=== PATIENT | male | born 1975 | race Caucasian/White ===

== ENCOUNTER 2016-05-18 17:39 | Inpatient (IN) | payer BC ==
[~2016-05-18] VITALS: Ht 188 cm; Wt 150.9 kg
[2016-05-18] MEDS ORDERED: SODIUM CHLORIDE 0.9% 1000ML 500 ML IV STA (18:24)
[2016-05-18] MEDS ORDERED: SODIUM CHLORIDE 0.9% 1000ML 1,000 ML IV STA (18:24)
[2016-05-18] MEDS ORDERED: PANTOprazole INJ 80 MG in DEXTROSE 5% 100ML IV ONE (18:45)
[2016-05-18] MEDS ORDERED: OPTIRAY 320 IV PRN (18:45)
[2016-05-18 18:49] LABS: BASO % 0.2 %; BASO ABS # 0.02 K/uL (0-0.2); COMPLETE YES; EOS % 0.7 %; HEMATOCRIT 26.2 % (42-52); IG% 0.2 %; LYMPH % 21.8 %; LYMPH ABS # 2.76 K/uL (1.2-3.4); MEAN CELL VOLUME 80.4 fL (80-100); MEAN CORPUSCULAR HEMOGLOBIN 27.6 pg (25-34); MEAN CORPUSCULAR HGB CONC 34.4 g/dl (32-36); MEAN PLATELET VOLUME 10.8 fL (7.4-10.4); MONO % 8.7 %; NEUT % 68.4 %; PLATELET COUNT 287 K/uL (130-400); RED BLOOD COUNT 3.26 M/uL (4.7-6.1); WHITE BLOOD COUNT 12.66 K/uL (4.8-10.8)
[2016-05-18 18:54] LABS: PARTIAL THROMBOPLASTIN RATIO 0.8
[2016-05-18] MEDS ORDERED: PANTOprazole INJ 40 MG in DEXTROSE 5% 100ML IV SCH (19:00)
[2016-05-18 19:10] LABS: BUN/CREATININE RATIO 25.4 (10-20); CREATININE 0.8 mg/dl (0.60-1.40); POTASSIUM 4.1 mmol/L (3.5-5.1)
--- NOTE | 2016-05-18 19:21 | EMERGENCY ROOM VISIT NOTE ---
History Report prepared by Griselda: Dejah Rees Under the Supervision of: Dr. Norman Blackwell M.D. First contact with patient: 18:15 Chief Complaint: REFERRED BY DOCTOR Stated Complaint: DEHYDRATION, BLOODY DIARRHEA History of Present Illness The patient is a 41 year old male who presents to the Emergency Room with complaints of worsening bloody diarrhea with onset two days ago. Four days ago, the patient started to feel achy and weak. The patient had been taking ibuprofen several days earlier due to knee pain. Starting two days ago, the patient began to notice some blood in his stool. Along with the blood in his stool, the patient states that he feels as if his heart rate increases and he feels short of breath when he completes light physical activities, such as walking. He feels fatigued. He notes that he has not been eating. This afternoon , the patient has had increased frequency in the episodes of bloody stools. The patient notes that the stool is purple in color. For these symptoms, the patient saw his PCP today. The patient's hemoglobin has dropped and he has an elevated white count. The patient denies abdominal pain, feeling light headed or dizzy, taking blood thinners, recent contact with people who have C difficile. Source of History: patient Onset: two days ago Position: abdomen Quality: other (bloody diarrhea) Timing: worsening Associated Symptoms: + SOB, + fatigue, No abdominal pain Note: He denies feeling light headed or dizzy. The patient notes that he has had some right eye disturbance as well, seeing a hazy shadow, which he believes is due to dehydration. Along with the blood in his stool, the patient states that feels as if his heart rate increases and he feels short of breath when he completes light physical activities, such as walking. Review of Systems See HPI for pertinent positives & negatives. A total of 10 systems reviewed and were otherwise negative. Past Medical & Surgical Medical Problems: (1) Chronic venous insufficiency (2) Seasonal allergies Family History Cancer Diabetes mellitus Hypertension Social History Smoking Status: Never Smoker Marital Status: Housing Status: lives with family Occupation Status: employed Current/Historical Medications No Active Prescriptions or Reported Meds Allergies Coded Allergies: Clavulanic Acid (Unverified Allergy, Mild, 03/25/09) Penicillins (Unverified Allergy, Mild, 05/18/16) Physical Exam Vital Signs Date Time Temp Pulse Resp B/P Pulse Ox O2 Delivery O2 Flow Rate FiO2 05/18/16 22:06 99 18 151/75 97 Room Air 05/18/16 19:46 93 17 142/72 100 Room Air 05/18/16 19:14 102 05/18/16 17:49 36.7 118 20 124/68 98 Room Air Physical Exam GENERAL: Patient is in no acute distress. HEENT: No acute trauma, normocephalic atraumatic, mucous membranes moist, no nasal congestion, no scleral icterus. NECK: No stridor, no adenopathy, no meningismus, trachea is midline. LUNGS: Clear to auscultation bilaterally, no wheeze, no rhonchi, breath sounds equal. HEART: Tachycardic with a subtle systolic murmur, rhythm is regular. ABDOMEN: Soft, nontender, bowel sounds positive, no peritonitis. EXTREMITIES: No cyanosis or edema, full range of motion of all the joints without pain or difficulty, no signs for acute trauma. NEUROLOGIC: Oriented x 3, no acute motor or sensory deficits, no focal weakness. SKIN: No rash, no jaundice, no diaphoresis. Medical Decision & Procedures ER Provider Diagnostic Interpretation: CT results as stated below per my review and radiologist interpretation: CT ABD/PELVIS IV AND ORAL CONT CLINICAL HISTORY: Abdominal pain. Bloody stools. COMPARISON STUDY: 12/03/2014 TECHNIQUE: Following the IV administration of 115 mL of Optiray-320, CT scan of the abdomen and pelvis was performed from the lung bases to the proximal femurs. Images are reviewed in the axial, sagittal, and coronal planes. The IV "lobe part" during injection, and there is diminished contrast enhancement. CT DOSE: 2407.63 mGy.cm FINDINGS: Lower chest: The heart is normal in size and configuration, without pericardial effusion. The lung bases and pleural spaces are clear. Liver: The contrast-enhanced liver is normal in size, contour, and attenuation. There is no intrahepatic biliary ductal dilatation. The hepatic veins and portal veins are patent. Gallbladder: Unremarkable. Spleen: Normal in size and attenuation. Pancreas: Unremarkable. Adrenal glands: Unremarkable. Kidneys: There is a 12 mm right renal hypodensity, likely representing a cyst. There is no hydronephrosis. Bowel: There are no transition zones indicate bowel obstruction. The appendix appears normal. There is no acute diverticulitis. There is a large ventral hernia containing portions of ileum and colon. There are no current obstructive changes. Peritoneum: There is no intraperitoneal free air or abdominal ascites. There is small fat-containing left inguinal hernia. Vasculature: The abdominal aorta is normal in course and caliber. Adenopathy: None. Pelvic viscera: The bladder, and pelvic viscera are unremarkable. Skeletal structures: No destructive osseous lesions are seen. IMPRESSION: 1. No evidence of bowel obstruction. No evidence of free air 2. Large ventral hernia containing portions of ileum and colon. No current evidence of obstruction 3. Normal appendix Electronically signed by: Selvin Brown M.D. 05/18/2016 9:19 PM Dictated Date/Time: 05/18/2016 9:11 PM Laboratory Results 05/18/16 18:21 Red Blood Count 3.26, Mean Corpuscular Volume 80.4, Mean Corpuscular Hemoglobin 27.6, Mean Corpuscular Hemoglobin Concent 34.4, Mean Platelet Volume 10.8, Neutrophils (%) (Auto) 68.4, Lymphocytes (%) (Auto) 21.8, Monocytes (%) (Auto) 8.7, Eosinophils (%) (Auto) 0.7, Basophils (%) (Auto) 0.2, Neutrophils # (Auto) 8.67, Lymphocytes # (Auto) 2.76, Monocytes # (Auto) 1.10, Eosinophils # (Auto) 0.09, Basophils # (Auto) 0.02 05/18/16 18:21 Test 05/18/16 18:21 White Blood Count 12.66 K/uL (4.8-10.8) Red Blood Count 3.26 M/uL (4.7-6.1) Hemoglobin 9.0 g/dL (14.0-18.0) Hematocrit 26.2 % (42-52) Mean Corpuscular Volume 80.4 fL (80-100) Mean Corpuscular Hemoglobin 27.6 pg (25-34) Mean Corpuscular Hemoglobin Concent 34.4 g/dl (32-36) Platelet Count 287 K/uL (130-400) Mean Platelet Volume 10.8 fL (7.4-10.4) Neutrophils (%) (Auto) 68.4 % Lymphocytes (%) (Auto) 21.8 % Monocytes (%) (Auto) 8.7 % Eosinophils (%) (Auto) 0.7 % Basophils (%) (Auto) 0.2 % Neutrophils # (Auto) 8.67 K/uL (1.4-6.5) Lymphocytes # (Auto) 2.76 K/uL (1.2-3.4) Monocytes # (Auto) 1.10 K/uL (0.11-0.59) Eosinophils # (Auto) 0.09 K/uL (0-0.5) Basophils # (Auto) 0.02 K/uL (0-0.2) RDW Standard Deviation 39.0 fL (36.4-46.3) RDW Coefficient of Variation 13.5 % (11.5-14.5) Immature Granulocyte % (Auto) 0.2 % Immature Granulocyte # (Auto) 0.02 K/uL (0.00-0.02) Prothrombin Time 11.0 SECONDS (9.0-12.0) Prothromb Time International Ratio 1.0 (0.9-1.1) Activated Partial Thromboplast Time 21.5 SECONDS (21.0-31.0) Partial Thromboplastin Ratio 0.8 Anion Gap 10.0 mmol/L (3-11) Est Creatinine Clear Calc Drug Dose 175.2 ml/min Estimated GFR () 126.8 Estimated GFR (Non- 109.4 BUN/Creatinine Ratio 25.4 (10-20) Calcium Level 8.0 mg/dl (8.5-10.1) Total Bilirubin 0.5 mg/dl (0.2-1) Direct Bilirubin 0.1 mg/dl (0-0.2) Aspartate Amino Transf (AST/SGOT) 16 U/L (15-37) Alanine Aminotransferase (ALT/SGPT) 25 U/L (12-78) Alkaline Phosphatase 50 U/L (45-117) Total Protein 6.3 gm/dl (6.4-8.2) Albumin 3.3 gm/dl (3.4-5.0) Laboratory results reviewed by me. Medications Administered Medications (Trade) Dose Ordered Sig/Nakul Route Start Time Stop Time Status Last Admin Dose Admin Sodium Chloride 500 ml @ 999 mls/hr Q31M STAT IV 05/18/16 18:24 05/18/16 18:54 DC 05/18/16 18:59 999 MLS/HR Sodium Chloride 1,000 ml @ 200 mls/hr Q5H STAT IV 05/18/16 18:24 05/18/16 23:23 DC 05/18/16 18:24 200 MLS/HR Pantoprazole Sodium 80 mg/ Dextrose 120 ml @ 480 mls/hr NOW ONCE IV 05/18/16 18:45 05/18/16 18:59 DC 05/18/16 18:59 480 MLS/HR Pantoprazole Sodium/Dextrose (Protonix Inj/D5 100ml) 100 ml @ 20 mls/hr Q5H IV 05/18/16 19:00 05/18/16 23:59 DC 05/18/16 19:42 20 MLS/HR ECG Indication: SOB/dyspnea Rate (beats per minute): 98 Rhythm: sinus rhythm Findings: PAC, no acute ischemic change ED Course 1817: The patient was evaluated in room B9. A complete history and physical exam was performed. 1824: Sodium Chloride 1000 ml @ 200 mls/hr IV, Sodium Chloride 500 ml @ 999 mls/ hr IV 1845: Pantoprazole Sodium 80 mg/ Dextrose 120 ml @ 480 mls/ hr IV 1900: Pantoprazole Sodium 40 mg/ Dextrose 100 ml @ 20 mls/ hr IV 2030: I updated the patient; he is doing well. 2142: Upon reexamination the patient is doing well. I discussed results and treatment plan with the patient. He verbalizes agreement and understanding. The patient will be evaluated for further management. 2148: I discussed the case with Dr. De La Fuente ([facility]) ; he will further evaluate the patient. Medical Decision The patient is a 41 year old male who presents to the ED with complaints of bloody diarrhea. Differential diagnoses considered include: colitis, diverticulitis, bacterial intestinal infection, viral infection, dehydration, electrolyte imbalance, anemia, C difficile colitis, upper or lower GI bleeding. There is a mild leukocytosis which could be consistent with infection or just the stress of the situation. The patient is anemic with a hemoglobin of around 9. Stool testing does show heme-positive stool as per the nursing staff. The stool was maroon in color. Stool cultures are pending. Stool C. difficile was negative. There was no significant electrolyte abnormality, kidney failure or hepatitis. There was no coagulopathy. Abdominal and pelvis CT does not show evidence for diverticulitis or colitis. No acute surgical process. The patient received IV saline, IV Zofran and IV Protonix, he is resting comfortably. The patient requires admission/observation. The source for his bleeding needs to be identified. He may require packed red blood cells if his hemoglobin drops further. His hemoglobin may in fact drop when he is properly hydrated. I did speak with him and with case management. The on-call hospitalist was consulted. Consults Time Called: 2144 Consulting Physician: Dr. De La Fuente ([facility]) Returned Call: 2148 I discussed the case with Dr. De La Fuente ([facility]); he will further evaluate the patient. Impression Primary Impression: GI bleed Additional Impression: Anemia Scribe Attestation The scribe's documentation has been prepared under my direction and personally reviewed by me in its entirety. I confirm that the note above accurately reflects all work, treatment, procedures, and medical decision making performed by me. Departure Information Dispostion Being Evaluated By Hospitalist Prescriptions No Active Prescriptions or Reported Meds Referrals Zaid Walker DO (PCP) Patient Instructions My [facility] Problem Qualifiers
--- NOTE | 2016-05-18 21:21 | DIAGNOSTIC IMAGING REPORT ---
CT ABD/PELVIS IV AND ORAL CONT CLINICAL HISTORY: Abdominal pain. Bloody stools. COMPARISON STUDY: 12/03/2014 TECHNIQUE: Following the IV administration of 115 mL of Optiray-320, CT scan of the abdomen and pelvis was performed from the lung bases to the proximal femurs. Images are reviewed in the axial, sagittal, and coronal planes. The IV "lobe part" during injection, and there is diminished contrast enhancement. CT DOSE: 2407.63 mGy.cm FINDINGS: Lower chest: The heart is normal in size and configuration, without pericardial effusion. The lung bases and pleural spaces are clear. Liver: The contrast-enhanced liver is normal in size, contour, and attenuation. There is no intrahepatic biliary ductal dilatation. The hepatic veins and portal veins are patent. Gallbladder: Unremarkable. Spleen: Normal in size and attenuation. Pancreas: Unremarkable. Adrenal glands: Unremarkable. Kidneys: There is a 12 mm right renal hypodensity, likely representing a cyst. There is no hydronephrosis. Bowel: There are no transition zones indicate bowel obstruction. The appendix appears normal. There is no acute diverticulitis. There is a large ventral hernia containing portions of ileum and colon. There are no current obstructive changes. Peritoneum: There is no intraperitoneal free air or abdominal ascites. There is small fat-containing left inguinal hernia. Vasculature: The abdominal aorta is normal in course and caliber. Adenopathy: None. Pelvic viscera: The bladder, and pelvic viscera are unremarkable. Skeletal structures: No destructive osseous lesions are seen. IMPRESSION: 1. No evidence of bowel obstruction. No evidence of free air 2. Large ventral hernia containing portions of ileum and colon. No current evidence of obstruction 3. Normal appendix Electronically signed by: Selvin Brown M.D. 05/18/2016 9:19 PM Dictated Date/Time: 05/18/2016 9:11 PM
[2016-05-18] MEDS ORDERED: ACETAMINOPHEN 325 MG TAB PO PRN (22:15)
[2016-05-18] MEDS ORDERED: ONDANSETRON INJ 2 MG/ML 2 ML VIAL IV PRN (22:15)
[2016-05-18] MEDS ORDERED: ACETAMINOPHEN IV 100 ML IV PRN (22:15)
[2016-05-18] MEDS ORDERED: ZOLPIDEM TARTRATE 5 MG TAB PO PRN (22:15)
[2016-05-18] MEDS ORDERED: NSS + 20MEQ KCL 1000ML 1,000 ML IV SCH (23:00)
[2016-05-18 23:04] VITALS: BP 139/77; PULSE 103; TEMP 37.3; O2SAT 98; Ht 188 cm; Wt 150.9 kg
[2016-05-18 23:09] LABS: HEMATOCRIT 23.2 % (42-52)
--- NOTE | 2016-05-18 23:45 | History and Physical ---
History & Physical Date & Time of Service: May 18, 2016 at 23:45 Chief Complaint: Anemia, Gi Bleed Primary Care Physician: Zaid Walker DO History of Present Illness Source: patient The patient is a 41-year-old male who presents to the emergency department with complaint of worsening bloody diarrhea that began about 2 days prior to arrival. He reports that 4 days ago he began to feel achy and weak, and prior to that had been taking ibuprofen for several days due to knee pain. Today the patient began to have lightheadedness, and palpitations when doing light physical activity, has felt progressively more fatigued. Patient notes that his stools purple color. He saw his PCP today, who advised to come to emergency department for assessment. Past Medical/Surgical History Medical Problems: (1) Chronic venous insufficiency Status: Chronic (2) Seasonal allergies Status: Chronic Family History Cancer Diabetes mellitus Hypertension Social History Smoking Status: Never Smoker Smokeless Tobacco Use: No Alcohol Use: none Drug Use: none Marital Status: Housing status: lives with family Occupational Status: employed Multi-Drug Resistant Organisms History of MDRO: No Allergies Coded Allergies: Clavulanic Acid (Unverified Allergy, Mild, 03/25/09) Penicillins (Unverified Allergy, Mild, 05/18/16) Home Medications No Active Prescriptions or Reported Meds Review of Systems The patient denies chest pain, cough, lower extremity swelling, vision change, hearing change, sore throat, fevers, chills, sweats, weight change, vomiting, abdominal pain, pelvic pain, blood in urine or stool, dysuria, urinary frequency or urgency, headache, memory loss, rash, imbalance, focal weakness, numbness or tingling in arms or legs, arthralgias or myalgias, back or neck pain , night sweats, or allergy symptoms. The review of systems is otherwise negative other than for that already noted above, and at least 10 systems have been reviewed. Physical Exam Vital Signs Date Time Temp Pulse Resp B/P Pulse Ox O2 Delivery O2 Flow Rate FiO2 05/18/16 23:04 37.3 103 18 139/77 98 Room Air 05/18/16 22:06 99 18 151/75 97 Room Air 05/18/16 19:46 93 17 142/72 100 Room Air 05/18/16 19:14 102 05/18/16 17:49 36.7 118 20 124/68 98 Room Air The patient is awake, well-developed and adequately nourished, alert and oriented 3, normocephalic and atraumatic, lying in bed and in no acute distress. HEENT--PERRL, EOMI, mucous membranes and oropharynx moist. Neck--supple, no JVD or bruits, thyroid normal, trachea midline, no adenopathy. Heart--normal S1 and S2, no extra beats, no murmurs, rubs or gallops. Lungs--clear bilaterally with good air movement, no respiratory distress, no accessory muscle use. Abdomen--normal bowel sounds and soft, nontender and nondistended, non- reducible ventral hernia. Extremities--no cyanosis, clubbing or edema. There are good distal pulses b/l. Dermatologic--normal skin turgor, normal color, warm and dry, no abnormal lymph nodes, no rash. Neurologic--cranial nerves II through XII grossly intact, motor and sensory examination normal. Rheumatologic--normal range of motion, nontender, muscles and joints. Psychiatric--normal affect. Diagnostics Laboratory Results Results Past 24 Hours Test 05/18/16 18:21 05/18/16 23:00 Range/Units White Blood Count 12.66 4.8-10.8 K/uL Red Blood Count 3.26 4.7-6.1 M/uL Hemoglobin 9.0 8.0 14.0-18.0 g/dL Hematocrit 26.2 23.2 42-52 % Mean Corpuscular Volume 80.4 80-100 fL Mean Corpuscular Hemoglobin 27.6 25-34 pg Mean Corpuscular Hemoglobin Concent 34.4 32-36 g/dl Platelet Count 287 130-400 K/uL Mean Platelet Volume 10.8 7.4-10.4 fL Neutrophils (%) (Auto) 68.4 % Lymphocytes (%) (Auto) 21.8 % Monocytes (%) (Auto) 8.7 % Eosinophils (%) (Auto) 0.7 % Basophils (%) (Auto) 0.2 % Neutrophils # (Auto) 8.67 1.4-6.5 K/uL Lymphocytes # (Auto) 2.76 1.2-3.4 K/uL Monocytes # (Auto) 1.10 0.11-0.59 K/uL Eosinophils # (Auto) 0.09 0-0.5 K/uL Basophils # (Auto) 0.02 0-0.2 K/uL RDW Standard Deviation 39.0 36.4-46.3 fL RDW Coefficient of Variation 13.5 11.5-14.5 % Immature Granulocyte % (Auto) 0.2 % Immature Granulocyte # (Auto) 0.02 0.00-0.02 K/uL Prothrombin Time 11.0 9.0-12.0 SECONDS Prothromb Time International Ratio 1.0 0.9-1.1 Activated Partial Thromboplast Time 21.5 21.0-31.0 SECONDS Partial Thromboplastin Ratio 0.8 Sodium Level 136 136-145 mmol/L Potassium Level 4.1 3.5-5.1 mmol/L Chloride Level 101 98-107 mmol/L Carbon Dioxide Level 25 21-32 mmol/L Anion Gap 10.0 3-11 mmol/L Blood Urea Nitrogen 20 7-18 mg/dl Creatinine 0.80 0.60-1.40 mg/dl Est Creatinine Clear Calc Drug Dose 175.2 ml/min Estimated GFR () 126.8 Estimated GFR (Non- 109.4 BUN/Creatinine Ratio 25.4 10-20 Random Glucose 142 70-99 mg/dl Calcium Level 8.0 8.5-10.1 mg/dl Total Bilirubin 0.5 0.2-1 mg/dl Direct Bilirubin 0.1 0-0.2 mg/dl Aspartate Amino Transf (AST/SGOT) 16 15-37 U/L Alanine Aminotransferase (ALT/SGPT) 25 12-78 U/L Alkaline Phosphatase 50 45-117 U/L Total Protein 6.3 6.4-8.2 gm/dl Albumin 3.3 3.4-5.0 gm/dl Microbiology Results 05/18/16 Shiga Toxin Test, Received Pending 05/18/16 Stool Culture, Received Pending 05/18/16 C.difficile Toxin B Gene (PCR) - Final, Complete No C. difficile toxin B gene detected Diagnostic Radiology Patient Name: MICKY LEWIS Unit Number: [id number] Dictated: 05/18/162110 Transcribed: 05/18/162110 ARG Printed Date/Time: [~ rep prt dt]/[~ rep prt tm] [~ rep ct labl] - [~ rep ct ivnm] [facility] [place] [address] Dictated: 05/18/162110 Transcribed: 05/18/162110 ARG Printed Date/Time: [~ rep prt dt]/[~ rep prt tm] [~ rep ct labl] - [~ rep ct ivnm] [~ rep ct add3]] CT ABD/PELVIS IV AND ORAL CONT CLINICAL HISTORY: Abdominal pain. Bloody stools. COMPARISON STUDY: 12/03/2014 TECHNIQUE: Following the IV administration of 115 mL of Optiray-320, CT scan of the abdomen and pelvis was performed from the lung bases to the proximal femurs. Images are reviewed in the axial, sagittal, and coronal planes. The IV "lobe part" during injection, and there is diminished contrast enhancement. CT DOSE: 2407.63 mGy.cm FINDINGS: Lower chest: The heart is normal in size and configuration, without pericardial effusion. The lung bases and pleural spaces are clear. Liver: The contrast-enhanced liver is normal in size, contour, and attenuation. There is no intrahepatic biliary ductal dilatation. The hepatic veins and portal veins are patent. Gallbladder: Unremarkable. Spleen: Normal in size and attenuation. Pancreas: Unremarkable. Adrenal glands: Unremarkable. Kidneys: There is a 12 mm right renal hypodensity, likely representing a cyst. There is no hydronephrosis. Bowel: There are no transition zones indicate bowel obstruction. The appendix appears normal. There is no acute diverticulitis. There is a large ventral hernia containing portions of ileum and colon. There are no current obstructive changes. Peritoneum: There is no intraperitoneal free air or abdominal ascites. There is small fat-containing left inguinal hernia. Vasculature: The abdominal aorta is normal in course and caliber. Adenopathy: None. Pelvic viscera: The bladder, and pelvic viscera are unremarkable. Skeletal structures: No destructive osseous lesions are seen. IMPRESSION: 1. No evidence of bowel obstruction. No evidence of free air 2. Large ventral hernia containing portions of ileum and colon. No current evidence of obstruction 3. Normal appendix Electronically signed by: Selvin Brown M.D. 05/18/2016 9:19 PM Dictated Date/Time: 05/18/2016 9:11 PM The status of this report is Signed. Draft = Not yet reviewed or approved by Radiologist. Signed = Reviewed and approved by Radiologist. <AttendingPhy></AttendingPhy> <FamilyPhy>Zaid Walker, DO</FamilyPhy> < PrimaryPhy>Zaid Walker, DO</PrimaryPhy> <UnitNumber>[id number]</ UnitNumber> <VisitNumber>[id number]</VisitNumber> <PatientName>MICKY LEWIS</PatientName> <DateOfBirth>1975</DateOfBirth> <Location>[facility]</ Location> <ServiceDate>05/18/16</ServiceDate> <MNE>ESINDI</MNE> <OrderingPhy> Norman Blackwell M.D.</OrderingPhy> <OrderingPhyMNE>f rep ord dr stephen</ OrderingPhyMNE> <DictatingPhyMNE>f rep dict dr stephen</DictatingPhyMNE> <CCListMNE> f rep ct zafar</CCListMNE> <AdmittingPhyMNE>f pt admit dr stephen</AdmittingPhyMNE> < AttendingPhyMNE>f pt attend dr stephen</AttendingPhyMNE> <ConsultingPhyMNE>f pt consult dr stephen</ConsultingPhyMNE> <FamilyPhyMNE>f pt fam dr stephen</FamilyPhyMNE> <OtherPhyMNE>f pt other dr stephen</OtherPhyMNE> < PrimaryPhyMNE>f pt prim care dr stephen</PrimaryPhyMNE> <ReferringPhyMNE>f pt referring dr stephen</ReferringPhyMNE> EKG EKG shows normal sinus rhythm at 98 bpm, PACs, no acute ST-T changes. Impression Assessment and Plan Upper GI bleed secondary to NSAIDs causing symptomatic anemia--the patient will be admitted to the telemetry unit. Will check H&H every 6 hours. Keep nothing by mouth. Place on Protonix bolus and drip. Normal saline potassium chloride 20 mEq at 100 mils per hour. Consult Neurology for EGD. Avoid all NSAID use. Zofran 4 mg IV every 6 hours when necessary. Morphine sulfate 2-4 mg IV every 2 hours when necessary. Level of Care Telemetry Advanced Directives Existing Advance Directive: No Existing Living Will: No Existing Power of Automobile Mechanic Supervisor: No Resuscitation Status FULL RESUSCITATION VTE Prophylaxis VTE Risk Assessment Done? Y/N: Yes Risk Level: Low Given or contraindicated: SCD's Social Service Consult None Apply
[2016-05-19] VITALS (10 sets, daily range): BP systolic 109–144; BP diastolic 47–80; PULSE 84–95; TEMP 37–37.5; O2SAT 94–100
[2016-05-19] MEDS: PANTOprazole INJ 40 MG in DEXTROSE 5% 100ML IV SCH ×2 (00:53→05:46)
[2016-05-19 05:10] LABS: BASO % 0.2 %; BASO ABS # 0.02 K/uL (0-0.2); EOS % 1.9 %; HEMATOCRIT 21.7 % (42-52); IG% 0.4 %; LYMPH % 26.2 %; LYMPH ABS # 2.12 K/uL (1.2-3.4); MEAN CELL VOLUME 80.7 fL (80-100); MEAN CORPUSCULAR HEMOGLOBIN 27.9 pg (25-34); MEAN CORPUSCULAR HGB CONC 34.6 g/dl (32-36); MONO % 8.8 %; NEUT % 62.5 %; PLATELET COUNT 164 K/uL (130-400); RED BLOOD COUNT 2.69 M/uL (4.7-6.1)
[2016-05-19 05:21] LABS: INR 1.1 (0.9-1.1); PARTIAL THROMBOPLASTIN RATIO 0.8; PROTHROMBIN TIME (PATIENT) 11.3 SECONDS (9.0-12.0)
[2016-05-19 05:35] LABS: COMPLETE YES
[2016-05-19 05:41] LABS: BUN/CREATININE RATIO 22.9 (10-20); CALCIUM 7.2 mg/dl (8.5-10.1); CREATININE 0.73 mg/dl (0.60-1.40); MAGNESIUM 1.9 mg/dl (1.8-2.4); POTASSIUM 3.8 mmol/L (3.5-5.1)
--- NOTE | 2016-05-19 08:19 | Gastrointestinal Consultation ---
Gastrointestinal Consultation Date of Consultation: May 19, 2016 Attending Physician: Dr. De La Fuente Consulting Physician: Dr. Tony Ortega Reason for Consultation: Hematochezia History of Present Illness Patient is a 41 year old male presents to the ER with over 3 days of hematochezia and dark stools. He notes having taken several days of high dose NSAIDS at home for back discomfort followed by several days of a vague epigastric pain. He denies having fever, chills, sweats or recent travel. the patient has had 1 prior EGD for evaluation of dysphagia during which time he was found to have PUD (2001). There is no family history of IBD, colon cancer, stomach cancer or esophageal cancer. His surgical history is notable for repair of a ventral hernia in the past (now recurrent) for which he is seeking repair in [place]. Past Medical/Surgical History Medical Problems: (1) Anemia Status: Acute (2) GI bleed Status: Acute Family History Cancer Diabetes mellitus Hypertension Social History Smoking Status: Never Smoker Drug Use: none Marital Status: Housing Status: lives with family Occupation Status: employed Allergies Coded Allergies: Clavulanic Acid (Unverified Allergy, Mild, 03/25/09) Penicillins (Unverified Allergy, Mild, 05/18/16) Current Medications Home Meds and Scripts Medications Dose Route/Sig Max Daily Dose Days Date Category No Active Prescriptions or Reported Medications Rx Review of Systems Constitutional: No chills, No fever, No weight loss Eyes: No redness, No worsening of vision Respiratory: No cough, No dyspnea at rest, No shortness of breath Cardiac: No PND, No chest pain, No palpitations Abdomen: + dark urine, No acolic stools, No diarrhea, No dysphagia, No nausea, No pain, No vomiting Musculoskeletal: + see HPI, No calf pain, No joint pain, No swelling Male : No dysuria, No incontinence Neuro: No memory loss, No numbness/tingling Psych: No anxiety, No depression symptoms Heme: + see HPI, No abnormal bleeding/bruising, No night sweats Skin: No jaundice, No rash Physical Exam Date Time Temp Pulse Resp B/P Pulse Ox O2 Delivery O2 Flow Rate FiO2 05/19/16 04:00 96 Room Air 05/19/16 03:41 37.3 90 18 114/47 96 Room Air 05/19/16 03:41 37.3 90 18 114/47 96 05/19/16 02:17 37.1 84 18 109/50 98 05/19/16 01:47 37.1 92 16 110/69 98 05/19/16 01:28 37.5 89 16 133/59 94 05/18/16 23:04 37.3 103 18 139/77 98 Room Air 05/18/16 22:06 99 18 151/75 97 Room Air 05/18/16 19:46 93 17 142/72 100 Room Air 05/18/16 19:14 102 05/18/16 17:49 36.7 118 20 124/68 98 Room Air General Appearance: no apparent distress Eyes: PERRL Neck: no adenopathy, no JVD Respiratory/Chest: lungs clear, normal breath sounds Cardiovascular: regular rate, rhythm, no edema, no JVD Abdomen: non tender, soft Neurologic/Psych: oriented x 3 Skin: no jaundice Laboratory Results Last 24 Hours Test 05/18/16 18:21 05/18/16 23:00 05/19/16 04:55 White Blood Count 12.66 K/uL 8.10 K/uL Red Blood Count 3.26 M/uL 2.69 M/uL Hemoglobin 9.0 g/dL 8.0 g/dL 7.5 g/dL Hematocrit 26.2 % 23.2 % 21.7 % Mean Corpuscular Volume 80.4 fL 80.7 fL Mean Corpuscular Hemoglobin 27.6 pg 27.9 pg Mean Corpuscular Hemoglobin Concent 34.4 g/dl 34.6 g/dl Platelet Count 287 K/uL 164 K/uL Mean Platelet Volume 10.8 fL 10.0 fL Neutrophils (%) (Auto) 68.4 % 62.5 % Lymphocytes (%) (Auto) 21.8 % 26.2 % Monocytes (%) (Auto) 8.7 % 8.8 % Eosinophils (%) (Auto) 0.7 % 1.9 % Basophils (%) (Auto) 0.2 % 0.2 % Neutrophils # (Auto) 8.67 K/uL 5.07 K/uL Lymphocytes # (Auto) 2.76 K/uL 2.12 K/uL Monocytes # (Auto) 1.10 K/uL 0.71 K/uL Eosinophils # (Auto) 0.09 K/uL 0.15 K/uL Basophils # (Auto) 0.02 K/uL 0.02 K/uL RDW Standard Deviation 39.0 fL 40.8 fL RDW Coefficient of Variation 13.5 % 14.1 % Immature Granulocyte % (Auto) 0.2 % 0.4 % Immature Granulocyte # (Auto) 0.02 K/uL 0.03 K/uL Prothrombin Time 11.0 SECONDS 11.3 SECONDS Prothromb Time International Ratio 1.0 1.1 Activated Partial Thromboplast Time 21.5 SECONDS 21.9 SECONDS Partial Thromboplastin Ratio 0.8 0.8 Sodium Level 136 mmol/L 140 mmol/L Potassium Level 4.1 mmol/L 3.8 mmol/L Chloride Level 101 mmol/L 105 mmol/L Carbon Dioxide Level 25 mmol/L 30 mmol/L Anion Gap 10.0 mmol/L 5.0 mmol/L Blood Urea Nitrogen 20 mg/dl 17 mg/dl Creatinine 0.80 mg/dl 0.73 mg/dl Est Creatinine Clear Calc Drug Dose 175.2 ml/min 202.5 ml/min Estimated GFR () 126.8 131.7 Estimated GFR (Non- 109.4 113.6 BUN/Creatinine Ratio 25.4 22.9 Random Glucose 142 mg/dl 118 mg/dl Calcium Level 8.0 mg/dl 7.2 mg/dl Total Bilirubin 0.5 mg/dl 0.5 mg/dl Direct Bilirubin 0.1 mg/dl 0.2 mg/dl Aspartate Amino Transf (AST/SGOT) 16 U/L 10 U/L Alanine Aminotransferase (ALT/SGPT) 25 U/L 21 U/L Alkaline Phosphatase 50 U/L 38 U/L Total Protein 6.3 gm/dl 5.2 gm/dl Albumin 3.3 gm/dl 2.6 gm/dl Red Blood Cell Morphology Unremarkable Magnesium Level 1.9 mg/dl Impression Patient is a 41 year old male with symptoms suggestive of upper GI bleeding. will plan for an EGD today. Plan EGD today NPO Protonix 80 mg bolus + drip No NSAIDS
[2016-05-19] MEDS ORDERED: PROPOFOL IV EMULSION 10 MG/ML 20 ML VIAL IV ONE (08:48)
[2016-05-19] MEDS ORDERED: LIDOCAINE HCL 2% 2 ML VIAL (20MG/ML) ONE (08:48)
[2016-05-19] MEDS ORDERED: KETAMINE HCL INJ 50 MG/ML 10 ML VIAL ONE (08:49)
[2016-05-19] MEDS ORDERED: SODIUM CHLORIDE 0.9% INJ 10 ML VIAL ONE (08:49)
--- NOTE | 2016-05-19 09:22 | GI REPORT ---
Procedure Date: 05/19/2016 8:44 AM Procedure: Upper GI endoscopy Indications: Suspected upper gastrointestinal bleeding Medicines: Monitored Anesthesia Care Complications: No immediate complications. Estimated blood loss: Minimal. Estimated Blood Loss: Estimated blood loss was minimal. Procedure: Pre-Anesthesia Assessment: - Prior to the procedure, a History and Physical was performed, and patient medications, allergies and sensitivities were reviewed. The patient's tolerance of previous anesthesia was reviewed. - The risks and benefits of the procedure and the sedation options and risks were discussed with the patient. All questions were answered and informed consent was obtained. - Patient identification and proposed procedure were verified prior to the procedure by the physician, the nurse and the squeak rattle and leak repairer. The procedure was verified in the procedure room. - Pre-procedure physical examination revealed no contraindications to sedation. - ASA Grade Assessment: III - A patient with severe systemic disease. - After reviewing the risks and benefits, the patient was deemed in satisfactory condition to undergo the procedure. - The anesthesia plan was to use monitored anesthesia care (MAC). - Immediately prior to administration of medications, the patient was re-assessed for adequacy to receive sedatives. - The heart rate, respiratory rate, oxygen saturations, blood pressure, adequacy of pulmonary ventilation, and response to care were monitored throughout the procedure. - The physical status of the patient was re-assessed after the procedure. After obtaining informed consent, the endoscope was passed under direct vision. Throughout the procedure, the patient's blood pressure, pulse, and oxygen saturations were monitored continuously. The Scope was introduced through the mouth, and advanced to the third part of duodenum. The upper GI endoscopy was accomplished without difficulty. The patient tolerated the procedure well. Findings: The examined esophagus was normal. A small amount of red blood was found in the stomach. No ulcers, masses, or AVMS were noted One oozing cratered duodenal ulcer with oozing hemorrhage (Maxim Class Ib) was found in the posterior duodenal bulb (likely a GDA distribution) . The lesion was 6-8 mm in largest dimension. The area was injected with 4 mL of a 1:10,000 solution of epinephrine for hemostasis. The coagulation for hemostasis using 7 Fr Silver probe was performed, despite several tries the oozing persistented. The 2nd part of the duodenum and 3rd part of the duodenum were normal. Impression: - Normal esophagus. - Red blood in the stomach. - One oozing duodenal ulcer with oozing hemorrhage (Maxim Class Ib). NSAID induced etiology. Despite endoscopic treatment oozzing persistented suggestive of a GDA distribution. - Normal 2nd part of the duodenum and 3rd part of the duodenum.. Recommendation: - [facility]. - Give Protonix (pantoprazole): initiate therapy with 80 mg IV bolus, then 8 mg/hr IV by continuous infusion. - would suggest a referral to a tertiary center with IR. Tony Ortega D.O. Tony Ortega, 05/19/2016 9:21:28 AM This report has been signed electronically. Note Initiated On: 05/19/2016 8:44 AM I attest to the content of the Intraoperative Record and orders documented therein, exceptions below
--- NOTE | 2016-05-19 09:23 | [facility] Post Operative Brief Note ---
Immediate Operative Summary Operative Date May 19, 2016. Pre-Operative Diagnosis Suspected upper gastrointestinal bleed Post-Operative Diagnosis Bleeding peptic ulcer Procedure(s) Performed Esophagogastroduodenoscopy Surgeon Dr. Tony Ortega Payable Representative Surgeon(s) None Estimated Blood Loss None Findings Duodenal ulcer with active bleeding Specimens None, as per surgeon Anesthesia MAC Complication(s) None Disposition Recovery Room / PACU
[2016-05-19] MEDS ORDERED: ONDANSETRON INJ 2 MG/ML 2 ML VIAL IV PRN (09:30)
[2016-05-19] MEDS ORDERED: FENTANYL CITRATE INJ 50 MCG/1 ML 2 ML VIAL IV PRN (09:30)
[2016-05-19] MEDS ORDERED: PROMETHAZINE HCL INJ 6.25 MG in SODIUM CHLORIDE 0.9% 50ML 50 ML IV PRN (09:30)
[2016-05-19] MEDS ORDERED: ATROPINE SULFATE 0.1 MG/ML 5ML SYR IV PRN (09:30)
[2016-05-19] MEDS ORDERED: EpHEDrine SULFATE INJ 50 MG/ML AMP IV PRN (09:30)
--- NOTE | 2016-05-19 09:58 | Anesthesiology Progress Note ---
Anesthesia Post Op Note Date & Time May 19, 2016 at 09:56 Vital Signs Pain Intensity: 4 Vital Signs Past 12 Hours Date Time Temp Pulse Resp B/P Pulse Ox O2 Delivery O2 Flow Rate FiO2 05/19/16 09:53 37.1 95 18 144/80 100 2.0 05/19/16 09:45 90 18 135/80 100 Nasal Cannula 2 05/19/16 09:35 37.1 88 16 132/71 100 Nasal Cannula 2 05/19/16 09:33 37.1 92 16 138/77 100 2.0 05/19/16 09:25 95 16 120/72 100 Nasal Cannula 2 05/19/16 09:16 36.8 96 16 124/57 100 Nasal Cannula 2 05/19/16 04:00 96 Room Air 05/19/16 03:41 37.3 90 18 114/47 96 Room Air 05/19/16 03:41 37.3 90 18 114/47 96 05/19/16 02:17 37.1 84 18 109/50 98 05/19/16 01:47 37.1 92 16 110/69 98 05/19/16 01:28 37.5 89 16 133/59 94 05/18/16 23:04 37.3 103 18 139/77 98 Room Air 05/18/16 22:06 99 18 151/75 97 Room Air Notes Mental Status: alert / awake / arousable, participated in evaluation Pt Amnestic to Procedure: Yes Nausea / Vomiting: adequately controlled Pain: adequately controlled Airway Patency, RR, SpO2: stable & adequate BP & HR: stable & adequate Hydration State: stable & adequate Anesthetic Complications: no major complications apparent Patient had bleeding from duodenal ulcer and ectopy on ecg. he denies any chest pain and is hemodynamically stable. still given the continued bleeding and ectopy with Hb<8, I have started transfusion of 2u rbc. Dr Ortega plans to transfer the patient for IR embolization of gasstroduodenal artery, and at the time the patient has adequate IV access should he have continued bleeding. I have notified the hospitalist of the condition and plans for this patient and he will assume care of the patient in the MICU until transfer.
--- NOTE | 2016-05-19 10:40 | Discharge Instructions ---
Discharge Instructions Date of Service May 19, 2016. Admission Reason for Admission: Anemia, Gi Bleed Discharge Discharge Diagnosis / Problem: Acute blood loss anemia, GI bleed Discharge Goals Goal(s): Decrease discomfort, Improve function, Increase independence, Improve disease control, Learn about illness, Diagnostic testing, Therapeutic intervention, Prevent Disease Progression Activity Recommendations Activity Limitations: resume your previous activity Exercise/Sports Limitations: none Shower/Bathe: no limitations . Instructions / Follow-Up Instructions / Follow-Up Patient to be transferred to [facility] by ground with ACLS Transfuse PRBC on route Continue protonix drip at this time Patient will be transferred to Dr Mejia service upon arrival to [facility] Current Hospital Diet Patient's current hospital diet: Discharge Diet Recommended Diet: N/A (NPO) Procedures Procedures Performed: Esophagogastroduodenoscopy Pending Studies Studies pending at discharge: no Medical Emergencies . Who to Call and When: Medical Emergencies: If at any time you feel your situation is an emergency, please call 911 immediately. . Non-Emergent Contact Non-Emergency issues call your: Primary Care Provider Call Non-Emergent contact if: your pain is worsening . . "Provider Documentation" section prepared by Luc Puentes. VTE Core Measure Inpt VTE Proph given/why not?: SCD's
[2016-05-19 10:45] LABS: HEMATOCRIT 20.6 % (42-52)
--- NOTE | 2016-05-19 12:25 | Discharge Summary ---
Discharge Summary Date of Service May 19, 2016. Discharge Summary Admission Date: May 18, 2016 at 22:06 Discharge Date: May 19, 2016 Discharge Disposition: Home Principal Diagnosis: Acute blood loss anemia, GIB, duodenal ulcer Procedures: EGD Consultations: GI Medication Reconciliation Medication Profile: No Active Prescriptions or Reported Meds Discharge Exam Review of Systems: Constitutional: No chills, No fever Respiratory: No cough, No dyspnea on exertion, No shortness of breath, No sputum Cardiovascular: No chest pain, No orthopnea Abdomen: + GI bleeding, No constipation, No nausea, No pain Musculoskeletal: No joint pain, No muscle pain Genitourinary - Male: No dysuria, No hematuria, No urinary frequency Neurologic: No paralysis, No weakness Physical Exam: General Appearance: WD/WN, no apparent distress Eyes: PERRL, EOMI Neck: supple, no adenopathy Respiratory/Chest: lungs clear, normal breath sounds Cardiovascular: no edema, no gallop Abdomen / GI: non tender, soft Neurologic/Psychiatric: alert, normal mood/affect, oriented x 3 Hospital Course Upper GI bleed secondary to NSAIDs causing symptomatic anemia--the patient was admitted to the MICU. Initial Hg was 9 with no prior hx to compare to. Pt was placed on protonix drip and received 1 unit PRBCS overnight EGD in AM revealed One oozing cratered duodenal ulcer with oozing hemorrhage ( Maxim Class Ib) was found in the posterior duodenal bulb (likely a GDA distribution). The lesion was 6-8 mm in largest dimension. The area was injected with 4 mL of a 1:10,000 solution of epinephrine for hemostasis. The coagulation for hemostasis using 7 Fr Silver probe was performed , despite several tries the oozing persisted. Pt transferred back to MICU, VSS. 2 additional units PBCs ordered as repeat HH 8 --> 7.5 -->7.1. Pt will likely need interventional Radiology. Pt transferred to [facility] to service of Dr Mejia. Total Time Spent: Greater than 30 minutes This includes examination of the patient, discharge planning, medication reconciliation, and communication with other providers. Discharge Instructions Please refer to the electronic Patient Visit Report (Discharge Instructions) for additional information. Additional Copies To Zaid Walker DO
--- NOTE | 2016-05-19 12:55 | Progress Note ---
Progress Note Date of Service May 19, 2016. Progress Note The patient underwent upper endoscopy this morning. He was found to have a duodenal ulcer with persistent bleeding despite endoscopic measures. Based on this is suspect he is bleeding from the gastroduodenal artery. Recommendations Referral to a tertiary center for interventional radiology. If unable to refer to a tertiary center would then recommend general surgery consultation
== END 2016-05-19 11:25 | disposition short-term general hospital (02) | DRG 378 ==
LOC: ENRESERVTM → ENRESERVDT → C.EDB 17:40 → C.2E 22:06
PROVIDERS: ADMIT Hospitalist; ATTEND Hospitalist
PROC: 0W3P8ZZ Control Bleeding in Gastrointestinal Tract, Via Natural or Artificial Opening Endoscopic (ICD-10-PCS; principal; 2016-05-19 09:00)
DX: K26.4 Chronic or unspecified duodenal ulcer with hemorrhage (principal); D62 Acute posthemorrhagic anemia; K92.1 Melena; T39.395A Adverse effect of other nonsteroidal anti-inflammatory drugs [NSAID], initial encounter; Z87.11 Personal history of peptic ulcer disease; Z98.890 Other specified postprocedural states; Z83.3 Family history of diabetes mellitus; Z82.49 Family history of ischemic heart disease and other diseases of the circulatory system; R19.7 Diarrhea, unspecified

== ENCOUNTER → 2016-05-18 | Outpatient (CLI) | payer BC ==
--- NOTE | 2016-05-18 11:59 | DIAGNOSTIC IMAGING REPORT ---
PA CHEST RADIOGRAPH AND UPRIGHT AND SUPINE AP RADIOGRAPHS OF THE ABDOMEN CLINICAL HISTORY: Diarrhea. Blood in stools. COMPARISON STUDY: CT of the abdomen and pelvis December 03, 2014. FINDINGS: Lung volumes are normal. Lungs are clear. There is no pneumothorax or pleural effusion. Cardiac size is normal. Mediastinal contours are normal. There is no free air. The bowel gas pattern is normal. Oval-shaped radiodensities projecting over the abdomen could reflect ingested tablets or surgical material. IMPRESSION: 1. No free air or evidence of bowel obstruction. 2. No acute cardiopulmonary findings. Electronically signed by: Abhilash Ingram M.D. 05/18/2016 11:58 AM Dictated Date/Time: 05/18/2016 11:56 AM
[2016-05-18 12:09] LABS: BASO % 0.1 %; BASO ABS # 0.02 K/uL (0-0.2); COMPLETE YES; EOS % 0.4 %; HEMATOCRIT 28.3 % (42-52); IG% 0.3 %; LYMPH % 16.3 %; LYMPH ABS # 2.33 K/uL (1.2-3.4); MEAN CELL VOLUME 80.4 fL (80-100); MEAN CORPUSCULAR HEMOGLOBIN 27.3 pg (25-34); MEAN CORPUSCULAR HGB CONC 33.9 g/dl (32-36); MEAN PLATELET VOLUME 11.3 fL (7.4-10.4); MONO % 6.4 %; NEUT % 76.5 %; PLATELET COUNT 291 K/uL (130-400); RED BLOOD COUNT 3.52 M/uL (4.7-6.1)
[2016-05-18 12:26] LABS: ALKALINE PHOSPHATASE 48 U/L (45-117); ALT/SGPT 28 U/L (12-78); AST/SGOT 20 U/L (15-37); BLOOD UREA NITROGEN 23 mg/dl (7-18); BUN/CREATININE RATIO 25.6 (10-20); CALCIUM 7.9 mg/dl (8.5-10.1); CARBON DIOXIDE 26 mmol/L (21-32); CHLORIDE 103 mmol/L (98-107); CREATININE 0.91 mg/dl (0.60-1.40); GLUCOSE 166 mg/dl (70-99); POTASSIUM 4.6 mmol/L (3.5-5.1); SODIUM 136 mmol/L (136-145)
[2016-05-18 12:27] LABS: ALB/GLOB RATIO 1.1 (0.9-2)
== END | disposition home or self-care (01) ==
LOC: C.LAB 10:59
PROVIDERS: ATTEND Family Medicine
DX: R19.7 Diarrhea, unspecified (principal)

== ENCOUNTER → 2016-05-25 | Outpatient (CLI) | payer BC ==
[2016-05-25 10:32] LABS: HEMATOCRIT 29.6 % (42-52); MEAN CELL VOLUME 82.7 fL (80-100); MEAN CORPUSCULAR HEMOGLOBIN 26.8 pg (25-34); MEAN CORPUSCULAR HGB CONC 32.4 g/dl (32-36); MEAN PLATELET VOLUME 10.1 fL (7.4-10.4); PLATELET COUNT 320 K/uL (130-400); RED BLOOD COUNT 3.58 M/uL (4.7-6.1); WHITE BLOOD COUNT 6.65 K/uL (4.8-10.8)
[2016-05-25 11:02] LABS: BLOOD UREA NITROGEN 12 mg/dl (7-18); CALCIUM 8.1 mg/dl (8.5-10.1); CARBON DIOXIDE 27 mmol/L (21-32); CHLORIDE 105 mmol/L (98-107); CREATININE 0.77 mg/dl (0.60-1.40); GLUCOSE 99 mg/dl (70-99); POTASSIUM 4.1 mmol/L (3.5-5.1); SODIUM 140 mmol/L (136-145)
--- NOTE | 2016-06-08 08:27 | CODING QUERY NO DIAGNOSIS ---
TREATMENT RENDERED WITHOUT A DIAGNOSIS To promote full compliance with coding requirements relating to patient care, physician participation is requested in all cases of broach setter uncertainty. Please assist us with providing a diagnosis/symptom for the test(s) below: A diagnosis/symptom was not documented on your Order. A valid diagnosis/symptom is required to bill all insurances. Please remember that we are unable to code a diagnosis of rule out, probable, possible, questionable, or suspected. Tests that require a diagnosis: DOS 05/25 * CBC, PRP DIAGNOSIS: Provider Signature: Date: Thank you [facility] Once completed, please kindly fax back to [phone] For questions please call [phone]
== END | disposition home or self-care (01) ==
LOC: C.LAB 09:22
PROVIDERS: ATTEND Physician Assistant
DX: D72.829 Elevated white blood cell count, unspecified (principal)

== ENCOUNTER → 2016-05-29 | Outpatient (CLI) | payer BC ==
[2016-05-29 14:47] LABS: BASO % 0.3 %; BASO ABS # 0.02 K/uL (0-0.2); COMPLETE YES; EOS % 2.9 %; HEMATOCRIT 29.7 % (42-52); IG% 0.1 %; LYMPH % 23.6 %; MEAN CELL VOLUME 80.7 fL (80-100); MEAN CORPUSCULAR HEMOGLOBIN 25.8 pg (25-34); MEAN PLATELET VOLUME 9.8 fL (7.4-10.4); MONO % 11.8 %; NEUT % 61.3 %; PLATELET COUNT 373 K/uL (130-400); RED BLOOD COUNT 3.68 M/uL (4.7-6.1); WHITE BLOOD COUNT 7.21 K/uL (4.8-10.8)
== END | disposition home or self-care (01) ==
LOC: C.LAB 12:38
PROVIDERS: ATTEND Family Medicine
DX: D64.9 Anemia, unspecified (principal)

== ENCOUNTER → 2016-06-08 | Outpatient (CLI) | payer BC ==
[2016-06-08 10:46] LABS: BASO % 0.3 %; BASO ABS # 0.02 K/uL (0-0.2); COMPLETE YES; EOS % 2.9 %; HEMATOCRIT 32.3 % (42-52); IG% 0.1 %; LYMPH % 22.9 %; MEAN CELL VOLUME 79.8 fL (80-100); MEAN PLATELET VOLUME 10.2 fL (7.4-10.4); MONO % 9.7 %; NEUT % 64.1 %; PLATELET COUNT 326 K/uL (130-400); RED BLOOD COUNT 4.05 M/uL (4.7-6.1); WHITE BLOOD COUNT 6.98 K/uL (4.8-10.8)
== END | disposition home or self-care (01) ==
LOC: C.LAB 09:47
PROVIDERS: ATTEND Family Medicine
DX: D64.9 Anemia, unspecified (principal)

== ENCOUNTER → 2016-06-20 | Outpatient (CLI) | payer BC | END | disposition home or self-care (01) | LOC: C.LAB 10:57 | PROVIDERS: ATTEND Internal Medicine Cardiovascular Disease | DX: I49.3 Ventricular premature depolarization (principal) ==

== ENCOUNTER → 2016-07-10 | Outpatient (CLI) | payer BC ==
[2016-07-10 15:55] LABS: HEMATOCRIT 35.5 % (42-52)
== END | disposition home or self-care (01) ==
LOC: C.LAB 15:14
PROVIDERS: ATTEND Physician Assistant Medical
DX: I49.3 Ventricular premature depolarization (principal)

== ENCOUNTER → 2016-09-21 | Outpatient (CLI) | payer BC ==
[2016-09-21 12:15] LABS: BASO % 0.2 %; BASO ABS # 0.01 K/uL (0-0.2); HEMATOCRIT 39.4 % (42-52); IG% 0.2 %; LYMPH % 27.1 %; LYMPH ABS # 1.71 K/uL (1.2-3.4); MEAN CELL VOLUME 71.2 fL (80-100); MEAN CORPUSCULAR HEMOGLOBIN 22.1 pg (25-34); MONO % 9.2 %; NEUT % 60.3 %; PLATELET COUNT 236 K/uL (130-400); RED BLOOD COUNT 5.53 M/uL (4.7-6.1)
[2016-09-21 12:44] LABS: COMPLETE YES; MICROCYTOSIS PRESENT
== END | disposition home or self-care (01) ==
LOC: C.LAB 09:53
PROVIDERS: ATTEND Physician Assistant Medical
DX: D50.9 Iron deficiency anemia, unspecified (principal)

== ENCOUNTER → 2016-11-15 | Outpatient (CLI) | payer BC | END | disposition home or self-care (01) | LOC: C.LAB 16:22 | PROVIDERS: ATTEND Nurse Practitioner Family | DX: Z87.19 Personal history of other diseases of the digestive system (principal) ==

== ENCOUNTER → 2016-11-20 | Outpatient (CLI) | payer BC ==
[2016-11-20 16:34] LABS: BASO % 0.2 %; BASO ABS # 0.02 K/uL (0-0.2); COMPLETE YES; EOS % 2.9 %; HEMATOCRIT 40.9 % (42-52); IG% 0.2 %; LYMPH % 28.2 %; LYMPH ABS # 2.37 K/uL (1.2-3.4); MEAN CELL VOLUME 76.3 fL (80-100); MEAN CORPUSCULAR HGB CONC 32.8 g/dl (32-36); MEAN PLATELET VOLUME 10.3 fL (7.4-10.4); MONO % 8.7 %; NEUT % 59.8 %; PLATELET COUNT 249 K/uL (130-400); RED BLOOD COUNT 5.36 M/uL (4.7-6.1); WHITE BLOOD COUNT 8.39 K/uL (4.8-10.8)
[2016-11-20 17:03] LABS: TOTAL IRON BINDING CAPACITY 442 mcg/dl (250-450)
== END | disposition home or self-care (01) ==
LOC: C.LAB 16:07
PROVIDERS: ATTEND Physician Assistant Medical
DX: D50.9 Iron deficiency anemia, unspecified (principal)

== ENCOUNTER → 2017-01-02 | Outpatient (CLI) | payer BC ==
[2017-01-02 14:36] LABS: BASO % 0.2 %; BASO ABS # 0.02 K/uL (0-0.2); COMPLETE YES; EOS % 2.9 %; HEMATOCRIT 40.7 % (42-52); IG% 0.2 %; LYMPH % 25.3 %; LYMPH ABS # 2.07 K/uL (1.2-3.4); MEAN CELL VOLUME 79.6 fL (80-100); MEAN CORPUSCULAR HEMOGLOBIN 26.6 pg (25-34); MEAN CORPUSCULAR HGB CONC 33.4 g/dl (32-36); MEAN PLATELET VOLUME 10.9 fL (7.4-10.4); NEUT % 63.4 %; PLATELET COUNT 209 K/uL (130-400); RED BLOOD COUNT 5.11 M/uL (4.7-6.1); WHITE BLOOD COUNT 8.17 K/uL (4.8-10.8)
[2017-01-02 15:08] LABS: FERRITIN 18.8 ng/ml (8.0-388.0)
== END | disposition home or self-care (01) ==
LOC: C.LAB 14:09
PROVIDERS: ATTEND Physician Assistant Medical
DX: D50.9 Iron deficiency anemia, unspecified (principal)

== ENCOUNTER 2020-06-23 09:53 | Inpatient (IN) ==
--- NOTE | 2020-06-17 09:24 | Anesthesiology Consultation ---
Date of Service June 17, 2020 Assessment & Plan (1) Encounter for pre-operative examination: COVID screening: Per assessment on 06/15: Travel screen negative, no known COVID-19 positive contacts or current COVID-19 related symptoms. Surgeon arranged preop COVID testing (done 06/16 at [facility])- result was negative. Chart Review Chart Review: Acceptable Risk for Surgery (pending preop EKG) and Patient NOT s een in Pre Admission Testing History Surgery Operation Date: 06/23/20 12:15 Proposed Procedures p Panniculectomy with Component Separation, Explant of Infected Mesh, - Ben Zhong DO s Open Recurrent Ventral Hernia Repair with Mesh - Ben Zhong DO Height/Weight Height: 6 ft 2 in Weight: 142.882 kg Allergies Allergy/AdvReac Type Severity Reaction Status Date / Time clavulanic acid Allergy Mild Rash Verified 06/15/20 13:50 NSAIDS (Non-Steroidal AdvReac Mild Gastrointestinal Verified 06/15/20 13:50 Anti-Inflamma Upset Medications Home Medications Medication Instructions Recorded Confirmed Last Taken loratadine 10 mg tablet 10 mg PO DAILY PRN 02/08/20 06/15/20 Unknown ciclopirox 8 % topical solution 1 applic TOPICAL DAILY 28 Days 03/16/20 06/15/20 Unknown #6.6 ml sulfamethoxazole 800 See Rx Instructions .ROUTE 05/30/20 06/15/20 Unknown mg-trimethoprim 160 mg tablet .COMPLEX #56 tab levocarnitine [L-Carnitine] 500 mg PO HS 06/15/20 06/15/20 Unknown magnesium 500 mg PO HS 06/15/20 06/15/20 Unknown pantoprazole 20 mg PO QAM 06/15/20 06/15/20 Unknown phentermine 37.5 mg PO QAM 06/15/20 06/15/20 Unknown Past Medical History Medical History Arthritis Chronic venous insufficiency GERD (gastroesophageal reflux disease) History of GI bleed 2017 Morbid obesity with BMI of 40.0-44.9, adult Seasonal allergies Past Family History Family History Mother Diabetes Cancer Grandfather Heart disease Other No family history of adverse response to anesthesia Past Surgical History Surgical History H/O vasectomy H/O wisdom tooth extraction History of esophagogastroduodenoscopy (EGD) History of tooth extraction S/P hernia repair 2006 Social History Smoking Status: Never smoker Do You Dip or Chew Tobacco: No Hx Alcohol Use: Yes Alcohol type: beer alcohol intake frequency: holidays/special occasions only Hx Substance Use: No substance use type: does not use Lab Results Anesthesia Preop Results Results Anesthesia Widget: WBC 6.66 K/uL (4.8-10.8) 06/16/20 Hgb 14.3 g/dL (14.0-18.0) 06/16/20 Hct 41.9 % (42-52) L 06/16/20 Plt 254 K/uL (130-400) 06/16/20 Na 137 mmol/L (136-145) 06/16/20 K 4.2 mmol/L (3.5-5.1) 06/16/20 Cl 106 mmol/L (98-107) 06/16/20 CO2 26 mmol/L (21-32) 06/16/20 BUN 21 mg/dl (7-18) H 06/16/20 Creat 0.89 mg/dl (0.6-1.4) 06/16/20 Glucose Level 113 mg/dl (70-99) H 06/16/20
[~2020-06-23 09:53] MED LIST: CLINDAMYCIN IV SCH; DEXTROSE 5% IV SCH; LR 15ML/HR IV SCH
[2020-06-23] MEDS ORDERED: MIDAZOLAM HCL 1 MG/ML 2ML VIAL ONE (10:04)
[2020-06-23] MEDS ORDERED: fentaNYL citrate 100 MCG/2 ML VIAL ONE ×2 (10:04→12:27)
[2020-06-23] MEDS ORDERED: HYDROmorphone INJ 1 MG/ML SYRINGE IV PRN (11:01)
[2020-06-23] MEDS ORDERED: fentaNYL citrate 100 MCG/2 ML VIAL IV PRN (11:01)
[2020-06-23] MEDS ORDERED: ePHEDrine sulfate 50 MG/ML AMP IV PRN (11:01)
[2020-06-23] MEDS ORDERED: ONDANSETRON INJ 2 MG/ML 2 ML VIAL IV PRN (11:01)
[2020-06-23] MEDS ORDERED: ATROPINE SULFATE 0.1 MG/ML 10ML SYR IV PRN (11:01)
[2020-06-23] MEDS ORDERED: BUPIVACAINE/EPINEPHRINE 0.5% MPF 1:200,000 30 ML VIAL ONE (11:21)
--- NOTE | 2020-06-23 11:24 | History & Physical Bridge Note ---
Date of Service June 23, 2020 History & Physical Bridge Note I have examined the patient, reviewed the History & Physical and in the interval since the performance of the History & Physical I have noted the following changes of clinical significance: no changes noted rediscussed todays plan with him and his . discussed in some detail the panniculectomy portion of the procedure and the associated risks including wound dehiscence, seroma/hematoma/losing his umbilicus/dog ears/poor cosmetic result etc.... will proceed today with panniculectomy, explant of infected mesh, repair of recurrent hernia, component separation.
[2020-06-23] MEDS ORDERED: ACETAMINOPHEN 1000 MG/100 ML IV IV ONE (12:15)
[2020-06-23] MEDS ORDERED: HYDROmorphone INJ 2 MG/ML SYR/VIAL ONE (12:27)
[2020-06-23] MEDS ORDERED: LIDOCAINE 2% 2 ML VIAL/AMP(20MG/ML) INFIL ONE (12:32)
[2020-06-23] MEDS ORDERED: GLYCOPYRROLATE 0.2 MG/ML VIAL ONE (12:32)
[2020-06-23] MEDS ORDERED: LARYING-O-JET KIT (LTA) ONE (12:32)
[2020-06-23] MEDS ORDERED: DEXAMETHASONE SOD INJ 4 MG/ML VIAL ONE (12:32)
[2020-06-23] MEDS ORDERED: ROCURONIUM BROMIDE 10 MG/ML 5 ML VIAL IV ONE ×5 (12:32→15:19)
[2020-06-23] MEDS ORDERED: PROPOFOL IV EMULSION 10 MG/ML 20 ML VIAL IV ONE (12:32)
[2020-06-23] MEDS ORDERED: ONDANSETRON INJ 2 MG/ML 2 ML VIAL ONE (12:32)
[2020-06-23] MEDS ORDERED: NEOSTIGMINE METHYLSULFATE 5 MG/5 ML SYR ONE (12:32)
[2020-06-23] MEDS ORDERED: ARISTA ABSORBABLE HEMOSTAT 3GM TOP ONE (12:36)
[2020-06-23] MEDS ORDERED: TISSEEL FIBRIN SEALANT 10ML TOP ONE (12:36)
--- NOTE | 2020-06-23 16:30 | Post Operative Brief Note ---
[facility] Immediate Post Op with CF Date of Surgery June 23, 2020 Pre & Post Diagnosis Operation Date: 06/23/20 11:15 Pre-Op Diagnosis: Recurrent Ventral Hernia, infected mesh, cutaneous fistula Post-Op Diagnosis: Recurrent Ventral Hernia, infected mesh, enterocutaneous fistula, adhesions I identified the patient and participated in the time-out.: Yes Procedure Operation Date: 06/23/20 11:15 Actual Procedures p Panniculectomy with Component Separation, Explant of Infected Mesh,(Not Applicable) - Ben Zhong DO s Open Recurrent Ventral Hernia Repair with Mesh(Not Applicable) ; takedown of enterocutaneous fistula, enterolysis- Ben Zhong DO Surgeon Ben Zhong DO Plumbing Mechanic gabrielle Hernandez Estimated Blood Loss 350 Findings Consistent with Post-Op Diagnosis Specimens Specimen Description: A. Abdominal pannus. Left room at 1454 with OR aide. Drains Stacy Catheter and Willis-Tran Drain (x 2.)
--- NOTE | 2020-06-23 16:55 | Anesthesiology Progress Note ---
Date of Service June 23, 2020 Anesthesia Post Procedure Vital Signs Vital Signs: Temp Pulse Pulse Resp BP Pulse Ox 06/23/20 16:45 73 13 157/87 H 100 06/23/20 16:35 71 14 160/78 H 100 06/23/20 16:25 58 L 8 L 161/84 H 100 06/23/20 16:18 36.1 C L 60 14 144/82 H 100 06/23/20 10:21 36.6 C 74 20 143/85 H 97 Transfer of Care Handoff Completed per policy Notes Mental Status: alert / awake / arousable Patient Amnestic to Procedure: Yes Nausea / Vomiting: adequately controlled Pain: adequately controlled Airway Patency, RR, SpO2: stable & adequate BP & HR: stable & adequate Hydration State: stable & adequate Anesthetic Complications: no major complications apparent
--- NOTE | 2020-06-23 17:30 | Operative Report ---
PG Post Operative Report Pre & Post Diagnosis Operation Date: 06/23/20 11:15 Pre-Op Diagnosis: Recurrent Ventral Hernia, infected mesh Post-Op Diagnosis: Recurrent Ventral Hernia, enterocutaneous fistula, adhesions, infected mesh I identified the patient and participated in the time-out.: Yes Procedure Operation Date: 06/23/20 11:15 Actual Procedures p Panniculectomy with Component Separation, Explant of Infected Mesh,(Not Applicable) - Ben Zhong DO s Open Recurrent Ventral Hernia Repair with Biologic Mesh(Not Applicable) ; takedown of enterocutaneous fistula; enterolysis; partial omentectomy- Ben Zhong DO Surgeon Ben Zhong DO Medical Social Worker gabrielle Hernandez Estimated Blood Loss 350 Findings Consistent with Post-Op Diagnosis Specimens pannus; prior mesh; portion of omentum Drains TALISHA x 2 Description of Procedure After informed consent was obtained the patient was taken to the operating room and placed in supine position. After successful intubation a Stacy catheter was placed and the abdomen was sterilely prepped and draped in usual fashion. I began with a 10 blade scalpel and made a hip to hip incision along his infra abdominal fold. Traction countertraction and cautery was used to start to create a superior flap. We carried this down to the anterior fascia and then superiorly and laterally. Throughout the case we would use cautery, stick ties, and clamp cut and tie technique to control different size perforating vessels as well as subcutaneous vessels. The dissection became tedious as we got close to the umbilicus. We encountered a large recurrent ventral hernia with a large hernia sac. Within the sac was a portion of the omentum as well as small and large bowel. We were able to eventually delineate the edges of the defect and opened the hernia sac. We continued to use traction countertraction and Metzenbaum scissors to take down adhesions on the undersurface of the fascia. The omentum itself appeared slightly infarcted. We therefore resected this using clamp cut and tie technique. We also noted that on the undersurface of the prior mesh a portion of the transverse colon was adhesed. This appeared to be a fistulous tract and may well have been the source of the infected mesh. I had to sharply take down this fistulous tract to release it from the prior mesh. This intentionally caused about a 1 cm opening in the transverse colon. There was no spillage. I reapproximated the enterotomy using 3-0 Monocryl for a serosal/mucosal running layer followed by 3-0 silk in Lembert fashion to close over top of it. Once this was done we were then able to completely reduce the bowel and we completely excised the hernia sac. Next we removed the prior mesh which was an underlay. I did have to take a portion of the abdominal muscle and fascia to safely remove it. It was removed in 1 piece. This left a rather large recurrent hernia defect. Using cautery we freed up the abdominal musculature and performed a component separation on both sides the rectus muscle from the oblique muscles. Again we performed this fascial release on both sides of the defect. Once this was accomplished we were able to primarily close the defect using #2 Ethibond in simple interrupted fashion. Next we amputated the pannus again using a 10 blade scalpel and cautery. We weighed the pannus and it weighed approximately 12 pounds. Next we thoroughly irrigated all the raw surfaces. I used a 20 x 20 cm piece of biologic ovitex resorbable mesh. It was secured to underlying fascia using 0 Ethibond in simple interrupted fashion. There was good overlay in all directions. We performed 1 final irrigation. I then covered all the raw surfaces using Tisseel sealant. I also covered all the raw surfaces using Steve. These were used to help prevent seroma and hematoma formation. Once these materials were dried we placed 2 #10 flat Willis-Tran drains both from the suprapubic region and angled them laterally. Next we closed the large defect. We used 0 Vicryl in simple interrupted fashion for the deep layers 2-0 Vicryl for the mid layers and 3-0 Monocryl in a running fashion for the skin. The drains were sewn in using 2-0 nylon. Dermabond strips were used for the incision. It was also covered with gauze ABD pads and tape followed by an abdominal binder. My physician assistant pastry chef was present for the entire case. He was instrumental in retraction throughout my dissection as well as assisting with repair of the hernia and wound closure. I attest to the content of the Intraoperative Record and any orders documented therein. Any exceptions are noted below.
[2020-06-23] MEDS ORDERED: NALOXONE HCL 0.4 MG/1 ML VIAL/CARP IV PRN (17:49)
[2020-06-23] MEDS ORDERED: LORATADINE 10 MG TAB PO PRN (17:49)
[2020-06-23] MEDS ORDERED: CLINDAMYCIN 600 MG in DEXTROSE 5% 50 ML IV SCH (17:49)
[2020-06-23] MEDS: LACTATED RINGER'S 1,000 ML IV SCH (19:30)
[2020-06-23] MEDS: FLUCONAZOLE 100 MG/50 ML BAG IV SCH (19:39)
[2020-06-23] MEDS: HYDROmorphone PCA 30 MG/30 ML IV PRN (19:47)
[2020-06-23] MEDS: SODIUM CHLORIDE 0.9% 1000ML 1,000 ML IV SCH (20:05)
[2020-06-23] MEDS: ACETAMINOPHEN 1,000 MG/100 ML VIAL IV SCH (20:07)
[2020-06-23] MEDS: CLINDAMYCIN 600 MG in DEXTROSE 5% 50 ML IV SCH (21:25)
[2020-06-24] MEDS: LACTATED RINGER'S 1,000 ML IV SCH ×3 (03:52→20:33)
[2020-06-24] MEDS: ACETAMINOPHEN 1,000 MG/100 ML VIAL IV SCH ×3 (05:33→21:21)
[2020-06-24] MEDS: CLINDAMYCIN 600 MG in DEXTROSE 5% 50 ML IV SCH ×3 (05:54→21:57)
--- NOTE | 2020-06-24 07:48 | Surgery Progress Note ---
Date of Service June 24, 2020 Assessment & Plan (1) Infected hernioplasty mesh: POD#1 panniculectomy w/ component separation, explant of infected mesh, open recurrent hernia repair w/ mesh, take down of EC fistula Patient looks well this AM. VSS. WBC 13 Continue ELECTRICAL ENGINEERING DESIGNER and prn Tylenol for pain. Will add prn valium and oxycodone Continue IV abx & diflucan Will remove ames catheter today Okay to advance to clear liquids Keep surgical dressings in place for now. Continue abdominal binder Continue to work on incentive spirometry and out of bed as able today as above. doing as expected POD 1. certainly not ready for d/c. slowly increase activity. anticipate d/c saturday if he does well. clears only today. (2) Recurrent ventral hernia: Admission and Anticipated Discharge Date Admission Date: June 23, 2020 Subjective Patient states he is feeling okay this AM. He does have some expected post operative pain. He is using the ELECTRICAL ENGINEERING DESIGNER prn with some improvement. Working on IS. Denies nausea/vomiting. Physical Exam Physical Exam: awake/alert Constitutional: no acute distress Respiratory: normal respiratory effort Gastrointestinal (Abdomen): Inspection/Auscultation: + abdominal surgical drain present (TALISHA x2) abdominal binder and surgical dressings in place Results & Data ([facility]) Vital Signs (Past 12 Hours) Vital Signs Temp Pulse Resp BP Pulse Ox 06/24/20 03:01 36.4 C L 81 18 131/82 98 06/23/20 23:24 36.5 C 87 16 128/79 96 06/23/20 21:23 36.4 C L 86 20 119/78 92 06/23/20 20:12 36.6 C 79 18 122/75 95 PG Care Time/CCT Total # of Minutes Spent Total Time Spent with Patient: Total time spent is greater than 50% in coordination of care (as documented) at patient's floor/unit and/or counseling patient: Coding Level of Care Code None Diagnoses Infected hernioplasty mesh T85.79XA Recurrent ventral hernia K43.2
[2020-06-24 07:57] LABS: Basophils # (auto) 0.02 K/uL (0-0.2); Basophils % (auto) 0.2 %; Eosinophils # (auto) 0.02 K/uL (0-0.5); Eosinophils % (auto) 0.2 %; Hematocrit (blood only) 35.4 % (42-52); Hemoglobin 11.8 g/dL (14.0-18.0); Immature Granulocytes # (auto) 0.02 K/uL (0.00-0.02); Immature Granulocytes % (auto) 0.2 %; Lymphocytes # (auto) 1.42 K/uL (1.2-3.4); Lymphocytes % (auto) 10.7 %; Mean Corpuscular Hemoglobin 27.9 pg (25-34); Mean Corpuscular Hgb Conc 33.3 g/dL (32-36); Mean Corpuscular Volume 83.7 fL (80-100); Mean Platelet Volume 11.1 fL (7.4-10.4); Monocytes # (auto) 1.33 K/uL (0.11-0.59); Neutrophils # (auto) 10.44 K/uL (1.4-6.5); Neutrophils % (auto) 78.7 %; Platelet Count 318 K/uL (130-400); RDW Coefficient of Variation 13.7 % (11.5-14.5); RDW Standard Deviation 41.6 fL (36.4-46.3); Red Blood Count 4.23 M/uL (4.7-6.1); White Blood Count 13.25 K/uL (4.8-10.8)
[2020-06-24] MEDS: PANTOprazole 40 MG TAB PO SCH (08:26)
[2020-06-24] MEDS ORDERED: oxyCODONE HCL IR 5 MG TAB (IMMEDIATE RELEASE) PO PRN (08:31)
[2020-06-24 08:32] LABS: BUN Creatinine Ratio 10.8 (10-20); Calcium 8.2 mg/dl (8.5-10.1); Est GFR (African American) 120.8; Est GFR (Non-African American) 104.3; Potassium 4.5 mmol/L (3.5-5.1)
[2020-06-24] MEDS: oxyCODONE HCL IR 5 MG TAB (IMMEDIATE RELEASE) PO PRN ×2 (09:28→18:14)
[2020-06-24] MEDS: ENOXAPARIN INJ 40 MG/0.4 ML SYR SQ SCH (14:19)
[2020-06-24] MEDS: FLUCONAZOLE 100 MG/50 ML BAG IV SCH (18:16)
[2020-06-24] MEDS: SODIUM CHLORIDE 0.9% 1000ML 1,000 ML IV SCH (21:20)
--- NOTE | 2020-06-25 00:30 | XRay Report ---
SINGLE VIEW CHEST CLINICAL HISTORY: Hypoxia. FINDINGS: An AP, portable, upright chest radiograph is compared to study dated 05/18/2016. The cardiom ediastinal silhouette is unremarkable. There are low lung volumes with bibasilar atelectasis. No airs pace consolidation or large pleural effusion is identified. No pneumothorax is seen. The bony thorax is grossly intact. IMPRESSION: Low lung volumes with no active disease in the chest. ACT 112: Negative or not required by law. Electronically signed by: Norman Mensah M.D. 06/25/2020 12:29 AM
[2020-06-25] MEDS ORDERED: OPTIRAY 350 500ml IV ONE ×2 (01:14→08:38)
--- NOTE | 2020-06-25 02:28 | Hospitalist Consultation ---
Date of Consultation June 25, 2020 Assessment & Plan (1) Tachycardia: Mr. Eduardo is a 45 yo gentleman who is POD 1 after a recurrent ventral hernia repair and excision of infected mesh who developed new onset tachycardia along with a new oxygen requirement. - tachycardia and new oxygen requirement are concerning for possible pulmonary embolism. - Lack of fever, cough makes PNA unlikely (especially given brief timeframe from surgical intubation) - patient is receiving LR at 125mls/hr, blood pressure is stable - risk factors for clot formation include morbid obesity and recent surgery - Wells score of 6; moderate risk - EKG ordered, showed sinus tachycardia at 112 bpm. - CXR ordered, showing low lung volumes with bibasilar atelectasis; no consolidation - Chest CTA ordered. STAT RAD showing no evidence of pulmonary embolism or pneumothorax. trace bilateral pleural effusions with dependent atelectasis in R lower lung lobe. Final read pending - continue Lovenox, SCDs for DVT prevention - continue incentive spirometry for post-operative atelectasis/PNA prevention. Supplemental O2 as needed to maintain SpO2 > 92 - follow (2) Thyroid nodule: - 3.1 cm right thyroid nodule incidentally on CTA of chest - recommend follow up with US (although this can be done as outpatient) History of Present Illness Attending Physician: Ben Zhong, DO History of Present Illness Mr. Eduardo is a 45 yo gentleman who is POD 1 after a panniculectomy w/ component separation, explant of infected mesh, open recurrent hernia repair w/ mesh, take down of EC fistula. This produce was without complications. Hospitalist team was asked to see patient upon nursing reports of new onset tachycardia (to 120 bpm) and increased oxygen requirement (requiring 5 liters via NC to maintain O2 sat in 90s). Throughout the day, patient had been breathing well on room air and his heart rate was between 70-90 bpm. Patient re ports he does not feel much different - his pain is controlled. He has been using his incentive spirometer. He did receive a dose of prophylactic Lovenox on morning of 06/24/20. No prior history of blood clots. No tobacco use in lifetime. He has no underlying cardiac or pulmonary disease. Allergies Allergy/AdvReac Type Severity Reaction Status Date / Time clavulanic acid Allergy Mild Rash Verified 06/23/20 10:09 NSAIDS (Non-Steroidal AdvReac Mild Gastrointestinal Verified 06/23/20 10:09 Anti-Inflamma Upset Home Medications Medication Instructions Recorded Confirmed Type loratadine 10 mg tablet 10 mg PO DAILY PRN 02/08/20 06/23/20 History ciclopirox 8 % topical solution 1 applic TOPICAL DAILY 28 Days 03/16/20 06/23/20 Rx #6.6 ml sulfamethoxazole 800 See Rx Instructions .ROUTE 05/30/20 06/23/20 Rx mg-trimethoprim 160 mg tablet .COMPLEX #56 tab levocarnitine [L-Carnitine] 500 mg PO HS 06/15/20 06/23/20 History magnesium 500 mg PO HS 06/15/20 06/23/20 History pantoprazole 20 mg PO QAM 06/15/20 06/23/20 History phentermine 37.5 mg PO QAM 06/15/20 06/23/20 History Patient History Medical History (Updated 06/25/20 @ 02:38 by Rin Reyes MD) Arthritis Chronic venous insufficiency GERD (gastroesophageal reflux disease) History of GI bleed 2016 Morbid obesity with BMI of 40.0-44.9, adult Seasonal allergies Surgical History (Updated 06/24/20 @ 16:12 by Sarah Amaya RN) H/O vasectomy H/O wisdom tooth extraction History of esophagogastroduodenoscopy (EGD) History of tooth extraction S/P hernia repair 2006 S/P panniculectomy (06/23/20) Panniculectomy with Component Separation, Explant of Infected Mesh, - Ben Zhong DO Open Recurrent Ventral Hernia Repair with Biologic Mesh; takedown of enterocu taneous fistula; enterolysis; partial omentectomy- Ben Zhong DO Family History Mother Diabetes Cancer Grandfather Heart disease Other No family history of adverse response to anesthesia Social History Smoking Status: Never smoker Second Hand Exposure: No; Do You Dip or Chew Tobacco: No; Tobacco Cessation Education Requested by Patient: No Hx Alcohol Use: Yes Alcohol type: beer Hx Substance Use: No Preferred Language: Latvian Communication Ability: Effective Atmospheric Drier Tender Required: No Beliefs That Will Affect Care: None marital status: Current Living Situation: Spouse and Family Current Living Situation Comment: Lives with and 2 kids current occupational status: employed 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 Other Information That Helps Us Care for You: No Feels Safe at Home: Yes Safety Concerns: Feels Safe At This Time Assistive Devices: Glasses, Oxygen - Continuous and Walker Assistive Devices Comment: reading glasses, at bedside Review of Systems Constitutional: no fever and no chills Respiratory: no cough Cardiovascular: no chest pain Physical Exam Constitutional: well developed, well nourished, cooperative and + diaphoretic; no acute distress Eyes: + anicteric sclerae ENMT: external ear and nose normal, oropharynx normal Neck: normal visual inspection and trachea midline Respiratory: normal respiratory effort, lungs clear to auscultation Cardiovascular: Rate/Rhythm: regular rhythm and + tachycardic Heart Sounds: normal S1 and normal S2 Extremities: no pedal edema SCDs in place. Compression stockings on Gastrointestinal (Abdomen): Inspection/Auscultation: normal bowel sounds abdominal bind in place Skin: no rashes, warm and dry Psychiatric: A+Ox3, euthymic affect Results & Data Results & Data ([facility]) Vital Signs (Past 12 Hours) Vital Signs Temp Pulse Pulse Pulse Resp BP BP 06/24/20 23:11 36.9 C 109 H 18 119/74 06/24/20 21:56 06/24/20 21:12 104 H 18 06/24/20 20:43 110 H 118 H 06/24/20 19:29 109 H 06/24/20 19:28 36.7 C 112 H 20 127/81 06/24/20 15:28 36.5 C 73 16 125/82 Pulse Ox 06/24/20 23:11 93 06/24/20 21:56 91 06/24/20 21:12 90 06/24/20 20:43 94 06/24/20 19:29 95 06/24/20 19:28 92 06/24/20 15:28 98 Resident Activity Tracking Resident Involvement: Resident Care Provided Care Provided: Adult Hospital Medicine
--- NOTE | 2020-06-25 03:51 | Progress Note ---
Date of Service pt develops tachycardia, HR 120, pt had CTA- no significant PE finding, now pt feels better, BP 119/74, HR 100, RR 18, O2 sat 93% on 5L/min, no significant abd ominal pain, pt did not use LOADING MACHINE ADJUSTER at night. no fever, no nausea, no vomiting, no chest pain, June 25, 2020 Assessment & Plan (1) Tachycardia: 06/25/2020 3:52AM S/P p Panniculectomy with Component Separation, Explant of Infected Mesh, Surgeon: Ben Zhong Side: Not Applicable s Open Recurrent Ventral Hernia Repair with Mesh tachycardia, CTA- no significant PE, consult hospitalist, excise lung, keep o2sat > 93 %, will F/U, Present on Admission?: No Admission and Anticipated Discharge Date Admission Date: June 23, 2020 Subjective Patient states he is feeling okay this AM. He does have some expected post operative pain. He is using the LOADING MACHINE ADJUSTER prn with some improvement. Working on IS. Denies nausea/vomiting. Physical Exam Constitutional: WD/WN, vitals as above well developed and well nourished Eyes: PERRL, conjunctivae normal, anicteric sclerae ENMT: external ear and nose normal, oropharynx normal Neck: trachea midline, no thyromegaly Respiratory: normal respiratory effort, lungs clear to auscultation normal respiratory effort Cardiovascular: RRR, no murmur, no edema Rate/Rhythm: regular rate and regular rhythm Gastrointestinal (Abdomen): Percussion/Palpation: abdomen soft mild tenderness, no rebound pain, no distend, BS + Musculoskeletal: no cyanosis or clubbing, extremities motor strength 5/5 Neurologic: awake Psychiatric: Orientation: alert and oriented x 3 Results & Data ([facility]) Vital Signs (Past 12 Hours) Vital Signs Temp Pulse Pulse Pulse Resp BP Pulse Ox 06/24/20 23:11 36.9 C 109 H 18 119/74 93 06/24/20 21:56 91 06/24/20 21:12 104 H 18 90 06/24/20 20:43 110 H 118 H 94 06/24/20 19:29 109 H 95 06/24/20 19:28 36.7 C 112 H 20 127/81 92
[2020-06-25] MEDS: LACTATED RINGER'S 1,000 ML IV SCH (04:01)
[2020-06-25] MEDS: ACETAMINOPHEN 1,000 MG/100 ML VIAL IV SCH ×3 (05:49→21:27)
[2020-06-25] MEDS: CLINDAMYCIN 600 MG in DEXTROSE 5% 50 ML IV SCH ×3 (06:10→21:51)
[2020-06-25 07:06] LABS: Basophils # (auto) 0.02 K/uL (0-0.2); Basophils % (auto) 0.1 %; Eosinophils # (auto) 0.06 K/uL (0-0.5); Eosinophils % (auto) 0.4 %; Hematocrit (blood only) 30.1 % (42-52); Hemoglobin 10.1 g/dL (14.0-18.0); Immature Granulocytes # (auto) 0.04 K/uL (0.00-0.02); Immature Granulocytes % (auto) 0.3 %; Lymphocytes % (auto) 9.4 %; Mean Corpuscular Hgb Conc 33.6 g/dL (32-36); Mean Corpuscular Volume 83.4 fL (80-100); Mean Platelet Volume 10.4 fL (7.4-10.4); Monocytes # (auto) 1.45 K/uL (0.11-0.59); Monocytes % (auto) 10.4 %; Neutrophils # (auto) 11.01 K/uL (1.4-6.5); Neutrophils % (auto) 79.4 %; Platelet Count 271 K/uL (130-400); RDW Coefficient of Variation 13.8 % (11.5-14.5); RDW Standard Deviation 42.4 fL (36.4-46.3); Red Blood Count 3.61 M/uL (4.7-6.1); White Blood Count 13.88 K/uL (4.8-10.8)
[2020-06-25 07:25] LABS: BUN Creatinine Ratio 12.1 (10-20); Creatinine Clr Calc Pharmacy 250.4 ml/min; Est GFR (African American) 143.8; Est GFR (Non-African American) 124.1; Potassium 4.1 mmol/L (3.5-5.1)
[2020-06-25 07:30] LABS: Troponin I 0.034 ng/ml (0-0.045)
[2020-06-25 07:33] LABS: Thyroid Stimulating Hormone 0.085 uIu/ml (0.300-4.500)
[2020-06-25 07:46] LABS: T4 Free Thyroxine 2.27 ng/dl (0.8-1.6)
--- NOTE | 2020-06-25 08:17 | CT Scan Report ---
CT angio chest w con CLINICAL HISTORY: tachycardia, new o2 requirement, post-operative COMPARISON STUDY: Chest radiograph June 25, 2020. TECHNIQUE: Helical axial images of the chest were obtained following intravenous injection 115 cc Opt iray 320 IV. Sagittal and coronal reconstructed reviewed as well as maximal intensity projections on an independent 3-D workstation. Automated exposure control was utilized for the study. A dose loweri ng technique was utilized adhering to the principles of ALARA. FINDINGS: Incidental note is made of a 3.3 cm right lobe thyroid nodule. There is no thoracic aortic dissection. Mild cardiomegaly is noted. No pericardial effusion. There is no pneumothorax. A trace ri ght pleural effusion is noted. Subpleural opacities within lungs favor atelectasis. Lung volumes are diminished. The pulmonary arteries are suboptimally assessed given is suboptimal opacification respir atory motion artifact. Possible right-sided pulmonary emboli are noted, including a segmental branch within the right lower lobe on image 167 of 266 and a segmental branch within the right upper lobe on image 112. These could be artifactual. There is no central pulmonary embolus. Visualized portions of the upper abdomen demonstrate a small amount of perihepatic fluid. There is a small amount of pneumo peritoneum which is postsurgical. Probable hepatic steatosis is noted. IMPRESSION: 1. Suboptimal evaluation for pulmonary emboli, as described above. Possible right-sided pulmonary emb malia, as described above. A repeat PE protocol CT and lower extremity Doppler ultrasound might be cons idered. This finding will be called/faxed to the ordering provider at time of dictation. 2. Trace right pleural effusion. 3. Linear opacities within the lungs consistent with atelectasis. 4. Pneumoperitoneum which is postsurgical. Small amount of perihepatic fluid. ACT 112: Negative or not required by law. Electronically signed by: Abhilash Ingram M.D. 06/25/2020 8:15 AM
[2020-06-25] MEDS: PANTOprazole 40 MG TAB PO SCH (09:18)
[2020-06-25] MEDS: ENOXAPARIN INJ 40 MG/0.4 ML SYR SQ SCH (09:18)
--- NOTE | 2020-06-25 09:24 | Surgery Progress Note ---
Date of Service June 25, 2020 Assessment & Plan (1) Hypoxia: pod 2 ? PE. repeat ct scan with PE protocol being transferred to tele appreciate IM/FP assistance pt still with bloody drain output but risk/benefit would favor anticoagulation if needed pain control adequate. Admission and Anticipated Discharge Date Admission Date: June 23, 2020 Subjective events of last night noted. pt states he was doing fine last night...around 8pm he began to have a little chest pressure and mild SOB. was found to be tachycardic and O2 sats dropped. preliminary CT scan showed no PE but second read said inconclusive and recommended repeat scan with PE protocol. pt's SOB improved on 5L O2. jamaal liquids. abdominal pain manageable. Physical Exam Physical Exam: alert. sitting on edge of bed. appears mildly anxious. heart: reg/tachy abd: dressing in place. c/d/i. TALISHA's both with expected serosanguinous output. Results & Data ([facility]) Vital Signs (Past 12 Hours) Vital Signs Temp Pulse Pulse Resp BP Pulse Ox 06/25/20 07:53 36.5 C 107 H 18 131/76 94 06/25/20 06:14 117 H 92 06/25/20 03:49 37.3 C 113 H 17 148/81 H 93 06/24/20 23:11 36.9 C 109 H 18 119/74 93 06/24/20 21:56 91 PG Care Time/CCT Total # of Minutes Spent Total Time Spent with Patient: Total time spent is greater than 50% in coordination of care (as documented) at patient's floor/unit and/or counseling patient: Coding Level of Care Code None Diagnoses Hypoxia R09.02
--- NOTE | 2020-06-25 09:36 | Hospitalist Progress Note ---
Date of Service June 25, 2020 Assessment & Plan (1) Bilateral pulmonary embolism: Mr. Eduardo is a 45 yo gentleman who is POD 2 after a recurrent ventral hernia repair and excision of infected mesh who developed new onset tachycardia along with a new oxygen requirement with diagnosis of Bilateral Pulmonary Embolism. Bilateral PEs. - tachycardia and new oxygen requirement are concerning for possible pulmonary embolism. - risk factors for clot formation include morbid obesity and recent surgery - Chest CTA ordered. STAT RAD showing no definitive evidence of pulmonary embolism but did not couldn'nt rule out end segment PT, no pneumothorax. trace bilateral pleural effusions with dependent atelectasis in R lower lung lobe. Final read this AM showed questionable right sided PE and recommended repeat CTA and US DVT. - Repeat CTA showed multiple bilateral PEs which confirms PE diagnosis which fits the clinical setting. - Discussed treatment with pharmacy and relayed treatment plan to surgical team. - Will start Weight Based Heparin without Bolus since received Lovenox 40mg SQ this morning for DVT ppx prior to diagnosis. Also post op will monitor TALISHA drain output. - Initial trop was negative, repeat was added for noon prior to recent CTA confirmation of PE diagnosis. Thyroid Nodules with Hyperthyroidism? - Thyroid workup was performed for cause of tachycardia, although not reliable in acute illness, TSH was decreased with an elevated T4, with Thyroid Nodule 3.1cm found on CTA, could be a hot nodule producing hyperthyroidism, which would require different treatment. - Follow tachycardia. Add B kareem if BP stays stable. consider adding methimazole?. DVT ppx: Hep gtt weight based therapeutic treatment for PE. Code: Full Dispo: transferred to [employer] for monitoring FENGI: Clear liquid diet, on home PPI Prontoix 40mg qAM. (2) Tachycardia: (3) Thyroid nodule: - 3.3 cm right thyroid nodule incidentally on CTA of chest - recommend follow up with US (although this can be done as outpatient) TSH 0.085 Free T4 2.27 Admission and Anticipated Discharge Date Admission Date: June 23, 2020 Supervising Physician Co-Signing Physician Notes Resident Physician Supervision Note: I independently interviewed and examined the patient and verified the mancuso history and physical, reviewed labs and image studies and agree with resident Dr Hurtado findings and care plan. Subjective Mr. Eduardo continued to require supplemental O2 5L overnight and also still have tachycardia. CT PA was ordered with questionable PE to right lung with recs for repeat. He notes that he does have RUQ pain but is unsure if this is incision related, it is worse with deep breaths. He denies any chest pain. He denies any prior DVT or PE. Denies leg swelling or pain. No nausea or vomiting or dizziness. Physical Exam Constitutional: + obese and cooperative; no acute distress Eyes: PERRL, conjunctivae normal, anicteric sclerae ENMT: external ear and nose normal, oropharynx normal Neck: trachea midline, no thyromegaly Respiratory: no respiratory distress, no labored breathing and does not use accessory muscles decreased air movement to right posterior base, otherwise lungs clear to auscultation. Cardiovascular: Rate/Rhythm: regular rhythm and + tachycardic (104) Heart Sounds: normal S1 and normal S2 Extremities: no calf tenderness Skin: mild diaphoretic forehead otherwise skin dry and warm Neurologic: moves all extremities and awake; no focal motor deficits and not confused Psychiatric: Orientation: alert and oriented x 3 anxious mood and affect Results & Data Results & Data ([facility]) Vital Signs (Past 12 Hours) Vital Signs Temp Pulse Pulse Resp BP Pulse Ox 06/25/20 07:53 36.5 C 107 H 18 131/76 94 06/25/20 06:14 117 H 92 06/25/20 03:49 37.3 C 113 H 17 148/81 H 93 06/24/20 23:11 36.9 C 109 H 18 119/74 93 06/24/20 21:56 91 Resident Activity Tracking Resident Involvement: Resident Care Provided Care Provided: Adult Hospital Medicine
--- NOTE | 2020-06-25 09:46 | Electrocardiogram Report ---
Test Reason : Blood Pressure : / mmHG Vent. Rate : 106 BPM Atrial Rate : 106 BPM P-R Int : 154 ms QRS Dur : 102 ms QT Int : 344 ms P-R-T Axes : 050 048 027 degrees QTc Int : 456 ms Sinus tachycardia Nonspecific ST and T wave abnormality Abnormal ECG When compared with ECG of 24-JUN-2020 23:58, (unconfirmed) No significant change was found Confirmed by Davonte Thompson ([id number]) on 06/25/2020 9:46:12 AM Referred By: Ben Zhong Confirmed By:Davonte Thompson
--- NOTE | 2020-06-25 11:03 | Ultrasound Report ---
BILATERAL LOWER EXTREMITY VENOUS DOPPLER CLINICAL HISTORY: Possible PE, rule out DVT COMPARISON STUDY: No previous studies for comparison. TECHNIQUE: Sonography of the deep venous system of the bilateral lower extremities was performed. Co mpression and augmentation were evaluated. FINDINGS: The bilateral common femoral, superficial femoral and popliteal veins were compressible. A ugmentation was normal. Flow was shown within the deep calf vessels. IMPRESSION: No evidence of deep venous thrombus within the bilateral lower extremities. ACT 112: Negative or not required by law. Electronically signed by: Abhilash Ingram M.D. 06/25/2020 11:02 AM
--- NOTE | 2020-06-25 11:15 | CT Scan Report ---
CT ANGIOGRAPHY OF THE CHEST, PULMONARY EMBOLUS PROTOCOL CLINICAL HISTORY: S breath. Chest pain. Possible pulmonary embolus on prior chest CT. COMPARISON STUDY: Chest CT June 2020 12:59 AM. TECHNIQUE: Following IV administration of 110 mL of Optiray 350, helical axial images of the chest we re obtained utilizing the pulmonary embolus protocol. Maximal intensity projections and sagittal and coronal reformats were viewed on an independent 3D workstation. IV contrast was administered withou t complication. Automated exposure control was utilized for the study. A dose lowering technique wa s utilized adhering to the principles of ALARA. CT DOSE: 998.88 mGy.cm FINDINGS: Incidental note is made of a 3.1 cm right lobe thyroid nodule. Heart is mildly enlarged. T here is no thoracic aortic dissection. There is no pericardial effusion. Small right pleural effusion is noted. Lung volumes are diminished. Bilateral lower lobe, right middle lobe and lingular opacitie s favor atelectasis. There is no consolidation to suggest pneumonia. Pulmonary arterial opacification is improved on this exam was compared to prior exam. This study is mildly compromised by respiratory motion. Multiple bilateral pulmonary emboli are noted, including an embolus within the segmental bra nch to the anterior segment of the right upper lobe. There is also segmental emboli within the right middle lobe. Numerous additional pulmonary emboli are suspected. There is no CT evidence for right he art strain. Central pulmonary arteries are mildly dilated. Visualized portions of the upper abdomen d emonstrate trace pneumoperitoneum which is postsurgical. Hepatic steatosis is noted. IMPRESSION: 1. Multiple bilateral pulmonary emboli. 2. Trace right pleural effusion. Low lung volumes with bilateral lower lobe, lingular and right middl e lobe opacities suggestive of atelectasis. 3. 3.1 cm right lobe thyroid nodule. Follow-up thyroid ultrasound as an outpatient is recommended. 4. Redemonstration of pneumoperitoneum which is postsurgical. ACT 112: Negative or not required by law. Electronically signed by: Abhilash Ingram M.D. 06/25/2020 11:13 AM
[2020-06-25] MEDS ORDERED: Heparin IV Adult Wt-Based Standard *NO* Bolus Protocol IV SCH (11:32)
[2020-06-25] MEDS: HEPARIN SODIUM/DEXTROSE 25,000 UNITS/500 ML BAG IV SCH (12:05)
[2020-06-25 12:17] LABS: Partial Thromboplastin Ratio 1.1; Partial Thromboplastin Time 28.7 Seconds (21.0-31.0)
--- NOTE | 2020-06-25 15:30 | Electrocardiogram Report ---
Test Reason : Blood Pressure : / mmHG Vent. Rate : 112 BPM Atrial Rate : 112 BPM P-R Int : 154 ms QRS Dur : 096 ms QT Int : 342 ms P-R-T Axes : 058 073 005 degrees QTc Int : 466 ms Sinus tachycardia Low voltage QRS Otherwise normal ECG When compared with ECG of 17-JUN-2020 14:39, Vent. rate has increased BY 45 BPM Inverted T waves have replaced nonspecific T wave abnormality in Inferior leads Confirmed by Davonte Thompson ([id number]) on 06/25/2020 3:29:29 PM Referred By: Ben Zhong Confirmed By:Davonte Thompson
[2020-06-25] MEDS ORDERED: MELATONIN 3 MG TAB PO PRN (16:30)
[2020-06-25] MEDS: FLUCONAZOLE 100 MG/50 ML BAG IV SCH (18:14)
[2020-06-25 18:28] LABS: Partial Thromboplastin Ratio 1.6; Partial Thromboplastin Time 42.2 Seconds (21.0-31.0)
[2020-06-25] MEDS: HYDROmorphone PCA 30 MG/30 ML IV PRN (18:55)
[2020-06-25] MEDS ORDERED: SIMETHICONE 80 MG CHEW PO ONE (22:05)
[2020-06-26] MEDS: HEPARIN SODIUM/DEXTROSE 25,000 UNITS/500 ML BAG IV SCH ×2 (00:11→12:53)
[2020-06-26 00:57] LABS: Partial Thromboplastin Ratio 1.6; Partial Thromboplastin Time 41.9 Seconds (21.0-31.0)
--- NOTE | 2020-06-26 02:15 | Billing Data ---
Date of Service June 25, 2020 Coding Level of Care Code 66668 Inpt Consult Level 3
[2020-06-26] MEDS: ACETAMINOPHEN 1,000 MG/100 ML VIAL IV SCH ×2 (05:06→13:21)
[2020-06-26] MEDS: CLINDAMYCIN 600 MG in DEXTROSE 5% 50 ML IV SCH ×3 (05:24→21:35)
[2020-06-26 06:20] LABS: Basophils # (auto) 0.01 K/uL (0-0.2); Basophils % (auto) 0.1 %; Eosinophils # (auto) 0.09 K/uL (0-0.5); Eosinophils % (auto) 0.7 %; Hematocrit (blood only) 30.7 % (42-52); Immature Granulocytes # (auto) 0.03 K/uL (0.00-0.02); Immature Granulocytes % (auto) 0.2 %; Lymphocytes # (auto) 0.71 K/uL (1.2-3.4); Lymphocytes % (auto) 5.2 %; Mean Corpuscular Hemoglobin 27.8 pg (25-34); Mean Corpuscular Hgb Conc 32.6 g/dL (32-36); Mean Corpuscular Volume 85.3 fL (80-100); Mean Platelet Volume 10.9 fL (7.4-10.4); Monocytes # (auto) 1.34 K/uL (0.11-0.59); Monocytes % (auto) 9.7 %; Neutrophils % (auto) 84.1 %; Platelet Count 274 K/uL (130-400); RDW Coefficient of Variation 13.9 % (11.5-14.5); RDW Standard Deviation 43.5 fL (36.4-46.3); White Blood Count 13.78 K/uL (4.8-10.8)
[2020-06-26 06:48] LABS: BUN Creatinine Ratio 11.2 (10-20); Calcium 8.1 mg/dl (8.5-10.1); Creatinine Clr Calc Pharmacy 261.8 ml/min; Est GFR (African American) 148.4; Potassium 3.8 mmol/L (3.5-5.1)
[2020-06-26] MEDS: HYDROmorphone PCA 30 MG/30 ML IV PRN (06:50)
--- NOTE | 2020-06-26 07:11 | Hospitalist Progress Note ---
Date of Service June 26, 2020 Assessment & Plan (1) Bilateral pulmonary embolism: (2) Tachycardia: Mr. Eduardo is a 45 yo gentleman who is POD 2 after a recurrent ventral hernia repair and excision of infected mesh who developed new onset tachycardia along with a new oxygen requirement with diagnosis of Bilateral Pulmonary Embolism. Post op Acute Bilateral PEs. - Initial CT with questionable PE. Repeat CTA showed multiple bilateral PEs. Neg doppler bilateral LE. - On 06/26 started Weight Based Heparin without Bolus since received Lovenox 40mg SQ this morning for DVT ppx prior to diagnosis. - Monitor TALISHA drain output for any sign of bleeding. - Initial trop was negative, repeat was WNL; no signs of right heart strain on CTA commented on read. - Continue Heparin drip. Will need switched to terminal clerk anti-coagulant treatment. Acute Hypoxic resp failure - Sec to PE - Resolved. Thyroid Nodules with Hyperthyroidism? - Thyroid workup was performed for cause of tachycardia, although not reliable in acute illness, TSH was decreased with an elevated T4, with Thyroid Nodule 3.1cm found on CTA, could be a hot nodule producing hyperthyroidism, which would require different treatment. - Follow tachycardia. sec to PE and recent surgery. HR normal at the time of admission. - Outpatient follow up. Hyponatremia w/hypochloridemia. - Significant diaphoresis noted yesterday and today back was diaphoretic noticed when auscultating lungs. He notes he feels dry. Ordered NSS 1L Bolus. Will follow clinically. Encouraged PO fluid intake. DVT ppx: Hep gtt weight based therapeutic treatment for PE. Code: Full Dispo: medsurg/tele for monitoring, we are consulting provider for med management. FENGI: Clear liquid diet advance as tolerated, on home PPI Prontoix 40mg qAM (3) Thyroid nodule: Admission and Anticipated Discharge Date Admission Date: June 23, 2020 Supervising Physician Co-Signing Physician Notes Resident Physician Supervision Note: I independently interviewed and examined the patient and verified the mancuso history and physical, reviewed labs and image studies and agree with resident Dr. Hurtado findings and care plan. Subjective No acute events reported overnight. Was weaned from 5L O2 to 2L O2 and heart rate improved to low 100s. He notes he feels better today; feels less short of breath. No signs of significant bleed with Heparin, no bright red/black stools. No fever or chills. Noted less pain analgesia requirement and tolerated clear liquids well. Requested to get into bedside exam chair this AM for breakfast. Physical Exam Constitutional: + obese and cooperative; no acute distress sitting in bedside exam; back diaphoretic; appears fatigued overall Eyes: PERRL, conjunctivae normal, anicteric sclerae ENMT: external ear and nose normal, oropharynx normal Neck: trachea midline, no thyromegaly Respiratory: no respiratory distress, no labored breathing and does not use accessory muscles mild crackles and decreased air movement at bilateral posterior bases Cardiovascular: Rate/Rhythm: regular rhythm Heart Sounds: normal S1 and normal S2 Extremities: no calf tenderness Neurologic: moves all extremities and awake; no focal motor deficits and not confused Psychiatric: Orientation: alert and oriented x 3 Results & Data Results & Data ([facility]) Vital Signs (Past 12 Hours) Vital Signs Temp Pulse Pulse Pulse Resp BP Pulse Ox 06/26/20 04:08 36.9 C 114 H 19 144/87 H 93 06/25/20 22:58 36.5 C 119 H 18 134/85 94 06/25/20 22:20 117 H Laboratory Results Laboratory Results - last 24 hr 06/25/20 06/25/20 06/25/20 06:51 06:51 11:48 WBC RBC Hgb Hct MCV MCH MCHC RDW Std Deviation RDW Coeff of Reji Plt Count MPV Immature Gran % (Auto) Neut % (Auto) Lymph % (Auto) Will % (Auto) Eos % (Auto) Baso % (Auto) Neut # (Auto) Lymph # (Auto) Will # (Auto) Eos # (Auto) Baso # (Auto) Immature Gran # (Auto) APTT PTT Ratio Sodium 133 L Potassium 4.1 Chloride 99 Carbon Dioxide 28 Anion Gap 6.0 BUN 7 Creatinine 0.55 L Est Cr Clr Drug Dosing 250.4 Est GFR ( Amer) 143.8 Est GFR (Non-Af Amer) 124.1 BUN/Creatinine Ratio 12.1 Glucose 127 H Calcium 8.0 L Magnesium 2.0 Troponin I 0.034 0.028 NT-Pro-B Natriuret Pep 185 TSH 0.085 L Free T4 2.27 H 06/25/20 06/25/20 06/26/20 11:48 18:03 00:24 WBC RBC Hgb Hct MCV MCH MCHC RDW Std Deviation RDW Coeff of Reji Plt Count MPV Immature Gran % (Auto) Neut % (Auto) Lymph % (Auto) Will % (Auto) Eos % (Auto) Baso % (Auto) Neut # (Auto) Lymph # (Auto) Will # (Auto) Eos # (Auto) Baso # (Auto) Immature Gran # (Auto) APTT 28.7 42.2 H 41.9 H PTT Ratio 1.1 1.6 1.6 Sodium Potassium Chloride Carbon Dioxide Anion Gap BUN Creatinine Est Cr Clr Drug Dosing Est GFR ( Amer) Est GFR (Non-Af Amer) BUN/Creatinine Ratio Glucose Calcium Magnesium Troponin I NT-Pro-B Natriuret Pep TSH Free T4 06/26/20 06/26/20 05:25 05:25 WBC 13.78 H RBC 3.60 L Hgb 10.0 L Hct 30.7 L MCV 85.3 MCH 27.8 MCHC 32.6 RDW Std Deviation 43.5 RDW Coeff of Reji 13.9 Plt Count 274 MPV 10.9 H Immature Gran % (Auto) 0.2 Neut % (Auto) 84.1 Lymph % (Auto) 5.2 Will % (Auto) 9.7 Eos % (Auto) 0.7 Baso % (Auto) 0.1 Neut # (Auto) 11.60 H Lymph # (Auto) 0.71 L Will # (Auto) 1.34 H Eos # (Auto) 0.09 Baso # (Auto) 0.01 Immature Gran # (Auto) 0.03 H APTT PTT Ratio Sodium 132 L Potassium 3.8 Chloride 95 L Carbon Dioxide 28 Anion Gap 9.0 BUN 6 L Creatinine 0.51 L Est Cr Clr Drug Dosing 261.8 Est GFR ( Amer) 148.4 Est GFR (Non-Af Amer) 128.0 BUN/Creatinine Ratio 11.2 Glucose 131 H Calcium 8.1 L Magnesium Troponin I NT-Pro-B Natriuret Pep TSH Free T4 Medications Administered Hydromorphone HCl (Hydromorphone Bridge Maintainer 30 Mg/30 Ml) 30 mg IV PRN PRN; Protocol PRN Reason: AWAKE OVERNIGHT MONITOR Pain Titration Stop: 07/07/20 17:48 Last Admin: 06/26/20 06:50 Dose: 30 mg Documented by: [id number] Cosigned by: [id number] Admin: 06/25/20 18:55 Dose: 30 mg Documented by: [id number] Cosigned by: [id number] Admin: 06/23/20 19:47 Dose: 30 mg Documented by: [id number] Cosigned by: [id number] Clindamycin Phosphate 600 mg/ (Dextrose) 54 mls @ 100 mls/hr IV Q8 MELIA Stop: 07/03/20 21:59 Last Infusion: 06/26/20 05:56 Dose: 0 mls/hr Documented by: [id number] Admin: 06/26/20 05:24 Dose: 100 mls/hr Documented by: [id number] Infusion: 06/25/20 22:23 Dose: 0 mls/hr Documented by: [id number] Admin: 06/25/20 21:51 Dose: 100 mls/hr Documented by: [id number] Infusion: 06/25/20 15:03 Dose: 0 mls/hr Documented by: [id number] Admin: 06/25/20 14:29 Dose: 100 mls/hr Documented by: [id number] Infusion: 06/25/20 07:56 Dose: 0 mls/hr Documented by: [id number] Admin: 06/25/20 06:10 Dose: 100 mls/hr Documented by: [id number] Infusion: 06/24/20 22:34 Dose: 0 mls/hr Documented by: [id number] Admin: 06/24/20 21:57 Dose: 100 mls/hr Documented by: [id number] Infusion: 06/24/20 15:00 Dose: 0 mls/hr Documented by: [id number] Admin: 06/24/20 14:19 Dose: 100 mls/hr Documented by: [id number] Infusion: 06/24/20 06:27 Dose: 0 mls/hr Documented by: [id number] Admin: 06/24/20 05:54 Dose: 100 mls/hr Documented by: [id number] Infusion: 06/23/20 21:58 Dose: 0 mls/hr Documented by: [id number] Admin: 06/23/20 21:25 Dose: 100 mls/hr Documented by: [id number] Acetaminophen (Ofirmev) 1,000 mg in 100 mls @ 400 mls/hr IV Q8 MELIA Stop: 06/26/20 19:59 Last Infusion: 06/26/20 05:21 Dose: 0 mls/hr Documented by: [id number] Admin: 06/26/20 05:06 Dose: 400 mls/hr Documented by: [id number] Infusion: 06/25/20 21:42 Dose: 0 mls/hr Documented by: [id number] Admin: 06/25/20 21:27 Dose: 400 mls/hr Documented by: [id number] Infusion: 06/25/20 13:56 Dose: 0 mls/hr Documented by: [id number] Admin: 06/25/20 13:40 Dose: 400 mls/hr Documented by: [id number] Infusion: 06/25/20 06:09 Dose: 0 mls/hr Documented by: [id number] Admin: 06/25/20 05:49 Dose: 400 mls/hr Documented by: [id number] Infusion: 06/24/20 21:36 Dose: 0 mls/hr Documented by: [id number] Admin: 06/24/20 21:21 Dose: 400 mls/hr Documented by: [id number] Infusion: 06/24/20 14:54 Dose: 0 mls/hr Documented by: [id number] Admin: 06/24/20 14:18 Dose: 400 mls/hr Documented by: [id number] Infusion: 06/24/20 05:53 Dose: 0 mls/hr Documented by: [id number] Admin: 06/24/20 05:33 Dose: 400 mls/hr Documented by: [id number] Infusion: 06/23/20 20:22 Dose: 0 mls/hr Documented by: [id number] Admin: 06/23/20 20:07 Dose: 400 mls/hr Documented by: [id number] Fluconazole (Diflucan) 100 mg in 50 mls @ 100 mls/hr IV Q24H MELIA; Protocol Stop: 06/30/20 18:59 Last Infusion: 06/25/20 18:44 Dose: 0 mls/hr Documented by: [id number] Admin: 06/25/20 18:14 Dose: 100 mls/hr Documented by: [id number] Infusion: 06/24/20 19:25 Dose: 0 mls/hr Documented by: [id number] Admin: 06/24/20 18:16 Dose: 100 mls/hr Documented by: [id number] Infusion: 06/23/20 20:09 Dose: 0 mls/hr Documented by: [id number] Admin: 06/23/20 19:39 Dose: 100 mls/hr Documented by: [id number] Heparin Sodium/Dextrose (Heparin Sodium/Dextrose) 25,000 units in 500 mls @ 42 mls/hr IV .[id number] [facility]; Protocol Stop: 07/25/20 11:43 Last Titration: 06/26/20 06:49 Dose: 2,100 units/hr, 42 mls/hr Documented by: [id number] Cosigned by: [id number] Titration: 06/26/20 01:02 Dose: 2,100 units/hr, 42 mls/hr Documented by: [id number] Cosigned by: [id number] Admin: 06/26/20 00:11 Dose: 2,000 units/hr, 40 mls/hr Documented by: [id number] Cosigned by: [id number] Titration: 06/26/20 00:11 Dose: 2,000 units/hr, 40 mls/hr Documented by: [id number] Cosigned by: [id number] Titration: 06/25/20 18:49 Dose: 2,000 units/hr, 40 mls/hr Documented by: [id number] Cosigned by: [id number] Titration: 06/25/20 18:33 Dose: 2,000 units/hr, 40 mls/hr Documented by: [id number] Cosigned by: [id number] Admin: 06/25/20 12:05 Dose: 1,900 units/hr, 38 mls/hr Documented by: [id number] Cosigned by: [id number] Oxycodone HCl (Oxycodone Hcl Ir 5 Mg Tab (Immediate Release)) 5 mg PO Q4H PRN PRN Reason: Pain Stop: 07/08/20 08:30 Last Admin: 06/24/20 18:14 Dose: 5 mg Documented by: [id number] Admin: 06/24/20 09:28 Dose: 5 mg Documented by: [id number] Pantoprazole Sodium (Pantoprazole 40 Mg Tab) 40 mg PO QAM [facility] Stop: 07/24/20 08:59 Last Admin: 06/25/20 09:18 Dose: 40 mg Documented by: [id number] Admin: 06/24/20 08:26 Dose: 40 mg Documented by: [id number] Resident Activity Tracking Resident Involvement: Resident Care Provided Care Provided: Adult [facility]
[2020-06-26] MEDS: PANTOprazole 40 MG TAB PO SCH (07:43)
[2020-06-26 07:48] LABS: Partial Thromboplastin Ratio 1.5; Partial Thromboplastin Time 38.4 Seconds (21.0-31.0)
[2020-06-26] MEDS ORDERED: SODIUM CHLORIDE 0.9% 1000ML 1,000 ML IV ONE (07:58)
[2020-06-26] MEDS ORDERED: CHLORASEPTIC 1.4% SOLN 180 ML BTL MT PRN (10:52)
--- NOTE | 2020-06-26 10:54 | Surgery Progress Note ---
Date of Service June 26, 2020 Assessment & Plan (1) Bilateral pulmonary embolism: POD 3 of oxygen and room sats are 96% wound healing ok. states clears are making him nausious. will try full liquids. continue heparin can try the valium for abdominal spasms. Admission and Anticipated Discharge Date Admission Date: June 23, 2020 Subjective "not feeling so hot today". non specific. sore throat/bringing up phlegm. abdominal pain. "gurgling" "cramping" of GI tract. fatigue. no bowel fx yet. Physical Exam Physical Exam: alert. appears fatigued. abd: soft. dressings changed. incsions look great. no sign of infection. no drainage. TALISHA's serosanguinous. Results & Data ([facility]) Vital Signs (Past 12 Hours) Vital Signs Temp Pulse Pulse Resp BP Pulse Ox 06/26/20 09:15 96 06/26/20 04:08 36.9 C 114 H 19 144/87 H 93 06/25/20 22:58 36.5 C 119 H 18 134/85 94 PG Care Time/CCT Total # of Minutes Spent Total Time Spent with Patient: Total time spent is greater than 50% in coordination of care (as documented) at patient's floor/unit and/or counseling patient: Coding Level of Care Code None Diagnoses Bilateral pulmonary embolism I26.99
[2020-06-26] MEDS: diazePAM 2 MG TABLET PO PRN (12:51)
[2020-06-26 14:32] LABS: Partial Thromboplastin Ratio 1.5; Partial Thromboplastin Time 40.1 Seconds (21.0-31.0)
--- NOTE | 2020-06-26 15:20 | Communication Note ---
Date of Service: June 26, 2020 Depression Discussed concerns about feelings of depressed mood. He suspects most likely related to stress of current illness. He does have a PCP but hasn't discussed SSRI or treatment for mood in the past. voiced concerns about depressed mood and requested to discuss about interest in SSRI. He was open to conversation. Right now elects to take time to consider starting SSRI and discuss tomorrow or possibly as outpatient with PCP if mood doesn't improve with resolution of acute problems. Would consider starting Zoloft 25mg x 1 week then increase to 50mg if he elects to starting tomorrow or as outpatient prior to PCP appt. Of note, was weaned off supplemental O2, but was provided with it while asleep by nursing. Notes no shortness of breath currently.
[2020-06-26] MEDS: PROMETHAZINE HCL 12.5 MG in SODIUM CHLORIDE 0.9% 50 ML IV PRN (17:42)
[2020-06-26] MEDS: FLUCONAZOLE 100 MG/50 ML BAG IV SCH (20:47)
[2020-06-26 20:50] LABS: Partial Thromboplastin Ratio 1.3; Partial Thromboplastin Time 34.5 Seconds (21.0-31.0)
[2020-06-26] MEDS ORDERED: HEPARIN SOD (PORCINE) 1000 UNIT/ML IV ONE (21:30)
[2020-06-27] MEDS: HEPARIN SODIUM/DEXTROSE 25,000 UNITS/500 ML BAG IV SCH ×5 (00:21→11:25)
[2020-06-27 03:35] LABS: Basophils # (auto) 0.01 K/uL (0-0.2); Basophils % (auto) 0.1 %; Eosinophils # (auto) 0.31 K/uL (0-0.5); Eosinophils % (auto) 2.3 %; Hematocrit (blood only) 29.9 % (42-52); Hemoglobin 9.9 g/dL (14.0-18.0); Immature Granulocytes # (auto) 0.02 K/uL (0.00-0.02); Immature Granulocytes % (auto) 0.1 %; Lymphocytes # (auto) 1.44 K/uL (1.2-3.4); Lymphocytes % (auto) 10.6 %; Mean Corpuscular Hemoglobin 28.2 pg (25-34); Mean Corpuscular Hgb Conc 33.1 g/dL (32-36); Mean Corpuscular Volume 85.2 fL (80-100); Mean Platelet Volume 10.1 fL (7.4-10.4); Monocytes # (auto) 1.34 K/uL (0.11-0.59); Monocytes % (auto) 9.9 %; Neutrophils # (auto) 10.47 K/uL (1.4-6.5); Platelet Count 321 K/uL (130-400); RDW Standard Deviation 43.3 fL (36.4-46.3); Red Blood Count 3.51 M/uL (4.7-6.1); White Blood Count 13.59 K/uL (4.8-10.8)
[2020-06-27 03:48] LABS: Partial Thromboplastin Ratio 1.6; Partial Thromboplastin Time 42.5 Seconds (21.0-31.0)
[2020-06-27 03:54] LABS: Albumin Level 2.6 gm/dl (3.4-5.0); BUN Creatinine Ratio 15.2 (10-20); Calcium 7.9 mg/dl (8.5-10.1); Creatinine Clr Calc Pharmacy 251.9 ml/min; Potassium 3.9 mmol/L (3.5-5.1)
[2020-06-27 03:57] LABS: Albumin Globulin Ratio 0.7 (0.9-2); Bilirubin,Total 0.7 mg/dl (0.2-1); Globulin 3.7 gm/dl (2.5-4.0); Total Protein 6.3 gm/dl (6.4-8.2)
[2020-06-27] MEDS: CLINDAMYCIN 600 MG in DEXTROSE 5% 50 ML IV SCH ×3 (05:39→21:14)
[2020-06-27] MEDS: PANTOprazole 40 MG TAB PO SCH (08:59)
[2020-06-27] MEDS: SERTRALINE HCL 50 MG TABLET PO SCH (09:54)
[2020-06-27] MEDS ORDERED: ACETAMINOPHEN 325 MG TAB PO PRN (10:12)
--- NOTE | 2020-06-27 10:14 | Surgery Progress Note ---
Date of Service June 27, 2020 Assessment & Plan (1) Infected hernioplasty mesh: POD#4 WBC 13, patient afebrile, he is currently saturating well on room air Tolerating small amounts of full liquids, not much of an appetite Remains on heparin gtt for bilateral PE's, on room air currently. No complaints of CP or SOB TALISHA x 2 serosang Pain controlled on current regimen Encourage ongoing pulmonary toilet and activity as tolerates Appreciate hospitalists assistance with patient as above. believes he feels a little better than yesterday. small bm earlier. poor appetite. still having what he describes as spasms...worse in the right lower quadrant near drain site. HR improved. TALISHA's serous. H/H stable. ok to transition to oral anticoagulants. continue to increase activity. awaiting full return of bowel fx. (2) Bilateral pulmonary embolism: Admission and Anticipated Discharge Date Admission Date: June 23, 2020 Subjective Patient seen sitting up in chair. He says he is feeling alright this AM. He states he does not have much of an appetite, but is tolerating what he can of the full liquids. Says his "nausea" feelings are more like something has been in his throat that he can't quite clear. Otherwise he hasn't vomiting and reports his pain is tolerable. He denies any current chest pain or shortness of breath. He is not passing flatus or had a BM yet. Has not been ambulating much other than getting into the chair. Physical Exam Physical Exam: awake/alert, sitting up in chair Constitutional: no acute distress Respiratory: normal respiratory effort (on room air) Gastrointestinal (Abdomen): Inspection/Auscultation: + abdominal surgical drain present (TALISHA x2 serosang) wearing abdominal binder Results & Data ([facility]) Vital Signs (Past 12 Hours) Vital Signs Temp Pulse Pulse Resp BP Pulse Ox 06/27/20 07:39 36.7 C 83 16 153/84 H 96 06/27/20 05:46 36.9 C 06/27/20 04:00 37.6 C H 106 H 20 159/85 H 95 06/27/20 00:22 95 06/26/20 23:00 113 H PG Care Time/CCT Total # of Minutes Spent Total Time Spent with Patient: Total time spent is greater than 50% in [facility] of care (as documented) at patient's floor/unit and/or counseling patient: Coding Level of Care Code None Diagnoses Infected hernioplasty mesh T85.79XA Bilateral pulmonary embolism I26.99
[2020-06-27 10:26] LABS: Partial Thromboplastin Ratio 1.5; Partial Thromboplastin Time 38.7 Seconds (21.0-31.0)
--- NOTE | 2020-06-27 12:53 | Hospitalist Progress Note ---
Date of Service June 27, 2020 Assessment & Plan (1) Bilateral pulmonary embolism: Mr. Eduardo is a 45 yo gentleman who is POD 2 after a recurrent ventral hernia repair and excision of infected mesh who developed new onset tachycardia along with a new oxygen requirement with diagnosis of Bilateral Pulmonary Embolism. Bilateral PEs. - tachycardia and new oxygen requirement are concerning for possible pulmonary embolism. - Notes wasn'nt as adherent to spirometry yesterday but oxygen requirement is significant to investigate further outside of atelectasis diagosis, but atelectasis could be cause. - risk factors for clot formation include morbid obesity and recent surgery - EKG ordered at onset, showed sinus tachycardia at 112 bpm which persisted. - CXR ordered, showing low lung volumes with bibasilar atelectasis; no consolidation - Chest CTA ordered. STAT RAD showing no definitive evidence of pulmonary embolism but did not couldn'nt rule out end segment PT, no pneumothorax. trace bilateral pleural effusions with dependent atelectasis in R lower lung lobe. Final read this AM showed questionable right sided PE and recommended repeat CTA and US DVT. - Repeat CTA showed multiple bilateral PEs which confirms PE diagnosis which fits the clinical setting. - Discussed treatment with pharmacy and relayed treatment plan to surgical team. - Will start Weight Based Heparin without Bolus since received Lovenox 40mg SQ this morning for DVT ppx prior to diagnosis. Also post op will monitor TALISHA drain output. - Initial trop was negative, repeat was added for noon prior to recent CTA confirmation of PE diagnosis. Tachycardia and Thyroid Nodules - Thyroid workup was performed for cause of tachycardia, although not reliable in acute illness, TSH was decreased with an elevated T4, with Thyroid Nodule 3.1cm found on CTA, could be a hot nodule producing hyperthyroidism, which would require different treatment. DVT ppx: Hep gtt weight based therapeutic treatment for PE. Code: Full Dispo: transferred to [employer] for monitoring FENGI: Clear liquid diet, on home PPI Prontoix 40mg qAM. (2) Tachycardia: Mr. Eduardo is a 45 yo gentleman who is POD 4 after a recurrent ventral hernia repair and excision of infected mesh who developed new onset tachycardia along with a new oxygen requirement, found to have Bilateral Pulmonary Emboli. Bilateral PEs. - presented with tachycardia and new oxygen requirement - identified on second Chest CTA from 06/25/20 - risk factors for clot formation include morbid obesity, chronic venous insufficiency, and recent surgery - PESI score of 97, class III, intermediate risk - No right heart strain noted on CTA. Trop not elevated. BNP not elevated. - Initial trop was negative, repeat was WNL; no signs of right heart strain on CTA commented on read. - On 06/26 started Weight Based Heparin without Bolus since received Lovenox 40mg SQ this morning for DVT ppx prior to diagnosis. Recommend he transition to oral Eliquis today: 10mg BID for 7 days, followed by 5mg, BID thereafter. Thyroid Nodules with Hyperthyroidism - 3.3 cm right thyroid nodule incidentally on CTA of chest - TSH 0.085; Free T4 2.27 - concerning for possible hot nodule vs. sick euthyroid syndrome. - HR has ranged from 80s-115 bpm; unlikely to be in thyroid storm; no indication for beta kareem therapy at this time - recommend he have TSH and free T4 levels repeated by PCP in outpatient setting in 3 weeks - recommend he have an US of the thyroid as an outpatient Hyponatremia w/hypochloridemia: resolved. - Significant diaphoresis noted yesterday and today back was diaphoretic noticed when auscultating lungs. He notes he feels dry. Ordered NSS 1L Bolus. Will follow clinically. Encouraged PO fluid intake. Leukocytosis - WBC remains at 13 - continue Clindamycin per surgery - likely reactive > new onset infection DVT ppx: Hep gtt weight based therapeutic treatment for PE. Code: Full Dispo: medsurg/tele for monitoring, we are consulting provider for med management (although no clear indication for patient needing cardiac monitoring) FENGI: Clear liquid diet advance as tolerated, on home PPI Prontoix 40mg qAM (3) Thyroid nodule: Admission and Anticipated Discharge Date Admission Date: June 23, 2020 Supervising Physician Co-Signing Physician Notes I personally examined the patient and verified all mancuso points of history and exam, discussed case, and agree with decision making with Dr Reyes. Feeling overall about the same as Saturday. Did have a little bit of a bowel movement earlier today. Breathing about the same. Not worse. Extensive discussions and answered all questions to the best of my ability. Vitals noted, in general he is awake and alert pleasant no distress. HEENT normocephalic atraumatic mucous membranes moist. Breathing unlabored no accessory muscle use good effort. Skin shows no rashes no pallor or icterus. Neuro shows no focal deficits. Pulmonary emboliprovoked by venous stasis, surgery, obesitystable on heparin drip with no bleeding, okay to transition to apixaban for ongoing treatment. Given that this was fairly major provoking circumstances, would anticipate only needing to treat for 3 to 6 months, however discussed with patient aggressive secondary risk reduction as it relates to future surgeries and travel. Thyroid nodulelab work would suggest it might be a functional or "hot" nodule, although given the lack of overall reliability of thyroid lab work whenever somebody is acutely ill, would recommend repeat thyroid tests as an outpatient in a few weeks, and further characterization of the nodule radiographically by ultrasound, then nuc med testing if necessary. Otherwise as above Subjective Today he feels well - is present at beside. Patient says his conversational dyspnea is unchanged from Saturday. When discussing blood thinner duration - reports they have a trip planned to [place] at the end of August/into early September. With regards to his chronic venous insufficiency, she mentions have to hold pressure for an extended period of time (30 minutes) on his varicose veins if one bleeds. Review of Systems Respiratory: + dyspnea Cardiovascular: no chest pain Gastrointestinal: + abdominal pain Physical Exam Constitutional: well developed, well nourished, cooperative and + diaphoretic; no acute distress Eyes: + anicteric sclerae ENMT: external ear and nose normal, oropharynx normal Neck: normal visual inspection and trachea midline Respiratory: normal respiratory effort, lungs clear to auscultation Cardiovascular: Rate/Rhythm: + tachycardic; + abnormal rhythm (pauses appreciated on exam) Heart Sounds: normal S1 and normal S2 Extremities: no pedal edema Gastrointestinal (Abdomen): Inspection/Auscultation: normal bowel sounds Skin: no rashes, warm and dry Psychiatric: A+Ox3, euthymic affect Results & Data Results & Data ([facility]) Vital Signs (Past 12 Hours) Vital Signs Temp Pulse Pulse Resp BP Pulse Ox 06/27/20 10:47 37.1 C 106 H 19 173/89 H 92 06/27/20 09:30 101 H 06/27/20 07:39 36.7 C 83 16 153/84 H 96 06/27/20 05:46 36.9 C 06/27/20 04:00 37.6 C H 106 H 20 159/85 H 95 Resident Activity Tracking Resident Involvement: Resident Care Provided Care Provided: Adult [facility]
[2020-06-27] MEDS: diazePAM 2 MG TABLET PO PRN (13:33)
[2020-06-27] MEDS: ONDANSETRON INJ 2 MG/ML 2 ML VIAL IV PRN (14:18)
[2020-06-27 15:40] LABS: Partial Thromboplastin Ratio 1.5; Partial Thromboplastin Time 40.6 Seconds (21.0-31.0)
[2020-06-27] MEDS: APIXABAN 5 MG TABLET PO SCH ×2 (15:47→22:15)
[2020-06-27] MEDS: PROMETHAZINE HCL 12.5 MG in SODIUM CHLORIDE 0.9% 50 ML IV PRN (16:14)
--- NOTE | 2020-06-27 17:58 | Billing Data ---
Date of Service June 27, 2020 Coding Level of Care Code 92951 Subseq Hosp Care Lvl 3
[2020-06-27] MEDS: FLUCONAZOLE 100 MG/50 ML BAG IV SCH (18:52)
[2020-06-27] MEDS: oxyCODONE HCL IR 5 MG TAB (IMMEDIATE RELEASE) PO PRN (21:42)
--- NOTE | 2020-06-28 06:07 | Electrocardiogram Report ---
Test Reason : Blood Pressure : / mmHG Vent. Rate : 101 BPM Atrial Rate : 101 BPM P-R Int : 152 ms QRS Dur : 112 ms QT Int : 372 ms P-R-T Axes : 048 060 015 degrees QTc Int : 482 ms Sinus tachycardia Poor R wave progression, consider anterior NH vs. lead placement vs. LVH Possible Inferior infarct Abnormal ECG When compared with ECG of 25-JUN-2020 07:34, No significant change was found Confirmed by Juan Jose Ortiz ([id number]) on 06/28/2020 6:07:11 AM Referred By: Ben Zhong Confirmed By:Juan Jose Ortiz
[2020-06-28] MEDS: CLINDAMYCIN 600 MG in DEXTROSE 5% 50 ML IV SCH ×3 (06:17→22:03)
[2020-06-28 07:02] LABS: Basophils # (auto) 0.01 K/uL (0-0.2); Basophils % (auto) 0.1 %; Eosinophils # (auto) 0.44 K/uL (0-0.5); Hemoglobin 10.4 g/dL (14.0-18.0); Immature Granulocytes # (auto) 0.06 K/uL (0.00-0.02); Immature Granulocytes % (auto) 0.4 %; Lymphocytes # (auto) 1.08 K/uL (1.2-3.4); Lymphocytes % (auto) 7.5 %; Mean Corpuscular Hemoglobin 27.7 pg (25-34); Mean Corpuscular Hgb Conc 33.5 g/dL (32-36); Mean Corpuscular Volume 82.7 fL (80-100); Mean Platelet Volume 9.7 fL (7.4-10.4); Monocytes # (auto) 1.54 K/uL (0.11-0.59); Monocytes % (auto) 10.6 %; Neutrophils # (auto) 11.36 K/uL (1.4-6.5); Neutrophils % (auto) 78.4 %; Nucleated RBC # (auto) 0.05 K/uL (0-0); Nucleated RBC % (auto) 0.3 %; Platelet Count 370 K/uL (130-400); RDW Coefficient of Variation 14.1 % (11.5-14.5); RDW Standard Deviation 42.6 fL (36.4-46.3); Red Blood Count 3.75 M/uL (4.7-6.1); White Blood Count 14.49 K/uL (4.8-10.8)
--- NOTE | 2020-06-28 07:15 | Surgery Progress Note ---
Date of Service June 28, 2020 Assessment & Plan (1) Bilateral pulmonary embolism: slow to progress need to ambulate more today will add flexiril and protonix for symptom control awaiting bowel fx wbc slight increase today but so is his hg...? secondary to mild hemoconcentration. will monitor. not ready for d/c Admission and Anticipated Discharge Date Admission Date: June 23, 2020 Subjective pt seen. no new complaints. continues to have some incisional spasms. uncomfortable. valium does not help much. still with mild nausea and c/o of reflux. Physical Exam Physical Exam: alert. nad. VSS abd: soft. wound looks good. no sign of infection. TALISHA's no serous/much less blo od Results & Data ([facility]) Vital Signs (Past 12 Hours) Vital Signs Temp Pulse Resp BP Pulse Ox 06/28/20 03:03 36.9 C 89 18 153/92 H 93 06/27/20 22:41 36.9 C 96 H 18 152/95 H 95 06/27/20 19:20 36.7 C 102 H 18 151/99 H 96 PG Care Time/CCT Total # of Minutes Spent Total Time Spent with Patient: Total time spent is greater than 50% in coordination of care (as documented) at patient's floor/unit and/or counseling patient: Coding Level of Care Code None Diagnoses Bilateral pulmonary embolism I26.99
[2020-06-28] MEDS: CYCLOBENZAPRINE HCL 10 MG TAB PO SCH ×3 (08:16→21:17)
[2020-06-28] MEDS: PANTOprazole 40 MG TAB PO SCH ×2 (08:16→21:14)
[2020-06-28] MEDS: SERTRALINE HCL 50 MG TABLET PO SCH (08:17)
[2020-06-28] MEDS: APIXABAN 5 MG TABLET PO SCH ×2 (08:17→21:14)
--- NOTE | 2020-06-28 12:46 | Hospitalist Progress Note ---
Date of Service June 28, 2020 Assessment & Plan (1) Bilateral pulmonary embolism: Mr. Eduardo is a 45 yo gentleman who is POD 2 after a recurrent ventral hernia repair and excision of infected mesh who developed new onset tachycardia along with a new oxygen requirement with diagnosis of Bilateral Pulmonary Embolism. Bilateral PEs. - tachycardia and new oxygen requirement are concerning for possible pulmonary embolism. - Notes wasn'nt as adherent to spirometry yesterday but oxygen requirement is significant to investigate further outside of atelectasis diagosis, but atelectasis could be cause. - risk factors for clot formation include morbid obesity and recent surgery - EKG ordered at onset, showed sinus tachycardia at 112 bpm which persisted. - CXR ordered, showing low lung volumes with bibasilar atelectasis; no consolidation - Chest CTA ordered. STAT RAD showing no definitive evidence of pulmonary embolism but did not couldn'nt rule out end segment PT, no pneumothorax. trace bilateral pleural effusions with dependent atelectasis in R lower lung lobe. Final read this AM showed questionable right sided PE and recommended repeat CTA and US DVT. - Repeat CTA showed multiple bilateral PEs which confirms PE diagnosis which fits the clinical setting. - Discussed treatment with pharmacy and relayed treatment plan to surgical team. - Will start Weight Based Heparin without Bolus since received Lovenox 40mg SQ this morning for DVT ppx prior to diagnosis. Also post op will monitor TALISHA drain output. - Initial trop was negative, repeat was added for noon prior to recent CTA confirmation of PE diagnosis. Tachycardia and Thyroid Nodules - Thyroid workup was performed for cause of tachycardia, although not reliable in acute illness, TSH was decreased with an elevated T4, with Thyroid Nodule 3.1cm found on CTA, could be a hot nodule producing hyperthyroidism, which would require different treatment. DVT ppx: Hep gtt weight based therapeutic treatment for PE. Code: Full Dispo: transferred to [employer] for monitoring FENGI: Clear liquid diet, on home PPI Prontoix 40mg qAM. (2) Tachycardia: Mr. Eduardo is a 45 yo gentleman who is POD 5 after a recurrent ventral hernia repair and excision of infected mesh who developed new onset tachycardia along with a new oxygen requirement, found to have Bilateral Pulmonary Emboli. Hospitalist team is serving as managing consultant to general surgery. Surgery would like patient to stay in hospital another day due to lack of meaningful bowel function and progressive WBC count. Bilateral PEs. - presented with tachycardia and new oxygen requirement - identified on second Chest CTA from 06/25/20 - risk factors for clot formation include morbid obesity, chronic venous insufficiency, and recent surgery - PESI score of 97, class III, intermediate risk - No right heart strain noted on CTA. Trop not elevated. BNP not elevated. - Initial trop was negative, repeat was WNL; no signs of right heart strain on CTA commented on read. - transitioned from heparin drip to oral Eliquis on 06/27: 10mg BID for 7 days, followed by 5mg, BID thereafter. Thyroid Nodules with Hyperthyroidism - 3.3 cm right thyroid nodule incidentally on CTA of chest - TSH 0.085; Free T4 2.27 - concerning for possible hot nodule vs. sick euthyroid syndrome. - HR has ranged from 80s-115 bpm; unlikely to be in thyroid storm; no indication for beta kareem therapy at this time - recommend he have TSH and free T4 levels repeated by PCP in outpatient setting in 3 weeks - recommend he have an US of the thyroid as an outpatient Hyponatremia w/hypochloridemia: resolved. - Significant diaphoresis noted yesterday and today back was diaphoretic noticed when auscultating lungs. He notes he feels dry. Ordered NSS 1L Bolus. Will follow clinically. Encouraged PO fluid intake. Leukocytosis - WBC increased to 14 from 13 today - no objective signs of clinical worsening - continue Clindamycin per surgery - likely reactive > new onset infection DVT ppx: Eliquis Code: Full Dispo: medsurg/per surgery FENGI: Clear liquid diet advance as tolerated, on home PPI Prontoix 40mg qAM (3) Thyroid nodule: Admission and Anticipated Discharge Date Admission Date: June 23, 2020 Supervising Physician Co-Signing Physician Notes I personally examined the patient and verified all mancuso points of history and exam, discussed case, and agree with decision making with Dr Reyes. Generally feeling little better. Feels like he might have a bowel movement soon. Walked the halls some, although started to get a pleuritic/rib type right-sided chest pain, wonders if he "overdid it" otherwise no new complaints. Vitals noted, in general he is awake and alert pleasant no distress. HEENT normocephalic atraumatic mucous membranes moist. Breathing unlabored no accessory muscle use good effort. Skin shows no rashes no pallor or icterus. Neuro shows no focal deficits. Pulmonary emboliprovoked by venous stasis, surgery, obesitytransitioned to Eliquis yesterday, going well overall. Supportive care. Thyroid nodulelab work would suggest it might be a functional or "hot" nodule, although given the lack of overall reliability of thyroid lab work whenever somebody is acutely ill, would recommend repeat thyroid tests as an outpatient in a few weeks, and further characterization of the nodule radiographically by ultrasound, then nuc med testing if necessary. No symptoms today that could be clearly attributed to this. Otherwise as above Subjective Today feels similar to yesterday. Other than the small BM yesterday am, he has not passed gas or moved his bowels. He denies chest pain. Review of Systems Review of Systems: All systems reviewed & are unremarkable except as noted in HPI & below Physical Exam Constitutional: well developed, well nourished, cooperative and + diaphoretic; no acute distress Eyes: + anicteric sclerae ENMT: external ear and nose normal, oropharynx normal Neck: normal visual inspection and trachea midline Respiratory: normal respiratory effort, lungs clear to auscultation Cardiovascular: Rate/Rhythm: regular rate and regular rhythm Heart Sounds: normal S1 and normal S2 Extremities: no pedal edema Gastrointestinal (Abdomen): Inspection/Auscultation: normal bowel sounds Skin: no rashes, warm and dry Psychiatric: A+Ox3, euthymic affect Results & Data Results & Data ([facility]) Vital Signs (Past 12 Hours) Vital Signs Temp Pulse Pulse Resp BP Pulse Ox 06/28/20 08:03 36.9 C 92 H 18 151/93 H 90 06/28/20 08:00 83 06/28/20 03:03 36.9 C 89 18 153/92 H 93 Resident Activity Tracking Resident Involvement: Resident Care Provided Care Provided: Adult Hospital Medicine
--- NOTE | 2020-06-28 18:31 | Billing Data ---
Date of Service June 28, 2020 Coding Level of Care Code 46302 Subseq Hosp Care Lvl 3
[2020-06-28] MEDS: FLUCONAZOLE 100 MG/50 ML BAG IV SCH (18:40)
[2020-06-29] MEDS: CLINDAMYCIN 600 MG in DEXTROSE 5% 50 ML IV SCH ×3 (05:41→21:07)
[2020-06-29 07:30] LABS: Basophils # (auto) 0.01 K/uL (0-0.2); Basophils % (auto) 0.1 %; Eosinophils # (auto) 0.55 K/uL (0-0.5); Eosinophils % (auto) 3.8 %; Hematocrit (blood only) 31.3 % (42-52); Hemoglobin 10.4 g/dL (14.0-18.0); Immature Granulocytes # (auto) 0.09 K/uL (0.00-0.02); Immature Granulocytes % (auto) 0.6 %; Lymphocytes # (auto) 1.17 K/uL (1.2-3.4); Lymphocytes % (auto) 8.1 %; Mean Corpuscular Hemoglobin 27.8 pg (25-34); Mean Corpuscular Hgb Conc 33.2 g/dL (32-36); Mean Corpuscular Volume 83.7 fL (80-100); Mean Platelet Volume 9.4 fL (7.4-10.4); Monocytes # (auto) 2.04 K/uL (0.11-0.59); Neutrophils # (auto) 10.66 K/uL (1.4-6.5); Neutrophils % (auto) 73.4 %; Nucleated RBC # (auto) 0.08 K/uL (0-0); Nucleated RBC % (auto) 0.6 %; Platelet Count 386 K/uL (130-400); RDW Coefficient of Variation 14.1 % (11.5-14.5); RDW Standard Deviation 43.3 fL (36.4-46.3); Red Blood Count 3.74 M/uL (4.7-6.1); White Blood Count 14.52 K/uL (4.8-10.8)
[2020-06-29 08:02] LABS: BUN Creatinine Ratio 21.7 (10-20); Calcium 8.7 mg/dl (8.5-10.1); Est GFR (African American) 140.7; Est GFR (Non-African American) 121.4
[2020-06-29] MEDS ORDERED: bisacodyL 10 MG SUPP PR PRN ×2 (08:24→15:04)
--- NOTE | 2020-06-29 08:24 | Surgery Progress Note ---
Date of Service June 29, 2020 Assessment & Plan (1) Infected hernioplasty mesh: slowling improving clinically nausea/diaphoresis resolved. pain improved can have suppository prn....awaiting bowel fx d/c planning hopefully next 24-48 hours pending bowel fx. Admission and Anticipated Discharge Date Admission Date: June 23, 2020 Subjective pt feeling better today. feels he had a good night. the abdominal cramping is much improved. no pain currently. feels he is on the verge of a bm. the diaphoretic episodes seem to have resolved. Physical Exam Physical Exam: alert. nad abd: soft. TALISHA's thin/serous fluid. incision looks good. binder intact. Results & Data ([facility]) Vital Signs (Past 12 Hours) Vital Signs Temp Pulse Pulse Resp BP Pulse Ox 06/29/20 07:41 37.0 C 105 H 19 138/88 95 06/29/20 01:00 103 H 06/28/20 22:26 36.8 C 118 H 18 146/94 H 95 PG Care Time/CCT Total # of Minutes Spent Total Time Spent with Patient: Total time spent is greater than 50% in coordination of care (as documented) at patient's floor/unit and/or counseling patient: Coding Level of Care Code None Diagnoses Infected hernioplasty mesh T85.79XA
[2020-06-29] MEDS: APIXABAN 5 MG TABLET PO SCH ×2 (08:26→21:07)
[2020-06-29] MEDS: PANTOprazole 40 MG TAB PO SCH ×2 (08:26→21:08)
[2020-06-29] MEDS: SERTRALINE HCL 50 MG TABLET PO SCH (08:26)
[2020-06-29] MEDS: CYCLOBENZAPRINE HCL 10 MG TAB PO SCH ×3 (08:28→21:07)
--- NOTE | 2020-06-29 08:38 | Hospitalist Progress Note ---
Date of Service June 29, 2020 Assessment & Plan (1) Tachycardia: Mr. Eduardo is a 45 yo gentleman who is POD 6 after a recurrent ventral hernia repair and excision of infected mesh who developed new onset tachycardia along with a new oxygen requirement, found to have Bilateral Pulmonary Emboli. Hospitalist team is serving as practice management consultant to general surgery. Surgery would like patient to stay in hospital due to lack of meaningful bowel function and progressive WBC count. Bilateral PEs - presented with tachycardia and new oxygen requirement - identified on second Chest CTA from 06/25/20 - risk factors for clot formation include morbid obesity, chronic venous insufficiency, and recent surgery - PESI score of 97, class III, intermediate risk - No right heart strain noted on CTA. Trop not elevated. BNP not elevated. - transitioned from heparin drip to oral Eliquis on 06/27: 10mg BID for 7 days, followed by 5mg, BID thereafter. - discussed duration of anticoagulation: at least 3 months (provoked clot); also recommend patient take Eliquis on travel days (he will be taking a trip to [place] towards the end of the 3 month period) Thyroid Nodules with Hyperthyroidism - 3.3 cm right thyroid nodule incidentally on CTA of chest - TSH 0.085; Free T4 2.27 - concerning for possible hot nodule vs. sick euthyroid syndrome. - HR has ranged from 80s-115 bpm; unlikely to be in thyroid storm; no indication for beta kareem therapy at this time - recommend he have TSH and free T4 levels repeated by PCP in outpatient setting in 3 weeks - recommend he have an US of the thyroid as an outpatient Leukocytosis - ongoing - WBC remains at 14 - no objective signs of clinical worsening - continue Clindamycin per surgery - likely reactive > new onset infection Hyponatremia w/hypochloridemia: resolved. - Significant diaphoresis noted yesterday and today back was diaphoretic noticed when auscultating lungs. He notes he feels dry. Ordered NSS 1L Bolus. Will follow clinically. Encouraged PO fluid intake. DVT ppx: Eliquis Code: Full Dispo: medsurg/per surgery FENGI: Full liquid diet advance as tolerated, on home PPI Prontoix 40mg qAM Admission and Anticipated Discharge Date Admission Date: June 23, 2020 Supervising Physician Co-Signing Physician Notes I personally examined the patient and verified all mancuso points of history and exam, discussed case, and agree with decision making with Dr Reyes. reasonable amount of pain - R upper abd and chest. a little more TA. almost BM. Vitals noted, in general he is awake and alert pleasant no distress. HEENT normocephalic atraumatic mucous membranes moist. cardio reg to sl tachy no guarding no rebound. lungs cta b/l no rr//w good effort. abd soft mod R sided tenderness no guarding no rebound no skin changes no erythema. 89% on RA but improves after incentive spirometry. Pulmonary emboliprovoked by venous stasis, surgery, obesitycontinue eliquis and supportive care. atelectasis - suspect related to pain. schedule tylenol and toradol for now. encourage incentive spirometry. follow closely Thyroid nodulelab work would suggest it might be a functional or "hot" nodule, although given the lack of overall reliability of thyroid lab work whenever somebody is acutely ill, would recommend repeat thyroid tests as an outpatient in a few weeks, and further characterization of the nodule radiographically by ultrasound, then nuc med testing if necessary. No symptoms today that could be clearly attributed to this. Otherwise as above Subjective No acute events overnight. Patient has not yet yet passed gas or had BM - although he still feels as though he is "getting close." No chest pain - seems to be less winded when speaking. Review of Systems Review of Systems: All systems reviewed & are unremarkable except as noted in HPI & below Physical Exam Constitutional: well developed, well nourished, cooperative and + diaphoretic; no acute distress Eyes: + anicteric sclerae ENMT: external ear and nose normal, oropharynx normal Neck: normal visual inspection and trachea midline Respiratory: normal respiratory effort, lungs clear to auscultation Cardiovascular: Rate/Rhythm: regular rhythm and + tachycardic Heart Sounds: normal S1 and normal S2 Extremities: no pedal edema Gastrointestinal (Abdomen): Inspection/Auscultation: normal bowel sounds Skin: no rashes, warm and dry Psychiatric: Orientation: alert and oriented x 3 Affect: + flat affect Results & Data Results & Data ([facility]) Vital Signs (Past 12 Hours) Vital Signs Temp Pulse Pulse Resp BP Pulse Ox 06/29/20 07:41 37.0 C 105 H 19 138/88 95 06/29/20 01:00 103 H 06/28/20 22:26 36.8 C 118 H 18 146/94 H 95 Resident Activity Tracking Resident Involvement: Resident Care Provided Care Provided: Adult Hospital Medicine
[2020-06-29] MEDS: ACETAMINOPHEN 325 MG TAB PO SCH (18:33)
[2020-06-29] MEDS: KETOROLAC TROMETHAMINE 15 MG/ML VIAL IV SCH (18:33)
[2020-06-29] MEDS: FLUCONAZOLE 100 MG/50 ML BAG IV SCH (19:31)
--- NOTE | 2020-06-29 19:41 | Billing Data ---
Date of Service June 29, 2020 Coding Level of Care Code 55148 Subseq Hosp Care Lvl 3
[2020-06-29] MEDS: DOCUSATE SODIUM 100 MG CAP PO SCH (21:07)
[2020-06-30] MEDS: KETOROLAC TROMETHAMINE 15 MG/ML VIAL IV SCH ×2 (00:06→06:19)
[2020-06-30] MEDS: ACETAMINOPHEN 325 MG TAB PO SCH ×4 (00:06→22:30)
[2020-06-30] MEDS: CLINDAMYCIN 600 MG in DEXTROSE 5% 50 ML IV SCH (06:20)
--- NOTE | 2020-06-30 07:12 | Surgery Progress Note ---
Date of Service June 30, 2020 Assessment & Plan (1) Infected hernioplasty mesh: this am wbc pending...if spikes with obtain ct of chest/abd/pelvis still afebrile. no peritoneal signs till awaiting bowel fx. d/c planning. not quite ready yet. Admission and Anticipated Discharge Date Admission Date: June 23, 2020 Subjective pt doing ok. no major changes. had some shortness of breath yesterday. no nausea. denies abdominal pain. some pain with deep inspiration in chest. no bm yet Physical Exam Physical Exam: alert. comfortable. nad abd: soft. wound looks good. TALISHA's serous Results & Data ([facility]) Vital Signs (Past 12 Hours) Vital Signs Temp Pulse Resp BP BP Pulse Ox 06/30/20 03:10 36.9 C 106 H 16 127/86 96 06/29/20 22:38 37.0 C 112 H 18 127/86 94 PG Care Time/CCT Total # of Minutes Spent Total Time Spent with Patient: Total time spent is greater than 50% in coordination of care (as documented) at patient's floor/unit and/or counseling patient: Coding Level of Care Code None Diagnoses Infected hernioplasty mesh T85.79XA
[2020-06-30 07:16] LABS: Hematocrit (blood only) 35.1 % (42-52); Hemoglobin 11.8 g/dL (14.0-18.0); Mean Corpuscular Hemoglobin 27.5 pg (25-34); Mean Corpuscular Hgb Conc 33.6 g/dL (32-36); Mean Corpuscular Volume 81.8 fL (80-100); Mean Platelet Volume 9.8 fL (7.4-10.4); Nucleated RBC # (auto) 0.08 K/uL (0-0); Nucleated RBC % (auto) 0.4 %; Platelet Count 478 K/uL (130-400); RDW Coefficient of Variation 14.3 % (11.5-14.5); RDW Standard Deviation 42.4 fL (36.4-46.3); Red Blood Count 4.29 M/uL (4.7-6.1); White Blood Count 20.11 K/uL (4.8-10.8)
[2020-06-30] MEDS: SERTRALINE HCL 50 MG TABLET PO SCH (07:49)
[2020-06-30] MEDS: APIXABAN 5 MG TABLET PO SCH (07:49)
[2020-06-30] MEDS: DOCUSATE SODIUM 100 MG CAP PO SCH (07:49)
[2020-06-30] MEDS: PANTOprazole 40 MG TAB PO SCH (07:49)
[2020-06-30 07:50] LABS: BUN Creatinine Ratio 17.4 (10-20); Calcium 9.1 mg/dl (8.5-10.1); Creatinine Clr Calc Pharmacy 77.3 ml/min; Est GFR (African American) 53.7 ml/min; Est GFR (Non-African American) 46.3 ml/min; Potassium 4.3 mmol/L (3.5-5.1)
[2020-06-30] MEDS: CYCLOBENZAPRINE HCL 10 MG TAB PO SCH ×2 (07:58→22:30)
[2020-06-30] MEDS ORDERED: LACTATED RINGER'S 1,000 ML IV ONE (08:30)
[2020-06-30] MEDS ORDERED: PIPERACILL/TAZOBAC CONSULT ACTIVE PRN (09:07)
[2020-06-30] MEDS ORDERED: PIPERACILLIN/TAZOBACTAM 3.375 GM in DEXTROSE 5% 100 ML IV SCH (09:15)
[2020-06-30] MEDS ORDERED: OPTIRAY 350 500ml IV ONE (09:46)
[2020-06-30] MEDS: SODIUM CHLORIDE 0.9% 1000ML 1,000 ML IV SCH ×5 (09:58→22:30)
[2020-06-30] MEDS ORDERED: PIPERACILLIN/TAZOBACTAM 4.5 GM in DEXTROSE 5% 100 ML IV ONE (10:00)
[2020-06-30] MEDS ORDERED: VANCOMYCIN CONSULT ACTIVE PRN ×2 (10:03)
[2020-06-30] MEDS ORDERED: VANCOMYCIN HCL 2,500 MG in SODIUM CHLORIDE 0.9% 500 ML IV ONE (10:15)
--- NOTE | 2020-06-30 10:18 | CT Scan Report ---
CT angio chest dissec wo/w con HISTORY: 45 years-old Male leukocytosis EVAL PE / AORTA acute leukocytosis with chest and abdominal pain and recent abdominal surgery COMPARISON: CT abdomen and pelvis of same day, CTA chest 06/25/2020 TECHNIQUE: CTA of the chest was obtained both with and without the use of 107 mL Optiray 350. 3-D cor onal and sagittal MIPS were obtained from the axial data set and were submitted for review. All measu rements were obtained according to NASCET criteria. A dose lowering technique was used consistent wit h the principals osman GARCIA. FINDINGS: CTA: Mild cardiomegaly. There is no pericardial effusion. Unremarkable thoracic aorta. Patency of the imag ed great vessels. Noncontrast scan demonstrates no intramural hematoma. Bilateral segmental and subse gmental pulmonary emboli are redemonstrated and better seen on comparison study. No evidence of right heart strain. CT CHEST: 3.1 cm heterogeneous nodule of the right thyroid lobe. There is no adenopathy. No pneumothorax or ple ural effusion. Linear bibasilar predominant consolidative opacities suggestive of atelectasis. Right hemidiaphragm elevation with low lung volumes. The central airways are patent. Large amount of upper abdominal pneumoperitoneum. Trace abdominal ascites. Unremarkable soft tissues. Degenerative changes of the shoulders and spine. IMPRESSION: 1. Multiple bilateral pulmonary emboli redemonstrated. 2. Low lung volumes with bibasilar and dependent opacities suggestive of atelectasis. 3. Large amount of pneumoperitoneum. Please refer to the CTA abdomen and pelvis study of same day for additional details. 4. 3.1 cm right-sided thyroid nodule. Correlation with a nonemergent follow-up thyroid ultrasound rec ommended. ACT 112: Negative or not required by law. The above report was generated using voice recognition software. It may contain grammatical, syntax o r spelling errors. Electronically signed by: Kalyan Knox M.D. 06/30/2020 10:17 AM
[2020-06-30] MEDS: CEFEPIME 2,000 MG in SYRINGE 0 ML IV SCH ×2 (10:29→21:38)
--- NOTE | 2020-06-30 10:35 | CT Scan Report ---
CT ANGIOGRAM OF THE ABDOMEN AND PELVIS CLINICAL HISTORY: Leukocytosis. Recent surgery. 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 COMPARISON STUDY: Abdominal CT dated 12/12/2018. TECHNIQUE: Following the IV administration of 107 cc of Optiray 350, CT angiogram of the abdomen and pelvis was performed from the lung bases the proximal femora. Images are reviewed in the axial, sagit oneil, and coronal planes. 3-D MIPS images are created and assessed. IV contrast was administered witho ut complication. A dose lowering technique was utilized adhering to the principles of ALARA. CT DOSE: 3374.24 mGy.cm FINDINGS: Lower chest: The heart is normal in size and without pericardial effusion. There is elevation of the right hemidiaphragm with bibasilar atelectasis. No pleural effusion is seen. There is a small hiatal hernia. Liver: The contrast-enhanced liver is normal in size, contour, and attenuation. There is no intrahepa tic biliary ductal dilatation. The main portal veins appear patent. Gallbladder: Unremarkable. Spleen: Normal in size and attenuation. Pancreas: Mildly atrophic and grossly unremarkable. Adrenal glands: The adrenal glands appear hyperemic. There are 2 small myelolipomas of the left adren al gland which measure up to 1.0 cm. Kidneys: The contrast enhanced kidneys are normal in size and without hydronephrosis. The kidneys enh ance symmetrically. A 1.7 cm cyst is noted in the interpolar right kidney. Abdominal aorta and iliac arteries: The abdominal aorta is normal in caliber. No dissection is seen. The iliac arteries are widely patent bilaterally. Major branches of the abdominal aorta: The celiac trunk, superior mesenteric, and inferior mesenteric arteries are patent. There is focal narrowing and angulation of the celiac trunk at the level of the medial acute ligament. There is mild poststenotic dilatation of the celiac artery which measures up to 1.3 cm. Hepatic arterial anatomy is conventional. The splenic artery is patent. Single bilateral r enal arteries are widely patent. Bowel: The small bowel loops are normal in caliber. The right colon is mildly distended, with the cec um measuring up to 7 cm in diameter the wall of the cecum and ascending colon appears mildly thickene d and hyperemic. There is a focal transition point seen in the mid transverse colon (axial image #371 ). The left colon is decompressed, and the appearance suggests colonic obstruction. There is mild col onic diverticulosis without CT evidence of acute diverticulitis. The appendix is not visualized. Peritoneum: There is a large volume of intraperitoneal free air. There is a small volume of perihepat ic ascites. There is a moderate volume of free fluid in the pelvis which appears complex. Hyperdense blood products are present in the left upper quadrant (axial image #242). No organized fluid collecti on is identified to suggest abscess. Soft tissues: There is infiltration with intravenous gas and trace fluid identified throughout the ab dominal pannus. Surgical drains are present within the subcutaneous tissues of the lower pelvis bilat erally. No organized fluid collection is identified within the pelvic pannus. A small hematoma is sug gested within the ventral abdominal wall on image #393. This measures 6.4 x 1.6 cm. Lymphadenopathy: None. Pelvic viscera: The bladder, prostate, and seminal vesicles are normal as visualized. There are bilat eral fat-containing inguinal hernias. Skeletal structures: No destructive bony lesions are seen. IMPRESSION: 1. There is a large volume of intraperitoneal free air consistent with visceral perforation. The site of perforation is not clearly delineated; however, given the reported history the colon is considere d most likely. 2. There is a focal transition point in the mid transverse colon. The upstream right colon is dilated and the left colon is decompressed. This suggests colonic obstruction. The small bowel loops are nor mal in caliber. 3. There are hyperdense blood products identified in the left upper quadrant. Additionally, there is a moderate volume of complex free fluid in the pelvis. Hemoperitoneum is favored. The sterility of th is fluid cannot be assessed by CT. No site of active extravasation is identified and no organized flu id collection is identified. 4. The wall of the right colon appears thickened and hyperemic. This suggest a nonspecific colitis an d could be on an infectious, inflammatory, or ischemic basis. 5. Findings suggest median arcuate ligament syndrome as above. Clinical correlation will be essential . 5. Otherwise unremarkable CT angiogram of the abdominal aorta and its major branches. 6. The adrenal glands appear hyperemic suggesting hypotension/hypovolemia. 7. Surgical drains are present within the pelvic pannus bilaterally. Trace subcutaneous fluid, inflam mation, and subcutaneous gas are likely related to recent surgery. No drainable fluid collection is i dentified in the abdominal wall. 8. A small hematoma noted within the left ventral abdominal wall. 9. Additional findings as above. ACT 112: Negative or not required by law. Electronically signed by: Norman Mensah M.D. 06/30/2020 10:34 AM
--- NOTE | 2020-06-30 10:40 | Pharmacy Report ---
Pharmacy Abx Dose Short Note - Date of Service June 30, 2020 - Assessment & Plan Assessment 45 year old male s/p infected hernioplasty mesh repair on 06/23. Had been started on clindamycin and fluconazole post procedure. Patient had developed new onset tachycardia/oxygen requirements, was found to have bilateral pulmonary emboli. WBC spiking this AM, per notes patient continues with shortness of breath. Procalcitonin and lactate elevated. Concern for abdominal abscess/leak at fistula site vs pneumonia. Vancomycin and cefepime added for additional coverage this AM Plan Vancomycin * Received loading dose of vancomycin 2500 mg x 1 (~19 mg/kg/dose) * Patient's Scr spiking also this AM, from 0.58 mg/dL to 1.72 mg/dL. Plan to dose by levels with vancomycin until renal function appears stable * Plan to order a random level this evening to ensure safe to redose vancomycin and to assess Scr. Plan to redose vancomycin when level <20 mcg/ml Pharmacy will continue to follow and will adjust dose/frequency as necessary. Thank you.
[2020-06-30] MEDS ORDERED: DC ALL ANTICOAGULANTS ONE (11:00)
[2020-06-30] MEDS ORDERED: SODIUM CHLORIDE 0.9% 250 ML IV PRN ×2 (11:06→11:07)
[2020-06-30] MEDS ORDERED: PROTHROMBIN COMP CONC- KCENTRA 2,000 UNITS in SYRINGE 0 ML IV STA (11:14)
[2020-06-30] MEDS: LACTOBACILLUS ACIDOPHILUS 1 GM PACK PO SCH ×2 (12:00→22:30)
[2020-06-30 12:09] LABS: Fibrinogen 789 mg/dl (184-400); INR 1.7 (0.9-1.1); Partial Thromboplastin Ratio 1.3; Partial Thromboplastin Time 33.6 Seconds (21.0-31.0); Prothrombin Time 16.6 Seconds (9.0-12.0)
[2020-06-30] MEDS: LACTATED RINGER'S 1,000 ML IV SCH ×3 (12:13→22:30)
[2020-06-30] MEDS: metroNIDAZOLE 500 MG/100 ML BAG IV SCH ×2 (13:11→21:38)
--- NOTE | 2020-06-30 13:14 | Consultation ---
Date of Consultation June 30, 2020 Assessment & Plan (1) Bilateral pulmonary embolism: At this point this gentleman has bilateral pulmonary emboli. He is sent to undergo exploratory laparotomy and will be off the heparin or how long he will be immobile..Is unsure on how long he will need to be off his anticoagulation.Even though his DVT study was negative that was done 5 days prior to this.This point we would recommend a prophylactic cava filter. I have discussed the risks options and benefits of the procedure with the patient and his . The patient and his understand the risks options and benefits and agrees to the procedure. History of Present Illness Reason for Consultation: Pulmonary embolism Attending Physician: Ben Zhong, History of Present Illness This is a 45-year-old gentleman who had surgery On his abdomen for an infected mesh. 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 This was repaired.Subsequent to this he has developed shortness of breath and was found to have pulmonary emboli.He did have a ultrasound of his lower extremity but this was 5 days prior to this.He has developed pneumoperitoneum and is going to need a reexploration of his abdomen.This is planned on being done today. Allergies Allergy/AdvReac Type Severity Reaction Status Date / Time clavulanic acid Allergy Mild Rash Verified 06/23/20 10:09 NSAIDS (Non-Steroidal AdvReac Mild Gastrointestinal Verified 06/23/20 10:09 Anti-Inflamma Upset Home Medications Medication Instructions Recorded Confirmed Type loratadine 10 mg tablet 10 mg PO DAILY PRN 02/08/20 06/23/20 History ciclopirox 8 % topical solution 1 applic TOPICAL DAILY 28 Days 03/16/20 06/23/20 Rx #6.6 ml sulfamethoxazole 800 See Rx Instructions .ROUTE 05/30/20 06/23/20 Rx mg-trimethoprim 160 mg tablet .COMPLEX #56 tab levocarnitine [L-Carnitine] 500 mg PO HS 06/15/20 06/23/20 History magnesium 500 mg PO HS 06/15/20 06/23/20 History pantoprazole 20 mg PO QAM 06/15/20 06/23/20 History phentermine 37.5 mg PO QAM 06/15/20 06/23/20 History apixaban [Eliquis] 10 mg PO BID #11 tab 06/28/20 Rx sertraline 50 mg PO QAM 30 Days #30 tab 06/28/20 Rx Patient History Medical History Arthritis Chronic venous insufficiency GERD (gastroesophageal reflux disease) History of GI bleed 2016 Morbid obesity with BMI of 40.0-44.9, adult Seasonal allergies Surgical History H/O vasectomy H/O wisdom tooth extraction History of esophagogastroduodenoscopy (EGD) History of tooth extraction S/P hernia repair 2006 S/P panniculectomy (06/23/20) Panniculectomy with Component Separation, Explant of Infected Mesh, - Ben Zhong DO Open Recurrent Ventral Hernia Repair with Biologic Mesh; takedown of enterocutaneous fistula; enterolysis; partial omentectomy- Ben Zhong DO Family History Mother Diabetes Cancer Grandfather Heart disease Other No family history of adverse response to anesthesia Social History Smoking Status: Never smoker Second Hand Exposure: No; Do You Dip or Chew Tobacco: No; Tobacco Cessation Education Requested by Patient: No Hx Alcohol Use: Yes Alcohol type: beer Hx Substance Use: No Preferred Language: Macedonian Communication Ability: Effective Wall Washer Required: No Beliefs That Will Affect Care: None marital status: Current Living Situation: Spouse and Family Current Living Situation Comment: Lives with and 2 kids current occupational status: employed 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 Other Information That Helps Us Care for You: No Feels Safe at Home: Yes Safety Concerns: Feels Safe At This Time Assistive Devices: None Assistive Devices Comment: reading glasses, at bedside Review of Systems Review of Systems: All systems reviewed & are unremarkable except as noted in HPI & below Constitutional: + sweats Respiratory: + dyspnea Cardiovascular: + dyspnea at rest; no chest pain with activity Gastrointestinal: + abdominal pain Physical Exam Constitutional: well developed, well nourished and + acute distress Respiratory: + labored breathing Auscultation: + diminished lung sounds Cardiovascular: Rate/Rhythm: regular rate and regular rhythm Gastrointestinal (Abdomen): Inspection/Auscultation: + abdomen distended Percussion/Palpation: + abdomen tender Musculoskeletal: Extremities: extremities normal to inspection Neurologic: CN's II-XI intact bilaterally and moves all extremities Psychiatric: Orientation: alert and oriented x 3 Results & Data ([facility]) Vital Signs (Past 12 Hours) Vital Signs Temp Pulse Pulse Resp BP Pulse Ox Pulse Ox 06/30/20 11:45 36.5 C 105 H 18 127/86 92 06/30/20 11:05 36.5 C 113 H 22 125/87 125 H 06/30/20 10:01 94 06/30/20 07:50 36.8 C 120 H 18 120/87 96 06/30/20 03:10 36.9 C 106 H 16 127/86 96
--- NOTE | 2020-06-30 13:19 | Anesthesiology Consultation ---
Date of Service June 30, 2020 Assessment & Plan Chart Review Chart Review: Acceptable Risk for Surgery and Patient NOT seen in Pre Admission Testing Consults Requested none ASA ASA4 Proposed Anesthesia Anesthesia Type: General Anesthesia Line Insertion: Arterial line and Central Venous Catheter History Surgery Operation Date: 06/23/20 11:15 Proposed Procedures p Panniculectomy with Component Separation, Explant of Infected Mesh, - Ben Zhong DO s Open Recurrent Ventral Hernia Repair with Mesh - Ben Zhong DO Operation Date: 06/30/20 08:40 Proposed Procedures p Inferior Vena Cava Filter Placement - Dony Mcneill MD s Exploratory Laparotomy with Surgery as needed - Ben Zhong DO Height/Weight Height: 6 ft 2 in Weight: 134.2 kg Allergies Allergy/AdvReac Type Severity Reaction Status Date / Time clavulanic acid Allergy Mild Rash Verified 06/23/20 10:09 NSAIDS (Non-Steroidal AdvReac Mild Gastrointestinal Verified 06/23/20 10:09 Anti-Inflamma Upset Medications Home Medications Medication Instructions Recorded Confirmed Last Taken loratadine 10 mg tablet 10 mg PO DAILY PRN 02/08/20 06/23/20 Unknown ciclopirox 8 % topical solution 1 applic TOPICAL DAILY 28 Days 03/16/20 06/23/20 06/22/20 08:00 #6.6 ml sulfamethoxazole 800 See Rx Instructions .ROUTE 05/30/20 06/23/20 06/23/20 07:00 mg-trimethoprim 160 mg tablet .COMPLEX #56 tab levocarnitine [L-Carnitine] 500 mg PO HS 06/15/20 06/23/20 06/15/20 19:00 magnesium 500 mg PO HS 06/15/20 06/23/20 06/15/20 19:00 pantoprazole 20 mg PO QAM 06/15/20 06/23/20 06/23/20 07:00 phentermine 37.5 mg PO QAM 06/15/20 06/23/20 06/15/20 07:00 apixaban [Eliquis] 10 mg PO BID #11 tab 06/28/20 Unknown sertraline 50 mg PO QAM 30 Days #30 tab 06/28/20 Unknown Active Medications Generic Name Dose Route Start Last Admin Trade Name Freq PRN Reason Stop Dose Admin Acetaminophen 650 mg 06/27/20 10:12 06/28/20 18:46 Acetaminophen 325 Mg Tab PO 07/27/20 10:11 650 mg Q4H PRN Administration mild pain Acetaminophen 650 mg 06/29/20 18:00 06/30/20 06:19 Acetaminophen 325 Mg Tab PO 07/29/20 17:59 650 mg Q6 MELIA Administration Bisacodyl 10 mg 06/29/20 08:24 06/29/20 12:52 Bisacodyl 10 Mg Supp SC 07/29/20 08:23 10 mg BID PRN Administration Constipation Cyclobenzaprine HCl 10 mg 06/28/20 09:00 06/30/20 07:58 Cyclobenzaprine Hcl 10 Mg Tab PO 07/28/20 08:59 10 mg TID MELIA Administration Diazepam 2 mg 06/24/20 08:31 06/27/20 13:33 Diazepam 2 Mg Tablet PO 07/24/20 08:30 2 mg BID PRN Administration Muscle Spasm Docusate Sodium 100 mg 06/29/20 21:00 06/30/20 07:49 Docusate Sodium 100 Mg Cap PO 07/29/20 20:59 100 mg BID MELIA Administration Promethazine HCl 12.5 mg/ 50.5 mls @ 204 mls/hr 06/23/20 17:49 06/27/20 16:29 Sodium Chloride IV 07/23/20 17:48 Infused Q6H PRN Infusion Nausea And Vomiting Fluconazole 100 mg in 50 mls @ 100 mls/hr 06/23/20 19:00 06/29/20 20:09 Diflucan IV 06/30/20 18:59 Infused Q24H MELIA Infusion Protocol Sodium Chloride 1,000 mls @ 125 mls/hr 06/30/20 08:45 06/30/20 13:11 Nss 1000ml IV 07/30/20 08:44 Not Given .Q8H MELIA Cefepime HCl 2,000 mg/ Syringe 20 mls @ 5 mls/min 06/30/20 10:00 06/30/20 10:29 IV 07/02/20 09:59 5 mls/min Q12 MELIA Administration Protocol Lactated Ringer's 1,000 mls @ 125 mls/hr 06/30/20 10:00 06/30/20 12:13 Lr IV 07/30/20 09:59 125 mls/hr .Q8H MELIA Administration Metronidazole 500 mg in 100 mls @ 100 mls/hr 06/30/20 12:00 06/30/20 13:11 Flagyl IV 07/10/20 11:59 100 mls/hr Q8H MELIA Administration Ondansetron HCl 4 mg 06/23/20 17:49 06/27/20 14:18 Ondansetron Inj 2 Mg/Ml 2 Ml Vial IV 07/23/20 17:48 4 mg Q4H PRN Administration Nausea And Vomiting Oxycodone HCl 5 mg 06/24/20 08:31 06/27/20 21:42 Oxycodone Hcl Ir 5 Mg Tab (Immediate Release) PO 07/08/20 08:30 5 mg Q4H PRN Administration Pain Pantoprazole Sodium 40 mg 06/28/20 09:00 06/30/20 07:49 Pantoprazole 40 Mg Tab PO 07/28/20 08:59 40 mg BID MELIA Administration Phenol 2 sprays 06/26/20 10:52 06/26/20 12:51 Chloraseptic 1.4% Soln 180 Ml Btl MT 07/26/20 10:51 2 sprays Q2H PRN Administration Sore Throat Sertraline HCl 50 mg 06/27/20 09:00 06/30/20 07:49 Sertraline Hcl 50 Mg Tablet PO 07/27/20 08:59 50 mg QAM MELIA Administration NPO Date Last Intake of Fluids: 06/22/20 Time Last Intake of Fluids: 23:45 Last Intake of Fluids Comment: sip of water 0700 w/meds Date Last Intake of Solids: 06/22/20 Time Last Intake of Solids: 23:45 Past Medical History Medical History Arthritis Chronic venous insufficiency GERD (gastroesophageal reflux disease) History of GI bleed 2017 Morbid obesity with BMI of 40.0-44.9, adult Seasonal allergies Exercise / Class Metabolic Activity III < 4 Walking/Shop/Light housework Past Family History Family History Mother Diabetes Cancer Grandfather Heart disease Other No family history of adverse response to anesthesia Past Surgical History Surgical History H/O vasectomy H/O wisdom tooth extraction History of esophagogastroduodenoscopy (EGD) History of tooth extraction S/P hernia repair 2006 S/P panniculectomy (06/23/20) Panniculectomy with Component Separation, Explant of Infected Mesh, - Ben Zhong, Open Recurrent Ventral Hernia Repair with Biologic Mesh; takedown of enterocutaneous fistula; enterolysis; partial omentectomy- Ben Zhong, Past Anesthesia History No Hx of Anesthesia Complications and No Family Hx of Anesthesia Complications History of PONV No Hx of PONV and No Hx of Motion Sickness Social History Smoking Status: Never smoker Do You Dip or Chew Tobacco: No Hx Alcohol Use: Yes Alcohol type: beer alcohol intake frequency: holidays/special occasions only Hx Substance Use: No substance use type: does not use Physical Exam Vital Signs Last Vital Signs Temp 36.5 C 06/30/20 11:45 Pulse 105 H 06/30/20 11:45 Resp 18 06/30/20 11:45 BP 127/86 06/30/20 11:45 Pulse Ox 92 06/30/20 11:45 Testing Laboratory Results 06/30/20 07:01 06/30/20 07:01 PT 16.6 Seconds (9.0-12.0) H 06/30/20 11:40 INR 1.7 (0.9-1.1) H 06/30/20 11:40 APTT 33.6 Seconds (21.0-31.0) H 06/30/20 11:40 Blood Type O Negative 06/30/20 11:40 Antibody Screen NEGATIVE 06/30/20 11:40
[2020-06-30] MEDS ORDERED: MIDAZOLAM HCL 1 MG/ML 2ML VIAL ONE (13:46)
[2020-06-30] MEDS ORDERED: LIDOCAINE 2% 2 ML VIAL/AMP(20MG/ML) INFIL ONE (13:46)
[2020-06-30] MEDS ORDERED: ROCURONIUM BROMIDE 10 MG/ML 5 ML VIAL IV ONE (13:46)
[2020-06-30] MEDS ORDERED: PROPOFOL IV EMULSION 10 MG/ML 20 ML VIAL IV ONE (13:46)
[2020-06-30] MEDS ORDERED: ONDANSETRON INJ 2 MG/ML 2 ML VIAL ONE (13:46)
--- NOTE | 2020-06-30 13:46 | Hospitalist Progress Note ---
Date of Service June 30, 2020 Assessment & Plan (1) Tachycardia: Mr. Eduardo is a 45 yo gentleman who is POD 7 after a recurrent ventral hernia repair and excision of infected mesh who developed new onset tachycardia along with a new oxygen requirement, found to have Bilateral Pulmonary Emboli. Initially he was placed on a heparin drip before transitioning to Eliquis. Overnight, patient became diaphoretic and developed general malaise. Today, he was tachycardic up to 120 bpm, and his WBC narciso from 14 to 20k. Cat scans of his abdomen/pelvis and chest were ordered stat, which returned showing a bowel perforation. Patient was promptly made NPO. Antibiotics were changed from Clindamycin to Vancomycin, Cefepime and Flagyl. His Eliquis was discontinued (although he he already received his morning dose). Dr. Nettles was contacted regarding options for coagulation - Eliquis reversal agent not available in our pharmacy. She recommending trying Kcentra 30 min prior to OR - although this would certainly not "reverse" his anticoagulation. Vascular surgery was contacted - Dr. Mcneill took patient to OR to place IVC filter (although there were no DVTs on venous duplex scan done five days ago, patient would be off anticoagulation for some time moving forward). General surgery then took him to the OR for ex lap. Hospitalist team is serving as business transformation consultant to general surgery. Sepsis - SIRS criteria met (HR 120 bpm, WBC increased to 20k) - source: likely intra-abdominal infection due to bowel perforation - Lactate elevated to 3.7 - blood cultures drawn; follow - patient was volume resuscitated - continue antibiotics as above (vanc, cefepime, and flagyl) - general surgery to perform ex lap with clean out today - trend CBC Acute Renal Failure - Cr increased from 0.58 to 1.72 - GFR reduced from 120 to 46 - K normal at 4.3 - likely secondary to acute tubular necrosis in the setting of new onset sepsis - volume resuscitation as above - using Cefepime > Zosyn. Pharmacy to do renal dosing of Vancomycin - trend BMP Bilateral PEs - presented with tachycardia and new oxygen requirement - identified on second Chest CTA from 06/25/20 - risk factors for clot formation include morbid obesity, chronic venous insufficiency, and recent surgery - PESI score of 97, class III, intermediate risk - No right heart strain noted on CTA. Trop not elevated. BNP not elevated. - transitioned from heparin drip to oral Eliquis on 06/27: 10mg BID for 7 days, followed by 5mg, BID thereafter. - discussed duration of anticoagulation: at least 3 months (provoked clot); also recommend patient take Eliquis on travel days (he will be taking a trip to [place] towards the end of the 3 month period) - Eliquis discontinued on 06/30/20 due to bowel perforation as above. IVF filter placed by Dr. Mcneill in OR. Leukocytosis - worsening - WBC increased from 14 to 20 today - likely secondary to intra-abdominal infection from bowel perforation - procal elevated - continue antibiotics as above - trend CBC Elevated Lactate - level at 3.7 - secondary to reduce tissue perfusion (new onset sepsis) - aggress volume resuscitation of IVF - trend level Hyponatremia - NA 130 on 06/29. Serum osms normal. consistent with pseudohyponatremia Thyroid Nodules with Hyperthyroidism - 3.3 cm right thyroid nodule incidentally on CTA of chest - TSH 0.085; Free T4 2.27 - concerning for possible hot nodule vs. sick euthyroid syndrome. - HR has ranged from 80s-115 bpm; unlikely to be in thyroid storm; no indication for beta kareem therapy at this time - recommend he have TSH and free T4 levels repeated by PCP in outpatient setting in 3 weeks - recommend he have an US of the thyroid as an outpatient DVT ppx: SCDs, IVC filter placed today Dispo: pending surg FENGI: NPO Code: Full Admission and Anticipated Discharge Date Admission Date: June 23, 2020 Supervising Physician Co-Signing Physician Notes I personally examined the patient and verified all mancuso points of history and exam, discussed case, and agree with decision making with Dr Reyes. feeling worse. wbc up. HR up. CT done - shows perforation. for surgery. seen, discussed extensively w pt and , then discussion w dr craig in room as well. vitals noted mild pain distress, mild diaphoresis. heent nc at mmm. cardio HR up to somewhat tachycardic. breathing unlabored no accessory muscles good effort skin no rashes no pallor or icterus. abd firm mod distended diffuse tender. no erythema no erythema around prior incisions perforated viscous, peritonitis -- cefepime, flagyl - to OR. supportive care aggressively/fluids ARF - fluids, treat sepsis. PE - obviously need to interrupt anticoagulation for now. try to reverse w Kcentra as best as possible. IVC filter placed. resume heparin as soon as is safe post op. otherwise as above Subjective Overnight, patient became increasingly diaphoretic. He denies any chest pain - but does seem to be more conversationally dyspneic. He became nauseous when attempting to eat breakfast. present at bedside Review of Systems Gastrointestinal: + abdominal pain and + nausea Physical Exam Constitutional: well developed, well nourished, cooperative and + diaphoretic; no acute distress Eyes: + anicteric sclerae ENMT: external ear and nose normal, oropharynx normal Neck: normal visual inspection and trachea midline Respiratory: normal respiratory effort, lungs clear to auscultation Cardiovascular: Rate/Rhythm: regular rhythm and + tachycardic Heart Sounds: normal S1 and normal S2 Extremities: no pedal edema Gastrointestinal (Abdomen): Inspection/Auscultation: normal bowel sounds Percussion/Palpation: + abdomen tender and + abdomen firm Skin: no rashes, warm and dry Psychiatric: Orientation: alert and oriented x 3 Affect: + flat affect Results & Data Results & Data ([facility]) Vital Signs (Past 12 Hours) Vital Signs Temp Pulse Pulse Resp BP Pulse Ox Pulse Ox 06/30/20 11:45 36.5 C 105 H 18 127/86 92 06/30/20 11:05 36.5 C 113 H 22 125/87 125 H 06/30/20 10:01 94 06/30/20 07:50 36.8 C 120 H 18 120/87 96 06/30/20 03:10 36.9 C 106 H 16 127/86 96 Resident Activity Tracking Resident Involvement: Resident Care Provided Care Provided: Adult [facility]
[2020-06-30] MEDS ORDERED: fentaNYL citrate 100 MCG/2 ML VIAL ONE ×3 (13:47→16:09)
[2020-06-30] MEDS ORDERED: METOPROLOL TARTRATE 1 MG/ML VIAL IV ONE (15:01)
[2020-06-30] MEDS ORDERED: CISATRACURIUM BESYLATE IV SOLN 2 MG/ML 10 ML VIAL IV ONE ×2 (15:05→16:16)
--- NOTE | 2020-06-30 15:48 | Operative Report ---
Post Operative Report Pre & Post Diagnosis Operation Date: 06/23/20 11:15 Pre-Op Diagnosis: Recurrent Ventral Hernia, Yeast Infection of Skin Post-Op Diagnosis: Recurrent Ventral Hernia, Yeast Infection of Skin Operation Date: 06/30/20 08:40 Pre Op Dx: PE, contraindication for anticoagulation Post Op Dx: PE, contraindication for anticoagulation I identified the patient and participated in the time-out.: Yes Procedure Operation Date: 06/23/20 11:15 Actual Procedures p Panniculectomy with Component Separation, Explant of Infected Mesh,(Not Applicable) - Ben Zhong DO s Open Recurrent Ventral Hernia Repair with Mesh(Not Applicable) - Ben Zhong DO Operation Date: 06/30/20 08:40 Actual Procedures p Inferior Vena Cava Filter Placement(Right) - Dony Mcneill MD Surgeon Dony Mcneill MD Risk Intern none Estimated Blood Loss 2 Findings Consistent with Post-Op Diagnosis Specimens none Anesthesia Type General Complications none Indications This is a 45-year-old gentleman who had a panniculectomy. He he had abdominal distention post surgery. 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 Subsequent to this he is now developed pulmonary emboli along with a pneumoperitoneum. He is being explored today for pneumoperitoneum. Due to the contraindication and anticoagulation due to the surgery we elected to place a prophylactic filter. I have discussed the risks options and benefits of the procedure with the patient. The patient understands the risks options and benefits and agrees to the procedure. Description of Procedure The patient was brought to the angio suite and placed in the supine position. The patient was identified and a timeout performed. The right side of the neck was prepped and draped in the usual fashion. The right internal jugular vein was located with ultrasound. It was patent, compressed easily, and had no filling defects. The vein was then punctured under ultrasound visualization. A guidewire was then passed centrally into the inferior vena cava under fluoroscopic guidance. The puncture site was then dilated and the filter sheath inserted. It was passed to the infra renal vena cava. A venacavagram was done which showed no cava clot and an acceptable size. The renal veins were identified. The filter was then passed through the sheath and deployed in the infra renal vena cava in an upright position. Satisfied with the positioning of the filter, the sheath was removed. Pressure was applied to the puncture site. Adequate hemostasis was obtained and a sterile dressing was applied. . All needle and sponge counts were correct at the end of the procedure. I attest to the content of the Intraoperative Record and any orders documented therein. Any exceptions are noted below.
[2020-06-30] MEDS ORDERED: PIPERACILLIN/TAZOBACTAM 4.5 GM in DEXTROSE 5% 100 ML IV SCH (16:00)
[2020-06-30] MEDS ORDERED: SUCCINYLCHOLINE CHLORIDE 20 MG/ML 10 ML VIAL IV ONE (16:16)
[2020-06-30] MEDS ORDERED: CALCIUM CHLORIDE 10% 10 ML SYR IV ONE (16:52)
[2020-06-30] MEDS ORDERED: HYDROmorphone INJ 2 MG/ML SYR/VIAL ONE (17:09)
[2020-06-30] MEDS ORDERED: MAGNESIUM SULFATE / D5W 1 GM/100 ML BAG IV ONE (17:15)
[2020-06-30] MEDS ORDERED: ALBUMIN HUMAN 5% 12.5 GM/250 ML VIAL IV ONE (17:15)
--- NOTE | 2020-06-30 17:51 | Billing Data ---
Date of Service June 30, 2020 Coding Level of Care Code 82418 Subseq Hosp Care Lvl 3
[2020-06-30] MEDS ORDERED: NEOSTIGMINE METHYLSULFATE 5 MG/5 ML SYR ONE (18:22)
[2020-06-30] MEDS ORDERED: GLYCOPYRROLATE 0.2 MG/ML VIAL ONE (18:22)
--- NOTE | 2020-06-30 18:27 | XRay Report ---
XR KUB/Abdomen 1 view CLINICAL HISTORY: INSTRUMENT COUNT IN OR COMPARISON STUDY: No previous studies for comparison. FINDINGS: There are radiopaque structures projected over the lateral aspect of the lower pelvis, like ly representing surgical drains. There is also a catheter looped within the left hemipelvis. There is a Stacy catheter in place. No radio opaque metallic instruments are visualized. IMPRESSION: No radiopaque metallic instruments are visualized on this film. ACT 112: Negative or not required by law. Electronically signed by: Selvin Brown M.D. 06/30/2020 6:26 PM
[2020-06-30] MEDS ORDERED: ePHEDrine sulfate 50 MG/ML AMP IV PRN (18:59)
[2020-06-30] MEDS ORDERED: ONDANSETRON INJ 2 MG/ML 2 ML VIAL IV PRN (18:59)
[2020-06-30] MEDS ORDERED: HYDROmorphone INJ 1 MG/ML SYRINGE IV PRN (18:59)
[2020-06-30] MEDS ORDERED: LABETALOL HCL IV 5 MG/ML 20ML IV PRN (18:59)
[2020-06-30] MEDS ORDERED: NALOXONE HCL 0.4 MG/1 ML VIAL/CARP IV PRN ×2 (18:59→20:18)
[2020-06-30] MEDS ORDERED: PROMETHAZINE HCL 12.5 MG in SODIUM CHLORIDE 0.9% 50 ML IV PRN (18:59)
[2020-06-30] MEDS ORDERED: FLUMAZENIL 0.1 MG/1 ML 10 ML VIAL IV PRN (18:59)
[2020-06-30] MEDS ORDERED: ATROPINE SULFATE 0.1 MG/ML 10ML SYR IV PRN (18:59)
[2020-06-30 19:19] LABS: Hematocrit (blood only) 30.8 % (42-52); Hemoglobin 10.3 g/dL (14.0-18.0)
[2020-06-30 19:35] LABS: Creatinine Clr Calc Pharmacy 82.1 ml/min; Est GFR (African American) 57.7 ml/min; Est GFR (Non-African American) 49.8 ml/min
--- NOTE | 2020-06-30 19:46 | Operative Report ---
PG Post Operative Report Pre & Post Diagnosis Operation Date: 06/23/20 11:15 Pre-Op Diagnosis: Recurrent Ventral Hernia, Yeast Infection of Skin Post-Op Diagnosis: Recurrent Ventral Hernia, Yeast Infection of Skin Operation Date: 06/30/20 08:40 Pre-Op Diagnosis: Dr. Mcneill: Preopertaive Diagnosis: Pulmonary Embolism, contraindication for anticoagulation Dr. Zhong: Free Air in Abdomen Post-Op Diagnosis: Dr. Mcneill: Preopertaive Diagnosis: Pulmonary Embolism, contraindication for anticoagulation Dr. Zhong: Free air in abdomen, perforated cecum, large bowel obstruction I identified the patient and participated in the time-out.: Yes Procedure Operation Date: 06/23/20 11:15 Actual Procedures p Panniculectomy with Component Separation, Explant of Infected Mesh,(Not Applicable) - Ben Zhong DO s Open Recurrent Ventral Hernia Repair with Mesh(Not Applicable) - Ben Zhong DO Operation Date: 06/30/20 08:40 Actual Procedures p Inferior Vena Cava Filter Placement(Not Applicable) - Dony Mcneill MD p Exploratory Laparotomy, Reduction of Large Bowel Obstruction; Partial Cecectomy, Diverting Ileostomy, Abdominal Washout - Ben Zhong DO Surgeon Ben Zhong DO 2nd surgeon- Darin Michaels Mobility Scooter Repairer gabrielle Chi Estimated Blood Loss 100 Findings Consistent with Post-Op Diagnosis Specimens abdominal fluid cx Anesthesia Type General Complications none Description of Procedure After informed consent was obtained the patient was brought to the operating room. Dr. Mcneill performed placement of an inferior vena cava filter that as the initial portion of the procedure. Please see his dictation for the details. The patient was already intubated from Dr. Mcneill's procedure. A Stacy catheter was placed sterilely as well as an NG tube. The abdomen was then sterilely prepped and draped in usual fashion. I began with an upper midline incision with a 10 blade scalpel. This was carried down through the soft tissue using cautery. Anterior rectus fascia was opened using cautery. Peritoneum was elevated with hemostats and incised under direct vision using a Metzenbaum scissor. This incision was opened to both poles using cautery. We extended this down to the superior aspect of his recent biologic mesh placement. Once we opened the peritoneum there was a large amount of air released. Surprisingly there was minimal fluid. There was no foul odor or succus. The small bowel was inflamed and dilated. The first thing I did was identify the transverse colon to evaluate the area of prior fistula repair. Initially it was difficult to find. It was actually covered by a loop of small bowel. When I finger fractionated the adhesions of the small bowel to release the transverse colon which had been pinned down in a corkscrew fashion creating as large bowel obstruction. Once this was released there was a portion of the transverse colon presumably where I repaired the fistula that was thickened and inflamed. Distal to this towards the spleen was normal tissue as well as proximal towards the cecum. However as we ran towards the cecum we started to notice some bile staining on the serosa. Eventually we got to the cecum where there was some bile staining and when we mobilized the cecum noted about a half a centimeter pinhole in the serosa. When we manipulated this manually a small amount of stool came out. We immediately clamped this and irrigated it. I used the TA 60 stapling device to staple off a small section of the cecum in order to close the perforation. Once this was accomplished again we continued to irrigate. Once we had the stool out we then changed our gloves. There was a hematoma in the pelvis which we suctioned and irrigated out. There was a small amount of fluid in the right upper quadrant. The small bowel was very inflamed and thickened throughout as was the right and transverse colon's. Again we thoroughly inspected the area of the prior fistula repair and there was no evidence of any leakage. There was some inflammation but certainly nothing that would warrant resection in the face of this acute complication. The stomach appeared normal. At this point we spent quite some time irrigating all 4 quadrants with about 7 to 8 L of irrigation. Once this was completed I decided to do a diverting ileostomy. A circular incision was made in the right mid abdomen. The fascia was opened using cautery in a cruciate manner. A York clamp was brought in and small bowel about 1 foot from the ileocecal valve was able to be manipulated out the opening. Next we placed 2 #19 Darin drains. Both out separate stab incisions 1 to the right upper quadrant and one into the pelvis. We ran the small and large bowel 1 more time and other than inflammation in the transverse colon and dilated small bowel no other abnormalities were identified. The irrigation was all clear and there was adequate hemostasis. The fascia of the midline incision was then closed with #1 looped PDS starting either pole and running them and securing them together in the midline. Soft tissue was irrigated. The skin was closed over a Jamison drain with skin matthew. Silver dressing gauze and tape were used. The drains were secured using 2-0 nylon. At this point we fashioned the ileostomy. Ileostomy bridge was advanced underneath the small bowel. The small bowel was then opened horizontally using cautery. A Lilly ileostomy was created using 3-0 Monocryl. It was nice pink and viable with nice narciso budding. An ostomy bag was placed. The patient was subsequently awakened extubated and transferred to intensive care unit in guarded condition. Dr. Michaels as well as my physician chemistry research assistant Leha Weinstein were present for the entire case were instrumental throughout the entire procedure with exposure and assistance. I attest to the content of the Intraoperative Record and any orders documented therein. Any exceptions are noted below.
[2020-06-30] MEDS ORDERED: HYDROmorphone PCA 30 MG/30 ML IV PRN (20:18)
--- NOTE | 2020-06-30 20:18 | Critical Care Consultation ---
Date of Consultation June 30, 2020 Assessment & Plan (1) Admitted to intensive care unit: Reason Critically Ill: 45-year-old male who is status post exploratory laparotomy in the setting of visceral perforation requiring reduction of large bowel obstruction, partial cecectomy, diverting ileostomy, and abdominal washout. Patient had complicated initial postoperative course with bilateral PE requiring eventual placement of IVC filter. 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 Thankfully, hemodynamics have maintained. Concerning for compensatory mechanism in the recent postoperative patient as well as new diagnosis of pulmonary emboli. * Postoperatively, certainly could be contributed to fluid shifting. Crystalloid boluses as needed. * Would avoid rate control in the immediate postoperative patient unless absolutely necessary. * Monitor on telemetry. RESPIRATORY - * Hypoxia: * Likely secondary to pulmonary emboli with associated abdominal splinting with extensive surgeries. * CT with extensive bilateral PEs. Thankfully, without heart strain. * On review of chart, the patient has had no leaking of troponins. BNP was not elevated. * Continue with supplemental oxygen as needed. GI/NUTRITION - * Distal perforation status post exploratory laparotomy, reduction of large bowel obstruction, partial cecetomy, diverting ileostomy, and abdominal washout. * Unfortunately, patient is with recent surgery on 06/23 for explant of infected mesh with open ventral hernia repair and panniculectomy. * Continue with ongoing antibiotics. Patient previously on antifungals as well. * NG tube to LIS. * Continue per general surgery recommendations. * Prophylaxis: Famotidine RENAL/LYTES - * ONOFRE: * Acute ONOFRE postoperatively. * Likely prerenal in the setting of hypovolemia. * Continue with IV fluids as needed. * IVF: LR at 125 mL's per hour. - * Stacy in place - Strict I&Os. ENDO - * No history of diabetes. Blood glucose has remained stable to elevated. * BSGs per unit protocol. ISS --> gtt per unit policy. * Concerning thyroid knowledgeable. HEME - * Stable H&H. * Trend status post surgical intervention and recent need for multiple anticoagulants. ID - * Visceral perforation: * Patient previously on multiple antibiotics and antifungal coverage. * Currently on cefepime and Flagyl. * No reports of bowel spillage today. * Cultures pending. * Trend lactate. * Procalcitonin LINES/IV ACCESS - * PIVs x2 * LEFT radial arterial line * NG tube * Stacy * TALISHA drains x4 DVT PROPHYLAXIS - * Hold per general surgery. * SCDs I have personally spent 35 minutes of critical care time in the direct management of this patient. This is a life/limb threatening event. This includes time spent evaluating patient, direct bedside care, chart review, placing orders, interpretation of diagnostic studies, discussion with consultants, patient, and family members, as well as other required patient management activities. This time is exclusive of all separately billable procedures, and teaching time and separate from and in addition to any other critical care service time. Thank you for allowing us to participate in the care of this patient. Please refer to my attending physician's documentation for any further recommendations. (2) S/P exploratory laparotomy: (3) Bilateral pulmonary embolism: (4) Hypoxia: (5) Tachycardia: (6) Infected hernioplasty mesh: (7) Recurrent ventral hernia: History of Present Illness Attending Physician: Ben Zhong, History of Present Illness Patient is a 45-year-old male with a significant past medical history of recurrent ventral hernia, chronic venous insufficiency, and morbid obesity. Patient underwent explant of infected mesh for open ventral hernia repair as well as panniculectomy on 06/23. Patient's postoperative course was complicated by development of bilateral pulmonary emboli with hypoxia and tachypnea. Patient initially started on heparin drip followed by Eliquis. Unfortunately, the patient developed worsening abdominal pain with CT findings concerning for visceral perforation today prompting need for return to the OR. Patient underwent placement of IVC filter by vascular surgery prior to exploratory laparotomy. Patient underwent exploratory laparotomy with reduction of large bowel obstruction, partial colectomy, diverting ileostomy, and extensive abdominal washout. No intraoperative complications with minimal blood loss noted. Patient previously on fluconazole as well as cefepime and Flagyl. Upon evaluation in the ICU, patient is awake, alert, and oriented. He has minimal discomfort postoperatively. He is still with the effects of anesthesia, but otherwise is doing well. Allergies Allergy/AdvReac Type Severity Reaction Status Date / Time clavulanic acid Allergy Mild Rash Verified 06/23/20 10:09 NSAIDS (Non-Steroidal AdvReac Mild Gastrointestinal Verified 06/23/20 10:09 Anti-Inflamma Upset Home Medications Medication Instructions Recorded Confirmed Type loratadine 10 mg tablet 10 mg PO DAILY PRN 02/08/20 06/23/20 History ciclopirox 8 % topical solution 1 applic TOPICAL DAILY 28 Days 03/16/20 06/23/20 Rx #6.6 ml sulfamethoxazole 800 See Rx Instructions .ROUTE 05/30/20 06/23/20 Rx mg-trimethoprim 160 mg tablet .COMPLEX #56 tab levocarnitine [L-Carnitine] 500 mg PO HS 06/15/20 06/23/20 History magnesium 500 mg PO HS 06/15/20 06/23/20 History pantoprazole 20 mg PO QAM 06/15/20 06/23/20 History phentermine 37.5 mg PO QAM 06/15/20 06/23/20 History apixaban [Eliquis] 10 mg PO BID #11 tab 06/28/20 Rx sertraline 50 mg PO QAM 30 Days #30 tab 06/28/20 Rx Patient History Medical History Arthritis Chronic venous insufficiency GERD (gastroesophageal reflux disease) History of GI bleed 2016 Morbid obesity with BMI of 40.0-44.9, adult Seasonal allergies Surgical History H/O vasectomy H/O wisdom tooth extraction History of esophagogastroduodenoscopy (EGD) History of tooth extraction S/P hernia repair 2006 S/P insertion of inferior vena caval filter (06/30/20) Inferior Vena Cava Filter Placement(Right) - Dony Mcneill MD S/P panniculectomy (06/23/20) Panniculectomy with Component Separation, Explant of Infected Mesh, - Ben Zhong DO Open Recurrent Ventral Hernia Repair with Biologic Mesh; takedown of enterocutaneous fistula; enterolysis; partial omentectomy- Ben Zhong DO Family History Mother Diabetes Cancer Grandfather Heart disease Other No family history of adverse response to anesthesia Social History Smoking Status: Never smoker Second Hand Exposure: No; Do You Dip or Chew Tobacco: No; Tobacco Cessation Education Requested by Patient: No Hx Alcohol Use: Yes Alcohol type: beer Hx Substance Use: No Preferred Language: Albanian Communication Ability: Effective Adult Education Professional Required: No Beliefs That Will Affect Care: None marital status: Current Living Situation: Spouse and Family Current Living Situation Comment: Lives with and 2 kids current occupational status: employed 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 All else were negative. Physical Exam Physical Exam: VITAL SIGNS - Vital signs and nursing notes were reviewed. GENERAL - 45-year-old male appearing his stated age who is in no acute distress. Communicates well with provider and answers questions appropriately. HEAD - NC/AT. EYES - PERRL with EOMI bilaterally. EARS - No deformities of external structures noted on gross examination bilaterally. NOSE - Midline and without cyanosis. NGT in place. MOUTH/OROPHARYNX - Without perioral cyanosis. NECK - Neck with FROM. Supple to palpation. No nuchal rigidity. LUNGS - Chest wall symmetric without accessory muscle use, intercostals retractions, or central cyanosis. Normal vesicular breath sounds noted. CARDIAC - RRR with S1/S2. No murmur, rubs, or gallops appreciated. ABDOMEN - Abdominal contour obese with drains x4 with adequate output. RIGHT sided ileostomy in place. Abd TTP. Hypoactive bowel sounds. EXTREMITIES - No clubbing or peripheral cyanosis. No pretibial edema present. +3/5 radial and dorsalis pedis pulses palpated throughout. NEUROLOGIC - Cranial nerves II through XII grossly intact. PSYCH - A&Ox3 and cooperates fully with examiner. Pt is very pleasant and interacts well with examiner. Results & Data Results & Data ([facility]) Vital Signs (Past 12 Hours) Vital Signs Temp Pulse Pulse Resp BP Pulse Ox Pulse Ox 06/30/20 19:41 36.4 C L 123 H 24 109/79 93 06/30/20 19:25 36.4 C L 122 H 17 112/80 93 06/30/20 19:15 36.4 C L 122 H 16 110/87 92 06/30/20 19:05 36.4 C L 122 H 17 113/84 91 06/30/20 18:58 36.4 C L 122 H 14 126/92 92 06/30/20 14:07 36.9 C 120 H 24 92 06/30/20 11:45 36.5 C 105 H 18 127/86 92 06/30/20 11:05 36.5 C 113 H 22 125/87 125 H 06/30/20 10:01 94 Coding Level of Care Code Critical Care 1st 30-74 mins Diagnoses Admitted to intensive care unit Z78.9 S/P exploratory laparotomy Z98.890 Bilateral pulmonary embolism I26.99 Hypoxia R09.02 Tachycardia R00.0 Infected hernioplasty mesh T85.79XA Recurrent ventral hernia K43.2 Time Spent (min) 35
[2020-06-30] MEDS ORDERED: ACETAMINOPHEN 1000 MG/100 ML IV IV SCH (21:00)
[2020-06-30] MEDS: ACETAMINOPHEN 1,000 MG/100 ML VIAL IV SCH (21:04)
[2020-06-30 21:18] LABS: Albumin Level 2.1 gm/dl (3.4-5.0); BUN Creatinine Ratio 21.2 (10-20); Bilirubin Direct 0.7 mg/dl (0-0.2); Calcium 8.4 mg/dl (8.5-10.1); Creatinine Clr Calc Pharmacy 84.7 ml/min; Est GFR (African American) 59.9 ml/min; Est GFR (Non-African American) 51.7 ml/min
[2020-06-30 21:20] LABS: Bilirubin,Total 1.2 mg/dl (0.2-1); Phosphorus 5.7 mg/dl (2.5-4.9); Total Protein 5.6 gm/dl (6.4-8.2)
[2020-06-30] MEDS ORDERED: VANCOMYCIN HCL 1,500 MG in SODIUM CHLORIDE 0.9% 500 ML IV SCH (21:30)
[2020-06-30 21:39] LABS: Basophils # (auto) 0.01 K/uL (0-0.2); Basophils % (auto) 0.1 %; Eosinophils # (auto) 0.05 K/uL (0-0.5); Eosinophils % (auto) 0.6 %; Hematocrit (blood only) 29.6 % (42-52); Hemoglobin 10.1 g/dL (14.0-18.0); Immature Granulocytes # (auto) 0.02 K/uL (0.00-0.02); Immature Granulocytes % (auto) 0.3 %; Lymphocytes # (auto) 0.68 K/uL (1.2-3.4); Lymphocytes % (auto) 8.8 %; Mean Corpuscular Hemoglobin 27.6 pg (25-34); Mean Corpuscular Hgb Conc 34.1 g/dL (32-36); Mean Corpuscular Volume 80.9 fL (80-100); Mean Platelet Volume 9.5 fL (7.4-10.4); Monocytes # (auto) 0.75 K/uL (0.11-0.59); Monocytes % (auto) 9.7 %; Neutrophils # (auto) 6.25 K/uL (1.4-6.5); Neutrophils % (auto) 80.5 %; Nucleated RBC # (auto) 0.11 K/uL (0-0); Nucleated RBC % (auto) 1.4 %; Platelet Count 444 K/uL (130-400); RDW Coefficient of Variation 14.2 % (11.5-14.5); RDW Standard Deviation 41.9 fL (36.4-46.3); Red Blood Count 3.66 M/uL (4.7-6.1); White Blood Count 7.76 K/uL (4.8-10.8)
--- NOTE | 2020-06-30 22:25 | Anesthesiology Progress Note ---
Date of Service June 30, 2020 Anesthesia Post Procedure Vital Signs Vital Signs: Temp Pulse Pulse Pulse Pulse Resp BP 06/30/20 22:00 119 H 123/75 06/30/20 21:45 119 H 06/30/20 21:31 117 H 19 06/30/20 21:30 117 H 20 120/77 06/30/20 21:15 119 H 16 06/30/20 21:01 117 H 17 06/30/20 21:00 117 H 17 104/70 06/30/20 20:45 118 H 19 06/30/20 20:30 119 H 19 110/70 06/30/20 20:15 118 H 16 06/30/20 20:01 119 H 25 H 06/30/20 20:00 37.0 C 117 H 15 114/68 06/30/20 19:41 36.4 C L 123 H 24 06/30/20 19:25 36.4 C L 122 H 17 06/30/20 19:15 36.4 C L 122 H 16 06/30/20 19:05 36.4 C L 122 H 17 06/30/20 18:58 36.4 C L 122 H 14 06/30/20 14:07 36.9 C 120 H 24 06/30/20 11:45 36.5 C 105 H 18 06/30/20 11:05 36.5 C 113 H 22 06/30/20 10:01 06/30/20 07:50 36.8 C 120 H 18 06/30/20 03:10 36.9 C 106 H 16 06/29/20 22:38 37.0 C 112 H 18 BP BP Pulse Ox Pulse Ox 06/30/20 22:00 94 06/30/20 21:45 93 06/30/20 21:31 93 06/30/20 21:30 93 06/30/20 21:15 93 06/30/20 21:01 92 06/30/20 21:00 93 06/30/20 20:45 92 06/30/20 20:30 92 06/30/20 20:15 92 06/30/20 20:01 94 06/30/20 20:00 94 06/30/20 19:41 109/79 93 06/30/20 19:25 112/80 93 06/30/20 19:15 110/87 92 06/30/20 19:05 113/84 91 06/30/20 18:58 126/92 92 06/30/20 14:07 92 06/30/20 11:45 127/86 92 06/30/20 11:05 125/87 125 H 06/30/20 10:01 94 06/30/20 07:50 120/87 96 06/30/20 03:10 127/86 96 06/29/20 22:38 127/86 94 Pain Intensity Abdomen: Pain Intensity: 7 Transfer of Care Handoff Completed per policy Notes Mental Status: alert / awake / arousable Patient Amnestic to Procedure: Yes Nausea / Vomiting: adequately controlled Pain: adequately controlled Airway Patency, RR, SpO2: stable & adequate BP & HR: stable & adequate Hydration State: stable & adequate Anesthetic Complications: no major complications apparent
[2020-06-30 22:43] LABS: iSTAT Creatinine 1.9 mg/dl (0.6-1.3); iSTAT Hemoglobin 9.2 g/dl (14.0-18.0); iSTAT Ionized Calcium 1.05 mmol/l (1.12-1.32); iSTAT Potassium 4.6 mmol/L (3.3-5.0)
[2020-07-01] MEDS: metroNIDAZOLE 500 MG/100 ML BAG IV SCH ×3 (04:20→20:08)
[2020-07-01] MEDS: LACTATED RINGER'S 1,000 ML IV SCH ×2 (04:21→11:36)
[2020-07-01 04:54] LABS: Hematocrit (blood only) 30.2 % (42-52); Hemoglobin 9.8 g/dL (14.0-18.0); Mean Corpuscular Hemoglobin 27.2 pg (25-34); Mean Corpuscular Hgb Conc 32.5 g/dL (32-36); Mean Corpuscular Volume 83.9 fL (80-100); Mean Platelet Volume 9.6 fL (7.4-10.4); Nucleated RBC # (auto) 0.23 K/uL (0-0); Nucleated RBC % (auto) 1.8 %; Platelet Count 507 K/uL (130-400); RDW Coefficient of Variation 14.3 % (11.5-14.5); RDW Standard Deviation 44.4 fL (36.4-46.3); White Blood Count 13.05 K/uL (4.8-10.8)
[2020-07-01 05:14] LABS: BUN Creatinine Ratio 22.5 (10-20); Calcium 7.9 mg/dl (8.5-10.1); Creatinine Clr Calc Pharmacy 79.7 ml/min; Est GFR (African American) 55.6 ml/min; Magnesium 2.1 mg/dl (1.8-2.4); Phosphorus 5.6 mg/dl (2.5-4.9); Potassium 5.4 mmol/L (3.5-5.1)
[2020-07-01 05:48] LABS: Basophils # (auto) 0.02 K/uL (0-0.2); Basophils % (auto) 0.2 %; Echinocytes 1+; Eosinophils % (auto) 0.8 %; Immature Granulocytes # (auto) 0.07 K/uL (0.00-0.02); Immature Granulocytes % (auto) 0.5 %; Lymphocytes # (auto) 0.76 K/uL (1.2-3.4); Lymphocytes % (auto) 5.8 %; Monocytes # (auto) 1.37 K/uL (0.11-0.59); Monocytes % (auto) 10.5 %; Neutrophils # (auto) 10.73 K/uL (1.4-6.5); Neutrophils % (auto) 82.2 %; Polychromasia 1+
[2020-07-01] MEDS ORDERED: SODIUM CHLORIDE 0.9% 1000ML 500 ML IV ONE (05:54)
[2020-07-01] MEDS: ACETAMINOPHEN 1,000 MG/100 ML VIAL IV SCH ×3 (06:05→21:26)
[2020-07-01] MEDS ORDERED: CALCIUM GLUCONATE 10% 2,000 MG in SODIUM CHLORIDE 0.9% 50 ML IV ONE (06:15)
[2020-07-01] MEDS ORDERED: DEXTROSE 50% 50 ML SYRINGE IV ONE (06:15)
[2020-07-01] MEDS ORDERED: INSULIN HUMAN REGULAR PER UNIT 6 UNITS in SYRINGE 5.94 ML IV ONE (06:30)
[2020-07-01] MEDS ORDERED: INSULIN HUMAN REGULAR PER IV ONE (06:30)
--- NOTE | 2020-07-01 07:16 | XRay Report ---
XR chest 1V portable HISTORY: 45 years-old Male f/u follow-up study in a patient with pneumoperitoneum COMPARISON: CTA chest 06/30/2020 TECHNIQUE: Portable AP view of the chest FINDINGS: Cardiac silhouette is enlarged. Hypoinflation with bronchovascular crowding. Mild right hemidiaphragm atic elevation. Linear bibasilar opacities without pneumothorax or large pleural effusion. Decreased pneumoperitoneum of the upper abdomen. An enteric tube is present with distal tip projected over the mid gastric body. IMPRESSION: 1. Hypoinflation with bronchovascular crowding and bibasilar opacities suggestive of atelectasis. 2. Distal tip of enteric tube overlies the mid stomach. 3. Decreased upper abdominal pneumoperitoneum. ACT 112: Negative or not required by law. The above report was generated using voice recognition software. It may contain grammatical, syntax o r spelling errors. Electronically signed by: Kalyan Knox M.D. 07/01/2020 7:14 AM
[2020-07-01] MEDS: CEFEPIME 2,000 MG in SYRINGE 0 ML IV SCH ×2 (08:58→15:21)
[2020-07-01] MEDS: FAMOTIDINE 20 MG in SYRINGE 3 ML IV SCH (08:58)
[2020-07-01] MEDS ORDERED: FUROSEMIDE 20 MG in SYRINGE 0 ML IV ONE (09:00)
[2020-07-01 09:41] LABS: Calcium 8.5 mg/dl (8.5-10.1); Creatinine Clr Calc Pharmacy 90.7 ml/min; Est GFR (African American) 61.4 ml/min; Est GFR (Non-African American) 52.9 ml/min; Magnesium 2.2 mg/dl (1.8-2.4); Phosphorus 5.6 mg/dl (2.5-4.9); Potassium 5.2 mmol/L (3.5-5.1)
[2020-07-01] MEDS ORDERED: Heparin IV Adult Wt-Based Standard *NO* Bolus Protocol IV SCH (12:13)
--- NOTE | 2020-07-01 12:30 | Surgery Progress Note ---
Date of Service July 01, 2020 Assessment & Plan (1) S/P exploratory laparotomy: so far doing well pod 1 ok to start heparin. no bolus. will monitor H/H and TALISHA 's I prefer to keep pt in ICU another day or 2. pain control adequate may have some ice chips keep NGT another day Admission and Anticipated Discharge Date Admission Date: June 23, 2020 Subjective pt awake to questioning. oriented. pain control adequated. Physical Exam Physical Exam: awakes easily oriented currently abd:dressings c/d/i. all 4 TALISHA's with thin serous/pink fluid. NGT scant output. stoma looks good. no function yet Results & Data ([facility]) Vital Signs (Past 12 Hours) Vital Signs Temp Pulse BP Pulse Ox Pulse Ox 07/01/20 12:00 95 07/01/20 11:00 116 H 112/86 95 07/01/20 10:30 120 H 127/75 96 07/01/20 10:01 119 H 95 07/01/20 10:00 115 H 126/83 94 95 07/01/20 09:30 116 H 107/75 93 07/01/20 09:00 119 H 119/82 92 07/01/20 08:30 114 H 136/74 92 07/01/20 08:01 112 H 92 07/01/20 08:00 36.8 C 110 H 112/74 92 07/01/20 07:30 116 H 109/72 92 07/01/20 07:00 117 H 115/76 93 07/01/20 06:30 118 H 120/63 92 07/01/20 06:00 124 H 133/77 93 07/01/20 05:00 122 H 138/79 94 07/01/20 04:00 37.0 C 121 H 137/80 91 07/01/20 03:00 121 H 127/83 92 07/01/20 02:00 117 H 108/67 92 07/01/20 01:30 119 H 113/78 92 07/01/20 01:00 117 H 118/69 93 07/01/20 00:30 118 H 115/74 95 PG Care Time/CCT Total # of Minutes Spent Total Time Spent with Patient: Total time spent is greater than 50% in coordination of care (as documented) at patient's floor/unit and/or counseling patient: Coding Level of Care Code None Diagnoses S/P exploratory laparotomy Z98.890
[2020-07-01 13:18] LABS: Partial Thromboplastin Ratio 1.4; Partial Thromboplastin Time 37.3 Seconds (21.0-31.0)
[2020-07-01] MEDS: HEPARIN SODIUM/DEXTROSE 25,000 UNITS/500 ML BAG IV SCH (13:38)
--- NOTE | 2020-07-01 15:12 | Critical Care Progress Note ---
Date of Service July 01, 2020 Assessment & Plan (1) Admitted to intensive care unit: Reason Critically Ill: 45-year-old male who is status post exploratory laparotomy in the setting of visceral perforation requiring reduction of large bowel obstruction, partial cecectomy, diverting ileostomy, and abdominal washout. Patient had complicated initial postoperative course with bilateral PE requiring eventual placement of IVC filter. 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 Concerning for compensatory mechanism in the recent postoperative patient as well as new diagnosis of pulmonary emboli. Postoperatively, certainly could be contributed to fluid shifting. Would avoid rate control in the immediate postoperative patient unless absolutely necessary. Monitor on telemetry. RESPIRATORY - Hypoxia: Likely secondary to pulmonary emboli with associated abdominal splinting with extensive surgeries. CT with extensive bilateral PEs. On review of chart, the patient has had no leaking of troponins. BNP was not elevated. Continue with supplemental oxygen as needed. S/p IVC filter placement 06/30/2020 GI/NUTRITION - Distal perforation status post exploratory laparotomy, reduction of large bowel obstruction, partial cecetomy, diverting ileostomy, and abdominal washout. Unfortunately, patient is with recent surgery on 06/23 for explant of infected mesh with open ventral hernia repair and panniculectomy. Continue with ongoing antibiotics. Patient previously on antifungals as well. Continue per general surgery recommendations. RENAL/LYTES - ONOFRE: Acute ONOFRE postoperatively. Likely prerenal in the setting of hypovolemia. Continue with IV fluids as needed. Monitor BUN/creatinine Avoid nephrotoxic medication - Stacy in place - Strict I&Os. ENDO - No history of diabetes. Blood glucose has remained stable to elevated. BSGs per unit protocol. ISS --> gtt per unit policy. Concerning thyroid knowledgeable. HEME - Stable H&H. Trend status post surgical intervention and recent need for multiple anticoagulants. ID - Visceral perforation: Patient previously on multiple antibiotics and antifungal coverage. Currently on cefepime and Flagyl. No reports of bowel spillage in the OR on 06/30/2020 Cultures pending. Procalcitonin 8.8 --Prophylaxis VTE: IPC's GI: Pepcid Lines: PIVs x2, LEFT radial arterial line, NG tube, Stacy, TALISHA drains x4 Diet: N.p.o. Plan: In/out: +9.4 L, urine output 1491 Chest x-ray from today shows poor inspiratory effort, likely from the abdominal surgery. There is also pulmonary vascular congestion Patient will benefit from incentive spirometry Patient has mild hyperkalemia. He already got calcium gluconate insulin and dextrose I will give 20 mg of Lasix given that the patient is +9.4 L. Repeat BMP around 3 PM. Patient's nasal MRSA was negative will DC Vancomycin Continue with cefepime and Flagyl to cover for anaerobes and gram negatives Given the history of PE. Would like to get okay from surgery to start the patient on heparin drip without bolus. Please note the above document was generated using voice recognition software. It may contain grammatical, syntax or spelling errors.Any formal questions or concerns about the content, text or information contained within the body of this dictation should be directly addressed to the provider for clarification. (2) S/P exploratory laparotomy: (3) Bilateral pulmonary embolism: (4) Hypoxia: Admission and Anticipated Discharge Date Admission Date: June 23, 2020 Subjective Patient seen and examined at bedside. No acute distress, no adverse events overnight. Patient denies any abdominal pain. Denies any nausea or vomiting. Following commands. Moving all extremities appropriately. 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 Has been afebrile Review of Systems Review of Systems: All systems reviewed & are unremarkable except as noted in Subjective Physical Exam Physical Exam: Constitutional: No acute distress HEENT: EOMI, PERRLA Respiratory system: Decreased air entry bilaterally, no wheeze, no rhonchi, mild crackles bilateral lower lobes CVS: S1-S2 positive, no murmurs or gallops Abdomen: Soft, nontender, nondistended, positive bowel sounds x4, obese, TALISHA drains in place, ileostomy Extremities: +2 pulses bilaterally radialis/ dorsalis pedis, no cyanosis, no edema Neuro: Awake alert oriented x3 Psych: Normal mood and affect G/U: Positive Stacy Skin: no rashes, warm and dry Lymphatic: no cervical or axillary lymphadenopathy Results & Data Results & Data ([facility]) Vital Signs (Past 12 Hours) Vital Signs Temp Pulse BP Pulse Ox Pulse Ox 07/01/20 14:30 112 H 115/77 94 07/01/20 14:00 110 H 107/72 93 07/01/20 13:30 111 H 124/64 94 07/01/20 13:01 115 H 93 07/01/20 13:00 113 H 127/75 91 07/01/20 12:30 116 H 117/75 93 07/01/20 12:01 116 H 95 07/01/20 12:00 118 H 126/72 95 07/01/20 11:30 118 H 120/74 95 07/01/20 11:00 116 H 112/86 95 07/01/20 10:30 120 H 127/75 96 07/01/20 10:01 119 H 95 07/01/20 10:00 115 H 126/83 94 95 07/01/20 09:30 116 H 107/75 93 07/01/20 09:00 119 H 119/82 92 07/01/20 08:30 114 H 136/74 92 07/01/20 08:01 112 H 92 07/01/20 08:00 36.8 C 110 H 112/74 92 07/01/20 07:30 116 H 109/72 92 07/01/20 07:00 117 H 115/76 93 07/01/20 06:30 118 H 120/63 92 07/01/20 06:00 124 H 133/77 93 07/01/20 05:00 122 H 138/79 94 07/01/20 04:00 37.0 C 121 H 137/80 91 07/01/20 04:45 07/01/20 08:49 Coding Level of Care Code 15539 Subseq Hosp Care Lvl 3 Diagnoses Admitted to intensive care unit Z78.9 S/P exploratory laparotomy Z98.890 Bilateral pulmonary embolism I26.99 Hypoxia R09.02
[2020-07-01 15:27] LABS: Hematocrit (blood only) 27.5 % (42-52)
[2020-07-01 16:16] LABS: BUN Creatinine Ratio 26.7 (10-20); Calcium 8.3 mg/dl (8.5-10.1); Creatinine Clr Calc Pharmacy 101.9 ml/min; Est GFR (African American) 70.7 ml/min; Potassium 5.3 mmol/L (3.5-5.1)
[2020-07-01] MEDS: SODIUM CHLORIDE 0.9% 1000ML 1,000 ML IV SCH ×2 (17:36→22:00)
--- NOTE | 2020-07-01 18:07 | Hospitalist Progress Note ---
Date of Service July 01, 2020 Assessment & Plan (1) Tachycardia: Mr. Eduardo is a 45 yo gentleman who medicine was consulted on after a recurrent ventral hernia repair and excision of infected mesh who developed new onset tachycardia along with a new oxygen requirement, found to have Bilateral Pulmonary Emboli. unfortunately yesterday had a bowel perforation and is now day 1 post op of washout cecectomy and ileostomy placement. Sepsis - bowel perforation now day 1 s/p washout and partial colectomy cecectomy and re-anastamosis - Lactate initially elevated to 3.7 fluid resuscitated and down to 1.9 - blood cultures drawn; NGTD - Peritoneal fluid growing gram negative rods - continue vanc, cefepime, flagyl Acute Renal Failure - Cr increased from 0.58 to 1.72 yesterday - likely secondary to sepsis +/- ATN, improving down to 1.3 today Bilateral PEs - risk factors for clot formation include morbid obesity, chronic venous insufficiency, and recent surgery - PESI score of 97, class III, intermediate risk - No right heart strain noted on CTA. Trop not elevated. BNP not elevated. - transitioned from heparin drip to oral Eliquis on 06/27 - Eliquis discontinued on 06/30/20 due to bowel perforation and need for emergent surgery as above. - IVF filter placed yesterday pre op - Patient restarted on heparin drip for anticoagulation Elevated Lactate - Resolved Hyponatremia - NA 130 Serum osms normal. consistent with pseudohyponatremia of unclear origin Thyroid Nodules with Hyperthyroidism - 3.3 cm right thyroid nodule incidentally on CTA of chest - TSH 0.085; Free T4 2.27 - concerning for possible hot nodule vs. sick euthyroid syndrome. - HR has ranged from 80s-115 bpm; unlikely to be in thyroid storm; no indication for beta kareem therapy at this time - recommend he have TSH and free T4 levels repeated by PCP in outpatient setting in 3 weeks - recommend he have an US of the thyroid as an outpatient - If tachycardia worsens, may consider beta kareem therapy as an inpatient DVT ppx: SCDs, IVC filter placed today, heparin drip restarted Dispo: ICU through Saturday per surgery's request Code: Full Admission and Anticipated Discharge Date Admission Date: June 23, 2020 Supervising Physician Co-Signing Physician Notes I personally examined the patient and verified all mancuso points of history and exam, discussed case, and agree with decision making with Dr Pitts seems to be feeling better, a little confused, less sob less pain. discussion w dr craig in room as well. vitals notednad . heent nc at mmm. cardio HR up to somewhat tachycardic. breathing unlabored no accessory muscles good effort skin no rashes no pallor or icterus. drains without much output, fairly thin serosanguanous. no focal neuro deficits perforated viscous, peritonitis w sepsis -- cefepime, flagyl post op doing better ARF - fluids, treat sepsis. improving PE - cautious restart of anticoagulation w heparin - follow closely, follow Hgb and drain outpt. risk/benefit d/w pt//surgery. otherwise as above Subjective Stephan Eduardo is resting this morning very somnolent, oriented to person place and situation. Feels much better than he did yesterday easily distractible and difficult carrying on conversation. No complaints, denies chest pain, any shortness of breath and in fact feels his breathing is much better than yesterday. Abdominal pain present but mild. Review of Systems Review of Systems: All systems reviewed & are unremarkable except as noted in HPI & below Physical Exam Constitutional: well developed, well nourished, + obese, cooperative and + diaphoretic; no acute distress Eyes: PERRL, conjunctivae normal, anicteric sclerae + anicteric sclerae ENMT: external ear and nose normal, oropharynx normal Respiratory: + uses accessory muscles, + cough, able to speak in complete sentences and + tachypneic; no respiratory distress Auscultation: lungs clear to auscultation bilaterally and + diminished lung sounds Cardiovascular: Rate/Rhythm: regular rhythm and + tachycardic Heart Sounds: normal S1 and normal S2 Extremities: no calf tenderness and no pedal edema Gastrointestinal (Abdomen): Inspection/Auscultation: normal bowel sounds Percussion/Palpation: + abdomen tender (at incision, mild) and abdomen soft Ileostomy in place draining bloody stool appropriately, Abdominal incisions intact with 4 drains emptying appropriately serosanguinous drainage Skin: no rashes, warm and dry Results & Data Results & Data ([facility]) Vital Signs (Past 12 Hours) Vital Signs Temp Pulse BP Pulse Ox Pulse Ox 07/01/20 15:01 117 H 93 07/01/20 15:00 114 H 123/77 92 05/14/21 14:31 112 H 94 07/01/20 14:30 112 H 115/77 94 07/01/20 14:00 110 H 107/72 93 07/01/20 13:30 111 H 124/64 94 07/01/20 13:01 115 H 93 07/01/20 13:00 113 H 127/75 91 07/01/20 12:30 116 H 117/75 93 07/01/20 12:01 116 H 95 07/01/20 12:00 118 H 126/72 95 07/01/20 11:30 118 H 120/74 95 07/01/20 11:00 116 H 112/86 95 07/01/20 10:30 120 H 127/75 96 07/01/20 10:01 119 H 95 07/01/20 10:00 115 H 126/83 94 95 07/01/20 09:30 116 H 107/75 93 07/01/20 09:00 119 H 119/82 92 07/01/20 08:30 114 H 136/74 92 07/01/20 08:01 112 H 92 07/01/20 08:00 36.8 C 110 H 112/74 92 07/01/20 07:30 116 H 109/72 92 07/01/20 07:00 117 H 115/76 93 07/01/20 06:30 118 H 120/63 92 07/01/20 06:00 124 H 133/77 93 Resident Activity Tracking Resident Involvement: Resident Care Provided Care Provided: Adult Hospital Medicine
--- NOTE | 2020-07-01 18:13 | Billing Data ---
Date of Service July 01, 2020 Coding Level of Care Code 53580 Subseq Hosp Care Lvl 3
[2020-07-01 18:50] LABS: Partial Thromboplastin Ratio 1.7
[2020-07-02 00:22] LABS: BUN Creatinine Ratio 33.3 (10-20); Calcium 8.3 mg/dl (8.5-10.1); Creatinine Clr Calc Pharmacy 124.6 ml/min; Est GFR (African American) 90.2 ml/min; Est GFR (Non-African American) 77.8 ml/min
[2020-07-02] MEDS: CEFEPIME 2,000 MG in SYRINGE 0 ML IV SCH ×3 (01:03→16:54)
[2020-07-02] MEDS: HEPARIN SODIUM/DEXTROSE 25,000 UNITS/500 ML BAG IV SCH ×2 (01:33→13:28)
[2020-07-02 01:42] LABS: Partial Thromboplastin Ratio 1.8
[2020-07-02 01:43] LABS: Partial Thromboplastin Time 48.1 Seconds (21.0-31.0)
[2020-07-02] MEDS: metroNIDAZOLE 500 MG/100 ML BAG IV SCH ×3 (04:04→21:07)
[2020-07-02 04:21] LABS: Basophils # (auto) 0.02 K/uL (0-0.2); Basophils % (auto) 0.1 %; Eosinophils # (auto) 0.26 K/uL (0-0.5); Eosinophils % (auto) 1.7 %; Hematocrit (blood only) 27.4 % (42-52); Hemoglobin 8.8 g/dL (14.0-18.0); Immature Granulocytes # (auto) 0.16 K/uL (0.00-0.02); Lymphocytes # (auto) 0.59 K/uL (1.2-3.4); Lymphocytes % (auto) 3.8 %; Mean Corpuscular Hemoglobin 26.9 pg (25-34); Mean Corpuscular Hgb Conc 32.1 g/dL (32-36); Mean Corpuscular Volume 83.8 fL (80-100); Mean Platelet Volume 8.9 fL (7.4-10.4); Monocytes # (auto) 2.09 K/uL (0.11-0.59); Monocytes % (auto) 13.5 %; Neutrophils # (auto) 12.31 K/uL (1.4-6.5); Neutrophils % (auto) 79.9 %; Nucleated RBC # (auto) 0.25 K/uL (0-0); Nucleated RBC % (auto) 1.6 %; Platelet Count 549 K/uL (130-400); RDW Standard Deviation 46.3 fL (36.4-46.3); Red Blood Count 3.27 M/uL (4.7-6.1); White Blood Count 15.43 K/uL (4.8-10.8)
[2020-07-02 05:06] LABS: Partial Thromboplastin Ratio 1.8
[2020-07-02 05:08] LABS: Albumin Level 1.8 gm/dl (3.4-5.0); BUN Creatinine Ratio 35.5 (10-20); Bilirubin Direct 0.4 mg/dl (0-0.2); Bilirubin,Total 0.6 mg/dl (0.2-1); Calcium 8.3 mg/dl (8.5-10.1); Creatinine Clr Calc Pharmacy 143.9 ml/min; Est GFR (African American) 107.3 ml/min; Est GFR (Non-African American) 92.6 ml/min; Magnesium 2.5 mg/dl (1.8-2.4); Phosphorus 2.7 mg/dl (2.5-4.9); Potassium 4.9 mmol/L (3.5-5.1); Total Protein 5.8 gm/dl (6.4-8.2)
[2020-07-02] MEDS: ACETAMINOPHEN 1,000 MG/100 ML VIAL IV SCH ×3 (06:38→21:08)
[2020-07-02] MEDS: FAMOTIDINE 20 MG in SYRINGE 3 ML IV SCH (08:25)
[2020-07-02 08:27] LABS: Hematocrit (blood only) 26.7 % (42-52); Hemoglobin 8.8 g/dL (14.0-18.0)
--- NOTE | 2020-07-02 08:56 | Surgery Progress Note ---
Date of Service July 02, 2020 Assessment & Plan (1) S/P exploratory laparotomy: doing as expected will monitor wbc. afebrile. echo pending d/w utility locator....will start b-kareem d/c ngt...only putting out his ice intake. will start clears though cautioned him... high risk for ileus. 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 pain controlled. Physical Exam Physical Exam: sleepy. breathing with mild labor abd: incsisions all look great. no redness/drainage. TALISHA's serous x 4. stoma pink.... no real fx yet. Results & Data ([facility]) Vital Signs (Past 12 Hours) Vital Signs Temp Pulse Resp BP Pulse Ox 07/02/20 08:27 36.9 C 07/02/20 07:30 117 H 19 131/84 93 07/02/20 07:00 117 H 17 122/82 93 07/02/20 06:30 120 H 23 138/91 93 07/02/20 06:15 36.8 C 07/02/20 06:00 119 H 24 137/84 90 07/02/20 05:31 120 H 17 93 07/02/20 05:30 119 H 19 136/85 93 07/02/20 05:00 120 H 20 139/86 07/02/20 04:30 120 H 15 136/83 93 07/02/20 04:01 123 H 16 94 07/02/20 04:00 36.8 C 123 H 18 133/88 92 07/02/20 03:30 122 H 16 136/80 94 07/02/20 03:00 126 H 25 H 147/80 H 94 07/02/20 02:30 122 H 20 132/87 07/02/20 02:00 123 H 18 144/89 H 93 07/02/20 01:33 121 H 15 142/87 H 93 07/02/20 01:00 120 H 14 129/89 92 07/02/20 00:44 37.0 C 07/02/20 00:30 119 H 15 140/80 92 07/02/20 00:00 118 H 16 128/74 93 07/01/20 23:30 119 H 11 L 99/83 L 93 07/01/20 23:00 118 H 10 L 124/76 94 07/01/20 22:30 119 H 16 130/76 93 07/01/20 22:00 119 H 10 L 105/76 94 07/01/20 21:30 122 H 102/82 92 07/01/20 21:00 119 H 111/77 94 PG Care Time/CCT Total # of Minutes Spent Total Time Spent with Patient: Total time spent is greater than 50% in coordination of care (as documented) at patient's floor/unit and/or counseling patient: Coding Level of Care Code None Diagnoses S/P exploratory laparotomy Z98.890
[2020-07-02] MEDS: ONDANSETRON INJ 2 MG/ML 2 ML VIAL IV PRN (09:10)
--- NOTE | 2020-07-02 10:19 | XCELERA ---
[id number]
--- NOTE | 2020-07-02 10:24 | XRay Report ---
XR chest 1V portable CLINICAL HISTORY: Abnormal chest x-ray. Follow-up study. COMPARISON STUDY: 07/01/2020 FINDINGS: The heart is mildly enlarged. There are low lung volumes with bronchovascular crowding the lung bases. There is no lobar consolidation. There is no overt failure. There are no significant pleu ral effusions. The enteric tube has been removed.[ IMPRESSION: 1. Interval removal of the enteric tube 2. Low lung volumes with hypoventilatory changes at the lung bases ACT 112: Negative or not required by law. Electronically signed by: Selvin Brown M.D. 07/02/2020 10:23 AM
--- NOTE | 2020-07-02 10:48 | XRay Report ---
XR KUB/Abdomen 1 view CLINICAL HISTORY: Generalized abdominal pain COMPARISON STUDY: 06/30/2020 FINDINGS: There is a right-sided ostomy. There are bilateral pelvic drains. There is an IVC filter pr esent. There are multiple dilated small bowel loops, ileus versus obstruction. IMPRESSION: 1. Postsurgical changes. 2. Dilated small bowel loops, postoperative ileus versus obstruction. ACT 112: Negative or not required by law. Electronically signed by: Selvin Brown M.D. 07/02/2020 10:46 AM
--- NOTE | 2020-07-02 11:48 | Critical Care Progress Note ---
Date of Service July 02, 2020 Assessment & Plan (1) Admitted to intensive care unit: Reason Critically Ill: 45-year-old male who is status post exploratory laparotomy in the setting of visceral perforation requiring reduction of large bowel obstruction, partial cecectomy, diverting ileostomy, and abdominal washout. Patient had complicated initial postoperative course with bilateral PE requiring eventual placement of IVC filter. NEURO - CAM ICU: NEGATIVE Pain: CHANGE ANALYST CARDIAC/VASCULAR - Tachycardia: Patient has been persistently tachycardic. Concerning for compensatory mechanism in the recent postoperative patient as well as new diagnosis of pulmonary emboli. Postoperatively, certainly could be contributed to fluid shifting. Would avoid rate control in the immediate postoperative patient unless absolutely necessary. Monitor on telemetry. RESPIRATORY - Hypoxia: Improving Likely secondary to pulmonary emboli with associated abdominal splinting with extensive surgeries. CT with extensive bilateral PEs. On review of chart, the patient has had no leaking of troponins. BNP was not elevated. Continue with supplemental oxygen as needed. S/p IVC filter placement 06/30/2020 GI/NUTRITION - Distal perforation status post exploratory laparotomy, reduction of large bowel obstruction, partial cecetomy, diverting ileostomy, and abdominal washout. Unfortunately, patient is with recent surgery on 06/23 for explant of infected mesh with open ventral hernia repair and panniculectomy. Continue with ongoing antibiotics. Patient previously on antifungals as well. Continue per general surgery recommendations. RENAL/LYTES - ONOFRE: Improving Acute ONOFRE postoperatively. Likely prerenal in the setting of hypovolemia. Continue with IV fluids as needed. Monitor BUN/creatinine Avoid nephrotoxic medication - Stacy in place - Strict I&Os. ENDO - No history of diabetes. Blood glucose has remained stable to elevated. BSGs per unit protocol. ISS --> gtt per unit policy. Concerning thyroid knowledgeable. HEME - Stable H&H. Trend status post surgical intervention and recent need for multiple anticoagulants. ID - Visceral perforation: Patient previously on multiple antibiotics and antifungal coverage. Currently on cefepime and Flagyl. No reports of bowel spillage in the OR on 06/30/2020 Cultures pending. Procalcitonin 8.8 Peritoneal fluid growing E. coli which is sensitive to Rocephin. --Prophylaxis VTE: IPC's GI: Pepcid Lines: PIVs x2, LEFT radial arterial line, NG tube, Stacy, TALISHA drains x4 Diet: Ice chips today Plan: In/out: -898, urine output 3600 Chest x-ray again shows very poor inspiratory effort, no clear lung infiltrate appreciated. Peritoneal fluid is growing E. coli which is resistant to ampicillin and aminoglycosides. Sensitive to cephalosporins and fluoroquinolones Continue with cefepime for the time being C/w incentive spirometry. Will add flutter valve. Discussed with surgery. Plan is to remove NGT We will start the patient on sips of water and maybe clear liquid later on. Out of the bed to chair Serum sodium is a bit on the higher side. We will change the NS to half NS. I will consider giving another 20 of Lasix. Patient blood pressure is on the higher side. We will start the patient on 2.5 mg of metoprolol IV every 6 hours Patient is hemodynamically stable to be sent out of the ICU. Please note the above document was generated using voice recognition software. It may contain grammatical, syntax or spelling errors.Any formal questions or concerns about the content, text or information contained within the body of this dictation should be directly addressed to the provider for clarification. (2) S/P exploratory laparotomy: (3) Bilateral pulmonary embolism: (4) Hypoxia: Admission and Anticipated Discharge Date Admission Date: June 23, 2020 Subjective Patient seen and examined at bedside. No acute distress. No adverse events overnight. Patient's was in the room at the time of examination. Patient states he feel little bit lousy today. He denies any abdominal pain. He does complain of dry cough and unable to bring the phlegm out. Denies any chest pain, no significant shortness of breath. Denies any dysuria. Belly pain is fairly controlled on CHANGE ANALYST Review of Systems Review of Systems: All systems reviewed & are unremarkable except as noted in Subjective Physical Exam Physical Exam: Constitutional: No acute distress HEENT: EOMI, PERRLA Respiratory system: Decreased air entry bilaterally, no wheeze, no rhonchi, mild crackles bilateral lower lobes CVS: S1-S2 positive, no murmurs or gallops Abdomen: Soft, nontender, nondistended, obese, TALISHA drains in place, ileostomy, decreased bowel sounds there is fluid in the colostomy bag Extremities: +2 pulses bilaterally radialis/ dorsalis pedis, no cyanosis, no edema Neuro: Awake alert oriented x3 Psych: Normal mood and affect G/U: Positive Stacy Skin: no rashes, warm and dry Lymphatic: no cervical or axillary lymphadenopathy Results & Data Results & Data ([facility]) Vital Signs (Past 12 Hours) Vital Signs Temp Pulse Resp BP Pulse Ox 07/02/20 10:30 114 H 15 155/88 H 97 07/02/20 10:00 114 H 18 146/92 H 93 07/02/20 09:30 115 H 16 133/87 95 07/02/20 09:00 113 H 21 149/97 H 94 07/02/20 08:30 116 H 19 143/95 H 93 07/02/20 08:27 36.9 C 07/02/20 08:01 114 H 19 94 07/02/20 08:00 114 H 19 136/90 92 07/02/20 07:31 118 H 25 H 95 07/02/20 07:30 117 H 19 131/84 93 07/02/20 07:00 117 H 17 122/82 93 07/02/20 06:30 120 H 23 138/91 93 07/02/20 06:15 36.8 C 07/02/20 06:00 119 H 24 137/84 90 07/02/20 05:31 120 H 17 93 07/02/20 05:30 119 H 19 136/85 93 07/02/20 05:00 120 H 20 139/86 07/02/20 04:30 120 H 15 136/83 93 07/02/20 04:01 123 H 16 94 07/02/20 04:00 36.8 C 123 H 18 133/88 92 07/02/20 03:30 122 H 16 136/80 94 07/02/20 03:00 126 H 25 H 147/80 H 94 07/02/20 02:30 122 H 20 132/87 07/02/20 02:00 123 H 18 144/89 H 93 07/02/20 01:33 121 H 15 142/87 H 93 07/02/20 01:00 120 H 14 129/89 92 07/02/20 00:44 37.0 C 07/02/20 00:30 119 H 15 140/80 92 07/02/20 00:00 118 H 16 128/74 93 07/02/20 08:01 07/02/20 04:06 Coding Level of Care Code 07250 Subseq Hosp Care Lvl 3 Diagnoses Admitted to intensive care unit Z78.9 S/P exploratory laparotomy Z98.890 Bilateral pulmonary embolism I26.99 Hypoxia R09.02
[2020-07-02] MEDS: METOPROLOL TARTRATE 1 MG/ML VIAL IV SCH ×2 (12:00→18:44)
[2020-07-02] MEDS: SODIUM CHLORIDE 0.9% 1000ML 1,000 ML IV SCH ×2 (12:04→21:45)
--- NOTE | 2020-07-02 14:01 | Hospitalist Progress Note ---
Date of Service July 02, 2020 Assessment & Plan (1) Tachycardia: Mr. Eduardo is a 45 yo gentleman who medicine was consulted on after a recurrent ventral hernia repair and excision of infected mesh who developed new onset tachycardia along with a new oxygen requirement, found to have Bilateral Pulmonary Emboli. unfortunately yesterday had a bowel perforation and is now day 1 post op of washout cecectomy and ileostomy placement. Sepsis - bowel perforation now day 1 s/p washout and partial colectomy cecectomy and re-anastamosis - Lactate initially elevated to 3.7 fluid resuscitated and down to 1.9 - blood cultures drawn; NGTD - Peritoneal fluid growing E. coli with sensitivities to most cephalosporins - continue flagyl. -Consider downgrading from cefepime to Rocephin Acute Renal Failure - Cr increased, currently WNL - likely secondary to sepsis +/- ATN Bilateral PEs - risk factors for clot formation include morbid obesity, chronic venous insufficiency, and recent surgery - PESI score of 97, class III, intermediate risk - No right heart strain noted on CTA. Trop not elevated. BNP not elevated. - IVF filter placed - Patient currently on heparin drip for anticoagulation Elevated Lactate - Resolved Hyponatremia - NA 130 Serum osms normal. consistent with pseudohyponatremia of unclear origin Thyroid Nodules with Hyperthyroidism - 3.3 cm right thyroid nodule incidentally on CTA of chest - TSH 0.085; Free T4 2.27 - concerning for possible hot nodule vs. sick euthyroid syndrome. - HR has ranged from 80s-115 bpm; currently on beta blockade therapy with metoprolol. 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 -Currently on tylenol scheduled with PRN Dialudid 0.5mg q1h available for pain DVT ppx: SCDs, IVC filter placed today, heparin drip restarted FEN/GI: NG tube removed, currently on clear liquids. Dispo: ICU through Saturday per surgery's request Code: Full Admission and Anticipated Discharge Date Admission Date: June 23, 2020 Supervising Physician Co-Signing Physician Notes I personally examined the patient and verified all mancuso points of history and exam, discussed case, and agree with decision making with Dr Smith Biggest complaint is feeling like he is got something in the bottom of lungs. Coughing up some mucus. Pain is reasonably controlled. Updated patient and at the bedside extensively. vitals notednad . heent nc at mmm. cardio HR up to somewhat tachycardic although better than yesterday. breathing unlabored no accessory muscles good effort skin no rashes no pallor or icterus. drains without much output, fairly thin serosanguanous. no focal neuro deficits perforated viscous, peritonitis w sepsis -- cefepimealthough based on peritoneal cultures consider downgrade to ceftriaxone, flagyl post op doing better ARF - fluids, treat sepsis. Is getting better PE -continue anticoagulation w heparin to allow for quick reversibility if needed- follow closely, follow Hgb and drain outpt. Right now doing well otherwise as above Subjective Mr. Eduardo seen this AM. Awake, complaining of thirst and sore throat. States he does not feel that well today. at bedside. Review of Systems Constitutional: + malaise Ear, Nose, Mouth, Throat: + dry mouth and + sore throat Respiratory: no dyspnea Gastrointestinal: + abdominal pain Physical Exam Physical Exam: General: Awake, No acute distress Skin: lower extremities with some notd bruising Psych: Sad mood and affect Neuro:Some disorientation HEENT: NC/AT Chest: Nontender to palpation. CV: RRR, Normal s1, s2. No murmurs appreciated Resp: Breath sounds clear bilaterally, no increased effort of breathing. Abdomen: Drain and bandages in place Extremities: + edema in lower extremities bilaterally. Results & Data Results & Data ([facility]) Vital Signs (Past 12 Hours) Vital Signs Temp Pulse Resp BP Pulse Ox 07/02/20 13:30 111 H 16 94 07/02/20 13:00 113 H 26 H 07/02/20 12:30 105 H 14 155/86 H 93 07/02/20 12:00 114 H 14 154/95 H 95 07/02/20 11:30 111 H 14 145/93 H 92 07/02/20 11:00 113 H 19 141/87 H 95 07/02/20 10:30 114 H 15 155/88 H 97 07/02/20 10:00 114 H 18 146/92 H 93 07/02/20 09:30 115 H 16 133/87 95 07/02/20 09:00 113 H 21 149/97 H 94 07/02/20 08:30 116 H 19 143/95 H 93 07/02/20 08:27 36.9 C 07/02/20 08:01 114 H 19 94 07/02/20 08:00 114 H 19 136/90 92 07/02/20 07:31 118 H 25 H 95 07/02/20 07:30 117 H 19 131/84 93 07/02/20 07:00 117 H 17 122/82 93 07/02/20 06:30 120 H 23 138/91 93 07/02/20 06:15 36.8 C 07/02/20 06:00 119 H 24 137/84 90 07/02/20 05:31 120 H 17 93 07/02/20 05:30 119 H 19 136/85 93 07/02/20 05:00 120 H 20 139/86 07/02/20 04:30 120 H 15 136/83 93 07/02/20 04:01 123 H 16 94 07/02/20 04:00 36.8 C 123 H 18 133/88 92 07/02/20 03:30 122 H 16 136/80 94 07/02/20 03:00 126 H 25 H 147/80 H 94 07/02/20 02:30 122 H 20 132/87 07/02/20 02:00 123 H 18 144/89 H 93 Resident Activity Tracking Resident Involvement: Resident Care Provided Care Provided: Adult Hospital Medicine
--- NOTE | 2020-07-02 16:38 | Billing Data ---
Date of Service July 02, 2020 Coding Level of Care Code 04380 Subseq Hosp Care Lvl 3
[2020-07-02] MEDS: HYDROmorphone INJ 0.5 MG/0.5 ML SYR IV PRN (22:12)
[2020-07-03] MEDS: METOPROLOL TARTRATE 1 MG/ML VIAL IV SCH ×2 (01:12→06:03)
[2020-07-03] MEDS: CEFEPIME 2,000 MG in SYRINGE 0 ML IV SCH ×3 (01:12→16:49)
[2020-07-03] MEDS: HEPARIN SODIUM/DEXTROSE 25,000 UNITS/500 ML BAG IV SCH ×4 (01:45→22:53)
[2020-07-03] MEDS: ACETAMINOPHEN 1,000 MG/100 ML VIAL IV SCH ×2 (04:31→13:16)
[2020-07-03] MEDS: metroNIDAZOLE 500 MG/100 ML BAG IV SCH ×3 (04:32→20:34)
[2020-07-03] MEDS: HYDROmorphone INJ 0.5 MG/0.5 ML SYR IV PRN ×2 (04:57→20:35)
[2020-07-03 05:03] LABS: Hematocrit (blood only) 26.2 % (42-52); Hemoglobin 8.2 g/dL (14.0-18.0); Mean Corpuscular Hemoglobin 26.7 pg (25-34); Mean Corpuscular Hgb Conc 31.3 g/dL (32-36); Mean Corpuscular Volume 85.3 fL (80-100); Mean Platelet Volume 8.9 fL (7.4-10.4); Nucleated RBC # (auto) 0.11 K/uL (0-0); Nucleated RBC % (auto) 0.6 %; Platelet Count 466 K/uL (130-400); RDW Coefficient of Variation 15.6 % (11.5-14.5); RDW Standard Deviation 48.9 fL (36.4-46.3); Red Blood Count 3.07 M/uL (4.7-6.1); White Blood Count 18.68 K/uL (4.8-10.8)
[2020-07-03 05:16] LABS: Partial Thromboplastin Ratio 1.4; Partial Thromboplastin Time 37.9 Seconds (21.0-31.0)
[2020-07-03] MEDS ORDERED: HEPARIN SOD (PORCINE) 1000 UNIT/ML IV ONE ×3 (05:20→19:56)
[2020-07-03 05:24] LABS: BUN Creatinine Ratio 37.8 (10-20); Calcium 7.8 mg/dl (8.5-10.1); Creatinine Clr Calc Pharmacy 208.7 ml/min; Est GFR (African American) 132.6 ml/min; Est GFR (Non-African American) 114.4 ml/min; Magnesium 2.4 mg/dl (1.8-2.4); Phosphorus 2.2 mg/dl (2.5-4.9); Potassium 4.2 mmol/L (3.5-5.1)
[2020-07-03 05:37] LABS: ALC (manual) 1.14 K/uL (1.2-3.4); Eosinophils # (manual) 0.17 K/uL (0-0.5); Eosinophils % (manual) 0.9 %; Hypochromasia Present; Lymphocytes # (manual) 1.14 K/uL (1.2-3.4); Lymphocytes % (manual) 6.1 %; Metamyelocytes # (manual) 0.32 K/uL (0-0); Metamyelocytes % (manual) 1.7 %; Monocytes # (manual) 1.46 K/uL (0.11-0.59); Monocytes % (manual) 7.8 %; Neutrophils % (manual) 83.5 %; Polychromasia 1+
--- NOTE | 2020-07-03 05:59 | Surgery Progress Note ---
Date of Service July 03, 2020 Assessment & Plan (1) S/P exploratory laparotomy: Postop day #10 panniculectomy Postop day #3 exploratory laparotomy with cecectomy and ileostomy Continue analgesics Continue antiemetics Maintain on clear liquid diet for the present time Due to recent PE patient has been placed on anticoagulation in the form of heparin. Increase mobilization as able Encourage use of incentive spirometer -Continue antibiotics in the form of cefepime and Flagyl Admission and Anticipated Discharge Date Admission Date: June 23, 2020 Supervising Physician Co-Signing Physician Notes I personally saw and evaluated the patient with Butch Werner PA-C and agree with the assessment and plan. Keep on clears Ileostomy viable with some output Drains serosanguinous, keep in place Subjective Patient resting in bed. He denies any shortness of breath. He denies any worsening abdominal pain. He denies any nausea or vomiting. He has tolerated clear liquids thus far. Discussed with nurse at bedside and he notes that the patient is doing better than yesterday. He notes the patient has been out of bed. He notes intermittent confusion that was noted yesterday has improved Physical Exam Neck: trachea midline Respiratory: normal respiratory effort; no respiratory distress and no labored breathing Breath sounds are slightly decreased at the bases Cardiovascular: Rate/Rhythm: regular rate and regular rhythm Gastrointestinal (Abdomen): Abdomen is slightly distended. There is pain with palpation near surgical incisions. Bowel sounds are hypoactive. Patient's ostomy appears viable. There is a small amount of stool noted in the collection bag. Results & Data ([facility]) Vital Signs (Past 12 Hours) Vital Signs Temp Pulse Resp BP Pulse Ox 07/03/20 04:46 36.8 C 07/03/20 04:30 107 H 24 133/73 90 07/03/20 04:00 102 H 14 137/79 100 07/03/20 03:30 101 H 14 129/75 98 07/03/20 03:00 102 H 16 125/80 100 07/03/20 02:30 99 H 14 132/74 07/03/20 02:00 98 H 15 133/79 96 07/03/20 01:31 36.7 C 07/03/20 01:30 94 H 14 129/82 94 07/03/20 01:00 102 H 12 130/79 100 07/03/20 00:30 101 H 12 133/78 98 05/16/21 00:00 101 H 11 L 130/78 96 07/02/20 23:30 103 H 12 130/74 96 07/02/20 23:00 102 H 13 140/78 95 07/02/20 22:33 37.4 C 108 H 20 134/89 95 07/02/20 22:00 110 H 19 143/83 H 94 07/02/20 21:30 115 H 20 130/83 98 07/02/20 21:29 37.5 C 07/02/20 21:00 118 H 23 122/80 95 07/02/20 20:30 112 H 20 135/91 97 07/02/20 20:00 114 H 27 H 133/85 89 L 07/02/20 19:30 107 H 22 140/79 91 07/02/20 19:00 100 H 19 129/80 94 07/02/20 18:44 112 H 133/87 PG Care Time/CCT Total # of Minutes Spent Total Time Spent with Patient: Total time spent is greater than 50% in coordination of care (as documented) at patient's floor/unit and/or counseling patient: Coding Level of Care Code None Diagnoses S/P exploratory laparotomy Z98.890
[2020-07-03] MEDS: FAMOTIDINE 20 MG in SYRINGE 3 ML IV SCH (08:12)
--- NOTE | 2020-07-03 08:16 | Critical Care Progress Note ---
Date of Service July 03, 2020 Assessment & Plan (1) Admitted to intensive care unit: Impression: 45-year-old male who is status post exploratory laparotomy in the setting of visceral perforation requiring reduction of large bowel obstruction, partial cecectomy, diverting ileostomy, and abdominal washout. Patient had complicated initial postoperative course with bilateral PE requiring eventual placement of IVC filter. 24-hour events: Patient is tolerating a clear diet. He has been hemodynamically stable. He was initiated on a beta-kareem. He is not had any bleeding complications. Small amount of stool output. Mild abdominal pain Recommendations: NEURO -pain management per surgery. No other issues. CARDIAC/VASCULAR -sinus tachycardia likely secondary to acute PE, pain issues, and abdominal surgery. Started on a low-dose of metoprolol yesterday. Echo 07/02/2020 we difficult study with demonstration of a hyperdynamic left ventricle. Grade 1 diastolic dysfunction was noted. No obvious valvular dysfunction identified. Right ventricular function was estimated in normal. RESPIRATORY -multifactorial hypoxemia due to splinting, PE, and atelectasis. Continue incentive spirometry and flutter valve. Wean oxygen as tolerated. Echocardiogram showed no evidence of RV strain and biomarkers have been negative. Would recommend 3 to 6 months of full anticoagulation. He is currently on heparin but could consider transition to Coumadin or DOAC when felt to be feasible by surgery. Would recommend removal of the IVC filter this hospitalization as the patient is tolerating anticoagulation currently. GI/NUTRITION - Distal perforation status post exploratory laparotomy, reduction of large bowel obstruction, partial cecetomy, diverting ileostomy, and abdominal washout. Patient is tolerating a diet currently. Per surgery. RENAL/LYTES -kidney function stable. Mild hyponatremia which will continue to be trended. Electrolytes and acid-base status are normal. He is significantly volume up during this hospitalization. Could consider diuretics however would use judiciously in the setting of a PE as he may be preload dependent. Replete calcium today - Stacy in place - Strict I&Os. ENDO -glycemic control per protocol. HEME -patient has mild anemia. Continue to follow currently. No indication for transfusion and no evidence of acute blood loss. ID - Visceral perforation: OR cultures growing E. coli. The patient's ID history is extensive. From the to the he was on Diflucan. He was on clindamycin from the to the 15th. He received 1 dose of vancomycin on the . He is currently day #4 cefepime and Flagyl. His white count is mildly elevated today and appears to be trending up. Repeat procalcitonin is pending. Will defer additional imaging to surgery but will need to trend closely as fever curve, procalcitonin, and leukocytosis. --Prophylaxis VTE: SCDs, heparin drip, IVC filter GI: Pepcid Lines: PIVs x2, Stacy, TALISHA drains x4 Diet: Tolerating clears. Advancing per surgery. Disposition: The patient appears stable to transfer out of the intensive care unit. Disposition per surgery and the primary admitting service. We will sign off once he leaves the ICU. Please note the above document was generated using voice recognition software. It may contain grammatical, syntax or spelling errors.Any formal questions or concerns about the content, text or information contained within the body of this dictation should be directly addressed to the provider for clarification. (2) S/P exploratory laparotomy: (3) Bilateral pulmonary embolism: (4) Hypoxia: Admission and Anticipated Discharge Date Admission Date: June 23, 2020 Subjective Patient without complaints this morning. He is tolerating a diet. No nausea or vomiting. No syncope presyncope chest pain or palpitations. No significant lower extremity edema. Review of Systems Review of Systems: All systems reviewed & are unremarkable except as noted in HPI & below Physical Exam Constitutional: well developed; not ill appearing Neck: trachea midline, no thyromegaly Respiratory: normal respiratory effort, lungs clear to auscultation Cardiovascular: RRR, no murmur, no edema Gastrointestinal (Abdomen): Inspection/Auscultation: abdomen normal to inspection Ostomy appears viable. Small amount of stool output. Multiple TALISHA drains in place. Incisions dressed Musculoskeletal: Extremities: extremities normal to inspection Skin: no rashes, warm and dry Neurologic: Nonfocal exam Lymphatic: no cervical lymphadenopathy Results & Data Results & Data ([facility]) Vital Signs (Past 12 Hours) Vital Signs Temp Pulse Resp BP Pulse Ox 07/03/20 06:30 93 H 11 L 115/70 98 07/03/20 06:03 100 H 148/77 H 07/03/20 06:01 97 H 11 L 148/77 H 95 07/03/20 05:30 100 H 14 118/76 93 07/03/20 05:00 103 H 16 117/76 98 07/03/20 04:46 36.8 C 07/03/20 04:30 107 H 24 133/73 90 07/03/20 04:00 102 H 14 137/79 100 07/03/20 03:30 101 H 14 129/75 98 07/03/20 03:00 102 H 16 125/80 100 07/03/20 02:30 99 H 14 132/74 07/03/20 02:00 98 H 15 133/79 96 07/03/20 01:31 36.7 C 07/03/20 01:30 94 H 14 129/82 94 07/03/20 01:00 102 H 12 130/79 100 07/03/20 00:30 101 H 12 133/78 98 07/03/20 00:00 101 H 11 L 130/78 96 07/02/20 23:30 103 H 12 130/74 96 07/02/20 23:00 102 H 13 140/78 95 07/02/20 22:33 37.4 C 108 H 20 134/89 95 07/02/20 22:00 110 H 19 143/83 H 94 07/02/20 21:30 115 H 20 130/83 98 07/02/20 21:29 37.5 C 07/02/20 21:00 118 H 23 122/80 95 07/02/20 20:30 112 H 20 135/91 97 Critical Care Results & Data Vital Signs (Past 12 Hours) Vital Signs Temp Pulse Resp BP Pulse Ox 07/03/20 06:30 93 H 11 L 115/70 98 07/03/20 06:03 100 H 148/77 H 07/03/20 06:01 97 H 11 L 148/77 H 95 07/03/20 05:30 100 H 14 118/76 93 07/03/20 05:00 103 H 16 117/76 98 07/03/20 04:46 36.8 C 07/03/20 04:30 107 H 24 133/73 90 07/03/20 04:00 102 H 14 137/79 100 07/03/20 03:30 101 H 14 129/75 98 07/03/20 03:00 102 H 16 125/80 100 07/03/20 02:30 99 H 14 132/74 07/03/20 02:00 98 H 15 133/79 96 05/16/21 01:31 36.7 C 07/03/20 01:30 94 H 14 129/82 94 07/03/20 01:00 102 H 12 130/79 100 07/03/20 00:30 101 H 12 133/78 98 07/03/20 00:00 101 H 11 L 130/78 96 07/02/20 23:30 103 H 12 130/74 96 07/02/20 23:00 102 H 13 140/78 95 07/02/20 22:33 37.4 C 108 H 20 134/89 95 07/02/20 22:00 110 H 19 143/83 H 94 07/02/20 21:30 115 H 20 130/83 98 07/02/20 21:29 37.5 C 07/02/20 21:00 118 H 23 122/80 95 07/02/20 20:30 112 H 20 135/91 97 Lab & Micro Results (Past 24 Hours) RBC 3.07 M/uL (4.7-6.1) L 07/03/20 WBC 18.68 K/uL (4.8-10.8) H 07/03/20 Hgb 8.2 g/dL (14.0-18.0) L 07/03/20 Hct 26.2 % (42-52) L 07/03/20 MCV 85.3 fL (80-100) 07/03/20 MCH 26.7 pg (25-34) 07/03/20 MCHC 31.3 g/dL (32-36) L 07/03/20 RDW Standard Deviation 48.9 fL (36.4-46.3) H 07/03/20 RDW Coefficient of Variation 15.6 % (11.5-14.5) H 07/03/20 Plt Count 466 K/uL (130-400) H 07/03/20 MPV 8.9 fL (7.4-10.4) 07/03/20 Nucleated Red Blood Cells % (auto) 0.6 % 07/03/20 Nucleated RBC Absolute Count (auto) 0.11 K/uL (0-0) H 07/03/20 ANC 15.60 K/uL (1.4-6.5) H 07/03/20 ALC 1.14 K/uL (1.2-3.4) L 07/03/20 Neutrophils % (Manual) 83.5 % 07/03/20 Lymphocytes % (Manual) 6.1 % 07/03/20 Monocytes % (Manual) 7.8 % 07/03/20 Eosinophils % (Manual) 0.9 % 07/03/20 Metamyelocytes % (manual) 1.7 % 07/03/20 Neutrophils # (Manual) 15.60 K/uL (1.4-6.5) H 07/03/20 Lymphocytes # (Manual) 1.14 K/uL (1.2-3.4) L 07/03/20 Monocytes # (Manual) 1.46 K/uL (0.11-0.59) H 07/03/20 Eosinophils # (Manual) 0.17 K/uL (0-0.5) 07/03/20 Metamyelocytes # (Manual) 0.32 K/uL (0-0) H 07/03/20 Polychromasia 1+ 07/03/20 Hypochromasia Present 07/03/20 Na 133 mmol/L (136-145) L 07/03/20 K 4.2 mmol/L (3.5-5.1) 07/03/20 Cl 100 mmol/L (98-107) 07/03/20 CO2 30 mmol/L (21-32) 07/03/20 Anion Gap 3.0 (3-11) 07/03/20 BUN 25 mg/dl (7-18) H 07/03/20 Creatinine 0.67 mg/dl (0.6-1.4) 07/03/20 Estimated GFR ( Amer) 132.6 ml/min 07/03/20 Estimated GFR (Non-Af Amer) 114.4 ml/min 07/03/20 BUN/Creatinine Ratio 37.8 (10-20) H 07/03/20 Glu 107 mg/dl (70-99) H 07/03/20 Ca 7.8 mg/dl (8.5-10.1) L 07/03/20 Phosphorus Level 2.2 mg/dl (2.5-4.9) L 07/03/20 Mg 2.4 mg/dl (1.8-2.4) 07/03/20 04:20 07/03/20 Calcium Level 7.8 mg/dl (8.5-10.1) L 07/03/20 04:20 07/03/20 Microbiology 06/30/20 Unknown Gram Stain - Final Peritoneal Fluid Aerobic and Anaerobic Culture - Preliminary Escherichia coli 06/30/20 10:04 Aerobic Blood Culture - Preliminary Blood No growth in Aerobic bottle after 48 hours. Anaerobic Blood Culture - Preliminary No growth in Anaerobic bottle after 48 hours. 06/30/20 09:13 Aerobic Blood Culture - Preliminary Blood No growth in Aerobic bottle after 48 hours. Anaerobic Blood Culture - Preliminary No growth in Anaerobic bottle after 48 hours. Diagnostic Findings (Past 24 Hours) Chest X-Ray 07/02/20 07:00 XR chest 1V portable CLINICAL HISTORY: Abnormal chest x-ray. Follow-up study. COMPARISON STUDY: 07/01/2020 FINDINGS: The heart is mildly enlarged. There are low lung volumes with bronchovascular crowding the lung bases. There is no lobar consolidation. There is no overt failure. There are no significant pleural effusions. The enteric tube has been removed.[ IMPRESSION: 1. Interval removal of the enteric tube 2. Low lung volumes with hypoventilatory changes at the lung bases ACT 112: Negative or not required by law. Electronically signed by: Selvin Brown M.D. 07/02/2020 10:23 AM KUB X-Ray 07/02/20 07:00 XR KUB/Abdomen 1 view CLINICAL HISTORY: Generalized abdominal pain COMPARISON STUDY: 06/30/2020 FINDINGS: There is a right-sided ostomy. There are bilateral pelvic drains. There is an IVC filter present. There are multiple dilated small bowel loops, ileus versus obstruction. IMPRESSION: 1. Postsurgical changes. 2. Dilated small bowel loops, postoperative ileus versus obstruction. ACT 112: Negative or not required by law. Electronically signed by: Selvin Brown M.D. 07/02/2020 10:46 AM I & O Totals 24 Hours 07/02/20 07/03/20 07/04/20 06:59 06:59 06:59 Intake Total 2946.150 / 2946.150 3667.349 / 3667.349 Output Total 3670 / 3670 2150 / 2150 Balance -723.850 / -445.309 2412.349 / 1517.349 Cumulative 06/14/20 11:24 thru 07/03/20 06:57 Intake Total 47046.965 Output Total 09770 Balance 97360.965 RT Ventilator Mngmt (Last Documented) Ventilator Ordered Settings Respiratory Rate 11 07/03/20 06:30 Ventilator - PT Measurements Respiratory Rate 11 End-Tidal CO2 36 Coding Level of Care Code 06333 Subseq Hosp Care Lvl 3 Diagnoses Admitted to intensive care unit Z78.9 S/P exploratory laparotomy Z98.890 Bilateral pulmonary embolism I26.99 Hypoxia R09.02 Time Spent (min) 45
[2020-07-03 08:40] LABS: Appearance Urine Clear (Clear); Bacteria Urine Automated Negative (Negative); Bilirubin Urine Negative (Negative); Blood Urine Negative (Negative); Color Urine Dark Yellow; Glucose Urine UA 1+ (Negative); Ketones Urine Negative (Negative); Leukocyte Esterase Urine Negative (Negative); Nitrite Urine Negative (Negative); Protein Urine 1+ (Negative); RBC Urine Automated 0-4 /hpf (0-4); Specific Gravity Urine 1.032 (1.000-1.030); Urobilinogen Urine Negative (Negative)
[2020-07-03 08:51] LABS: Mucus Urine Present (None Prsent)
[2020-07-03] MEDS: SODIUM CHLORIDE 0.9% 1000ML 1,000 ML IV SCH (08:54)
[2020-07-03] MEDS ORDERED: CALCIUM GLUCONATE 10% 2,000 MG in 0.9 % SODIUM CHLORIDE 100 ML IV ONE (09:15)
--- NOTE | 2020-07-03 09:43 | XRay Report ---
XR chest 1V portable CLINICAL HISTORY: leukocytosis COMPARISON STUDY: Chest CT June 30, 2020. Chest radiograph July 02, 2020. FINDINGS: As before, lung volumes are diminished. There are persistent bibasilar opacities. Left basi lar opacity is slightly increased. There is no evidence for pulmonary edema. Cardiomediastinal silhou ette is stable. Lucency is noted at the left hemidiaphragm. IMPRESSION: 1. Low lung volumes. Increase in left basilar opacity which may reflect atelectasis or consolidation. 2. Lucency within the upper abdomen. This could reflect pneumoperitoneum which was shown on prior CT or gas within the stomach or bowel. ACT 112: Negative or not required by law. Electronically signed by: Abhilash Ingram M.D. 07/03/2020 9:42 AM
--- NOTE | 2020-07-03 09:47 | XRay Report ---
KUB CLINICAL HISTORY: ileus COMPARISON STUDY: CTA of the abdomen and pelvis June 30, 2020. KUB July 02, 2020. FINDINGS: Surgical drain, IVC filter and laparotomy skin matthew are noted with associated suspected Bala drain. Right lower quadrant ostomy is present. Multiple loops of moderately dilated small bow el are similar to prior exam. Lucency within the left upper quadrant is noted. IMPRESSION: 1. Persistent moderate small bowel dilatation. This favors a postoperative ileus however a small sparkle l obstruction could appear similar. 2. Left upper quadrant lucency. This may reflect pneumoperitoneum on this supine exam or gas within t he stomach. ACT 112: Negative or not required by law. Electronically signed by: Abhilash Ingram M.D. 07/03/2020 9:45 AM
--- NOTE | 2020-07-03 10:16 | Hospitalist Progress Note ---
Date of Service July 03, 2020 Assessment & Plan (1) Tachycardia: Mr. Eduardo is a 45 yo gentleman who medicine was consulted on after a recurrent ventral hernia repair and excision of infected mesh who developed new onset tachycardia along with a new oxygen requirement, found to have Bilateral Pulmonary Emboli. Unfortunately had a bowel perforation as well and is now s/p washout cecectomy and ileostomy placement. Sepsis - bowel perforation now s/p washout and partial colectomy cecectomy and re- anastamosis - Lactate initially elevated to 3.7 fluid resuscitated and down to 1.9 - blood cultures drawn; NGTD - Peritoneal fluid growing E. coli with sensitivities to most cephalosporins. - Of note, WBC has been slowly trending up once more. However, procal has trended down and pt has remained afebrile. - continue flagyl and cefepime. Acute Renal Failure - Currently Cr WNL - likely secondary to sepsis +/- ATN Bilateral PEs - risk factors for clot formation include morbid obesity, chronic venous insufficiency, and recent surgery - PESI score of 97, class III, intermediate risk - No right heart strain noted on CTA. Trop not elevated. BNP not elevated. - IVF filter placed - Patient currently on heparin drip for anticoagulation. Continue. Elevated Lactate - Resolved Hyponatremia - NA 130 Serum osms normal. consistent with pseudohyponatremia of unclear origin Thyroid Nodules with Hyperthyroidism - 3.3 cm right thyroid nodule incidentally on CTA of chest - TSH 0.085; Free T4 2.27 - concerning for possible hot nodule vs. sick euthyroid syndrome. - HR has ranged from 80s-115 bpm; currently on beta blockade therapy with metoprolol. - recommend he have TSH and free T4 levels repeated by PCP in outpatient setting in 3 weeks - recommend he have an US of the thyroid as an outpatient Hx of multiple recent surgeries -currently having abd pain only when he coughs -[employer] pump discontinued. -Currently on tylenol scheduled with PRN Dialudid 0.5mg q1h available for pain DVT ppx: SCDs, IVC filter, heparin drip restarted FEN/GI: NG tube removed, currently on clear liquids. Dispo: ICU through Saturday per surgery's request Code: Full Admission and Anticipated Discharge Date Admission Date: June 23, 2020 Supervising Physician Co-Signing Physician Notes I personally examined the patient and verified all mancuso points of history and exam, discussed case, and agree with decision making with Dr Smith pain doing better. feeling a little hungry. still not much ostomy output. out of bed! vitals notednad . heent nc at mmm. cardio HR sl tachy no r/m/g. lungs cta b/l no r/r/w good effort. abd soft mod distention mild diffuse tender no guarding no rebound. neuro no focal deficits perforated viscous, peritonitis w sepsis -- clinically overall showing improvement. continue antibiotics and supportive care. ARF - fluids, treat sepsis. resolved PE -continue anticoagulation w heparin to allow for quick reversibility if needed- follow closely, follow Hgb and drain outpt. Right now doing well hyperthyroidism/high clinical suspicion for hot nodule - beta blockers, close outpt f/u and workup otherwise as above Subjective Mr. Eduardo seen this AM. at bedside. States he is doing better, did need some extra dilaudid overnight for pain for generalized abdominal pain but feels like his pain is well controlled. His thirst is no longer an issue. Review of Systems Constitutional: no fever, no chills and no sweats Respiratory: no dyspnea Cardiovascular: no chest pain Gastrointestinal: + abdominal pain; no nausea Physical Exam Physical Exam: General: Alert, oriented. Skin: Swollen in some areas like the extremities. Psych: Appropriate mood and affect Neuro: more alert today HEENT: NC/AT Chest: Nontender to palpation. CV: RRR, Normal s1, s2. No murmurs appreciated Resp: Breath sounds clear bilaterally, no increased effort of breathing. Abdomen: Colostomy bag with some brown output, drains with serosanguinous fluid Extremities: edema in extremities bilaterally. Results & Data Results & Data ([facility]) Vital Signs (Past 12 Hours) Vital Signs Temp Pulse Resp BP Pulse Ox 07/03/20 06:30 93 H 11 L 115/70 98 07/03/20 06:03 100 H 148/77 H 07/03/20 06:01 97 H 11 L 148/77 H 95 07/03/20 05:30 100 H 14 118/76 93 07/03/20 05:00 103 H 16 117/76 98 07/03/20 04:46 36.8 C 07/03/20 04:30 107 H 24 133/73 90 07/03/20 04:00 102 H 14 137/79 100 07/03/20 03:30 101 H 14 129/75 98 07/03/20 03:00 102 H 16 125/80 100 07/03/20 02:30 99 H 14 132/74 07/03/20 02:00 98 H 15 133/79 96 07/03/20 01:31 36.7 C 07/03/20 01:30 94 H 14 129/82 94 07/03/20 01:00 102 H 12 130/79 100 07/03/20 00:30 101 H 12 133/78 98 07/03/20 00:00 101 H 11 L 130/78 96 07/02/20 23:30 103 H 12 130/74 96 07/02/20 23:00 102 H 13 140/78 95 07/02/20 22:33 37.4 C 108 H 20 134/89 95 Resident Activity Tracking Resident Involvement: Resident Care Provided Care Provided: Adult [facility]
[2020-07-03] MEDS: METOPROLOL TARTRATE 25 MG TAB PO SCH ×2 (10:38→20:37)
[2020-07-03 12:32] LABS: Partial Thromboplastin Ratio 1.3
--- NOTE | 2020-07-03 15:41 | Billing Data ---
Date of Service July 03, 2020 Coding Level of Care Code 78379 Subseq Hosp Care Lvl 3
[2020-07-03 19:45] LABS: Partial Thromboplastin Ratio 1.4
[2020-07-04] MEDS: CEFEPIME 2,000 MG in SYRINGE 0 ML IV SCH ×3 (00:33→15:58)
[2020-07-04 02:50] LABS: Hematocrit (blood only) 26.8 % (42-52); Hemoglobin 8.6 g/dL (14.0-18.0); Mean Corpuscular Hemoglobin 27.1 pg (25-34); Mean Corpuscular Hgb Conc 32.1 g/dL (32-36); Mean Corpuscular Volume 84.5 fL (80-100); Mean Platelet Volume 8.5 fL (7.4-10.4); Nucleated RBC # (auto) 0.06 K/uL (0-0); Nucleated RBC % (auto) 0.2 %; Platelet Count 437 K/uL (130-400); RDW Coefficient of Variation 15.6 % (11.5-14.5); RDW Standard Deviation 48.6 fL (36.4-46.3); Red Blood Count 3.17 M/uL (4.7-6.1); White Blood Count 25.59 K/uL (4.8-10.8)
[2020-07-04 03:03] LABS: Partial Thromboplastin Ratio 1.6; Partial Thromboplastin Time 42.6 Seconds (21.0-31.0)
[2020-07-04] MEDS: HYDROmorphone INJ 0.5 MG/0.5 ML SYR IV PRN ×2 (03:08→15:59)
[2020-07-04 03:09] LABS: Albumin Level 1.7 gm/dl (3.4-5.0); BUN Creatinine Ratio 28.6 (10-20); Calcium 7.9 mg/dl (8.5-10.1); Creatinine Clr Calc Pharmacy 230.5 ml/min; Est GFR (African American) 137.8 ml/min; Est GFR (Non-African American) 118.9 ml/min
[2020-07-04 03:15] LABS: Albumin Globulin Ratio 0.4 (0.9-2); Basophils # (auto) 0.06 K/uL (0-0.2); Basophils % (auto) 0.2 %; Bilirubin,Total 0.5 mg/dl (0.2-1); Eosinophils # (auto) 0.53 K/uL (0-0.5); Eosinophils % (auto) 2.1 %; Globulin 4.3 gm/dl (2.5-4.0); Immature Granulocytes # (auto) 1.52 K/uL (0.00-0.02); Immature Granulocytes % (auto) 5.9 %; Lymphocytes # (auto) 1.35 K/uL (1.2-3.4); Lymphocytes % (auto) 5.3 %; Monocytes % (auto) 15.2 %; Neutrophils # (auto) 18.23 K/uL (1.4-6.5); Neutrophils % (auto) 71.3 %; Prealbumin 4.1 mg/dl (20-40); RBC Morphology Unremarkable
[2020-07-04] MEDS: metroNIDAZOLE 500 MG/100 ML BAG IV SCH ×3 (04:21→19:35)
[2020-07-04] MEDS: HEPARIN SODIUM/DEXTROSE 25,000 UNITS/500 ML BAG IV SCH ×2 (07:54→18:09)
[2020-07-04] MEDS: METOPROLOL TARTRATE 25 MG TAB PO SCH ×2 (07:54→20:19)
--- NOTE | 2020-07-04 08:33 | Critical Care Progress Note ---
Date of Service July 04, 2020 Assessment & Plan (1) Admitted to intensive care unit: Impression: 45-year-old male who is status post exploratory laparotomy in the setting of visceral perforation requiring reduction of large bowel obstruction, partial cecectomy, diverting ileostomy, and abdominal washout. Patient had complicated initial postoperative course with bilateral PE requiring eventual placement of IVC filter. 24-hour events: White count continued to climb and the patient was sent for repeat CT of the abdomen and chest today. Reviewed with radiology, formal read pending. There is a small subhepatic fluid collection which does not appear to be Recommendations: NEURO -pain management per surgery. No other issues. CARDIAC/VASCULAR -sinus tachycardia likely secondary to acute PE, pain issues, and abdominal surgery. Started on a low-dose of metoprolol yesterday. Echo 07/02/2020 we difficult study with demonstration of a hyperdynamic left ventricle. Grade 1 diastolic dysfunction was noted. No obvious valvular dysfunction identified. Right ventricular function was estimated in normal. Gentle diuresis today RESPIRATORY -multifactorial hypoxemia due to splinting, PE, and atelectasis. Co ntinue incentive spirometry and flutter valve. Wean oxygen as tolerated. Echocardiogram showed no evidence of RV strain and biomarkers have been negative. Would recommend 3 to 6 months of full anticoagulation. He is currently on heparin but could consider transition to Coumadin or DOAC when felt to be feasible by surgery. Would recommend removal of the IVC filter this hospitalization as the patient is tolerating anticoagulation currently. GI/NUTRITION - Distal perforation status post exploratory laparotomy, reduction of large bowel obstruction, partial cecetomy, diverting ileostomy, and abdominal washout. Patient is tolerating a diet currently. Per surgery. The patient's prealbumin and albumin are both low. Will discuss with dietary today. RENAL/LYTES -kidney function stable. Mild hyponatremia which will continue to be trended. Electrolytes and acid-base status are normal. He is significantly volume up during this hospitalization. Gentle diuresis today. - Stacy in place - Strict I&Os. Defer decision regarding Stacy catheter to surgery but from my perspective it can come out ENDO -glycemic control per protocol. HEME -patient has mild anemia. Continue to follow currently. No indication for transfusion and no evidence of acute blood loss. ID - Visceral perforation: OR cultures growing E. coli. The patient's ID history is extensive. From the sixth to the he was on Diflucan. He was on clindamycin from the sixth to the 15th. He received 1 dose of vancomycin on the th. He is currently day #5 cefepime and Flagyl. His white count is continuing to trend up. Repeat procalcitonin is improved from 22 down to 4. Unclear significance of the subhepatic fluid collection. Will discuss with surgery. The fluid collection does not appear to be amenable to CT-guided drain placement per radiology --Prophylaxis VTE: SCDs, heparin drip, IVC filter GI: Pepcid Lines: PIVs x2, Stacy, TALISHA drains x4 Diet: Tolerating clears. Advancing per surgery. Disposition: The patient appears stable to transfer out of the intensive care unit. Disposition per surgery and the primary admitting service. We will sign off once he leaves the ICU. Total of 40 minutes was spent in evaluation management and stabilization of this patient including discussion with multiple consultants, radiology, patient at bedside, and critical care nursing. He was discussed on multidisciplinary rounds. Please note the above document was generated using voice recognition software. It may contain grammatical, syntax or spelling errors.Any formal questions or concerns about the content, text or information contained within the body of this dictation should be directly addressed to the provider for clarification. (2) S/P exploratory laparotomy: (3) Bilateral pulmonary embolism: (4) Hypoxia: Admission and Anticipated Discharge Date Admission Date: June 23, 2020 Subjective Patient seen and examined. EMR reviewed for the patient complains of some continued intermittent abdominal pain. He has had the mid he is having some output from his ostomy. He is not complaining of any chest pain palpitations and has not had any significant bleeding issues. Review of Systems Review of Systems: All systems reviewed & are unremarkable except as noted in HPI & below Physical Exam Constitutional: well developed; not ill appearing Neck: trachea midline, no thyromegaly Respiratory: normal respiratory effort, lungs clear to auscultation Cardiovascular: RRR, no murmur, no edema Gastrointestinal (Abdomen): Inspection/Auscultation: + abdominal surgical drain present Percussion/Palpation: + abdomen tender Drains in place. Incisions dressed Musculoskeletal: Extremities: extremities normal to inspection Skin: no rashes, warm and dry Lymphatic: no cervical lymphadenopathy Results & Data Results & Data ([facility]) Vital Signs (Past 12 Hours) Vital Signs Temp Pulse Resp BP Pulse Ox 07/04/20 06:43 36.9 C 07/04/20 06:30 95 H 17 142/73 H 98 07/04/20 06:00 100 H 19 117/77 97 07/04/20 05:30 98 H 14 127/85 98 07/04/20 05:00 99 H 14 146/76 H 98 07/04/20 04:31 102 H 14 96 07/04/20 04:30 104 H 15 123/77 94 07/04/20 04:00 102 H 16 145/75 H 95 07/04/20 03:30 101 H 14 136/74 99 07/04/20 03:00 103 H 18 132/84 96 07/04/20 02:30 103 H 18 155/86 H 97 07/04/20 02:00 102 H 15 147/82 H 95 07/04/20 01:30 105 H 16 143/83 H 93 07/04/20 01:00 105 H 16 156/86 H 93 07/04/20 00:47 36.7 C 07/04/20 00:31 103 H 14 95 07/04/20 00:30 104 H 17 157/85 H 96 07/04/20 00:00 102 H 17 147/88 H 96 07/03/20 23:30 102 H 15 145/80 H 96 07/03/20 23:00 101 H 15 152/80 H 95 07/03/20 22:31 99 H 16 94 07/03/20 22:30 100 H 17 134/83 95 07/03/20 22:00 99 H 17 143/88 H 93 07/03/20 21:30 105 H 19 152/87 H 95 07/03/20 21:00 105 H 19 149/85 H 96 Critical Care Results & Data Vital Signs (Past 12 Hours) Vital Signs Temp Pulse Resp BP Pulse Ox 07/04/20 06:43 36.9 C 07/04/20 06:30 95 H 17 142/73 H 98 07/04/20 06:00 100 H 19 117/77 97 07/04/20 05:30 98 H 14 127/85 98 07/04/20 05:00 99 H 14 146/76 H 98 07/04/20 04:31 102 H 14 96 07/04/20 04:30 104 H 15 123/77 94 07/04/20 04:00 102 H 16 145/75 H 95 07/04/20 03:30 101 H 14 136/74 99 07/04/20 03:00 103 H 18 132/84 96 07/04/20 02:30 103 H 18 155/86 H 97 07/04/20 02:00 102 H 15 147/82 H 95 07/04/20 01:30 105 H 16 143/83 H 93 07/04/20 01:00 105 H 16 156/86 H 93 07/04/20 00:47 36.7 C 07/04/20 00:31 103 H 14 95 07/04/20 00:30 104 H 17 157/85 H 96 07/04/20 00:00 102 H 17 147/88 H 96 07/03/20 23:30 102 H 15 145/80 H 96 07/03/20 23:00 101 H 15 152/80 H 95 07/03/20 22:31 99 H 16 94 07/03/20 22:30 100 H 17 134/83 95 07/03/20 22:00 99 H 17 143/88 H 93 07/03/20 21:30 105 H 19 152/87 H 95 07/03/20 21:00 105 H 19 149/85 H 96 Lab & Micro Results (Past 24 Hours) RBC 3.17 M/uL (4.7-6.1) L 07/04/20 WBC 25.59 K/uL (4.8-10.8) H 07/04/20 Hgb 8.6 g/dL (14.0-18.0) L 07/04/20 Hct 26.8 % (42-52) L 07/04/20 MCV 84.5 fL (80-100) 07/04/20 MCH 27.1 pg (25-34) 07/04/20 MCHC 32.1 g/dL (32-36) 07/04/20 RDW Standard Deviation 48.6 fL (36.4-46.3) H 07/04/20 RDW Coefficient of Variation 15.6 % (11.5-14.5) H 07/04/20 Plt Count 437 K/uL (130-400) H 07/04/20 MPV 8.5 fL (7.4-10.4) 07/04/20 Nucleated Red Blood Cells % (auto) 0.2 % 07/04/20 Nucleated RBC Absolute Count (auto) 0.06 K/uL (0-0) H 07/04/20 Neutrophils (%) (Auto) 71.3 % 07/04/20 Lymphocytes (%) (Auto) 5.3 % 07/04/20 Monocytes # (Auto) 3.90 K/uL (0.11-0.59) H 07/04/20 Eosinophils # (Auto) 0.53 K/uL (0-0.5) H 07/04/20 Immature Granulocyte % (Auto) 5.9 % 07/04/20 Neutrophils # (Auto) 18.23 K/uL (1.4-6.5) H 07/04/20 Lymphocytes # (Auto) 1.35 K/uL (1.2-3.4) 07/04/20 Monocytes # (Auto) 3.90 K/uL (0.11-0.59) H 07/04/20 Eosinophils # (Auto) 0.53 K/uL (0-0.5) H 07/04/20 Basophils # (Auto) 0.06 K/uL (0-0.2) 07/04/20 Immature Granulocyte # (Auto) 1.52 K/uL (0.00-0.02) H 07/04/20 Red Blood Cell Morphology Unremarkable 07/04/20 Na 133 mmol/L (136-145) L 07/04/20 K 4.0 mmol/L (3.5-5.1) 07/04/20 Cl 99 mmol/L (98-107) 07/04/20 CO2 30 mmol/L (21-32) 07/04/20 Anion Gap 4.0 (3-11) 07/04/20 BUN 17 mg/dl (7-18) 07/04/20 Creatinine 0.61 mg/dl (0.6-1.4) 07/04/20 Estimated GFR ( Amer) 137.8 ml/min 07/04/20 Estimated GFR (Non-Af Amer) 118.9 ml/min 07/04/20 BUN/Creatinine Ratio 28.6 (10-20) H 07/04/20 Glu 120 mg/dl (70-99) H 07/04/20 Ca 7.9 mg/dl (8.5-10.1) L 07/04/20 Total Bilirubin 0.5 mg/dl (0.2-1) 07/04/20 AST 22 U/L (15-37) 07/04/20 ALT 23 U/L (12-78) 07/04/20 Alkaline Phosphatase 71 U/L (45-117) 07/04/20 TP 6.0 gm/dl (6.4-8.2) L 07/04/20 Albumin 1.7 gm/dl (3.4-5.0) L 07/04/20 Globulin 4.3 gm/dl (2.5-4.0) H 07/04/20 Albumin/Globulin Ratio 0.4 (0.9-2) L 07/04/20 Calcium Level 7.9 mg/dl (8.5-10.1) L 07/04/20 02:37 07/04/20 Microbiology 06/30/20 Unknown Gram Stain - Final Peritoneal Fluid Aerobic and Anaerobic Culture - Preliminary Escherichia coli Diagnostic Findings (Past 24 Hours) KUB X-Ray 07/03/20 07:49 KUB CLINICAL HISTORY: ileus COMPARISON STUDY: CTA of the abdomen and pelvis June 30, 2020. KUB July 02, 2020. FINDINGS: Surgical drain, IVC filter and laparotomy skin matthew are noted with associated suspected Bala drain. Right lower quadrant ostomy is present. Multiple loops of moderately dilated small bowel are similar to prior exam. Lucency within the left upper quadrant is noted. IMPRESSION: 1. Persistent moderate small bowel dilatation. This favors a postoperative ileus however a small bowel obstruction could appear similar. 2. Left upper quadrant lucency. This may reflect pneumoperitoneum on this supine exam or gas within the stomach. ACT 112: Negative or not required by law. Electronically signed by: Abhilash Ingram M.D. 07/03/2020 9:45 AM Chest X-Ray 07/03/20 08:39 XR chest 1V portable CLINICAL HISTORY: leukocytosis COMPARISON STUDY: Chest CT June 30, 2020. Chest radiograph July 02, 2020. FINDINGS: As before, lung volumes are diminished. There are persistent bibasilar opacities. Left basilar opacity is slightly increased. There is no evidence for pulmonary edema. Cardiomediastinal silhouette is stable. Lucency is noted at the left hemidiaphragm. IMPRESSION: 1. Low lung volumes. Increase in left basilar opacity which may reflect atelectasis or consolidation. 2. Lucency within the upper abdomen. This could reflect pneumoperitoneum which was shown on prior CT or gas within the stomach or bowel. ACT 112: Negative or not required by law. Electronically signed by: Abhilash Ingram M.D. 07/03/2020 9:42 AM I & O Totals 24 Hours 07/03/20 07/04/20 07/05/20 06:59 06:59 06:59 Intake Total 3667.349 / 3667.349 2719.400 / 2719.400 52.25 / 52.25 Output Total 2150 / 2150 2311 / 2311 Balance 1517.349 / 1517.349 408.400 / 408.400 52.25 / 52.25 Cumulative 06/14/20 11:24 thru 07/04/20 07:54 Intake Total 66589.615 Output Total Balance 69917.615 RT Ventilator Mngmt (Last Documented) Ventilator Ordered Settings Respiratory Rate 17 07/04/20 06:30 Ventilator - PT Measurements Respiratory Rate 17 End-Tidal CO2 36 Coding Level of Care Code Critical Care 1st 30-74 mins Diagnoses Admitted to intensive care unit Z78.9 S/P exploratory laparotomy Z98.890 Bilateral pulmonary embolism I26.99 Hypoxia R09.02 Time Spent (min) 41
--- NOTE | 2020-07-04 08:35 | Surgery Progress Note ---
Date of Service July 04, 2020 Assessment & Plan (1) S/P exploratory laparotomy: POD 4 from takeback/partial cecectomy/ileostomy I'm concerned about an abcess not being drained by drains. will make NPO and obtain CT scan of chest/abdomen/pelvis. may need new drain or takeback for abdominal washout. d/w with pt and his . rec's following CT scan this AM. Admission and Anticipated Discharge Date Admission Date: June 23, 2020 Subjective pt seen. looks remarkably well considering his labs this am. denies abdominal pain currently. primary c/o is difficulty sleeping. Physical Exam Physical Exam: alert. nad. appears comfortable abd: soft. both incisions are c/d/i. no erythema. all 4 drains thin/clear/serous. soma pink with moderate/large amount of bilious stool output. Results & Data ([place]) Vital Signs (Past 12 Hours) Vital Signs Temp Pulse Resp BP Pulse Ox 07/04/20 06:43 36.9 C 07/04/20 06:30 95 H 17 142/73 H 98 07/04/20 06:00 100 H 19 117/77 97 07/04/20 05:30 98 H 14 127/85 98 07/04/20 05:00 99 H 14 146/76 H 98 07/04/20 04:31 102 H 14 96 07/04/20 04:30 104 H 15 123/77 94 07/04/20 04:00 102 H 16 145/75 H 95 07/04/20 03:30 101 H 14 136/74 99 07/04/20 03:00 103 H 18 132/84 96 07/04/20 02:30 103 H 18 155/86 H 97 07/04/20 02:00 102 H 15 147/82 H 95 07/04/20 01:30 105 H 16 143/83 H 93 07/04/20 01:00 105 H 16 156/86 H 93 07/04/20 00:47 36.7 C 07/04/20 00:31 103 H 14 95 07/04/20 00:30 104 H 17 157/85 H 96 07/04/20 00:00 102 H 17 147/88 H 96 07/03/20 23:30 102 H 15 145/80 H 96 07/03/20 23:00 101 H 15 152/80 H 95 07/03/20 22:31 99 H 16 94 07/03/20 22:30 100 H 17 134/83 95 07/03/20 22:00 99 H 17 143/88 H 93 07/03/20 21:30 105 H 19 152/87 H 95 07/03/20 21:00 105 H 19 149/85 H 96 PG Care Time/CCT Total # of Minutes Spent Total Time Spent with Patient: Total time spent is greater than 50% in coordination of care (as documented) at patient's floor/unit and/or counseling patient: Coding Level of Care Code None Diagnoses S/P exploratory laparotomy Z98.890
[2020-07-04] MEDS: FAMOTIDINE 20 MG in SYRINGE 3 ML IV SCH (08:56)
--- NOTE | 2020-07-04 09:00 | CT Scan Report ---
CT OF THE CHEST WITHOUT IV CONTRAST CLINICAL HISTORY: elevated WBC; h/o perf'd cecum COMPARISON STUDY: Chest CT June 30, 2020. Chest radiograph July 03, 2020. TECHNIQUE: Axial images of the chest were obtained without IV contrast. Images were reviewed in the axial, sagittal, and coronal planes. IV contrast was not administered for this examination. Automat ed exposure control was utilized for the study. A dose lowering technique was utilized adhering to t he principles of ALARA. FINDINGS: A right lobe thyroid nodule is incidentally noted. Lung volumes are diminished. There is n o pericardial effusion. Cardiac size is at the upper limits of normal. A small right pleural effusion is noted. There is trace left pleural fluid. Subpleural opacities within the right upper and right l ower lobes favor atelectasis. Lingular and left lower lobe opacities also favor atelectasis. Mild yashira undglass opacities within the bilateral upper lobes are present. Central airways are patent. There is no thoracic lymphadenopathy. The abdomen and pelvis will be reported separately. Visualized portions of the upper abdomen demonstrate a small amount of mixed attenuation perihepatic fluid. Surgical leanna in is partially imaged. IMPRESSION: 1. Lung volumes with subpleural opacities within lungs suggestive of atelectasis. Minimal bilateral u pper lobe and right middle lobe ground glass opacities. 2. Small right pleural effusion. 3. Small amount of mixed attenuation perihepatic fluid better depicted on the CT of the abdomen and p vadim which will be reported separately. ACT 112: Negative or not required by law. Electronically signed by: Abhilash Ingram M.D. 07/04/2020 8:59 AM
--- NOTE | 2020-07-04 09:26 | CT Scan Report ---
CT SCAN OF THE ABDOMEN AND PELVIS WITHOUT IV CONTRAST CLINICAL HISTORY: Leukocytosis status post exploratory laparotomy. COMPARISON STUDY: Abdominal CT dated 06/30/2020. TECHNIQUE: CT scan of the abdomen and pelvis is performed from the lung bases to the proximal femora. Images are reviewed in the axial, sagittal, and coronal planes. IV contrast was not administered for this examination. Note that the examination is suboptimal without IV contrast. A dose lowering techn ique was utilized adhering to the principles of ALARA. CT DOSE: 2997.87 mGy.cm FINDINGS: Lung bases: The heart is normal in size and without pericardial effusion. There are small right and t race left pleural effusions with segmental atelectasis at the lung bases. Liver: The unenhanced liver is normal in size, contour, and attenuation. There is no intrahepatic mary iary ductal dilatation. Gallbladder: Hyperdense material within the gallbladder lumen likely represents vicariously excreted contrast. Spleen: Normal in size and attenuation. Pancreas: The unenhanced pancreas is moderately atrophic and grossly unremarkable. Adrenal glands: Unremarkable. Kidneys: The unenhanced kidneys are normal in size and without hydronephrosis. There are no renal linda culi identified. There is no evidence of contour deforming renal mass lesion. Abdominal vasculature: The abdominal aorta is normal in course and caliber. An infrarenal IVC filter is in place. Bowel: There is postoperative change consistent with a double barrel ostomy in the right lower quadra nt, new from 06/30/2020. There are mildly distended loops of small bowel with air-fluid levels. These measure up to 4.4 cm diameter. No discrete transition point is identified. The left colon is decompre ssed. The appendix is not visualized. Peritoneum: Scattered foci of intraperitoneal free air are seen throughout the abdomen. This has sign ificantly decreased from previous. Hyperdense fluid is seen along the superior margin of the liver be low the anterior aspect of the diaphragm (axial image #68). A surgical drain is present in the right upper quadrant from a left pelvic approach. There is a small pocket of complex fluid identified along the inferior margin of the right hepatic lobe seen on image #221. This measures approximately 5 x 7 x 4 cm. There is a small volume of complex free fluid in the pelvis with a hematocrit level (image #4 [id number]). Blood products are again seen in the left lateral abdomen on image #288. Lymphadenopathy: None. Pelvic viscera: The bladder is largely decompressed around a Stacy catheter. Intraluminal gas is like ly related to instrumentation. The prostate and seminal vesicles are normal as visualized. Skeletal structures: There is mild lumbosacral spondylosis. No lytic or blastic lesions are seen. Soft tissues: There is body wall edema. Bilateral surgical drains are present within the subcutaneous soft tissues in the ventral pelvis. A new drain is seen projecting over the ventral abdominal wall. A small hematoma is again seen within the ventral wall of the left pelvis on image #391. This measure s 7.2 x 1.6 cm. Facets simultaneous gas are again seen within the ventral pelvic wall, and a midline surgical incision is noted. IMPRESSION: 1. There is postoperative change of a double barrel ostomy in the right lower quadrant which is new f rom 06/30/2020. 2. A surgical drain is present in the right upper quadrant of the abdomen, and there are 3 surgical d rains within the ventral abdominal wall as detailed above. 3. There are mildly distended loops of small bowel with air-fluid levels. No discrete transition poin t is identified, and the appearance favors a postoperative ileus. Low-grade/developing obstruction is considered less likely and clinical correlation/follow-up will required. 4. Only trace pneumoperitoneum persists. 5. Hemoperitoneum is again noted. There are hyperdense blood products seen between the liver and the diaphragm, in the left lateral abdomen, and in the pelvis. 6. There is a 7 cm pocket of mildly complex fluid along the inferior margin of the liver. This is ind eterminant and also likely represents a mix of fluid/blood products. The sterility cannot be assessed by CT. 7. Small right and trace left pleural effusions with subsegmental atelectasis at the lung bases. 8. A small hematoma is again noted within the ventral abdominal wall. 9. Additional findings as above. ACT 112: Negative or not required by law. Electronically signed by: Norman Mensah M.D. 07/04/2020 9:24 AM
[2020-07-04 09:38] LABS: Partial Thromboplastin Ratio 1.6; Partial Thromboplastin Time 41.6 Seconds (21.0-31.0)
[2020-07-04] MEDS: FUROSEMIDE 20 MG in SYRINGE 0 ML IV SCH (11:34)
--- NOTE | 2020-07-04 11:59 | Medical Student Progress Note ---
Date of Service July 04, 2020 Assessment & Plan (1) Sepsis: Stephan Eduardo is a 45-year-old male with a PMHx of recurrent ventral hernias who underwent ventral hernia repair and excision of infected mesh on 06/23/20. During the postoperative period, the patient developed multiple pulmonary emboli as well as a bowel perforation. He is currently four days s/p cecectomy and ileostomy placement with an upward trending leukocytosis of unclear cause. 1. Sepsis * SIRS criteria met (WBC >11,000, HR >90, RR >20). Patient remains afebrile. Initial lactate elevation to 3.7 following cecectomy and ileostomy placement. Lactate has since normalized * Leukocytosis trending upward (13.05 --> 15.43 --> 18.65 --> 25.59). Continue trending CBC * Peritoneal fluid culture on 07/03/20 grew E. coli sensitive to most cephalosporins * Blood culture negative. Urine culture negative * Abdominal/Pelvic CT on 07/04/20: 7 cm pocket of mildly complex fluid along inferior margin of liver. Hemoperitoneum. Trace pneumoperitoneum persists. Mildly distended small bowel loop most suggestive of postoperative ileus. * Due to concern for abdominal abscess based on abdominal/pelvic CT, Exploratory laparotomy with abdominal washout performed on 07/04/20. Revealed an abdominal hematoma without evidence of abscess * Continue IV Metronidazole + Cefepime 2. Bilateral Pulmonary Emboli * IVC filter placed on 06/30/20 * Anticoagulation via heparin drip. Patient initially started on Eliquis following initial pulmonary emboli development. However, following a subsequent bowel perforation and return to the OR, he has been on heparin due to its shorter half-life and increased reversibility. Heparin held on 07/04/20 prior to exploratory laparotomy. Plan to restart tomorrow morning in coordination with the input from the surgery team * No evidence of right heart strain on CTA. Normal BNP. Normal Troponin 3. Hyponatremia * Patient had a sodium of 130 on 07/03/20. Trending upward to 133. Repeat BMP daily 4. Tachycardia * Patient has been consistently tachycardic in the high 90s to low 100s * Continue Metoprolol tartrate 12.5 mg BID * CTA revealed incidental thyroid nodule. In combination with a suppressed TSH (0.085) and elevated T4 (2.27), further outpatient management of a potential hot nodule is warranted 5. Thyroid Nodule * Incidental finding on CTA of a 3.3 cm thyroid nodule * Suppressed TSH (0.085) and elevated T4 (2.27) * Outpatient thyroid ultrasound and further follow up recommended to determine if findings are due to euthyroid sick syndrome vs a hot nodule 6. Pain Management * Continue IV Dilaudid PRN and PO Oxycodone PRN Code Status: Full Code F/E/N: Clear liquids VTE PPx: SCDs. Hold Heparin until tomorrow morning Dispo: ICU Admission and Anticipated Discharge Date Admission Date: June 23, 2020 Supervising Attestation Patient seen and examined with MS Piotr Triana and PGY-2 Dr. Michelle. Agree with history, exam findings, assessment and plan of care as outlined. Mr. Eduardo is a 45 yo gentleman who was found to have bilateral pulmonary emboli following ventral hernia repair. Medicine was consulted to assist with anticoagulation for PE treatment. Unfortunately had a bowel perforation as well and is now s/p washout cecectomy and ileostomy placement. He is sleepy post-operatively. +1 pedal edema. Obvious scrotal edema. Drains in tact. Bandages intact and dry. 1. Perforated viscous, peritonitis with sepsis. Now s/p washout and partial colectomy cecectomy and re-anastamosis then back to the OR today (07/04) for abdominal hematoma evacuation. Blood cultures without growth. Peritoneal fluid with E. Coli. Continue Flagyl and Cefepime. 2. Leukocytosis. Increased from 18 to 25 today. OR for washout of hematoma. No fevers. Will monitor for signs of worsening or new infection. 3. Provoked bilateral PE. IVC filter placed. Off heparin gtt post-OR Will defer to gen surg as to when to restart. 4. Anasarca. Secondary to intraoperative fluids/sepsis. Lasix PRN. 5. Hyponatremia. Secondary to volume overload. Lasix PRN. 6. Thyroid nodules, hyperthyroidism. 3.3cm R thyroid nodule seen on CTA chest. Suspect hot nodule. Will need repeat TSH and free T4 in 3 weeks. US of thyroid as an outpatient. 7. Tachycardia. ?secondary to PE + hyperthyroid. On metoprolol. Dispo: pending clinical improvement. Subjective Patient states that he is feeling well this morning. He denies shortness of breath or chest pain. He notes that he had night sweats and requested that a fan be placed by his bed, which helped. He continues to have generalized abdominal pain without nausea or vomiting. He has tolerated a liquid diet well but he has mild anorexia. He also notes generalized weakness when ambulating. He notes that he was able to sit in a chair for several hours yesterday. Patient also denies any lower extremity swelling or pain. Review of Systems Constitutional: + chills, + weakness and + anorexia; no fever Eyes: no problem reported Ear, Nose, Mouth, Throat: no problem reported Respiratory: no cough, no dyspnea and no pain on inspiration Cardiovascular: no chest pain, no palpitations, no syncope, no edema and no calf pain Gastrointestinal: as per Subjective / HPI Genitourinary: no problem reported Integumentary: no problem reported Neurologic: no problem reported Psychiatric: no problem reported Physical Exam Constitutional: no acute distress Eyes: PERRL, conjunctivae normal, anicteric sclerae ENMT: external ear and nose normal, oropharynx normal Neck: normal visual inspection Respiratory: normal respiratory effort, lungs clear to auscultation Cardiovascular: RRR, no murmur, no edema Gastrointestinal (Abdomen): Inspection/Auscultation: abdomen normal to inspection (abdominal binder present) and normal bowel sounds; abdomen not distended Percussion/Palpation: + abdomen tender (generalized); no guarding and abdomen not rigid Skin: no rashes, warm and dry Psychiatric: A+Ox3, euthymic affect Results & Data ([facility]) Vital Signs (Past 12 Hours) Vital Signs Temp Pulse Pulse Resp BP BP Pulse Ox 07/04/20 09:01 36.8 C 07/04/20 08:00 36.8 C 101 H 101 H 20 132/82 96 07/04/20 06:43 36.9 C 07/04/20 06:30 95 H 17 142/73 H 98 07/04/20 06:00 100 H 19 117/77 97 07/04/20 05:30 98 H 14 127/85 98 07/04/20 05:00 99 H 14 146/76 H 98 07/04/20 04:31 102 H 14 96 07/04/20 04:30 104 H 15 123/77 94 07/04/20 04:00 102 H 16 145/75 H 95 07/04/20 03:30 101 H 14 136/74 99 05/17/21 03:00 103 H 18 132/84 96 07/04/20 02:30 103 H 18 155/86 H 97 07/04/20 02:00 102 H 15 147/82 H 95 07/04/20 01:30 105 H 16 143/83 H 93 07/04/20 01:00 105 H 16 156/86 H 93 07/04/20 00:47 36.7 C 07/04/20 00:31 103 H 14 95 07/04/20 00:30 104 H 17 157/85 H 96 07/04/20 00:00 102 H 17 147/88 H 96
[2020-07-04] MEDS ORDERED: PROPOFOL IV EMULSION 10 MG/ML 20 ML VIAL IV ONE (12:14)
[2020-07-04] MEDS ORDERED: fentaNYL citrate 100 MCG/2 ML VIAL ONE ×2 (12:14→13:08)
[2020-07-04] MEDS ORDERED: ROCURONIUM BROMIDE 10 MG/ML 5 ML VIAL IV ONE (12:14)
[2020-07-04] MEDS ORDERED: LIDOCAINE 2% 2 ML VIAL/AMP(20MG/ML) INFIL ONE (12:14)
[2020-07-04] MEDS ORDERED: ONDANSETRON INJ 2 MG/ML 2 ML VIAL ONE (12:14)
[2020-07-04] MEDS ORDERED: MIDAZOLAM HCL 1 MG/ML 2ML VIAL ONE ×2 (12:14→12:48)
[2020-07-04] MEDS ORDERED: DEXAMETHASONE SOD INJ 4 MG/ML VIAL ONE (12:14)
[2020-07-04] MEDS ORDERED: HYDROmorphone INJ 2 MG/ML SYR/VIAL IV PRN (12:17)
[2020-07-04] MEDS ORDERED: PROMETHAZINE HCL 6.25 MG in SODIUM CHLORIDE 0.9% 50 ML IV PRN (12:17)
[2020-07-04] MEDS ORDERED: fentaNYL citrate 100 MCG/2 ML VIAL IV PRN (12:17)
[2020-07-04] MEDS ORDERED: ePHEDrine sulfate 50 MG/ML AMP IV PRN (12:17)
[2020-07-04] MEDS ORDERED: ATROPINE SULFATE 0.1 MG/ML 10ML SYR IV PRN (12:17)
[2020-07-04] MEDS ORDERED: ONDANSETRON INJ 2 MG/ML 2 ML VIAL IV PRN (12:17)
--- NOTE | 2020-07-04 12:17 | History & Physical Bridge Note ---
Date of Service July 04, 2020 History & Physical Bridge Note I have examined the patient, reviewed the History & Physical and in the interval since the performance of the History & Physical I have noted the following changes of clinical significance: no changes noted ct reviewed. not amenable to IR per radiology. discussed options with pt/. rec ex-lap with abdominal washout. discussed risks ( bleeding/infection/injury to an organ etc...). discussed options. they are agreeable. will proceed with ex-lap /abdominal washout this afternoon.
--- NOTE | 2020-07-04 12:17 | Anesthesiology Consultation ---
Date of Service July 04, 2020 Assessment & Plan (1) Encounter for pre-operative examination: Chart Review Chart Review: Acceptable Risk for Surgery and Patient NOT seen in Pre Admission Testing Consults Requested none ASA ASA4 Proposed Anesthesia Anesthesia Type: General Risk / Benefits Reviewed With: PT / POA / Parent / Guardian, Accepts Plan and Informed Consent Obtained History Surgery Operation Date: 06/23/20 11:15 Proposed Procedures p Panniculectomy with Component Separation, Explant of Infected Mesh, - Ben Zhong DO s Open Recurrent Ventral Hernia Repair with Mesh - Ben Zhong DO Operation Date: 06/30/20 08:40 Proposed Procedures p Inferior Vena Cava Filter Placement - Dony Mcneill MD s Exploratory Laparotomy with Surgery as needed - Ben Zhong DO Operation Date: 07/04/20 08:30 Proposed Procedures p Exploratory Laparotomy with Abdominal Washout - Ben Zhong DO Height/Weight Height: 6 ft 2 in Weight: 150.5 kg Allergies Allergy/AdvReac Type Severity Reaction Status Date / Time clavulanic acid Allergy Mild Rash Verified 06/23/20 10:09 NSAIDS (Non-Steroidal AdvReac Mild Gastrointestinal Verified 06/23/20 10:09 Anti-Inflamma Upset Medications Home Medications Medication Instructions Recorded Confirmed Last Taken loratadine 10 mg tablet 10 mg PO DAILY PRN 02/08/20 06/23/20 Unknown ciclopirox 8 % topical solution 1 applic TOPICAL DAILY 28 Days 03/16/20 06/23/20 06/22/20 08:00 #6.6 ml sulfamethoxazole 800 See Rx Instructions .ROUTE 05/30/20 06/23/20 06/23/20 07:00 mg-trimethoprim 160 mg tablet .COMPLEX #56 tab levocarnitine [L-Carnitine] 500 mg PO HS 06/15/20 06/23/20 06/15/20 19:00 magnesium 500 mg PO HS 06/15/20 06/23/20 06/15/20 19:00 pantoprazole 20 mg PO QAM 06/15/20 06/23/20 06/23/20 07:00 phentermine 37.5 mg PO QAM 06/15/20 06/23/20 06/15/20 07:00 apixaban [Eliquis] 10 mg PO BID #11 tab 06/28/20 Unknown sertraline 50 mg PO QAM 30 Days #30 tab 06/28/20 Unknown Active Medications Generic Name Dose Route Start Last Admin Trade Name Buzzq PRN Reason Stop Dose Admin Hydromorphone HCl 0.5 mg 07/02/20 08:56 07/04/20 03:08 Hydromorphone Inj 0.5 Mg/0.5 Ml Syr IV 07/16/20 08:55 0.5 mg Q1H PRN Administration Pain Promethazine HCl 12.5 mg/ 50.5 mls @ 204 mls/hr 06/23/20 17:49 06/27/20 16:29 Sodium Chloride IV 07/23/20 17:48 Infused Q6H PRN Infusion Nausea And Vomiting Metronidazole 500 mg in 100 mls @ 100 mls/hr 06/30/20 12:00 07/04/20 05:25 Flagyl IV 07/10/20 11:59 Infused Q8H MELIA Infusion Famotidine 20 mg/ Syringe 5 mls @ 2.5 mls/min 07/01/20 09:00 07/04/20 08:56 IV 07/31/20 08:59 2.5 mls/min DAILY@0900 MELIA Administration Cefepime HCl 2,000 mg/ Syringe 20 mls @ 5 mls/min 07/01/20 16:00 07/04/20 07:54 IV 07/10/20 10:00 5 mls/min Q8H MELIA Administration Protocol Heparin Sodium/Dextrose 25,000 units in 500 mls @ 0 mls/hr 07/01/20 12:50 07/04/20 09:41 Heparin Sodium/Dextrose IV 07/31/20 12:49 0 units/hr .Q0M MELIA 0 mls/hr Titration Protocol 0 UNITS/HR Furosemide 20 mg/ Syringe 2 mls @ 4 mls/min 07/04/20 09:30 07/04/20 11:34 IV 08/03/20 09:29 4 mls/min DAILY MELIA Administration Metoprolol Tartrate 12.5 mg 07/03/20 09:00 07/04/20 07:54 Metoprolol Tartrate 25 Mg Tab PO 08/02/20 08:59 12.5 mg BID MELIA Administration Ondansetron HCl 4 mg 06/23/20 17:49 07/02/20 09:10 Ondansetron Inj 2 Mg/Ml 2 Ml Vial IV 07/23/20 17:48 4 mg Q4H PRN Administration Nausea And Vomiting Phenol 2 sprays 06/26/20 10:52 06/26/20 12:51 Chloraseptic 1.4% Soln 180 Ml Btl MT 07/26/20 10:51 2 sprays Q2H PRN Administration Sore Throat NPO Date Last Intake of Fluids: 07/03/20 Time Last Intake of Fluids: 22:00 Last Intake of Fluids Comment: sips w/meds Date Last Intake of Solids: 07/03/20 Time Last Intake of Solids: 18:00 Past Medical History Medical History Arthritis Chronic venous insufficiency GERD (gastroesophageal reflux disease) History of GI bleed 2016 Morbid obesity with BMI of 40.0-44.9, adult Seasonal allergies Exercise / Class Metabolic Activity II 4-5 Yardwork/Stairs/Walk up hill Past Family History Family History Mother Diabetes Cancer Grandfather Heart disease Other No family history of adverse response to anesthesia Past Surgical History Surgical History H/O vasectomy H/O wisdom tooth extraction History of esophagogastroduodenoscopy (EGD) History of tooth extraction S/P hernia repair 2006 S/P insertion of inferior vena caval filter (06/30/20) Inferior Vena Cava Filter Placement(Right) - Dony Mcneill MD S/P panniculectomy (06/23/20) Panniculectomy with Component Separation, Explant of Infected Mesh, - Ben Zhong, Open Recurrent Ventral Hernia Repair with Biologic Mesh; takedown of enterocu taneous fistula; enterolysis; partial omentectomy- Ben Zhong, Past Anesthesia History No Hx of Anesthesia Complications and No Family Hx of Anesthesia Complications History of PONV No Hx of PONV and No Hx of Motion Sickness Social History Smoking Status: Never smoker Do You Dip or Chew Tobacco: No Hx Alcohol Use: Yes Alcohol type: beer alcohol intake frequency: holidays/special occasions only Hx Substance Use: No substance use type: does not use Physical Exam Vital Signs Last Vital Signs Temp 37 C 07/04/20 12:00 Pulse 94 H 07/04/20 12:00 Resp 22 07/04/20 12:00 BP 144/85 H 07/04/20 12:00 Pulse Ox 95 07/04/20 12:00 Constitutional + morbidly obese ENMT Mouth: no dentition abnormality Thyromental Distance: > or= 3.5 Finger Breadths Mallampati Class: II Neck normal visual inspection Respiratory normal respiratory effort Auscultation: lungs clear to auscultation bilaterally Cardiovascular Rate/Rhythm: regular rate and regular rhythm Psychiatric Orientation: alert Lab Results Anesthesia Preop Results Results Anesthesia Widget: WBC 25.59 K/uL (4.8-10.8) H 07/04/20 Hgb 8.6 g/dL (14.0-18.0) L 07/04/20 Hct 26.8 % (42-52) L 07/04/20 Plt 437 K/uL (130-400) H 07/04/20 Na 133 mmol/L (136-145) L 07/04/20 K 4.0 mmol/L (3.5-5.1) 07/04/20 Cl 99 mmol/L (98-107) 07/04/20 CO2 30 mmol/L (21-32) 07/04/20 BUN 17 mg/dl (7-18) 07/04/20 Creat 0.61 mg/dl (0.6-1.4) 07/04/20 Glucose Level 120 mg/dl (70-99) H 07/04/20 PT 16.6 Seconds (9.0-12.0) H 06/30/20 PTT 41.6 Seconds (21.0-31.0) H 07/04/20 INR 1.7 (0.9-1.1) H 06/30/20 TSH 0.085 uIu/ml (0.300-4.500) L 06/25/20 Free T4 2.27 ng/dl (0.8-1.6) H 06/25/20 Urine Color Dark Yellow 07/03/20 Urine Appearance Clear (Clear) 07/03/20 Urine pH 6.0 (4.5-7.5) 07/03/20 Urine Specific [place] 1.032 (1.000-1.030) H 07/03/20 Urine Protein 1+ (Negative) H 07/03/20 Urine Glucose (UA) 1+ (Negative) H 07/03/20 Urine Ketones Negative (Negative) 07/03/20 Urine Blood Negative (Negative) 07/03/20 Urine Nitrite Negative (Negative) 07/03/20 Urine Bilirubin Negative (Negative) 07/03/20 Urine Urobilinogen Negative (Negative) 07/03/20 Urine Leukocyte Esterase Negative (Negative) 07/03/20 Urine WBC (Auto) 1-5 /hpf (0-5) 07/03/20 Urine RBC (Auto) 0-4 /hpf (0-4) 07/03/20 Urine Hyaline Casts (Auto) 1-5 /lpf (0-5) 07/03/20 Urine Epithelial Cells (Auto) 5-10 /lpf (0-5) H 07/03/20 Urine Bacteria (Auto) Negative (Negative) 07/03/20 Urine Yeast Not Reportable 07/03/20 Blood Type O Negative 06/30/20 Antibody Screen NEGATIVE 06/30/20 Testing Laboratory Results 07/04/20 02:37 07/04/20 02:37 PT 16.6 Seconds (9.0-12.0) H 06/30/20 11:40 INR 1.7 (0.9-1.1) H 06/30/20 11:40 APTT 41.6 Seconds (21.0-31.0) H 07/04/20 09:13 Urine Color Dark Yellow 07/03/20 08:10 Urine Appearance Clear (Clear) 07/03/20 08:10 Urine pH 6.0 (4.5-7.5) 07/03/20 08:10 Ur Specific [place] 1.032 (1.000-1.030) H 07/03/20 08:10 Urine Protein 1+ (Negative) H 07/03/20 08:10 Urine Glucose (UA) 1+ (Negative) H 07/03/20 08:10 Urine Ketones Negative (Negative) 07/03/20 08:10 Urine Nitrite Negative (Negative) 07/03/20 08:10 Ur Leukocyte Esterase Negative (Negative) 07/03/20 08:10 Urine WBC (Auto) 1-5 /hpf (0-5) 07/03/20 08:10 Urine RBC (Auto) 0-4 /hpf (0-4) 07/03/20 08:10 U Hyaline Cast (Auto) 1-5 /lpf (0-5) 07/03/20 08:10 U Epithel Cells (Auto) 5-10 /lpf (0-5) H 07/03/20 08:10 Urine Bacteria (Auto) Negative (Negative) 07/03/20 08:10 Blood Type O Negative 06/30/20 11:40 Antibody Screen NEGATIVE 06/30/20 11:40 07/03/20 08:10 Urine Culture - Preliminary Urine,Straight Cath No growth - Less than 1,000 colonies/mL, Final report to follow. 06/30/20 Unknown Gram Stain - Final Peritoneal Fluid Aerobic and Anaerobic Culture - Preliminary Escherichia coli Anaerobic gram negative bacill 06/30/20 10:04 Aerobic Blood Culture - Preliminary Blood No growth in Aerobic bottle after 48 hours. Anaerobic Blood Culture - Preliminary No growth in Anaerobic bottle after 48 hours. 06/30/20 09:13 Aerobic Blood Culture - Preliminary Blood No growth in Aerobic bottle after 48 hours. Anaerobic Blood Culture - Preliminary No growth in Anaerobic bottle after 48 hours.
[2020-07-04] MEDS ORDERED: GLYCOPYRROLATE 0.2 MG/ML VIAL ONE (13:51)
[2020-07-04] MEDS ORDERED: NEOSTIGMINE METHYLSULFATE 5 MG/5 ML SYR ONE (13:51)
--- NOTE | 2020-07-04 14:29 | Operative Report ---
PG Post Operative Report Pre & Post Diagnosis Operation Date: 06/23/20 11:15 Pre-Op Diagnosis: Recurrent Ventral Hernia, Yeast Infection of Skin Post-Op Diagnosis: Recurrent Ventral Hernia, Yeast Infection of Skin Operation Date: 06/30/20 08:40 Pre-Op Diagnosis: Dr. Mcneill: Preopertaive Diagnosis: Pulmonary Embolism, contraindication for anticoagulation Dr. Zhong: Free Air in Abdomen Post-Op Diagnosis: Dr. Mcneill: Preopertaive Diagnosis: Pulmonary Embolism, contraindication for anticoagulation Dr. Zhong: Free air in abdomen, perforated cecum, large bowel obstruction Operation Date: 07/04/20 08:30 Pre-Op Diagnosis: Abdominal hematoma Post-Op Diagnosis: Abdominal hematoma I identified the patient and participated in the time-out.: Yes Procedure Operation Date: 06/23/20 11:15 Actual Procedures p Panniculectomy with Component Separation, Explant of Infected Mesh,(Not Applicable) - Ben Zhong DO s Open Recurrent Ventral Hernia Repair with Mesh(Not Applicable) - Ben Zhong DO Operation Date: 06/30/20 08:40 Actual Procedures s Inferior Vena Cava Filter Placement(Not Applicable) - Dony Mcneill MD p Exploratory Laparotomy, Reduction of Large Bowel Obstruction Partial Cecectomy, Diverting Ileostomy Creation, Abdominal Washout - Ben Zhong DO Operation Date: 07/04/20 08:30 Actual Procedures p Exploratory Laparotomy with Abdominal Washout(Not Applicable) - Ben Zhong DO Surgeon Ben Zhong DO Forging Dies Final Finisher gabrielle valenzuela Estimated Blood Loss 5 Findings Consistent with Post-Op Diagnosis Specimens none Anesthesia Type General Complications none Description of Procedure After informed consent was obtained the patient was taken to the operating room and placed in supine position. After successful intubation the abdomen was sterilely prepped and draped in usual fashion. We draped off the stoma as well as all 4 drains so that the only thing exposed was his previous upper midline incision. The matthew had been removed prior to prepping the patient. We then used a suture scissors to open the #1 PDS sutures previously placed. We were then able to finger fractionate open the fascia. The small bowel underneath looked nice and pink. There was no foul odor. There was no bile or succus. I began exploring all 4 quadrants. We encountered a hematoma in the right upper quadrant as described on his recent CT scan. I was able to finger fractionate this and suction it out. I continued to work inferiorly until I was down over the pelvic brim. Once in the pelvis itself there was some additional hematoma collection. This was also shot suctioned out. I examined the cecum where his recent staple line was placed and it looked intact. Again there was no succus or bile anywhere in the abdomen. The colon and also the small bowel all looked remarkably healthy all things considered. We continued to finger fractionate some loops of bowel to help identify any hidden small abscess pockets. We never did encounter any purulent fluid. We used about 5 L of warm irrigation with antibiotic infused within it. We irrigated the pelvis as well as all 4 quadrants. No other gross abnormalities were identified. One of the Darin drains was placed in the right upper quadrant and the other was placed over the pelvic brim into the pelvis itself. The fascia was then closed using #1 looped PDS starting at either pole and running and securing them in the midline. Soft tissue was thoroughly irrigated and closed with skin matthew over half inch Bala drain. Bala drain was secured using 2-0 nylon. Silver dressings gauze and tape were applied. The patient was awakened extubated and transferred back to the intensive care unit in guarded condition. My physician kindergarten teacher assistant was present for the entire case. He was instrumental in exposure throughout the procedure as well as with fascial closure and dressing placement. I attest to the content of the Intraoperative Record and any orders documented therein. Any exceptions are noted below.
--- NOTE | 2020-07-04 14:53 | Anesthesiology Progress Note ---
Date of Service July 04, 2020 Anesthesia Post Procedure Vital Signs Vital Signs: Temp Pulse Pulse Pulse Pulse Resp BP 07/04/20 14:40 97 H 18 07/04/20 14:30 105 H 20 07/04/20 14:23 36.4 C L 112 H 20 07/04/20 12:00 37.2 C 101 H 94 H 22 07/04/20 09:01 36.8 C 07/04/20 08:00 36.8 C 101 H 101 H 20 07/04/20 06:43 36.9 C 07/04/20 06:30 95 H 17 142/73 H 07/04/20 06:00 100 H 19 117/77 07/04/20 05:30 98 H 14 127/85 07/04/20 05:00 99 H 14 146/76 H 07/04/20 04:31 102 H 14 07/04/20 04:30 104 H 15 123/77 07/04/20 04:00 102 H 16 145/75 H 07/04/20 03:30 101 H 14 136/74 07/04/20 03:00 103 H 18 132/84 07/04/20 02:30 103 H 18 155/86 H 07/04/20 02:00 102 H 15 147/82 H 07/04/20 01:30 105 H 16 143/83 H 07/04/20 01:00 105 H 16 156/86 H 07/04/20 00:47 36.7 C 07/04/20 00:31 103 H 14 07/04/20 00:30 104 H 17 157/85 H 07/04/20 00:00 102 H 17 147/88 H 07/03/20 23:30 102 H 15 145/80 H 07/03/20 23:00 101 H 15 152/80 H 07/03/20 22:31 99 H 16 07/03/20 22:30 100 H 17 134/83 07/03/20 22:00 99 H 17 143/88 H 07/03/20 21:30 105 H 19 152/87 H 07/03/20 21:00 105 H 19 149/85 H 07/03/20 20:30 103 H 24 149/81 H 07/03/20 20:00 37.2 C 07/03/20 19:25 103 H 23 163/99 H 07/03/20 19:00 100 H 19 163/99 H 07/03/20 18:30 101 H 20 147/109 H 07/03/20 18:00 105 H 20 152/102 H 07/03/20 17:30 103 H 20 157/96 H 07/03/20 17:00 103 H 18 163/94 H 07/03/20 16:30 99 H 13 158/96 H 07/03/20 16:00 104 H 26 H 145/90 H 07/03/20 15:30 98 H 14 150/95 H 07/03/20 15:00 103 H 19 174/96 H BP Pulse Ox 07/04/20 14:40 113/59 L 94 07/04/20 14:30 114/67 94 07/04/20 14:23 106/48 L 92 07/04/20 12:00 144/85 H 95 07/04/20 09:01 07/04/20 08:00 132/82 96 07/04/20 06:43 07/04/20 06:30 98 07/04/20 06:00 97 07/04/20 05:30 98 07/04/20 05:00 98 07/04/20 04:31 96 07/04/20 04:30 94 07/04/20 04:00 95 07/04/20 03:30 99 07/04/20 03:00 96 07/04/20 02:30 97 07/04/20 02:00 95 07/04/20 01:30 93 07/04/20 01:00 93 07/04/20 00:47 07/04/20 00:31 95 07/04/20 00:30 96 07/04/20 00:00 96 07/03/20 23:30 96 07/03/20 23:00 95 07/03/20 22:31 94 07/03/20 22:30 95 07/03/20 22:00 93 07/03/20 21:30 95 07/03/20 21:00 96 07/03/20 20:30 94 07/03/20 20:00 07/03/20 19:25 100 07/03/20 19:00 07/03/20 18:30 07/03/20 18:00 99 07/03/20 17:30 100 07/03/20 17:00 96 07/03/20 16:30 99 07/03/20 16:00 99 07/03/20 15:30 100 07/03/20 15:00 96 Pain Intensity Abdomen: Pain Intensity: 3 Transfer of Care Handoff Completed per policy Notes Mental Status: alert / awake / arousable Patient Amnestic to Procedure: Yes Nausea / Vomiting: adequately controlled Pain: adequately controlled Airway Patency, RR, SpO2: stable & adequate BP & HR: stable & adequate Hydration State: stable & adequate Anesthetic Complications: no major complications apparent
[2020-07-04] MEDS: THIAMINE HCL 100 MG in SYRINGE 9 ML IV SCH (18:07)
[2020-07-04] MEDS: oxyCODONE HCL IR 5 MG TAB (IMMEDIATE RELEASE) PO PRN (22:28)
[2020-07-05] MEDS: HYDROmorphone INJ 0.5 MG/0.5 ML SYR IV PRN (00:37)
[2020-07-05] MEDS: CEFEPIME 2,000 MG in SYRINGE 0 ML IV SCH ×3 (00:37→15:34)
[2020-07-05 04:37] LABS: Albumin Level 1.6 gm/dl (3.4-5.0); BUN Creatinine Ratio 30.9 (10-20); Calcium 7.3 mg/dl (8.5-10.1); Creatinine Clr Calc Pharmacy 239.8 ml/min; Est GFR (African American) 139.7 ml/min; Est GFR (Non-African American) 120.6 ml/min; Magnesium 2.2 mg/dl (1.8-2.4); Potassium 4.5 mmol/L (3.5-5.1)
[2020-07-05] MEDS: metroNIDAZOLE 500 MG/100 ML BAG IV SCH ×3 (04:38→19:44)
[2020-07-05 04:43] LABS: Albumin Globulin Ratio 0.4 (0.9-2); Bilirubin,Total 0.6 mg/dl (0.2-1); Total Protein 5.6 gm/dl (6.4-8.2)
[2020-07-05 04:48] LABS: Hematocrit (blood only) 28.9 % (42-52); Hemoglobin 9.3 g/dL (14.0-18.0); Mean Corpuscular Hemoglobin 26.3 pg (25-34); Mean Corpuscular Hgb Conc 32.2 g/dL (32-36); Mean Corpuscular Volume 81.6 fL (80-100); Mean Platelet Volume 8.7 fL (7.4-10.4); Nucleated RBC # (auto) 0.11 K/uL (0-0); Nucleated RBC % (auto) 0.3 %; Platelet Count 410 K/uL (130-400); RDW Coefficient of Variation 15.7 % (11.5-14.5); RDW Standard Deviation 46.8 fL (36.4-46.3); Red Blood Count 3.54 M/uL (4.7-6.1); White Blood Count 39.95 K/uL (4.8-10.8)
[2020-07-05 04:49] LABS: ALC (manual) 2.44 K/uL (1.2-3.4); ANC (manual) 32.28 K/uL (1.4-6.5); Lymphocytes # (manual) 2.44 K/uL (1.2-3.4); Lymphocytes % (manual) 6.1 %; Metamyelocytes # (manual) 0.36 K/uL (0-0); Metamyelocytes % (manual) 0.9 %; Monocytes # (manual) 3.48 K/uL (0.11-0.59); Monocytes % (manual) 8.7 %; Myelocytes % (manual) 3.5 %; Neutrophils # (manual) 32.28 K/uL (1.4-6.5); Neutrophils % (manual) 80.8 %; RBC Morphology Unremarkable
[2020-07-05] MEDS: oxyCODONE HCL IR 5 MG TAB (IMMEDIATE RELEASE) PO PRN ×2 (05:46→08:39)
[2020-07-05] MEDS ORDERED: CASPOFUNGIN 70 MG in SODIUM CHLORIDE 0.9% 250 ML IV ONE (08:12)
[2020-07-05] MEDS ORDERED: Heparin IV Adult Wt-Based Low-Dose *NO* Bolus Protocol IV SCH (08:18)
--- NOTE | 2020-07-05 08:28 | Critical Care Progress Note ---
Date of Service July 05, 2020 Assessment & Plan (1) Admitted to intensive care unit: Impression: 45-year-old male who is status post exploratory laparotomy in the setting of visceral perforation requiring reduction of large bowel obstruction, partial cecectomy, diverting ileostomy, and abdominal washout. Patient had complicated initial postoperative course with bilateral PE requiring eventual placement of IVC filter. 24-hour events: Taken to the OR yesterday for abdominal washout. 2 small hematomas were evacuated but there did not appear to be any evidence of infection. He was extubated and brought back to the ICU. He is remained hemodynamically stable overnight. He did have a low-grade fever and his white count remains elevated this morning. Recommendations: NEURO -pain management per surgery. No other issues. CARDIAC/VASCULAR -sinus tachycardia likely secondary to acute PE, pain issues, and abdominal surgery. Started on a low-dose of metoprolol yesterday. Echo 07/02/2020, difficult study with demonstration of a hyperdynamic left ventricle. Grade 1 diastolic dysfunction was noted. No obvious valvular dysfunction identified. Right ventricular function was estimated in normal. Continue gentle diuresis today, well-tolerated yesterday. RESPIRATORY -multifactorial hypoxemia due to splinting, PE, and atelectasis. Continue incentive spirometry and flutter valve. Wean oxygen as tolerated. Echocardiogram showed no evidence of RV strain and biomarkers have been negative. Would recommend 3 to 6 months of full anticoagulation. Heparin held yesterday for the OR. Discussed with surgery and okay to restart heparin infusion without bolus today. Consider transition to Coumadin or DOAC when felt to be feasible by surgery. Would recommend removal of the IVC filter this hospitalization as the patient is tolerating anticoagulation currently. GI/NUTRITION - Distal perforation status post exploratory laparotomy, reduction of large bowel obstruction, partial cecetomy, diverting ileostomy, and abdominal washout. Patient is tolerating a diet currently. Per surgery. The patient's prealbumin and albumin are both low. Need to try and improve the patient's nutritional stores RENAL/LYTES -kidney function stable. Mild hyponatremia which will continue to be trended. Electrolytes and acid-base status are normal. He is significantly volume up during this hospitalization. Gentle diuresis today. - Stacy in place - Strict I&Os. Defer decision regarding Stacy catheter to surgery but from my perspective it can come out ENDO -glycemic control per protocol. HEME -patient has mild anemia. Continue to follow currently. No indication for transfusion and no evidence of acute blood loss. ID - Visceral perforation: OR cultures growing E. coli. The patient's ID history is extensive. From the sixth to the he was on Diflucan. He was on clindamycin from the sixth to the 15th. He received 1 dose of vancomycin on the . He is currently day #6 cefepime and Flagyl. His white count is continuing to trend up and he is now febrile. Repeat procalcitonin had improved from 22 down to 4. Given his new fevers and elevated white count, will obtain blood and urine cultures and check galactomannan. Will place on caspofungin empirically and ID consultation will be obtained by general surgery. Check C. difficile and CPK --Prophylaxis VTE: SCDs, heparin drip, IVC filter GI: Pepcid Lines: PIVs x2, Stacy, TALISHA drains x4 Diet: Tolerating clears. Advancing per surgery. Disposition: Disposition per surgery and the primary admitting service. Total of 42 minutes critical care time was spent in evaluation management and stabilization of this patient with potential life-threatening illness including discussion with multiple consultants, radiology, patient at bedside, and critical care nursing. He was discussed on multidisciplinary rounds. Please note the above document was generated using voice recognition software. It may contain grammatical, syntax or spelling errors.Any formal questions or concerns about the content, text or information contained within the body of this dictation should be directly addressed to the provider for clarification. (2) S/P exploratory laparotomy: (3) Bilateral pulmonary embolism: (4) Hypoxia: Admission and Anticipated Discharge Date Admission Date: June 23, 2020 Subjective Seen and examined. Discussed with general surgery and ICU nurse at bedside. The patient had some sensation of abdominal distention last. No real pain. He is remained hemodynamically stable. He did have a low-grade fever. He denies cough or sputum production. His pain is well controlled currently. Physical Exam Constitutional: well developed; not ill appearing Neck: trachea midline, no thyromegaly Respiratory: normal respiratory effort, lungs clear to auscultation Cardiovascular: RRR, no murmur, no edema Gastrointestinal (Abdomen): Inspection/Auscultation: + abdominal surgical drain present Percussion/Palpation: + abdomen tender Musculoskeletal: Extremities: extremities normal to inspection Skin: no rashes, warm and dry Lymphatic: no cervical lymphadenopathy Results & Data Results & Data ([facility]) Vital Signs (Past 12 Hours) Vital Signs Temp Pulse Resp BP Pulse Ox 07/05/20 07:00 100 H 15 119/66 95 07/05/20 06:00 104 H 25 H 115/75 91 07/05/20 05:30 104 H 15 120/78 94 07/05/20 05:00 107 H 25 H 122/92 91 07/05/20 04:46 37.1 C 07/05/20 04:30 108 H 22 106/73 93 07/05/20 04:00 107 H 15 107/82 94 07/05/20 03:30 105 H 14 107/73 95 07/05/20 03:00 106 H 16 112/70 94 07/05/20 02:30 108 H 15 108/77 94 07/05/20 02:00 109 H 14 108/76 94 07/05/20 01:30 107 H 15 113/73 94 07/05/20 01:00 110 H 14 107/75 93 07/05/20 00:46 36.9 C 07/05/20 00:30 111 H 24 115/74 94 07/05/20 00:00 111 H 21 111/76 93 07/04/20 23:47 113 H 07/04/20 23:30 37.7 C H 116 H 23 108/75 93 07/04/20 23:00 114 H 20 112/80 94 07/04/20 22:43 119 H 25 H 120/73 93 07/04/20 22:30 37.8 C H 07/04/20 22:00 127 H 26 H 122/80 92 07/04/20 21:30 38.0 C H 124 H 26 H 116/73 92 07/04/20 21:00 130 H 26 H 110/67 07/04/20 20:30 128 H 29 H 122/77 93 Critical Care Results & Data Vital Signs (Past 12 Hours) Vital Signs Temp Pulse Resp BP Pulse Ox 07/05/20 07:00 100 H 15 119/66 95 07/05/20 06:00 104 H 25 H 115/75 91 07/05/20 05:30 104 H 15 120/78 94 07/05/20 05:00 107 H 25 H 122/92 91 07/05/20 04:46 37.1 C 07/05/20 04:30 108 H 22 106/73 93 07/05/20 04:00 107 H 15 107/82 94 07/05/20 03:30 105 H 14 107/73 95 07/05/20 03:00 106 H 16 112/70 94 07/05/20 02:30 108 H 15 108/77 94 07/05/20 02:00 109 H 14 108/76 94 07/05/20 01:30 107 H 15 113/73 94 07/05/20 01:00 110 H 14 107/75 93 07/05/20 00:46 36.9 C 07/05/20 00:30 111 H 24 115/74 94 07/05/20 00:00 111 H 21 111/76 93 07/04/20 23:47 113 H 07/04/20 23:30 37.7 C H 116 H 23 108/75 93 07/04/20 23:00 114 H 20 112/80 94 07/04/20 22:43 119 H 25 H 120/73 93 07/04/20 22:30 37.8 C H 07/04/20 22:00 127 H 26 H 122/80 92 07/04/20 21:30 38.0 C H 124 H 26 H 116/73 92 07/04/20 21:00 130 H 26 H 110/67 07/04/20 20:30 128 H 29 H 122/77 93 Lab & Micro Results (Past 24 Hours) RBC 3.54 M/uL (4.7-6.1) L 07/05/20 WBC 39.95 K/uL (4.8-10.8) H* 07/05/20 Hgb 9.3 g/dL (14.0-18.0) L 07/05/20 Hct 28.9 % (42-52) L 07/05/20 MCV 81.6 fL (80-100) 07/05/20 MCH 26.3 pg (25-34) 07/05/20 MCHC 32.2 g/dL (32-36) 07/05/20 RDW Standard Deviation 46.8 fL (36.4-46.3) H 07/05/20 RDW Coefficient of Variation 15.7 % (11.5-14.5) H 07/05/20 Plt Count 410 K/uL (130-400) H 07/05/20 MPV 8.7 fL (7.4-10.4) 07/05/20 Nucleated Red Blood Cells % (auto) 0.3 % 07/05/20 Nucleated RBC Absolute Count (auto) 0.11 K/uL (0-0) H 07/05/20 ANC 32.28 K/uL (1.4-6.5) H 07/05/20 ALC 2.44 K/uL (1.2-3.4) 07/05/20 Neutrophils % (Manual) 80.8 % 07/05/20 Lymphocytes % (Manual) 6.1 % 07/05/20 Monocytes % (Manual) 8.7 % 07/05/20 Metamyelocytes % (manual) 0.9 % 07/05/20 Myelocytes % (Manual) 3.5 % 07/05/20 Neutrophils # (Manual) 32.28 K/uL (1.4-6.5) H 07/05/20 Lymphocytes # (Manual) 2.44 K/uL (1.2-3.4) 07/05/20 Monocytes # (Manual) 3.48 K/uL (0.11-0.59) H 07/05/20 Metamyelocytes # (Manual) 0.36 K/uL (0-0) H 07/05/20 Myelocytes # (Manual) 1.40 K/uL (0-0) H 07/05/20 Red Blood Cell Morphology Unremarkable 07/05/20 Na 133 mmol/L (136-145) L 07/05/20 K 4.5 mmol/L (3.5-5.1) 07/05/20 Cl 99 mmol/L (98-107) 07/05/20 CO2 31 mmol/L (21-32) 07/05/20 Anion Gap 3.0 (3-11) 07/05/20 BUN 18 mg/dl (7-18) 07/05/20 Creatinine 0.59 mg/dl (0.6-1.4) L 07/05/20 Estimated GFR ( Amer) 139.7 ml/min 07/05/20 Estimated GFR (Non-Af Amer) 120.6 ml/min 07/05/20 BUN/Creatinine Ratio 30.9 (10-20) H 07/05/20 Glu 133 mg/dl (70-99) H 07/05/20 Ca 7.3 mg/dl (8.5-10.1) L 07/05/20 Phosphorus Level 3.0 mg/dl (2.5-4.9) 07/05/20 Total Bilirubin 0.6 mg/dl (0.2-1) 07/05/20 AST 35 U/L (15-37) 07/05/20 ALT 28 U/L (12-78) 07/05/20 Alkaline Phosphatase 66 U/L (45-117) 07/05/20 TP 5.6 gm/dl (6.4-8.2) L 07/05/20 Albumin 1.6 gm/dl (3.4-5.0) L 07/05/20 Globulin 4.0 gm/dl (2.5-4.0) 07/05/20 Albumin/Globulin Ratio 0.4 (0.9-2) L 07/05/20 Mg 2.2 mg/dl (1.8-2.4) 07/05/20 03:56 07/05/20 Calcium Level 7.3 mg/dl (8.5-10.1) L 07/05/20 03:56 07/05/20 Microbiology 06/30/20 Unknown Gram Stain - Final Peritoneal Fluid Aerobic and Anaerobic Culture - Preliminary Escherichia coli Parabacteroides (B) distasonis 07/03/20 08:10 Urine Culture - Preliminary Urine,Straight Cath No growth - Less than 1,000 colonies/mL, Final report to follow. Diagnostic Findings (Past 24 Hours) Abdomen/Pelvis CT 07/04/20 07:18 CT SCAN OF THE ABDOMEN AND PELVIS WITHOUT IV CONTRAST CLINICAL HISTORY: Leukocytosis status post exploratory laparotomy. COMPARISON STUDY: Abdominal CT dated 06/30/2020. TECHNIQUE: CT scan of the abdomen and pelvis is performed from the lung bases to the proximal femora. Images are reviewed in the axial, sagittal, and coronal planes. IV contrast was not administered for this examination. Note that the examination is suboptimal without IV contrast. A dose lowering technique was utilized adhering to the principles of ALARA. CT DOSE: 2997.87 mGy.cm FINDINGS: Lung bases: The heart is normal in size and without pericardial effusion. There are small right and trace left pleural effusions with segmental atelectasis at the lung bases. Liver: The unenhanced liver is normal in size, contour, and attenuation. There is no intrahepatic biliary ductal dilatation. Gallbladder: Hyperdense material within the gallbladder lumen likely represents vicariously excreted contrast. Spleen: Normal in size and attenuation. Pancreas: The unenhanced pancreas is moderately atrophic and grossly unremarkable. Adrenal glands: Unremarkable. Kidneys: The unenhanced kidneys are normal in size and without hydronephrosis. There are no renal calculi identified. There is no evidence of contour deforming renal mass lesion. Abdominal vasculature: The abdominal aorta is normal in course and caliber. An infrarenal IVC filter is in place. Bowel: There is postoperative change consistent with a double barrel ostomy in the right lower quadrant, new from 06/30/2020. There are mildly distended loops of small bowel with air-fluid levels. These measure up to 4.4 cm diameter. No discrete transition point is identified. The left colon is decompressed. The appendix is not visualized. Peritoneum: Scattered foci of intraperitoneal free air are seen throughout the abdomen. This has significantly decreased from previous. Hyperdense fluid is seen along the superior margin of the liver below the anterior aspect of the diaphragm (axial image #68). A surgical drain is present in the right upper quadrant from a left pelvic approach. There is a small pocket of complex fluid identified along the inferior margin of the right hepatic lobe seen on image #221. This measures approximately 5 x 7 x 4 cm. There is a small volume of complex free fluid in the pelvis with a hematocrit level (image #477). Blood products are again seen in the left lateral abdomen on image #288. Lymphadenopathy: None. Pelvic viscera: The bladder is largely decompressed around a Stacy catheter. Intraluminal gas is likely related to instrumentation. The prostate and seminal vesicles are normal as visualized. Skeletal structures: There is mild lumbosacral spondylosis. No lytic or blastic lesions are seen. Soft tissues: There is body wall edema. Bilateral surgical drains are present within the subcutaneous soft tissues in the ventral pelvis. A new drain is seen projecting over the ventral abdominal wall. A small hematoma is again seen within the ventral wall of the left pelvis on image #391. This measures 7.2 x 1.6 cm. Facets simultaneous gas are again seen within the ventral pelvic wall, and a midline surgical incision is noted. IMPRESSION: 1. There is postoperative change of a double barrel ostomy in the right lower quadrant which is new from 06/30/2020. 2. A surgical drain is present in the right upper quadrant of the abdomen, and there are 3 surgical drains within the ventral abdominal wall as detailed above. 3. There are mildly distended loops of small bowel with air-fluid levels. No discrete transition point is identified, and the appearance favors a postoperative ileus. Low-grade/developing obstruction is considered less likely and clinical correlation/follow-up will required. 4. Only trace pneumoperitoneum persists. 5. Hemoperitoneum is again noted. There are hyperdense blood products seen between the liver and the diaphragm, in the left lateral abdomen, and in the pelvis. 6. There is a 7 cm pocket of mildly complex fluid along the inferior margin of the liver. This is indeterminant and also likely represents a mix of fluid/blood products. The sterility cannot be assessed by CT. 7. Small right and trace left pleural effusions with subsegmental atelectasis at the lung bases. 8. A small hematoma is again noted within the ventral abdominal wall. 9. Additional findings as above. ACT 112: Negative or not required by law. Electronically signed by: Norman Mensah M.D. 07/04/2020 9:[address] 07/04/20 07:18 CT OF THE CHEST WITHOUT IV CONTRAST CLINICAL HISTORY: elevated WBC; h/o perf'd cecum COMPARISON STUDY: Chest CT June 30, 2020. Chest radiograph July 03, 2020. TECHNIQUE: Axial images of the chest were obtained without IV contrast. Images were reviewed in the axial, sagittal, and coronal planes. IV contrast was not administered for this examination. Automated exposure control was utilized for the study. A dose lowering technique was utilized adhering to the principles of ALARA. FINDINGS: A right lobe thyroid nodule is incidentally noted. Lung volumes are diminished. There is no pericardial effusion. Cardiac size is at the upper limits of normal. A small right pleural effusion is noted. There is trace left pleural fluid. Subpleural opacities within the right upper and right lower lobes favor atelectasis. Lingular and left lower lobe opacities also favor atelectasis. Mild groundglass opacities within the bilateral upper lobes are present. Central airways are patent. There is no thoracic lymphadenopathy. The abdomen and pelvis will be reported separately. Visualized portions of the upper abdomen demonstrate a small amount of mixed attenuation perihepatic fluid. Surgical drain is partially imaged. IMPRESSION: 1. Lung volumes with subpleural opacities within lungs suggestive of atelectasis. Minimal bilateral upper lobe and right middle lobe ground glass opacities. 2. Small right pleural effusion. 3. Small amount of mixed attenuation perihepatic fluid better depicted on the CT of the abdomen and pelvis which will be reported separately. ACT 112: Negative or not required by law. Electronically signed by: Abhilash Ingram M.D. 07/04/2020 8:59 AM I & O Totals 24 Hours 07/04/20 07/05/20 07/06/20 06:59 06:59 06:59 Intake Total 2719.400 / 2719.400 3065.333 / 3065.333 Output Total 2311 / 2311 4350 / 4350 Balance 408.400 / 408.400 -1284.667 / -1284.667 Cumulative 06/14/20 11:24 thru 07/05/20 06:29 Intake Total 12457.698 Output Total 83054 Balance 70996.698 RT Ventilator Mngmt (Last Documented) Ventilator Ordered Settings Respiratory Rate 15 07/05/20 07:00 Ventilator - PT Measurements Respiratory Rate 15 End-Tidal CO2 36 Coding Level of Care Code Critical Care 1st 30-74 mins Diagnoses Admitted to intensive care unit Z78.9 S/P exploratory laparotomy Z98.890 Bilateral pulmonary embolism I26.99 Hypoxia R09.02 Time Spent (min) 41
[2020-07-05] MEDS: FUROSEMIDE 20 MG in SYRINGE 0 ML IV SCH (08:29)
[2020-07-05] MEDS: THIAMINE HCL 100 MG in SYRINGE 9 ML IV SCH (08:29)
[2020-07-05] MEDS: METOPROLOL TARTRATE 25 MG TAB PO SCH ×2 (08:29→19:43)
[2020-07-05] MEDS: FAMOTIDINE 20 MG in SYRINGE 3 ML IV SCH (08:30)
[2020-07-05] MEDS: HEPARIN SODIUM/DEXTROSE 25,000 UNITS/500 ML BAG IV SCH ×2 (09:00→19:42)
[2020-07-05 09:10] LABS: Base Excess VBG 4.9 mEq/L; Oxygen Saturation VBG 99.4 %; pH VBG 7.56 (7.36-7.41)
--- NOTE | 2020-07-05 09:10 | Surgery Progress Note ---
Date of Service July 05, 2020 Assessment & Plan (1) S/P exploratory laparotomy: abdomen looked better than expected yesterday. drains continue to look good stoma looks good. pink with output ? etiology of leukocytosis. blood cx repeated. will check for c. diff. Dr. Mistry to start additional antifungal coverage will consult ID jamaal liquids and +stoma fx so will increase to full liquids but cautioned him to go slow. Admission and Anticipated Discharge Date Admission Date: June 23, 2020 Subjective pt seen with Dr. Mistry. Alert. oriented. nad. no new c/o's. some "bloating". pain controlled currently. slept well last night. Physical Exam Physical Exam: alert. nad abd: soft. dressings c/d/i. all 4 drains with small amount of serous output. Results & Data ([facility]) Vital Signs (Past 12 Hours) Vital Signs Temp Pulse Resp BP Pulse Ox 07/05/20 07:00 100 H 15 119/66 95 07/05/20 06:00 104 H 25 H 115/75 91 07/05/20 05:30 104 H 15 120/78 94 07/05/20 05:00 107 H 25 H 122/92 91 07/05/20 04:46 37.1 C 07/05/20 04:30 108 H 22 106/73 93 07/05/20 04:00 107 H 15 107/82 94 07/05/20 03:30 105 H 14 107/73 95 07/05/20 03:00 106 H 16 112/70 94 07/05/20 02:30 108 H 15 108/77 94 07/05/20 02:00 109 H 14 108/76 94 07/05/20 01:30 107 H 15 113/73 94 07/05/20 01:00 110 H 14 107/75 93 07/05/20 00:46 36.9 C 07/05/20 00:30 111 H 24 115/74 94 07/05/20 00:00 111 H 21 111/76 93 07/04/20 23:47 113 H 07/04/20 23:30 37.7 C H 116 H 23 108/75 93 07/04/20 23:00 114 H 20 112/80 94 07/04/20 22:43 119 H 25 H 120/73 93 07/04/20 22:30 37.8 C H 07/04/20 22:00 127 H 26 H 122/80 92 07/04/20 21:30 38.0 C H 124 H 26 H 116/73 92 PG Care Time/CCT Total # of Minutes Spent Total Time Spent with Patient: Total time spent is greater than 50% in coordination of care (as documented) at patient's floor/unit and/or counseling patient: Coding Level of Care Code None Diagnoses S/P exploratory laparotomy Z98.890
[2020-07-05 09:17] LABS: INR 1.3 (0.9-1.1); Partial Thromboplastin Ratio 1.1; Partial Thromboplastin Time 29.6 Seconds (21.0-31.0); Prothrombin Time 12.7 Seconds (9.0-12.0)
[2020-07-05] MEDS ORDERED: CALCIUM GLUCONATE 10% 2,000 MG in SODIUM CHLORIDE 0.9% 50 ML IV ONE (09:41)
[2020-07-05] MEDS ORDERED: ACETAMINOPHEN 325 MG TAB PO PRN (09:51)
[2020-07-05 16:49] LABS: Partial Thromboplastin Ratio 1.3
--- NOTE | 2020-07-05 16:51 | Medical Student Progress Note ---
Date of Service July 05, 2020 Assessment & Plan (1) Sepsis: Stephan Eduardo is a 45-year-old male with a PMHx of recurrent ventral hernias who underwent ventral hernia repair and excision of infected mesh on 06/23/20. During the postoperative period, the patient developed multiple pulmonary emboli as well as a bowel perforation. He is currently five days s/p cecectomy and ileostomy placement with an upward trending leukocytosis of unclear cause. 1. Sepsis * SIRS criteria met (WBC >11,000, HR >90, RR > 20). Patient remains afebrile. Initial lactate elevation to 3.7 following cecectomy and ileostomy placement. Lactate has since normalized * Leukocytosis trending upward (13.05 --> 15.43 --> 18.65 --> 25.59 --> 39.95). Continue trending CBC * Peritoneal fluid culture on 07/03/20 grew E. coli sensitive to most cephalosporins * Blood culture negative. Urine culture negative. Repeat blood culture and urine culture pending. * Abdominal/Pelvic CT on 07/04/20: 7 cm pocket of mildly complex fluid along inferior margin of liver. Hemoperitoneum. Trace pneumoperitoneum persists. Mildly distended small bowel loop most suggestive of postoperative ileus. * Due to concern for abdominal abscess based on abdominal/pelvic CT, Exploratory laparotomy with abdominal washout performed on 07/04/20. Revealed an abdominal hematoma without evidence of abscess * Continue IV Metronidazole + Cefepime * Initiated IV Caspofungin on 07/05/20 * ID consult pending. Appreciate recommendations. 2. Bilateral Pulmonary Emboli * IVC filter placed on 06/30/20 * Restarted Heparin following exploratory laparotomy with abdominal washout * No evidence of right heart strain on CTA. Normal BNP. Normal Troponin 3. Hyponatremia * Patient had a sodium of 130 on 07/03/20. Trending upward to 133. Repeat BMP daily 4. Tachycardia * Patient has been consistently tachycardic in the high 90s to low 100s * Continue Metoprolol tartrate 12.5 mg BID * CTA revealed incidental thyroid nodule. In combination with a suppressed TSH (0.085) and elevated T4 (2.27), further outpatient management of a potential hot nodule is warranted * Patient had a short run of asymptomatic VT on 07/05/20 5. Thyroid Nodule * Incidental finding on CTA of a 3.3 cm thyroid nodule * Suppressed TSH (0.085) and elevated T4 (2.27) * Outpatient thyroid ultrasound and further follow up recommended to determine if findings are due to euthyroid sick syndrome vs a hot nodule 6. Pain Management * Continue IV Dilaudid PRN and PO Oxycodone PRN Code Status: Full Code F/E/N: Clear liquids VTE PPx: SCDs. Heparin Dispo: ICU Admission and Anticipated Discharge Date Admission Date: June 23, 2020 Supervising Attestation Patient seen and examined with MS Piotr Triana and PGY-2 Dr. Michelle. Agree with history, exam findings, assessment and plan of care as outlined. Mr. Eduardo is a 45 yo gentleman who was found to have bilateral pulmonary emboli following ventral hernia repair. Medicine was consulted to assist with anticoagulation for PE treatment. Sitting in the chair this morning. Reports that he is starting to feeling better. Did have fever overnight. +1 pedal edema. Obvious scrotal edema. Drains in tact. Bandages intact and dry. 1. Perforated viscous, peritonitis with sepsis. Now s/p washout and partial colectomy cecectomy and re-anastamosis then back to the OR on07/04 for abdominal hematoma evacuation. Blood cultures without growth. Peritoneal fluid with E. Coli. Continue Flagyl and Cefepime. 2. Leukocytosis. Increasing now to 39 today. Repeat cultures obtained. Pending galactomannan. Empiric caspofungin started. Awaiting ID recommendations. 3. Provoked bilateral PE. IVC filter placed. Back on heparin gtt. 4. Anasarca. Secondary to intraoperative fluids/sepsis. Lasix PRN. 5. Hyponatremia. Secondary to volume overload. Lasix PRN. 6. Thyroid nodules, hyperthyroidism. 3.3cm R thyroid nodule seen on CTA chest. Suspect hot nodule. Will need repeat TSH and free T4 in 3 weeks. US of thyroid as an outpatient. 7. Tachycardia. On metoprolol. Improving. Dispo: pending clinical improvement. Subjective Patient feels well today all things considered. He has been sitting in a chair for several hours to get out of bed. He denies any shortness of breath, chest pain, or palpitations. He also denies any lightheadedness or dizziness when transitioning from bed to the chair. He continues to endorse postoperative abdominal pain that he rates as a 4/10. He has an appetite and he denies any nausea, vomiting, or change in bowel movements. He also denies any fever or chills overnight or during the day today. Review of Systems Constitutional: as per Subjective / HPI Eyes: no problem reported Ear, Nose, Mouth, Throat: no problem reported Respiratory: as per Subjective / HPI Cardiovascular: as per Subjective / HPI Gastrointestinal: as per Subjective / HPI Genitourinary: no problem reported Integumentary: no problem reported Neurologic: no problem reported Psychiatric: no problem reported Physical Exam Constitutional: WD/WN, vitals as above no acute distress Eyes: PERRL, conjunctivae normal, anicteric sclerae ENMT: external ear and nose normal, oropharynx normal Neck: normal visual inspection Respiratory: normal respiratory effort, lungs clear to auscultation Cardiovascular: RRR, no murmur, no edema Vessels: dorsalis pedis pulses present and radial pulses present Extremities: + edema (bilateral lower extremities); no calf tenderness Gastrointestinal (Abdomen): Inspection/Auscultation: normal bowel sounds; abdomen not distended Percussion/Palpation: + abdomen tender; no guarding and abdomen not rigid Skin: no rashes, warm and dry Psychiatric: A+Ox3, euthymic affect Genitourinary: + scrotum abnormality (scrotal swelling) Results & Data ([facility]) Vital Signs (Past 12 Hours) Vital Signs Temp Pulse Resp BP Pulse Ox 07/05/20 16:05 37.0 C 07/05/20 16:00 102 H 15 114/68 96 07/05/20 15:45 98 H 07/05/20 15:00 98 H 15 114/70 97 07/05/20 14:00 99 H 13 130/67 93 07/05/20 13:41 96 07/05/20 13:00 99 H 17 121/75 99 07/05/20 12:41 36.8 C 07/05/20 12:01 97 H 23 114/69 97 07/05/20 12:00 100 H 22 95 07/05/20 11:00 92 H 14 119/72 95 07/05/20 10:36 99 H 20 114/70 95 07/05/20 10:33 98 H 18 117/89 95 07/05/20 10:00 102 H 26 H 122/72 96 07/05/20 09:00 101 H 19 122/77 91 07/05/20 08:00 36.9 C 103 H 26 H 120/76 93 07/05/20 07:00 100 H 15 119/66 95 07/05/20 06:00 104 H 25 H 115/75 91 07/05/20 05:30 104 H 15 120/78 94 07/05/20 05:00 107 H 25 H 122/92 91 07/05/20 04:46 37.1 C
[2020-07-05] MEDS ORDERED: HEPARIN SOD (PORCINE) 1000 UNIT/ML IV ONE (17:21)
[2020-07-05] MEDS ORDERED: HEPARIN IV BOLUS 4,000 UNITS in SYRINGE 0 ML IV ONE (17:30)
[2020-07-06 00:35] LABS: Partial Thromboplastin Ratio 1.9
[2020-07-06 00:49] LABS: Partial Thromboplastin Time 49.2 Seconds (21.0-31.0)
[2020-07-06] MEDS: HEPARIN SODIUM/DEXTROSE 25,000 UNITS/500 ML BAG IV SCH ×3 (03:48→20:15)
[2020-07-06 05:28] LABS: Albumin Level 1.6 gm/dl (3.4-5.0); BUN Creatinine Ratio 28.4 (10-20); Calcium 7.4 mg/dl (8.5-10.1); Creatinine Clr Calc Pharmacy 271.5 ml/min; Est GFR (African American) 148.4 ml/min
[2020-07-06 05:31] LABS: Albumin Globulin Ratio 0.4 (0.9-2); Bilirubin,Total 0.6 mg/dl (0.2-1); Globulin 3.8 gm/dl (2.5-4.0); Total Protein 5.4 gm/dl (6.4-8.2)
[2020-07-06 05:36] LABS: Hematocrit (blood only) 25.3 % (42-52); Hemoglobin 8.1 g/dL (14.0-18.0); Mean Corpuscular Hemoglobin 26.7 pg (25-34); Mean Corpuscular Volume 83.5 fL (80-100); Mean Platelet Volume 8.8 fL (7.4-10.4); Nucleated RBC # (auto) 0.09 K/uL (0-0); Nucleated RBC % (auto) 0.2 %; Platelet Count 406 K/uL (130-400); RDW Coefficient of Variation 15.7 % (11.5-14.5); Red Blood Count 3.03 M/uL (4.7-6.1); White Blood Count 38.07 K/uL (4.8-10.8)
[2020-07-06 05:41] LABS: ALC (manual) 3.31 K/uL (1.2-3.4); Eosinophils # (manual) 0.34 K/uL (0-0.5); Eosinophils % (manual) 0.9 %; Hypochromasia Present; Lymphocytes # (manual) 3.31 K/uL (1.2-3.4); Lymphocytes % (manual) 8.7 %; Metamyelocytes # (manual) 0.99 K/uL (0-0); Metamyelocytes % (manual) 2.6 %; Monocytes # (manual) 1.64 K/uL (0.11-0.59); Monocytes % (manual) 4.3 %; Myelocytes # (manual) 0.99 K/uL (0-0); Myelocytes % (manual) 2.6 %; Neutrophils % (manual) 80.9 %; Polychromasia 1+
[2020-07-06] MEDS: metroNIDAZOLE 500 MG/100 ML BAG IV SCH ×3 (05:45→20:21)
[2020-07-06] MEDS: CASPOFUNGIN 50 MG in SODIUM CHLORIDE 0.9% 250 ML IV SCH (07:53)
[2020-07-06] MEDS: THIAMINE HCL 100 MG TAB PO SCH (07:53)
[2020-07-06] MEDS: FAMOTIDINE 20 MG TAB PO SCH (07:53)
[2020-07-06] MEDS: METOPROLOL TARTRATE 25 MG TAB PO SCH ×2 (07:53→20:21)
[2020-07-06] MEDS: FUROSEMIDE 20 MG in SYRINGE 0 ML IV SCH (07:53)
[2020-07-06] MEDS: CEFEPIME 2,000 MG in SYRINGE 0 ML IV SCH ×3 (07:53→16:19)
[2020-07-06] MEDS: oxyCODONE HCL IR 5 MG TAB (IMMEDIATE RELEASE) PO PRN ×2 (08:44→20:01)
--- NOTE | 2020-07-06 09:54 | Surgery Progress Note ---
Date of Service July 06, 2020 Assessment & Plan (1) S/P exploratory laparotomy: today is the best he has looked in probably a week. will transfer to PCU. awaiting ID input regarding leukocytosis. will remove ames soon will slowly advance diet as he tolerates increase activity. PT/OT Admission and Anticipated Discharge Date Admission Date: June 23, 2020 Cammie Rothman had an uneventful night. Feeling ok today. no pain. jamaal liquids. still not much appetite. walked around ICU several times yesterday. Physical Exam Physical Exam: alert. oriented. nad abd: incisions both look great. no erythema or warmth or drainage. all 4 drains with light pink/serous fluid stoma looks good. +fx Results & Data ([facility]) Vital Signs (Past 12 Hours) Vital Signs Temp Pulse Resp BP Pulse Ox 07/06/20 09:08 36.5 C 07/06/20 09:00 99 H 24 132/72 94 07/06/20 08:00 96 H 24 101/56 L 95 07/06/20 07:00 99 H 18 115/71 99 07/06/20 06:00 95 H 16 118/68 94 07/06/20 05:00 90 16 114/64 97 07/06/20 04:00 36.8 C 92 H 13 106/63 97 07/06/20 02:00 90 11 L 110/59 L 98 07/06/20 01:00 94 H 12 112/62 95 07/06/20 00:00 89 13 106/64 94 07/05/20 23:00 37.0 C 99 H 16 112/67 95 07/05/20 22:00 94 H 13 111/71 99 PG Care Time/CCT Total # of Minutes Spent Total Time Spent with Patient: Total time spent is greater than 50% in coordination of care (as documented) at patient's floor/unit and/or counseling patient: Coding Level of Care Code None Diagnoses S/P exploratory laparotomy Z98.890
--- NOTE | 2020-07-06 10:35 | Critical Care Progress Note ---
Date of Service July 06, 2020 Assessment & Plan (1) Admitted to intensive care unit: Impression: 45-year-old male who is status post exploratory laparotomy in the setting of visceral perforation requiring reduction of large bowel obstruction, partial cecectomy, diverting ileostomy, and abdominal washout. Patient had complicated initial postoperative course with bilateral PE requiring eventual placement of IVC filter. 24-hour events: Initiated caspofungin yesterday. Cultures were obtained. C. difficile and CPK negative. The patient feels slightly better today. Recommendations: NEURO -pain management per surgery. No other issues. CARDIAC/VASCULAR -tachycardia resolving. Echo 07/02/2020, difficult study with demonstration of a hyperdynamic left ventricle. Grade 1 diastolic dysfunction was noted. No obvious valvular dysfunction identified. Right ventricular function was estimated in normal. Continue gentle diuresis today, well- tolerated so far. RESPIRATORY -multifactorial hypoxemia due to splinting, PE, and atelectasis. Continue incentive spirometry and flutter valve. Wean oxygen as tolerated. Echocardiogram showed no evidence of RV strain and biomarkers have been negative. Would recommend 3 to 6 months of full anticoagulation. Heparin back on. Consider transition to Coumadin or DOAC when felt to be feasible by surgery. Would recommend removal of the IVC filter this hospitalization with timing to be determined by general surgery GI/NUTRITION - Distal perforation status post exploratory laparotomy, reduction of large bowel obstruction, partial cecetomy, diverting ileostomy, and abdominal washout. Patient is tolerating a diet currently. Per surgery. The patient's prealbumin and albumin are both low. Dietary working on trying to improve the patient's overall protein stores. Would consider weekly prealbumin. RENAL/LYTES -kidney function stable. Mild hyponatremia which will continue to be trended. Electrolytes and acid-base status are normal. He is significantly volume up during this hospitalization. Gentle diuresis today. - Stacy in place - Strict I&Os. Defer decision regarding Stacy catheter to surgery but from my perspective it can come out ENDO -glycemic control per protocol. HEME -patient has mild anemia. Continue to follow currently. No indication for transfusion and no evidence of acute blood loss. ID - Visceral perforation: OR cultures growing E. coli. The patient's ID history is extensive. From the to the he was on Diflucan. He was on clindamycin from the to the . He received 1 dose of vancomycin on the . He is currently day #7 cefepime and Flagyl and day #2 caspofungin. His white count is stable to slightly decreased today. Procalcitonin continues to downtrend. Lactate was normal yesterday. C. difficile negative. CPK negative. ID consultation pending. Repeat cultures from yesterday all no growth to date including fungal blood cultures --Prophylaxis VTE: SCDs, heparin drip, IVC filter GI: Pepcid Lines: PIVs x2, Stacy, TALISHA drains x4 Diet: Per surgery Disposition: Disposition per surgery and the primary admitting service. Okay to transfer to the floor from a critical care standpoint. Patient was discussed with the bedside critical care nurse and on multidisciplinary rounds as well as with the patient at bedside. Critical care will sign off as the patient is being transferred out of the ICU. Feel free to contact us if we can be of additional assistance. 36 min coordinating care Please note the above document was generated using voice recognition software. It may contain grammatical, syntax or spelling errors.Any formal questions or concerns about the content, text or information contained within the body of this dictation should be directly addressed to the provider for clarification. (2) S/P exploratory laparotomy: (3) Bilateral pulmonary embolism: (4) Hypoxia: Admission and Anticipated Discharge Date Admission Date: June 23, 2020 Subjective Seen and examined. The patient states he is feeling little better today. He was able to tolerate some food without additional abdominal bloating or pain. No nausea or vomiting. He denies chest pain or palpitations. His heart rate is better today and he is exhibiting less work of breathing. Review of Systems Review of Systems: All systems reviewed & are unremarkable except as noted in HPI & below Physical Exam Constitutional: well developed; not ill appearing Neck: trachea midline, no thyromegaly Respiratory: normal respiratory effort, lungs clear to auscultation Cardiovascular: RRR, no murmur, no edema Gastrointestinal (Abdomen): Inspection/Auscultation: + abdominal surgical drain present Percussion/Palpation: + abdomen tender Musculoskeletal: Extremities: extremities normal to inspection Skin: no rashes, warm and dry Lymphatic: no cervical lymphadenopathy Results & Data Results & Data ([facility]) Vital Signs (Past 12 Hours) Vital Signs Temp Pulse Resp BP Pulse Ox 07/06/20 10:00 98 H 14 114/70 96 07/06/20 09:08 36.5 C 07/06/20 09:00 99 H 24 132/72 94 07/06/20 08:00 96 H 24 101/56 L 95 07/06/20 07:00 99 H 18 115/71 99 07/06/20 06:00 95 H 16 118/68 94 07/06/20 05:00 90 16 114/64 97 07/06/20 04:00 36.8 C 92 H 13 106/63 97 07/06/20 02:00 90 11 L 110/59 L 98 07/06/20 01:00 94 H 12 112/62 95 07/06/20 00:00 89 13 106/64 94 07/05/20 23:00 37.0 C 99 H 16 112/67 95 Critical Care Results & Data Vital Signs (Past 12 Hours) Vital Signs Temp Pulse Resp BP Pulse Ox 07/06/20 10:00 98 H 14 114/70 96 07/06/20 09:08 36.5 C 07/06/20 09:00 99 H 24 132/72 94 07/06/20 08:00 96 H 24 101/56 L 95 07/06/20 07:00 99 H 18 115/71 99 07/06/20 06:00 95 H 16 118/68 94 07/06/20 05:00 90 16 114/64 97 07/06/20 04:00 36.8 C 92 H 13 106/63 97 07/06/20 02:00 90 11 L 110/59 L 98 07/06/20 01:00 94 H 12 112/62 95 07/06/20 00:00 89 13 106/64 94 07/05/20 23:00 37.0 C 99 H 16 112/67 95 Lab & Micro Results (Past 24 Hours) RBC 3.03 M/uL (4.7-6.1) L 07/06/20 WBC 38.07 K/uL (4.8-10.8) H* 07/06/20 Hgb 8.1 g/dL (14.0-18.0) L 07/06/20 Hct 25.3 % (42-52) L 07/06/20 MCV 83.5 fL (80-100) 07/06/20 MCH 26.7 pg (25-34) 07/06/20 MCHC 32.0 g/dL (32-36) 07/06/20 RDW Standard Deviation 48.0 fL (36.4-46.3) H 07/06/20 RDW Coefficient of Variation 15.7 % (11.5-14.5) H 07/06/20 Plt Count 406 K/uL (130-400) H 07/06/20 MPV 8.8 fL (7.4-10.4) 07/06/20 Nucleated Red Blood Cells % (auto) 0.2 % 07/06/20 Nucleated RBC Absolute Count (auto) 0.09 K/uL (0-0) H 07/06/20 ANC 30.80 K/uL (1.4-6.5) H 07/06/20 ALC 3.31 K/uL (1.2-3.4) 07/06/20 Neutrophils % (Manual) 80.9 % 07/06/20 Lymphocytes % (Manual) 8.7 % 07/06/20 Monocytes % (Manual) 4.3 % 07/06/20 Eosinophils % (Manual) 0.9 % 07/06/20 Metamyelocytes % (manual) 2.6 % 07/06/20 Myelocytes % (Manual) 2.6 % 07/06/20 Neutrophils # (Manual) 30.80 K/uL (1.4-6.5) H 07/06/20 Lymphocytes # (Manual) 3.31 K/uL (1.2-3.4) 07/06/20 Monocytes # (Manual) 1.64 K/uL (0.11-0.59) H 07/06/20 Eosinophils # (Manual) 0.34 K/uL (0-0.5) 07/06/20 Metamyelocytes # (Manual) 0.99 K/uL (0-0) H 07/06/20 Myelocytes # (Manual) 0.99 K/uL (0-0) H 07/06/20 Polychromasia 1+ 07/06/20 Hypochromasia Present 07/06/20 Na 133 mmol/L (136-145) L 07/06/20 K 4.0 mmol/L (3.5-5.1) 07/06/20 Cl 97 mmol/L (98-107) L 07/06/20 CO2 36 mmol/L (21-32) H 07/06/20 Anion Gap 0 (3-11) L 07/06/20 BUN 15 mg/dl (7-18) 07/06/20 Creatinine 0.51 mg/dl (0.6-1.4) L 07/06/20 Estimated GFR ( Amer) 148.4 ml/min 07/06/20 Estimated GFR (Non-Af Amer) 128.0 ml/min 07/06/20 BUN/Creatinine Ratio 28.4 (10-20) H 07/06/20 Glu 120 mg/dl (70-99) H 07/06/20 Ca 7.4 mg/dl (8.5-10.1) L 07/06/20 Total Bilirubin 0.6 mg/dl (0.2-1) 07/06/20 AST 26 U/L (15-37) 07/06/20 ALT 23 U/L (12-78) 07/06/20 Alkaline Phosphatase 60 U/L (45-117) 07/06/20 TP 5.4 gm/dl (6.4-8.2) L 07/06/20 Albumin 1.6 gm/dl (3.4-5.0) L 07/06/20 Globulin 3.8 gm/dl (2.5-4.0) 07/06/20 Albumin/Globulin Ratio 0.4 (0.9-2) L 07/06/20 Calcium Level 7.4 mg/dl (8.5-10.1) L 07/06/20 04:55 07/06/20 Microbiology 07/05/20 08:24 Aerobic Blood Culture - Preliminary Blood No growth in Aerobic bottle after 24 hours. Anaerobic Blood Culture - Preliminary No growth in Anaerobic bottle after 24 hours. 07/05/20 08:41 Aerobic Blood Culture - Preliminary Blood No growth in Aerobic bottle after 24 hours. Anaerobic Blood Culture - Preliminary No growth in Anaerobic bottle after 24 hours. 07/05/20 08:24 Fungal Smear - Final Blood 06/30/20 Unknown Gram Stain - Final Peritoneal Fluid Aerobic and Anaerobic Culture - Final Escherichia coli Parabacteroides (B) distasonis 06/30/20 09:13 Aerobic Blood Culture - Final Blood No growth in Aerobic bottle after 5 days. Anaerobic Blood Culture - Final No growth in Anaerobic bottle after 5 days. 06/30/20 10:04 Aerobic Blood Culture - Final Blood No growth in Aerobic bottle after 5 days. Anaerobic Blood Culture - Final No growth in Anaerobic bottle after 5 days. 07/03/20 08:10 Urine Culture - Final Urine,Straight Cath No growth - less than 1,000 colonies/mL. I & O Totals 24 Hours 07/05/20 07/06/20 07/07/20 06:59 06:59 06:59 Intake Total 3065.333 / 3065.333 2682.484 / 2682.484 449.783 / 449.783 Output Total 4350 / 4350 3341 / 3341 Balance -1284.667 / -1284.667 -658.516 / -658.516 449.783 / 449.783 Cumulative 06/14/20 11:24 thru 07/06/20 10:07 Intake Total 96118.965 Output Total 83781 Balance 29180.965 RT Ventilator Mngmt (Last Documented) Ventilator Ordered Settings Respiratory Rate 14 07/06/20 10:00 Ventilator - PT Measurements Respiratory Rate 14 End-Tidal CO2 36 Coding Level of Care Code 21372 Subseq Hosp Care Lvl 3 Diagnoses Admitted to intensive care unit Z78.9 S/P exploratory laparotomy Z98.890 Bilateral pulmonary embolism I26.99 Hypoxia R09.02
--- NOTE | 2020-07-06 12:02 | Medical Student Progress Note ---
Date of Service July 06, 2020 Assessment & Plan (1) Sepsis: Stephan Eduardo is a 45-year-old male with a PMHx of recurrent ventral hernias who underwent ventral hernia repair and excision of infected mesh on 06/23/20. During the postoperative period, the patient developed multiple pulmonary emboli as well as a bowel perforation. He is currently six days s/p cecectomy and ileostomy placement with an upward trending leukocytosis of unclear cause. He has remained stable and he is being downgraded from the ICU today. 1. Sepsis * SIRS criteria met (WBC >11,000, HR >90, RR > 20). Patient remains afebrile. Initial lactate elevation to 3.7 following cecectomy and ileostomy placement. Lactate has since normalized * Leukocytosis trended upward but appears to have plateaued (13.05 --> 15.43 --> 18.65 --> 25.59 --> 39.95 --> 38.07). Continue trending CBC * Peritoneal fluid culture on 07/03/20 grew E. coli sensitive to most cephalosporins * Blood culture negative. Urine culture negative. Repeat blood culture and urine culture pending. * Abdominal/Pelvic CT on 07/04/20: 7 cm pocket of mildly complex fluid along inferior margin of liver. Hemoperitoneum. Trace pneumoperitoneum persists. Mildly distended small bowel loop most suggestive of postoperative ileus. * Due to concern for abdominal abscess based on abdominal/pelvic CT, Exploratory laparotomy with abdominal washout performed on 07/04/20. Revealed an abdominal hematoma without evidence of abscess * Continue IV Metronidazole + Cefepime * Initiated IV Caspofungin on 07/05/20 * Infectious disease consulted. 2. Bilateral Pulmonary Emboli * IVC filter placed on 06/30/20 * Restarted Heparin following exploratory laparotomy with abdominal washout. Consider switching to Apixaban to decrease fluid burden after discussion with the surgery team * No evidence of right heart strain on CTA. Normal BNP. Normal Troponin 3. Hyponatremia * Patient had a sodium of 130 on 07/03/20. Trending upward to 133. Repeat BMP daily 4. Tachycardia * Patient has been consistently tachycardic in the high 90s to low 100s * Continue Metoprolol tartrate 12.5 mg BID * CTA revealed incidental thyroid nodule. In combination with a suppressed TSH (0.085) and elevated T4 (2.27), further outpatient management of a potential hot nodule is warranted * Patient had a short run of asymptomatic VT on 07/05/20 5. Thyroid Nodule * Incidental finding on CTA of a 3.3 cm thyroid nodule * Suppressed TSH (0.085) and elevated T4 (2.27). Recheck levels tomorrow * Outpatient thyroid ultrasound and further follow up recommended to determine if findings are due to euthyroid sick syndrome vs a hot nodule 6. Pain Management * Continue IV Dilaudid PRN and PO Oxycodone PRN 7. Peripheral edema * Patient has a history of chronic venous insufficiency. Continue wearing compression stockings * IV Lasix given this morning. Although the patient has a significant fluid burden, it is most likely due to third spacing from low albumin. Due to the nature of the edema, Lasix will likely only have a minimal effect on fluid status Code Status: Full Code F/E/N: Clear liquids VTE PPx: SCDs. Heparin Dispo: Downgraded from ICU to PCU today Admission and Anticipated Discharge Date Admission Date: June 23, 2020 Supervising Attestation Patient seen and examined with MS Piotr Triana. Agree with history, exam findings, assessment and plan of care as outlined. Mr. Eduardo is a 45 yo gentleman who was found to have bilateral pulmonary emboli following ventral hernia repair. Medicine was consulted to assist with anticoagulation for PE treatment. Sitting in the chair this afternoon. Reports that he is starting to feeling better. Some abdominal cramping. Does desaturate at night and while sleeping. Per , he does snore quite a bit a home and she has witnessed apenic episodes during his sleep. He has never had a sleep study done in the past. +1 pedal edema. Obvious scrotal edema. Drains in tact with serosanguineous drainage. Bandages intact and dry. Ostomy with output that looks like stool. 1. Perforated viscous, peritonitis with sepsis. Now s/p washout and partial colectomy cecectomy and re-anastamosis then back to the OR on 07/04 for abdominal hematoma evacuation. Blood cultures without growth. Peritoneal fluid with E. Coli. Continue Flagyl and Cefepime. 2. Leukocytosis. Increasing 38 today. Repeat cultures obtained--so far no growth. Pending galactomannan. Empiric caspofungin started. Appreciate ID recommendations. 3. Provoked bilateral PE. IVC filter placed. Back on heparin gtt, but to decrease the amount of IV fluids he is getting, could consider switching to subQ lovenox if ok with surgery. 4. Anasarca. Secondary to IVFs, recent sepsis, and low oncotic pressure/low albumin. Will try to mobilize fluid with ankle pump exercises, SCDs, etc. 5. Hyponatremia. Improved. 6. Thyroid nodules, hyperthyroidism. 3.3cm R thyroid nodule seen on CTA chest. Suspect hot nodule. Repeat TSH and free T4 with AM labs. 7. Tachycardia. On metoprolol. Improving. 8. Protein malnutrition. Appreciate nutrition recommendations. 9. SANDY. Likely has SANDY with his history of desaturating during sleep. Discussed outpatient sleep study. In the meantime, ok to continue with O2 during sleep. Can titrate off O2 when he is awake and up during the day. Dispo: pending clinical improvement. Subjective Patient says he is feeling well this morning. He denies fever, chills, LIU, shortness of breath, chest pain, or lower extremity pain. He does endorse some abdominal discomfort and bloating. He has an ileostomy but his last actual bowel movement was on Saturday. He denies nausea or vomiting but he does not have much of an appetite. He has mainly been eating shaved ice and Boost. He also endorses an intermittent productive cough consisting of green-yellow sputum. He has not been out of bed yet today but he spent time sitting in a chair last night. He denies lightheadedness or dizziness when transferring from the bed to the chair but he does feel somewhat weak. Review of Systems Constitutional: as per Subjective / HPI Eyes: no problem reported Ear, Nose, Mouth, Throat: no problem reported Respiratory: as per Subjective / HPI Cardiovascular: as per Subjective / HPI Gastrointestinal: as per Subjective / HPI Genitourinary: no dysuria Musculoskeletal: no problem reported Integumentary: no problem reported Neurologic: no problem reported Psychiatric: + problem reported Physical Exam Constitutional: WD/WN, vitals as above no acute distress Eyes: PERRL, conjunctivae normal, anicteric sclerae ENMT: external ear and nose normal, oropharynx normal Neck: normal visual inspection Respiratory: normal respiratory effort, lungs clear to auscultation Cardiovascular: RRR, no murmur, no edema Gastrointestinal (Abdomen): normal bowel sounds, soft, nontender, no hepatosplenomegaly Skin: no rashes, warm and dry Psychiatric: A+Ox3, euthymic affect Results & Data ([facility]) Vital Signs (Past 12 Hours) Vital Signs Temp Pulse Resp BP Pulse Ox 07/06/20 11:00 100 H 20 113/64 97 07/06/20 10:00 98 H 14 114/70 96 07/06/20 09:08 36.5 C 07/06/20 09:00 99 H 24 132/72 94 07/06/20 08:00 96 H 24 101/56 L 95 07/06/20 07:00 99 H 18 115/71 99 07/06/20 06:00 95 H 16 118/68 94 07/06/20 05:00 90 16 114/64 97 07/06/20 04:00 36.8 C 92 H 13 106/63 97 07/06/20 02:00 90 11 L 110/59 L 98 07/06/20 01:00 94 H 12 112/62 95 07/06/20 00:00 89 13 106/64 94
[2020-07-07] MEDS: CEFEPIME 2,000 MG in SYRINGE 0 ML IV SCH ×2 (00:19→09:00)
[2020-07-07] MEDS: oxyCODONE HCL IR 5 MG TAB (IMMEDIATE RELEASE) PO PRN ×5 (00:19→20:37)
[2020-07-07] MEDS: HEPARIN SODIUM/DEXTROSE 25,000 UNITS/500 ML BAG IV SCH ×3 (04:46→21:53)
[2020-07-07] MEDS: metroNIDAZOLE 500 MG/100 ML BAG IV SCH ×3 (04:47→20:33)
[2020-07-07 07:25] LABS: Hematocrit (blood only) 24.6 % (42-52); Hemoglobin 7.7 g/dL (14.0-18.0); Mean Corpuscular Hemoglobin 26.1 pg (25-34); Mean Corpuscular Hgb Conc 31.3 g/dL (32-36); Mean Corpuscular Volume 83.4 fL (80-100); Nucleated RBC # (auto) 0.07 K/uL (0-0); Nucleated RBC % (auto) 0.2 %; Platelet Count 428 K/uL (130-400); RDW Coefficient of Variation 15.7 % (11.5-14.5); RDW Standard Deviation 48.4 fL (36.4-46.3); Red Blood Count 2.95 M/uL (4.7-6.1); White Blood Count 30.13 K/uL (4.8-10.8)
[2020-07-07 07:40] LABS: Partial Thromboplastin Ratio 2.1
[2020-07-07 07:42] LABS: Partial Thromboplastin Time 55.5 Seconds (21.0-31.0)
[2020-07-07 07:45] LABS: Anisocytosis Present; Basophils # (auto) 0.05 K/uL (0-0.2); Basophils % (auto) 0.2 %; Eosinophils % (auto) 1.7 %; Hypochromasia Present; Immature Granulocytes # (auto) 2.77 K/uL (0.00-0.02); Immature Granulocytes % (auto) 9.2 %; Lymphocytes # (auto) 2.06 K/uL (1.2-3.4); Lymphocytes % (auto) 6.8 %; Monocytes # (auto) 3.08 K/uL (0.11-0.59); Monocytes % (auto) 10.2 %; Neutrophils # (auto) 21.67 K/uL (1.4-6.5); Neutrophils % (auto) 71.9 %; Polychromasia 1+
[2020-07-07 07:51] LABS: BUN Creatinine Ratio 24.5 (10-20); Blood Urea Nitrogen 11 mg/dl (7-18); Calcium 7.7 mg/dl (8.5-10.1); Carbon Dioxide 32 mmol/L (21-32); Chloride 96 mmol/L (98-107); Est GFR (African American) > 150.0 ml/min; Est GFR (Non-African American) 133.5 ml/min; Glucose 112 mg/dl (70-99); Potassium 3.5 mmol/L (3.5-5.1); Sodium 133 mmol/L (136-145)
[2020-07-07] MEDS: FAMOTIDINE 20 MG TAB PO SCH (08:58)
[2020-07-07] MEDS: METOPROLOL TARTRATE 25 MG TAB PO SCH ×2 (08:58→20:38)
[2020-07-07] MEDS: CASPOFUNGIN 50 MG in SODIUM CHLORIDE 0.9% 250 ML IV SCH (09:00)
[2020-07-07] MEDS: THIAMINE HCL 100 MG TAB PO SCH (09:00)
[2020-07-07] MEDS: FUROSEMIDE 20 MG in SYRINGE 0 ML IV SCH (09:00)
--- NOTE | 2020-07-07 09:34 | Surgery Progress Note ---
Date of Service July 07, 2020 Assessment & Plan (1) S/P exploratory laparotomy: clinically improving. wbc decreasing. afebrile will increase diet slowly. continue to increase activity....PT/OT will d/c ames Admission and Anticipated Discharge Date Admission Date: June 23, 2020 Subjective pt feeling pretty good today. no new complaints. jamaal full liquids. no nausea. s till not much appetite but may want to try something more today. Physical Exam Physical Exam: alert. oriented. appears comfortable abd: soft. incisions look good. stoma pink. increased fx TALISHA's serous x 4. Results & Data ([facility]) Vital Signs (Past 12 Hours) Vital Signs Temp Pulse Resp BP BP Pulse Ox 07/07/20 08:10 37.0 C 72 19 124/73 96 07/07/20 03:00 36.5 C 19 124/73 95 07/06/20 22:33 37.2 C 18 113/72 96 PG Care Time/CCT Total # of Minutes Spent Total Time Spent with Patient: Total time spent is greater than 50% in coordination of care (as documented) at patient's floor/unit and/or counseling patient: Coding Level of Care Code None Diagnoses S/P exploratory laparotomy Z98.890
--- NOTE | 2020-07-07 13:14 | Medical Student Progress Note ---
Date of Service July 07, 2020 Assessment & Plan (1) Sepsis: Stephan Eduardo is a 45-year-old male with a PMHx of recurrent ventral hernias who underwent ventral hernia repair and excision of infected mesh on 06/23/20. During the postoperative period, the patient developed multiple pulmonary emboli as well as a bowel perforation. He is currently seven days s/p cecectomy and ileostomy placement with significant leukocytosis that has started to downtrend. Following an infectious disease consult, antifungal coverage has been discontinued and antibiotic regimen has been modified and will continue to cover enteric gram negative and anaerobic bacteria. Main short term goals include advancement of diet, continued PT/OT, and improvement of hypervolemia. 1. Leukocytosis * Leukocytosis trended upward but appears to have plateaued and started to downtrend. (13.05 --> 15.43 --> 18.65 --> 25.59 --> 39.95 --> 38.07 --> 30.13). Continue trending CBC * Peritoneal fluid culture on 07/03/20 grew E. coli sensitive to most cephalosporins * Blood culture negative. Urine culture negative. Repeat blood culture and urine culture pending. * Abdominal/Pelvic CT on 07/04/20: 7 cm pocket of mildly complex fluid along inferior margin of liver. Hemoperitoneum. Trace pneumoperitoneum persists. Mildly distended small bowel loop most suggestive of postoperative ileus. * Due to concern for abdominal abscess based on abdominal/pelvic CT, Exploratory laparotomy with abdominal washout performed on 07/04/20. Revealed an abdominal hematoma without evidence of abscess * Infectious Disease consulted. Recommendations: discontinue caspofungin. Discontinue Cefepime and initiate Ceftriaxone. Continue Metronidazole * Antibiotics: IV Metronidazole + Ceftriaxone for coverage of enteric gram negative and anaerobic bacteria. Continue antibiotic coverage for two weeks. Following discharge, two-week course can be completed with current regimen via a PICC line or via a PO regimen with Cipro + JAUREGUI. (per infectious disease recommendations * Caspofungin discontinued on 07/07/20 * Advance diet as tolerated * Gradually wean patient off daytime oxygen as tolerated. 2. Bilateral Pulmonary Emboli * IVC filter placed on 06/30/20 * Restarted Heparin following exploratory laparotomy with abdominal washout. Consider switching to Apixaban to decrease fluid burden after discussion with the surgery team * No evidence of right heart strain on CTA. Normal BNP. Normal Troponin 3. Thyroid Nodule * Incidental finding on CTA of a 3.3 cm thyroid nodule * Suppressed TSH (0.085) and elevated T4 (2.27). Repeat TSH normal at 2.86 on 07/07/20 * Initial lab abnormalities most likely due to euthyroid sick syndrome. However, outpatient follow up regarding the thyroid nodule is still recommended 4. Pain Management * Continue IV Dilaudid PRN and PO Oxycodone PRN 5. Peripheral edema * Patient has a history of chronic venous insufficiency. Continue wearing compression stockings * Patient receiving small daily dose of IV Lasix. Although the patient has a significant fluid burden, it is most likely due to third spacing from low albumin. Due to the nature of the edema, Lasix will likely only have a minimal effect on fluid status compared to improved nutrition and serum albumin level. Code Status: Full Code F/E/N: Normal Diet as tolerated VTE PPx: SCDs. Heparin Dispo: PCU Admission and Anticipated Discharge Date Admission Date: June 23, 2020 Supervising Attestation Patient seen and examined with MS Piotr Triana. Agree with history, exam findings, assessment and plan of care as outlined. Mr. Eduardo is a 45 yo gentleman who was found to have bilateral pulmonary emboli following ventral hernia repair. Medicine was consulted to assist with medical management. Doing well. Most bothered by edema at this point. Talkative and color is better compared to previous days. +1 pedal edema. + scrotal edema. Drains in tact with serosanguineous drainage. Bandages intact and dry. Ostomy with output that looks like stool. 1. Perforated viscous, peritonitis with sepsis. Now s/p washout and partial colectomy cecectomy and re-anastamosis then back to the OR on 07/04 for abdominal hematoma evacuation. Blood cultures without growth. Peritoneal fluid with E. Coli. Continue Flagyl, change cefepime to ceftriaxone. . 2. Leukocytosis. Decreasing from 39-->30. Repeat cultures without growth. discontinue caspofungin. Appreciate ID recommendations. 3. Provoked bilateral PE. IVC filter placed. Back on heparin gtt, but to decrease the amount of IV fluids he is getting, could consider switching to subQ lovenox or back to Eliquis if ok with surgery. 4. Anasarca. Secondary to IVFs, recent sepsis, and low oncotic pressure/low albumin. Will try to mobilize fluid with ankle pump exercises, SCDs, etc. Lasix daily. I/O's. 5. Hyponatremia. Improved. 6. Thyroid nodules, hyperthyroidism. 3.3cm R thyroid nodule seen on CTA chest. Suspect hot nodule. Repeat TSH is normal. 7. Tachycardia. On metoprolol. Improving. 8. Protein malnutrition. Appreciate nutrition recommendations. 9. SANDY. Likely has SANDY with his history of desaturating during sleep. Discussed outpatient sleep study. In the meantime, ok to continue with O2 during sleep. Can titrate off O2 when he is awake and up during the day. Dispo: pending clinical improvement. Subjective Patient notes an increased appetite this morning and he feels like he is ready to slowly advance his diet. However, he doesn't want to overdo it. He denies nausea or vomiting and his abdominal bloating and discomfort has lessened since yesterday. He does not endorse shortness of breath at rest. He is still using oxygen at night and during the day but he is open to decreasing daytime oxygen use. He denies chest pain or palpitations but he continues to have an intermittent cough with moderate sputum production. He still endorses lower extremity and scrotal swelling but he thinks it has lessened since yesterday. He has not ambulated yet today but he was able to walk in the [place] yesterday without lightheadedness or unsteadiness. He continues to deny lower extremity pain. Review of Systems Constitutional: as per Subjective / HPI Eyes: no problem reported Ear, Nose, Mouth, Throat: as per Subjective / HPI and + problem reported Respiratory: as per Subjective / HPI Cardiovascular: as per Subjective / HPI Gastrointestinal: as per Subjective / HPI Genitourinary: no dysuria Musculoskeletal: no problem reported Integumentary: no problem reported Neurologic: no problem reported Psychiatric: no problem reported Physical Exam Constitutional: WD/WN, vitals as above no acute distress Eyes: PERRL, conjunctivae normal, anicteric sclerae ENMT: external ear and nose normal, oropharynx normal Neck: normal visual inspection Respiratory: normal respiratory effort, lungs clear to auscultation Cardiovascular: RRR, no murmur, no edema Vessels: dorsalis pedis pulses present Extremities: + edema (bilateral lower extremities. Non-pitting) Gastrointestinal (Abdomen): Inspection/Auscultation: abdomen normal to inspection (Drains in place ) and normal bowel sounds Percussion/Palpation: + abdomen tender; no guarding and abdomen not rigid Skin: no rashes, warm and dry Psychiatric: A+Ox3, euthymic affect Genitourinary: + scrotum abnormality (swelling) Results & Data ([facility]) Vital Signs (Past 12 Hours) Vital Signs Temp Pulse Resp BP BP Pulse Ox 07/07/20 08:10 37.0 C 72 19 124/73 96 07/07/20 03:00 36.5 C 19 124/73 95
[2020-07-07] MEDS ORDERED: FUROSEMIDE 40 MG in SYRINGE 0 ML IV ONE (18:00)
[2020-07-07] MEDS: cefTRIAXone SODIUM 2,000 MG in DEXTROSE 5% 50 ML IV SCH (18:09)
[2020-07-07] MEDS ORDERED: ACETAMINOPHEN 500 MG TAB PO STA (18:18)
[2020-07-07] MEDS ORDERED: ACETAMINOPHEN 325 MG TAB PO PRN (18:18)
[2020-07-07 22:16] LABS: Fungitell (1-3)-B-D-Glucan <31
[2020-07-08] MEDS: metroNIDAZOLE 500 MG/100 ML BAG IV SCH ×3 (05:05→20:05)
[2020-07-08 05:52] LABS: Hematocrit (blood only) 24.3 % (42-52); Hemoglobin 7.8 g/dL (14.0-18.0); Mean Corpuscular Hemoglobin 26.7 pg (25-34); Mean Corpuscular Hgb Conc 32.1 g/dL (32-36); Mean Corpuscular Volume 83.2 fL (80-100); Mean Platelet Volume 8.9 fL (7.4-10.4); Nucleated RBC # (auto) 0.08 K/uL (0-0); Nucleated RBC % (auto) 0.3 %; Platelet Count 462 K/uL (130-400); RDW Coefficient of Variation 15.8 % (11.5-14.5); RDW Standard Deviation 48.2 fL (36.4-46.3); Red Blood Count 2.92 M/uL (4.7-6.1); White Blood Count 29.17 K/uL (4.8-10.8)
[2020-07-08 06:14] LABS: Partial Thromboplastin Ratio 1.9
[2020-07-08 06:15] LABS: ALC (manual) 2.54 K/uL (1.2-3.4); ANC (manual) 24.85 K/uL (1.4-6.5); Eosinophils # (manual) 0.26 K/uL (0-0.5); Eosinophils % (manual) 0.9 %; Lymphocytes # (manual) 2.54 K/uL (1.2-3.4); Lymphocytes % (manual) 8.7 %; Metamyelocytes # (manual) 1.02 K/uL (0-0); Metamyelocytes % (manual) 3.5 %; Monocytes % (manual) 1.7 %; Neutrophils # (manual) 24.85 K/uL (1.4-6.5); Neutrophils % (manual) 85.2 %; Partial Thromboplastin Time 49.8 Seconds (21.0-31.0); Polychromasia 1+
[2020-07-08 06:19] LABS: Alanine Aminotransferase 16 U/L (12-78); Albumin Level 1.5 gm/dl (3.4-5.0); Aspartate Aminotransferase 18 U/L (15-37); BUN Creatinine Ratio 18.8 (10-20); Blood Urea Nitrogen 9 mg/dl (7-18); Calcium 7.7 mg/dl (8.5-10.1); Carbon Dioxide 34 mmol/L (21-32); Chloride 95 mmol/L (98-107); Creatinine Clr Calc Pharmacy 294.7 ml/min; Est GFR (African American) > 150.0 ml/min; Est GFR (Non-African American) 132.4 ml/min; Glucose 117 mg/dl (70-99); Magnesium 1.7 mg/dl (1.8-2.4); Potassium 3.8 mmol/L (3.5-5.1); Sodium 133 mmol/L (136-145)
[2020-07-08] MEDS: HEPARIN SODIUM/DEXTROSE 25,000 UNITS/500 ML BAG IV SCH (06:21)
[2020-07-08 06:22] LABS: Albumin Globulin Ratio 0.4 (0.9-2); Alkaline Phosphatase 54 U/L (45-117); Bilirubin,Total 0.4 mg/dl (0.2-1); Globulin 4.1 gm/dl (2.5-4.0); Total Protein 5.6 gm/dl (6.4-8.2)
[2020-07-08] MEDS: FUROSEMIDE 20 MG in SYRINGE 0 ML IV SCH (08:50)
[2020-07-08] MEDS: oxyCODONE HCL IR 5 MG TAB (IMMEDIATE RELEASE) PO PRN ×2 (08:50→20:20)
[2020-07-08] MEDS: THIAMINE HCL 100 MG TAB PO SCH (08:51)
[2020-07-08] MEDS: METOPROLOL TARTRATE 25 MG TAB PO SCH ×2 (08:51→20:25)
[2020-07-08] MEDS: FAMOTIDINE 20 MG TAB PO SCH (08:53)
--- NOTE | 2020-07-08 09:01 | Surgery Progress Note ---
Date of Service July 08, 2020 Assessment & Plan (1) S/P exploratory laparotomy: wbc stable, ID input reviewed continue TALISHA drains, will remove mo on Saturday d/c ames later today increase activity, d/c heparin and can restart Eliquis per medicine seen with Dr. Zhong as above. looks good clinically. jamaal diet TALISHA's look good. wounds look good. [facility] surgeons covering weekend if any concerns. Admission and Anticipated Discharge Date Admission Date: June 23, 2020 Subjective tolerating low fiber diet, ames kept for diuresis Physical Exam Gastrointestinal (Abdomen): Inspection/Auscultation: + abdominal surgical incision (dry, no erythema) and + abdominal surgical drain present (mostly serous) Percussion/Palpation: abdomen soft Results & Data ([facility]) Vital Signs (Past 12 Hours) Vital Signs Temp Pulse Pulse Resp BP Pulse Ox 07/08/20 08:36 93 H 07/08/20 08:00 93 H 07/08/20 04:07 36.6 C 88 18 113/69 95 07/08/20 00:00 105 H 07/07/20 23:36 36.7 C 93 H 16 112/65 93 PG Care Time/CCT Total # of Minutes Spent Total Time Spent with Patient: Total time spent is greater than 50% in coordination of care (as documented) at patient's floor/unit and/or counseling patient: Coding Level of Care Code None Diagnoses S/P exploratory laparotomy Z98.890
[2020-07-08] MEDS ORDERED: APIXABAN 2.5 MG TAB PO SCH (09:45)
--- NOTE | 2020-07-08 10:18 | Medical Student Progress Note ---
Date of Service July 08, 2020 Assessment & Plan (1) Sepsis: Stephan Eduardo is a 45-year-old male with a PMHx of recurrent ventral hernias who underwent ventral hernia repair and excision of infected mesh on 06/23/20. During the postoperative period, the patient developed multiple pulmonary emboli as well as a bowel perforation. He is currently seven days s/p cecectomy and ileostomy placement with significant leukocytosis that has started to downtrend. Following an infectious disease consult, antifungal coverage has been discontinued and antibiotic regimen has been modified and will continue to cover enteric gram negative and anaerobic bacteria. Main short term goals include advancement of diet, continued PT/OT, and improvement of hypervolemia. 1. Leukocytosis * Leukocytosis trended upward but appears to have plateaued and started to downtrend. (13.05 --> 15.43 --> 18.65 --> 25.59 --> 39.95 --> 38.07 --> 30.13 --> 29.17). Continue trending CBC * Peritoneal fluid culture on 07/03/20 grew E. coli sensitive to most cephalosporins * Blood culture negative. Urine culture negative. Repeat blood culture and urine culture pending. * Abdominal/Pelvic CT on 07/04/20: 7 cm pocket of mildly complex fluid along inferior margin of liver. Hemoperitoneum. Trace pneumoperitoneum persists. Mildly distended small bowel loop most suggestive of postoperative ileus. * Due to concern for abdominal abscess based on abdominal/pelvic CT, Exploratory laparotomy with abdominal washout performed on 07/04/20. Revealed an abdominal hematoma without evidence of abscess * Infectious Disease consulted. Recommendations: discontinue caspofungin. Discontinue Cefepime and initiate Ceftriaxone. Continue Metronidazole * Antibiotics: IV Metronidazole + Ceftriaxone for coverage of enteric gram negative and anaerobic bacteria. Continue antibiotic coverage for two weeks. Following discharge, two-week course can be completed with current regimen via a PICC line or via a PO regimen with Cipro + JAUREGUI. (per infectious disease recommendations * Caspofungin discontinued on 07/07/20 * Advance diet as tolerated * Continue PT/OT 2. Bilateral Pulmonary Emboli * IVC filter placed on 06/30/20 * Restarted Heparin following exploratory laparotomy with abdominal washout. T ransitioned to Warfarin on 07/08/20 with a goal INR of 2 to 3 * No evidence of right heart strain on CTA. Normal BNP. Normal Troponin 3. Thyroid Nodule * Incidental finding on CTA of a 3.3 cm thyroid nodule * Suppressed TSH (0.085) and elevated T4 (2.27). Repeat TSH normal at 2.86 on 07/07/20 * Initial lab abnormalities most likely due to euthyroid sick syndrome. However, outpatient follow up regarding the thyroid nodule is still recommended 4. Pain Management * Continue IV Dilaudid PRN and PO Oxycodone PRN 5. Peripheral edema * Patient has a history of chronic venous insufficiency. Continue wearing compression stockings * Patient receiving small daily dose of IV Lasix. Although the patient has a significant fluid burden, it is most likely due to third spacing from low albumin. Due to the nature of the edema, Lasix will likely only have a minimal effect on fluid status compared to improved nutrition and serum albumin level. * Anticoagulation switched from IV heparin to warfarin on 07/08/20, which will reduce the fluid burden 6. Hypomagnesemia * Magnesium 1.7 on 07/08/20. Repleted. Continue daily CMP Code Status: Full Code F/E/N: Normal Diet as tolerated VTE PPx: SCDs. Warfarin Dispo: PCU Admission and Anticipated Discharge Date Admission Date: June 23, 2020 Supervising Attestation Attending attestation Pt seen and examined in concert with [facility]. Dr. Tineo. In agreement with the documented findings as noted in the resident documentation with any exceptions or additions as noted here. Tolerating increased POI, though still reduced overall. ongoing lower back pain, chronic. On examination, S1/S2 nl RRR no MCG. CTAB. Abd NT/ND BS+ve Peritoneal e. coli with leukocytosis - ID consultation - d/c caspofungin, continue flagyl, ceftriaxone to complete 2 wk course IV. Advance diet as tolerating. Trend CBC Bilateral pulmonary emboli s/p IVC filter 5.13.21 - start warfarin with goal of 2-3, continue lovenox. Else see student/resident documentation as noted. Subjective Patient says he was able to eat crackers and applesauce last night. This morning , he ate applesauce and half of a piece of toast. He tried to eat eggs but he was unable to tolerate them due to poor appetite for more proteinaceous foods at this time. He does not endorse N/V and he continues to have minimal abdominal pain that is unchanged since yesterday. He also denies fever or chills. He denies shortness of breath and has not used supplemental oxygen today. He was able to walk a few loops in the hallway last night without lightheadedness or shortness of breath. He notes that his legs feel less heavy today and he thinks his scrotal swelling has decreased. Review of Systems Constitutional: as per Subjective / HPI Eyes: no problem reported Ear, Nose, Mouth, Throat: no problem reported Respiratory: as per Subjective / HPI and + cough (dry) Cardiovascular: as per Subjective / HPI Gastrointestinal: as per Subjective / HPI Genitourinary: no problem reported Musculoskeletal: + muscle weakness Integumentary: no problem reported Neurologic: no problem reported Psychiatric: no problem reported Physical Exam Constitutional: WD/WN, vitals as above no acute distress Eyes: PERRL, conjunctivae normal, anicteric sclerae ENMT: external ear and nose normal, oropharynx normal Neck: normal visual inspection Respiratory: normal respiratory effort, lungs clear to auscultation Cardiovascular: RRR, no murmur, no edema Gastrointestinal (Abdomen): Inspection/Auscultation: abdomen normal to inspection (ports in place x4) and normal bowel sounds; abdomen not distended Percussion/Palpation: + abdomen tender; no guarding and abdomen not rigid Skin: no rashes, warm and dry Psychiatric: A+Ox3, euthymic affect Results & Data ([facility]) Vital Signs (Past 12 Hours) Vital Signs Temp Pulse Pulse Resp BP Pulse Ox 07/08/20 08:36 93 H 07/08/20 08:00 93 H 07/08/20 04:07 36.6 C 88 18 113/69 95 07/08/20 00:00 105 H 07/07/20 23:36 36.7 C 93 H 16 112/65 93
[2020-07-08] MEDS ORDERED: MAGNESIUM SULFATE / D5W 1 GM/100 ML BAG IV ONE (10:30)
[2020-07-08] MEDS: ENOXAPARIN 150 MG/ML SYR SQ SCH ×2 (12:00→20:20)
[2020-07-08] MEDS: HYDROmorphone INJ 0.5 MG/0.5 ML SYR IV PRN (12:24)
[2020-07-08] MEDS: WARFARIN SOD 10 MG TAB PO SCH (16:24)
[2020-07-08] MEDS: cefTRIAXone SODIUM 2,000 MG in DEXTROSE 5% 50 ML IV SCH (16:24)
[2020-07-09] MEDS: HYDROmorphone INJ 0.5 MG/0.5 ML SYR IV PRN (00:02)
[2020-07-09] MEDS: metroNIDAZOLE 500 MG/100 ML BAG IV SCH ×3 (04:30→19:45)
[2020-07-09] MEDS: oxyCODONE HCL IR 5 MG TAB (IMMEDIATE RELEASE) PO PRN ×4 (04:34→20:49)
[2020-07-09 07:50] LABS: Hematocrit (blood only) 25.1 % (42-52); Hemoglobin 7.8 g/dL (14.0-18.0); Mean Corpuscular Hemoglobin 25.9 pg (25-34); Mean Corpuscular Hgb Conc 31.1 g/dL (32-36); Mean Corpuscular Volume 83.4 fL (80-100); Mean Platelet Volume 9.4 fL (7.4-10.4); Nucleated RBC # (auto) 0.06 K/uL (0-0); Nucleated RBC % (auto) 0.2 %; Platelet Count 451 K/uL (130-400); RDW Coefficient of Variation 16.1 % (11.5-14.5); RDW Standard Deviation 49.2 fL (36.4-46.3); Red Blood Count 3.01 M/uL (4.7-6.1); White Blood Count 26.55 K/uL (4.8-10.8)
[2020-07-09 08:01] LABS: INR 1.3 (0.9-1.1); Partial Thromboplastin Ratio 1.2; Partial Thromboplastin Time 30.7 Seconds (21.0-31.0); Prothrombin Time 12.9 Seconds (9.0-12.0)
[2020-07-09 08:14] LABS: Basophils # (auto) 0.04 K/uL (0-0.2); Basophils % (auto) 0.2 %; Eosinophils # (auto) 0.38 K/uL (0-0.5); Eosinophils % (auto) 1.4 %; Immature Granulocytes # (auto) 1.28 K/uL (0.00-0.02); Immature Granulocytes % (auto) 4.8 %; Lymphocytes # (auto) 1.68 K/uL (1.2-3.4); Lymphocytes % (auto) 6.3 %; Monocytes # (auto) 2.12 K/uL (0.11-0.59); Neutrophils # (auto) 21.05 K/uL (1.4-6.5); Neutrophils % (auto) 79.3 %; Polychromasia 1+
[2020-07-09 08:15] LABS: Alanine Aminotransferase 15 U/L (12-78); Albumin Level 1.6 gm/dl (3.4-5.0); Aspartate Aminotransferase 18 U/L (15-37); BUN Creatinine Ratio 15.3 (10-20); Blood Urea Nitrogen 7 mg/dl (7-18); Calcium 7.8 mg/dl (8.5-10.1); Carbon Dioxide 32 mmol/L (21-32); Chloride 96 mmol/L (98-107); Creatinine Clr Calc Pharmacy 288.6 ml/min; Est GFR (African American) > 150.0 ml/min; Est GFR (Non-African American) 131.2 ml/min; Glucose 116 mg/dl (70-99); Potassium 3.6 mmol/L (3.5-5.1); Sodium 133 mmol/L (136-145)
[2020-07-09 08:18] LABS: Albumin Globulin Ratio 0.4 (0.9-2); Alkaline Phosphatase 86 U/L (45-117); Bilirubin,Total 0.4 mg/dl (0.2-1); Globulin 4.1 gm/dl (2.5-4.0); Total Protein 5.7 gm/dl (6.4-8.2)
[2020-07-09] MEDS: ENOXAPARIN 150 MG/ML SYR SQ SCH ×2 (09:03→20:49)
[2020-07-09] MEDS: FAMOTIDINE 20 MG TAB PO SCH (09:15)
[2020-07-09] MEDS: METOPROLOL TARTRATE 25 MG TAB PO SCH ×2 (09:16→20:52)
[2020-07-09] MEDS: THIAMINE HCL 100 MG TAB PO SCH (09:16)
[2020-07-09] MEDS: FUROSEMIDE 20 MG in SYRINGE 0 ML IV SCH (09:16)
--- NOTE | 2020-07-09 11:14 | History & Physical Report ---
Date of Service July 09, 2020 Assessment & Plan (1) Tachycardia: Mr. Eduardo is a 45 yo gentleman with a consult for medical management following recurrent ventral hernia repair and excision of infected mesh who developed new onset tachycardia along with a new oxygen requirement, found to h ave Bilateral Pulmonary Emboli. Patient's hospital course was complicated by bowel perforation as well and is now s/p washout cecectomy and ileostomy placement. Sepsis 2/2 bowel perforation - bowel perforation now s/p washout and partial colectomy cecectomy and re- anastamosis Leukocytosis downtrending, peaked at 38 currently 26 -Lactate peaked at 3.7 on 06/30, down trended and normalized 07/01 -Blood cultures 07/05 preliminary no growth - Peritoneal fluid 06/30 growing E. coli resistant to amp/sulbactam, gentamicin, tobramycin, and TMP-SMX. Flow Sporn sensitive. - Afebrile - continue flagyl and cefepime. BMP daily Acute Renal Failure, resolved 2/2 acute sepsis plus/minus ATN Creatinine peaked at 1.7 on 06/30/2020 and normalized to 07/01. BMP daily Creatinine 0.48 today Bilateral PEs - risk factors for clot formation include morbid obesity, chronic venous insufficiency, and recent surgery - PESI score of 97, class III, intermediate risk - No right heart strain noted on CTA. Trop not elevated. BNP not elevated. - IVF filter placed -Patient started on warfarin therapy weight-based initiation protocol. Bridge with Lovenox 140 mg every 12 hours until therapeutic with INR 23. INR daily Elevated Lactate - Resolved as above Hyponatremia -Improving, 133 BMP daily Thyroid Nodules with Hyperthyroidism - 3.3 cm right thyroid nodule incidentally on CTA of chest - TSH 0.085; Free T4 2.27 - concerning for possible hot nodule vs. sick euthyroid syndrome. - HR has ranged from 80s-115 bpm; currently on beta blockade therapy with metoprolol. - recommend he have TSH and free T4 levels repeated by PCP in outpatient setting in 3 weeks - recommend he have an US of the thyroid as an outpatient Hx of multiple recent surgeries -currently having abd pain only when he coughs -Currently on tylenol scheduled PRN Dialudid 0.5mg q1h available for pain DVT ppx: SCDs, IVC filter, urgent to heparin FEN/GI: NG tube removed, currently on clear liquids. Dispo:MedSurg Code: Full Admission and Anticipated Discharge Date Admission Date: June 23, 2020 History of Present Illness Primary Care Provider: Zaid Walker Stephan is seen at the bedside today. He reports he has some general pain around the surgical site in his abdomen, otherwise feels he is doing well with no acute or worsening pain. He denies fever and chills overnight. He is passing gas and dark brown liquid into his ostomy bag. TALISHA drains are in place. No pain at drain sites. Endorses some pitting edema in the legs at baseline which is worse while being in bed, reports he is not having any difficulty breathing, no cough, no chest pain, and no chest pressure. Allergies Allergy/AdvReac Type Severity Reaction Status Date / Time clavulanic acid Allergy Mild Rash Verified 06/23/20 10:09 NSAIDS (Non-Steroidal AdvReac Mild Gastrointestinal Verified 06/23/20 10:09 Anti-Inflamma Upset Home Medications Medication Instructions Recorded Confirmed Type loratadine 10 mg tablet 10 mg PO DAILY PRN 02/08/20 06/23/20 History ciclopirox 8 % topical solution 1 applic TOPICAL DAILY 28 Days 03/16/20 06/23/20 Rx #6.6 ml sulfamethoxazole 800 See Rx Instructions .ROUTE 05/30/20 06/23/20 Rx mg-trimethoprim 160 mg tablet .COMPLEX #56 tab levocarnitine [L-Carnitine] 500 mg PO HS 06/15/20 06/23/20 History magnesium 500 mg PO HS 06/15/20 06/23/20 History pantoprazole 20 mg PO QAM 06/15/20 06/23/20 History phentermine 37.5 mg PO QAM 06/15/20 06/23/20 History apixaban [Eliquis] 10 mg PO BID #11 tab 06/28/20 Rx sertraline 50 mg PO QAM 30 Days #30 tab 06/28/20 Rx Past Med/Surg History Medical History Arthritis Chronic venous insufficiency GERD (gastroesophageal reflux disease) History of GI bleed 2017 Morbid obesity with BMI of 40.0-44.9, adult Seasonal allergies Surgical History H/O vasectomy H/O wisdom tooth extraction History of esophagogastroduodenoscopy (EGD) History of tooth extraction S/P hernia repair 2006 S/P insertion of inferior vena caval filter (06/30/20) Inferior Vena Cava Filter Placement(Right) - Dony Mcneill MD S/P panniculectomy (06/23/20) Panniculectomy with Component Separation, Explant of Infected Mesh, - Ben Zhong DO Open Recurrent Ventral Hernia Repair with Biologic Mesh; takedown of enterocutaneous fistula; enterolysis; partial omentectomy- Ben Zhong, Family History Mother Diabetes Cancer Grandfather Heart disease Other No family history of adverse response to anesthesia Social History Smoking Status: Never smoker Second Hand Exposure: No; Do You Dip or Chew Tobacco: No; Tobacco Cessation Education Requested by Patient: No Hx Alcohol Use: Yes Alcohol type: beer Hx Substance Use: No Preferred Language: Wolof Communication Ability: Effective Postdoctoral Scholar Required: No Beliefs That Will Affect Care: None marital status: Current Living Situation: Spouse and Family Current Living Situation Comment: Lives with and 2 kids current occupational status: employed 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 Extremity swelling as noted in HPI Respiratory: Denies shortness of breath, cough, sputum production, difficulty breathing Gastrointestinal: As noted in HPI Musculoskeletal: Denies acute focal weakness, muscle aches/pain, joint aches/pain Integumentary:Denies acute rash, lesions Neurological: Denies numbness, tingling, focal weakness Physical Exam Physical Exam: General: A&Ox3. NAD. Cooperative. HEENT: Atraumatic, normocephalic. Visual acuity grossly intact. Pulm: CTAB A&P. -wheezes, -rales, -rhonchi. Symmetrical chest rise. No increase work of breathing. No respiratory distress. Cardiac: RRR, -mrg. Radial pulses intact and symmetrical. Abdominal: Minimally tender at surgical site, postsurgical abdominal dressing intact C/D/I. 3 TALISHA drains intact in left abdomen draining serosanguineous fluid. 1 TALISHA drain intact at right abdomen draining serosanguineous fluid. Ostomy intact, no surrounding erythema/warmth/tenderness and draining dark brown liquid. Extremities: Pitting edema in the lower extremities bilaterally, PT pulses intact. Sensation to soft touch in fingertips and toes bilaterally without asymmetry. Results & Data Results & Data ([facility]) Vital Signs (Past 12 Hours) Vital Signs Temp Pulse Pulse Resp BP Pulse Ox 07/09/20 08:15 36.5 C 96 H 18 120/63 97 07/09/20 08:00 101 H 07/09/20 04:12 37.2 C 98 H 19 114/68 92 07/08/20 23:54 36.8 C 98 H 19 112/68 91 Code Status & VTE Plan VTE Prophylaxis Plan VTE Prophylaxis will be ordered: Yes Supervising Physician Co-Signing Physician Notes Attending attestation Pt seen and examined in concert with Dr. Boss. In agreement with the documented findings as noted in the resident documentation with any exceptions or additions as noted here. Resting in chair at bedside, tolerating partial diet, pain well controlled on present regimen. Afebrile. On examination, S1/S2 nl RRR no MCG. CTAB. Abd NT/ND BS+ve. TALISHA drains in place with fluid as noted. Ostomy in place and functioning. No apparent infectious skin changes. Sepsis 2/2 bowel perforation - continue cefepime/flagyl, trend BMP, CBC Bilateral PE - lovenox to coumadin with daily INR Else see resident documentation as noted. Resident Activity Tracking Resident Involvement: Resident Care Provided Care Provided: Adult Hospital Medicine
--- NOTE | 2020-07-09 12:18 | Surgery Progress Note ---
Date of Service July 09, 2020 Assessment & Plan (1) Tachycardia: POD#16 panniculectomy, hernia repair, POD#9 ileostomy, POD#5 washout Overall doing well. Ostomy functioning. On regular diet Leukocytosis improving. Continue antibiotics Admission and Anticipated Discharge Date Admission Date: June 23, 2020 Subjective Tolerating low fiber diet. Ostomy functioning. Does not have any new concerns. Physical Exam Constitutional: WD/WN, vitals as above Respiratory: normal respiratory effort, lungs clear to auscultation Gastrointestinal (Abdomen): Inspection/Auscultation: normal bowel sounds, + abdominal surgical incision (clean, mo in place) and + abdominal surgical drain present (serosanguinous); abdomen not distended Percussion/Palpation: abdomen soft; abdomen nontender ostomy with firm brown stool/ gas in bag Results & Data ([facility]) Vital Signs (Past 12 Hours) Vital Signs Temp Pulse Pulse Resp BP Pulse Ox 07/09/20 08:15 36.5 C 96 H 18 120/63 97 07/09/20 08:00 101 H 07/09/20 04:12 37.2 C 98 H 19 114/68 92 Laboratory Results 07/09/20 07/09/20 07/09/20 Range/Units 07:29 07:29 07:29 WBC 26.55 H (4.8-10.8) K/uL RBC 3.01 L (4.7-6.1) M/uL Hgb 7.8 L (14.0-18.0) g/dL Hct 25.1 L (42-52) % MCV 83.4 (80-100) fL MCH 25.9 (25-34) pg MCHC 31.1 L (32-36) g/dL RDW Std Deviation 49.2 H (36.4-46.3) fL RDW Coeff of Reji 16.1 H (11.5-14.5) % Plt Count 451 H (130-400) K/uL MPV 9.4 (7.4-10.4) fL Immature Gran % (Auto) 4.8 % Neut % (Auto) 79.3 % Lymph % (Auto) 6.3 % [place] % (Auto) 8.0 % Eos % (Auto) 1.4 % Baso % (Auto) 0.2 % Neut # (Auto) 21.05 H (1.4-6.5) K/uL Lymph # (Auto) 1.68 (1.2-3.4) K/uL [place] # (Auto) 2.12 H (0.11-0.59) K/uL Eos # (Auto) 0.38 (0-0.5) K/uL Baso # (Auto) 0.04 (0-0.2) K/uL Immature Gran # (Auto) 1.28 H (0.00-0.02) K/uL Absolute Nucleated RBC 0.06 H (0-0) K/uL Nucleated RBC % (auto) 0.2 % Polychromasia 1+ PT 12.9 H (9.0-12.0) Seconds INR 1.3 H (0.9-1.1) APTT 30.7 (21.0-31.0) Seconds PTT Ratio 1.2 Sodium 133 L (136-145) mmol/L Potassium 3.6 (3.5-5.1) mmol/L Chloride 96 L (98-107) mmol/L Carbon Dioxide 32 (21-32) mmol/L Anion Gap 5.0 (3-11) BUN 7 (7-18) mg/dl Creatinine 0.48 L (0.6-1.4) mg/dl Est Cr Clr Drug Dosing 288.6 ml/min Est GFR ( Amer) > 150.0 ml/min Est GFR (Non-Af Amer) 131.2 ml/min BUN/Creatinine Ratio 15.3 (10-20) Glucose 116 H (70-99) mg/dl Calcium 7.8 L (8.5-10.1) mg/dl Total Bilirubin 0.4 (0.2-1) mg/dl AST 18 (15-37) U/L ALT 15 (12-78) U/L Alkaline Phosphatase 86 (45-117) U/L Total Protein 5.7 L (6.4-8.2) gm/dl Albumin 1.6 L (3.4-5.0) gm/dl Globulin 4.1 H (2.5-4.0) gm/dl Albumin/Globulin Ratio 0.4 L (0.9-2)
[2020-07-09] MEDS: cefTRIAXone SODIUM 2,000 MG in DEXTROSE 5% 50 ML IV SCH (16:48)
[2020-07-09] MEDS: WARFARIN SOD 10 MG TAB PO SCH (16:48)
[2020-07-10] MEDS: metroNIDAZOLE 500 MG/100 ML BAG IV SCH (03:46)
[2020-07-10] MEDS: oxyCODONE HCL IR 5 MG TAB (IMMEDIATE RELEASE) PO PRN ×4 (03:47→21:24)
--- NOTE | 2020-07-10 07:31 | Hospitalist Progress Note ---
Date of Service July 10, 2020 Assessment & Plan (1) Tachycardia: Mr. Eduardo is a 45 yo gentleman with a consult for medical management following recurrent ventral hernia repair and excision of infected mesh who developed new onset tachycardia along with a new oxygen requirement, found to h ave Bilateral Pulmonary Emboli. Patient's hospital course was complicated by bowel perforation as well and is now s/p washout cecectomy and ileostomy placement. Disposition planning: Patient is doing well and clinically stable. He is likely to have had substantial strength loss, will require PT reassessment and placement evaluation. Per infectious disease recommendations 07/07 antibiotic should be extended for least another 2 weeks or until drains are removed and the white blood cell is normalized (whichever is later). May be converted to Cipro 500 twice daily/Flagyl 500 mg 3 times daily versus continuing ceftriaxone/Flagyl via PICC when closer to discharge depending on clinical course. Sepsis 2/2 bowel perforation - bowel perforation now s/p washout and partial colectomy cecectomy and re- anastamosis Leukocytosis downtrending -Lactate peaked at 3.7 on 06/30, down trended and normalized 07/01 -Blood cultures 07/05 preliminary no growth - Peritoneal fluid 06/30 growing E. coli resistant to amp/sulbactam, gentamicin, tobramycin, and TMP-SMX. Flow Sporn sensitive. - Afebrile - continue flagyl and cefepime. BMP daily Acute Renal Failure, resolved 2/2 acute sepsis plus/minus ATN Creatinine peaked at 1.7 on 06/30/2020 and normalized to 07/01. BMP daily Bilateral PEs - risk factors for clot formation include morbid obesity, chronic venous insufficiency, and recent surgery - PESI score of 97, class III, intermediate risk - No right heart strain noted on CTA. Trop not elevated. BNP not elevated. - IVF filter placed -Patient started on warfarin therapy weight-based initiation protocol. Patient bridged with Lovenox 140 mg every 12 hours. - INR 2.1 07/10. Lovenox discontinued, trend INR daily INR daily Continue warfarin 7.5 mg daily Elevated Lactate - Resolved as above Hyponatremia -Improving, 133 BMP daily Thyroid Nodules with Hyperthyroidism - 3.3 cm right thyroid nodule incidentally on CTA of chest - TSH 0.085; Free T4 2.27 - concerning for possible hot nodule vs. sick euthyroid syndrome. - HR has ranged from 80s-115 bpm; currently on beta blockade therapy with metoprolol. - recommend he have TSH and free T4 levels repeated by PCP in outpatient setting in 3 weeks - recommend he have an US of the thyroid as an outpatient Hx of multiple recent surgeries -currently having abd pain only when he coughs -Currently on tylenol scheduled PRN Dialudid 0.5mg q1h available for pain DVT ppx: SCDs, IVC filter, urgent to heparin FEN/GI: NG tube removed, currently on clear liquids. Dispo:MedSurg Code: Full Admission and Anticipated Discharge Date Admission Date: June 23, 2020 Supervising Physician Co-Signing Physician Notes Attending attestation Pt seen and examined in concert with Dr. Boss. In agreement with the documented findings as noted in the resident documentation with any exceptions or additions as noted here. Resting in chair at bedside, tolerated PT well. On examination, S1/S2 nl RRR no MCG. CTAB. Abd NT/ND BS+ve. TALISHA drains in place with fluid as noted. Ostomy in place and functioning. No apparent infectious skin changes. Sepsis 2/2 bowel perforation - continue cefepime/flagyl, trend BMP, CBC Bilateral PE - d/c lovenox, coumadin with daily INR currently in range Else see resident documentation as noted. Subjective Lying in bed at time of morning assessment. Patient reports his night went well, no overall change in his medical condition. He denies fever, chills, sweats. He continues to have some mild abdominal ache at his surgical site, no sharp pain no worsening pain. Denies nausea/vomiting. Continues to pass gas and brown fluid into his ostomy. No leg swelling or leg pain. No questions or concerns at time of morning assessment. Has not yet been out of bed/sitting up today. Review of Systems Review of Systems: All systems reviewed & are unremarkable except as noted in HPI & below Physical Exam Physical Exam: General: A&Ox3. NAD. Cooperative. HEENT: Atraumatic, normocephalic. Visual acuity grossly intact. Pulm: CTAB A&P. -wheezes, -rales, -rhonchi. Symmetrical chest rise. No increase work of breathing. No respiratory distress. Cardiac: RRR, -mrg. Radial pulses intact and symmetrical. Abdominal: Minimally tender at surgical site, postsurgical abdominal dressing intact C/D/I. 3 TALISHA drains intact in left abdomen draining serosanguineous fluid. 1 TALISHA drain intact at right abdomen draining serosanguineous fluid. Ostomy intact, no surrounding erythema/warmth/tenderness and draining dark brown liquid. Extremities: Pitting edema in the lower extremities bilaterally, PT pulses intact. Sensation to soft touch in fingertips and toes bilaterally without asymmetry. Results & Data Results & Data ([facility]) Vital Signs (Past 12 Hours) Vital Signs Temp Pulse Pulse Resp BP BP Pulse Ox 07/10/20 04:07 37.4 C 97 H 18 126/71 92 07/10/20 00:00 105 H 07/09/20 23:26 37.7 C H 95 H 18 123/65 96 07/09/20 20:36 37.7 C H 108 H 19 113/68 94 Resident Activity Tracking Resident Involvement: Resident Care Provided Care Provided: Adult Hospital Medicine
[2020-07-10 07:58] LABS: Hematocrit (blood only) 26.1 % (42-52); Hemoglobin 8.2 g/dL (14.0-18.0); Mean Corpuscular Hemoglobin 26.3 pg (25-34); Mean Corpuscular Hgb Conc 31.4 g/dL (32-36); Mean Corpuscular Volume 83.7 fL (80-100); Mean Platelet Volume 8.9 fL (7.4-10.4); Platelet Count 554 K/uL (130-400); RDW Coefficient of Variation 16.1 % (11.5-14.5); Red Blood Count 3.12 M/uL (4.7-6.1); White Blood Count 23.25 K/uL (4.8-10.8)
[2020-07-10 08:05] LABS: INR 2.1 (0.9-1.1); Prothrombin Time 19.8 Seconds (9.0-12.0)
[2020-07-10 08:17] LABS: ALC (manual) 1.21 K/uL (1.2-3.4); ANC (manual) 21.23 K/uL (1.4-6.5); Eosinophils # (manual) 0.21 K/uL (0-0.5); Eosinophils % (manual) 0.9 %; Lymphocytes # (manual) 1.21 K/uL (1.2-3.4); Lymphocytes % (manual) 5.2 %; Monocytes % (manual) 2.6 %; Neutrophils # (manual) 21.23 K/uL (1.4-6.5); Neutrophils % (manual) 91.3 %; Polychromasia 2+
[2020-07-10 08:34] LABS: BUN Creatinine Ratio 13.5 (10-20); Blood Urea Nitrogen 6 mg/dl (7-18); Calcium 8.1 mg/dl (8.5-10.1); Carbon Dioxide 30 mmol/L (21-32); Chloride 99 mmol/L (98-107); Est GFR (African American) > 150.0 ml/min; Est GFR (Non-African American) 133.5 ml/min; Glucose 109 mg/dl (70-99); Sodium 135 mmol/L (136-145)
[2020-07-10] MEDS: ENOXAPARIN 150 MG/ML SYR SQ SCH (08:55)
[2020-07-10] MEDS: METOPROLOL TARTRATE 25 MG TAB PO SCH ×2 (08:57→21:24)
[2020-07-10] MEDS: THIAMINE HCL 100 MG TAB PO SCH (08:58)
[2020-07-10] MEDS: FAMOTIDINE 20 MG TAB PO SCH (08:58)
--- NOTE | 2020-07-10 09:50 | Surgery Progress Note ---
Date of Service July 10, 2020 Assessment & Plan (1) Tachycardia: POD#17 panniculectomy, hernia repair, POD#10 ileostomy, POD#6 washout Overall doing well. Ostomy functioning. On regular diet Leukocytosis improving. Continue antibiotics discussed discharge planning as he will likely be ready to be discharged in next few days Admission and Anticipated Discharge Date Admission Date: June 23, 2020 Subjective Tolerating low fiber diet. Ostomy functioning. Does not have any new concerns. Sitting on side of bed. Notes some discomfort with movement. Physical Exam Constitutional: WD/WN, vitals as above Respiratory: normal respiratory effort, lungs clear to auscultation Gastrointestinal (Abdomen): Inspection/Auscultation: normal bowel sounds, + abdominal surgical incision (clean, mo in place) and + abdominal surgical drain present (serosanguinous in all drains, total 370 output); abdomen not distended Percussion/Palpation: abdomen soft; abdomen nontender ostomy with loose brown stool/ gas Results & Data ([facility]) Vital Signs (Past 12 Hours) Vital Signs Temp Pulse Pulse Resp BP Pulse Ox 07/10/20 07:59 37.2 C 82 18 118/62 97 07/10/20 04:07 37.4 C 97 H 18 126/71 92 07/10/20 00:00 105 H 07/09/20 23:26 37.7 C H 95 H 18 123/65 96 Laboratory Results Abnormal lab results 07/10/20 07/10/20 07/10/20 Range/Units 07:42 07:42 07:42 WBC 23.25 H (4.8-10.8) K/uL RBC 3.12 L (4.7-6.1) M/uL Hgb 8.2 L (14.0-18.0) g/dL Hct 26.1 L (42-52) % MCHC 31.4 L (32-36) g/dL RDW Std Deviation 49.0 H (36.4-46.3) fL RDW Coeff of Reji 16.1 H (11.5-14.5) % Plt Count 554 H (130-400) K/uL Neutrophils # (Manual) 21.23 H (1.4-6.5) K/uL Total Absolute Neuts 21.23 H (1.4-6.5) K/uL Monocytes # (Manual) 0.60 H (0.11-0.59) K/uL PT 19.8 H (9.0-12.0) Seconds INR 2.1 H (0.9-1.1) Sodium 135 L (136-145) mmol/L BUN 6 L (7-18) mg/dl Creatinine 0.46 L (0.6-1.4) mg/dl Glucose 109 H (70-99) mg/dl Calcium 8.1 L (8.5-10.1) mg/dl
[2020-07-10] MEDS: FUROSEMIDE 20 MG in SYRINGE 0 ML IV SCH (10:00)
[2020-07-10] MEDS ORDERED: WARFARIN SOD 7.5 MG TAB PO SCH (16:00)
[2020-07-10] MEDS: cefTRIAXone SODIUM 2,000 MG in DEXTROSE 5% 50 ML IV SCH (16:00)
[2020-07-11] MEDS: oxyCODONE HCL IR 5 MG TAB (IMMEDIATE RELEASE) PO PRN ×4 (04:01→23:50)
[2020-07-11 06:11] LABS: Basophils # (auto) 0.02 K/uL (0-0.2); Basophils % (auto) 0.1 %; Eosinophils # (auto) 0.42 K/uL (0-0.5); Eosinophils % (auto) 2.2 %; Hematocrit (blood only) 25.6 % (42-52); Hemoglobin 8.1 g/dL (14.0-18.0); Immature Granulocytes # (auto) 0.35 K/uL (0.00-0.02); Immature Granulocytes % (auto) 1.9 %; Lymphocytes # (auto) 2.05 K/uL (1.2-3.4); Lymphocytes % (auto) 10.9 %; Mean Corpuscular Hemoglobin 26.6 pg (25-34); Mean Corpuscular Hgb Conc 31.6 g/dL (32-36); Mean Corpuscular Volume 83.9 fL (80-100); Mean Platelet Volume 8.7 fL (7.4-10.4); Monocytes # (auto) 1.57 K/uL (0.11-0.59); Monocytes % (auto) 8.3 %; Neutrophils # (auto) 14.41 K/uL (1.4-6.5); Neutrophils % (auto) 76.6 %; Platelet Count 558 K/uL (130-400); RDW Coefficient of Variation 16.4 % (11.5-14.5); RDW Standard Deviation 49.6 fL (36.4-46.3); Red Blood Count 3.05 M/uL (4.7-6.1); White Blood Count 18.82 K/uL (4.8-10.8)
[2020-07-11 06:23] LABS: INR 3.4 (0.9-1.1); Prothrombin Time 31.5 Seconds (9.0-12.0)
[2020-07-11 06:42] LABS: BUN Creatinine Ratio 15.5 (10-20); Blood Urea Nitrogen 8 mg/dl (7-18); Calcium 7.8 mg/dl (8.5-10.1); Carbon Dioxide 32 mmol/L (21-32); Chloride 100 mmol/L (98-107); Creatinine Clr Calc Pharmacy 273.2 ml/min; Est GFR (African American) > 150.0 ml/min; Est GFR (Non-African American) 130.1 ml/min; Glucose 106 mg/dl (70-99); Potassium 4.5 mmol/L (3.5-5.1); Sodium 135 mmol/L (136-145)
[2020-07-11] MEDS: FUROSEMIDE 20 MG in SYRINGE 0 ML IV SCH (08:02)
[2020-07-11] MEDS: METOPROLOL TARTRATE 25 MG TAB PO SCH ×2 (08:02→20:53)
[2020-07-11] MEDS: THIAMINE HCL 100 MG TAB PO SCH (08:03)
[2020-07-11] MEDS: FAMOTIDINE 20 MG TAB PO SCH (08:03)
--- NOTE | 2020-07-11 08:03 | Surgery Progress Note ---
Date of Service July 11, 2020 Assessment & Plan (1) S/P exploratory laparotomy: POD#18 panniculectomy, hernia repair, POD#11 ileostomy, POD#7 washout Patient looks very well this morning WBC continues to downtrend 18 today from 23. Patient's VSS and he is afebrile Patient has been transitioned to Coumadin, INR 3.4 today. Hospitalists helping us to guide dosing, will ask if they can help set pt up for outpt coumadin follow up Tolerating a diet and having + ostomy output. JPs serosang Continue abx plan as guided by ID recommendations Continue wound care teaching with patient/ Patient looking to stay until tomorrow or saturday so that his can help him out at home as above. doing well. TALISHA's all look good. plan d/c tomorrow afternoon. will remove the mo, stoma bridge, and 2 intra-abdominal TALISHA's tomorrow prior to d/c. medicine managing INR/coumadin. Admission and Anticipated Discharge Date Admission Date: June 23, 2020 Subjective Patient states overall he had a fairly uneventful weekend. Yesterday he reports some issues with the ileostomy requiring it to be changed, but that his and RN handled this well. He is still a little hesitant to participate in care with it. Otherwise he is tolerating a diet, denies nausea. His abdominal pain is tolerable. He has been working on getting his strength back by ambulating. Physical Exam Physical Exam: awake/alert Constitutional: no acute distress Respiratory: normal respiratory effort Gastrointestinal (Abdomen): Inspection/Auscultation: + abdominal surgical incision (abdominal dressings in place, c/d/i) and + abdominal surgical drain present (TALISHA drains serosang. ) Percussion/Palpation: abdomen soft + ostomy output Results & Data ([facility]) Vital Signs (Past 12 Hours) Vital Signs Temp Pulse Pulse Resp BP BP Pulse Ox 07/11/20 07:42 37.3 C 87 20 119/70 95 07/11/20 03:20 36.6 C 79 18 109/73 97 07/11/20 00:00 103 H 07/10/20 22:56 37.2 C 66 17 123/76 98 PG Care Time/CCT Total # of Minutes Spent Total Time Spent with Patient: Total time spent is greater than 50% in c oordination of care (as documented) at patient's floor/unit and/or counseling patient: Coding Level of Care Code None Diagnoses S/P exploratory laparotomy Z98.890
--- NOTE | 2020-07-11 10:26 | Hospitalist Progress Note ---
Date of Service July 11, 2020 Assessment & Plan (1) Tachycardia: Mr. Eduardo is a 45 yo gentleman with a consult for medical management following recurrent ventral hernia repair and excision of infected mesh who developed new onset tachycardia along with a new oxygen requirement, found to h ave Bilateral Pulmonary Emboli. Patient's hospital course was complicated by bowel perforation as well and is now s/p washout cecectomy and ileostomy placement. Sepsis 2/2 bowel perforation -bowel perforation now s/p washout and partial colectomy cecectomy and re- anastamosis -Leukocytosis downtrending -Lactate peaked at 3.7 on 06/30, down trended and normalized 07/01 -Blood cultures 07/05 preliminary no growth -Peritoneal fluid 06/30 growing E. coli resistant to amp/sulbactam, gentamicin, tobramycin, and TMP-SMX -Transition to Ciprofloxacin BID, and Flagyl TID for outpatient management Bilateral PE: -risk factors for clot formation include morbid obesity, chronic venous insufficiency, and recent surgery -PESI score of 97, class III, intermediate risk -No right heart strain noted on CTA. Trop not elevated. BNP not elevated. -IVF filter placed -INR 3.4 -Hold warfarin tonight, with recheck of INR in am -will need follow-up in coumadin clinic over the course of treatment (3-6 months) Thyroid Nodules with Hyperthyroidism -3.3 cm right thyroid nodule incidentally on CTA of chest -TSH 0.085; Free T4 2.27 -concerning for possible hot nodule vs. sick euthyroid syndrome. -HR has ranged from 80s-115 bpm; currently on beta blockade therapy with metoprolol. -recommend he have TSH and free T4 levels repeated by PCP in outpatient setting in 3 weeks -recommend he have an US of the thyroid as an outpatient DVT ppx: SCDs, IVC filter, Warfarin FEN/GI: Advance diet as tolerated Dispo:MedSurg Code: Full Admission and Anticipated Discharge Date Admission Date: June 23, 2020 Supervising Physician Co-Signing Physician Notes I personally examined the patient and verified all mancuso points of history and exam, discussed case, and agree with decision making with Dr Michelle. Feeling pretty good overall. Still not eating great but is eating better. Has a little bit of right-sided upper abdominal/lower chest pain that he believes is rib related. It does improve some after OMT. Vitals noted, in general he is awake and alert pleasant no distress. HEENT normocephalic atraumatic mucous membranes moist. Breathing unlabored no accessory muscle use good effort. Skin shows no rashes no pallor or icterus. Neuro shows no focal deficits. Musculoskeletal/osteopathic exam shows right- sided ribs around ribs 8-10 to be tender and decreased range of motionbalanced ligamentous tensionimproved, patient tolerated well. Peritonitis/sepsisimprovingcontinue antibiotics, appears to be close to stable for home. Pulmonary emboliCoumadin Somatic dysfunction rib cageOMT as above Otherwise as above, hopefully home soon Subjective Patient states he is tolerating a diet well, with continued appetite for some foods. Having minimal abdominal pain at this point, denies nausea. Feels like his swelling has improved greatly over the last couple days with continued ambulation around floor. Feels like his strength is improved. Review of Systems Review of Systems: All systems reviewed & are unremarkable except as noted in Subjective Physical Exam Constitutional: WD/WN, vitals as above Eyes: PERRL, conjunctivae normal, anicteric sclerae Respiratory: normal respiratory effort; no respiratory distress, no labored breathing and no retractions Cardiovascular: Rate/Rhythm: regular rate and regular rhythm Vessels: normal peripheral pulses Musculoskeletal: no cyanosis or clubbing, extremities motor strength 5/5 Skin: no rashes, warm and dry Neurologic: PERRL, EOMI, accommodation nl, no face palsy, no dysarthria CN's II-XI intact bilaterally and moves all extremities Psychiatric: Orientation: alert and oriented x 3 Results & Data Results & Data ([facility]) Vital Signs (Past 12 Hours) Vital Signs Temp Pulse Pulse Resp BP BP Pulse Ox 07/11/20 07:42 37.3 C 87 20 119/70 95 07/11/20 03:20 36.6 C 79 18 109/73 97 07/11/20 00:00 103 H 07/10/20 22:56 37.2 C 66 17 123/76 98 Laboratory Results 07/11/20 07/11/20 07/11/20 Range/Units 05:51 05:51 05:51 WBC 18.82 H (4.8-10.8) K/uL RBC 3.05 L (4.7-6.1) M/uL Hgb 8.1 L (14.0-18.0) g/dL Hct 25.6 L (42-52) % MCV 83.9 (80-100) fL MCH 26.6 (25-34) pg MCHC 31.6 L (32-36) g/dL RDW Std Deviation 49.6 H (36.4-46.3) fL RDW Coeff of Reji 16.4 H (11.5-14.5) % Plt Count 558 H (130-400) K/uL MPV 8.7 (7.4-10.4) fL Immature Gran % (Auto) 1.9 % Neut % (Auto) 76.6 % Lymph % (Auto) 10.9 % [place] % (Auto) 8.3 % Eos % (Auto) 2.2 % Baso % (Auto) 0.1 % Neut # (Auto) 14.41 H (1.4-6.5) K/uL Lymph # (Auto) 2.05 (1.2-3.4) K/uL [place] # (Auto) 1.57 H (0.11-0.59) K/uL Eos # (Auto) 0.42 (0-0.5) K/uL Baso # (Auto) 0.02 (0-0.2) K/uL Immature Gran # (Auto) 0.35 H (0.00-0.02) K/uL PT 31.5 H (9.0-12.0) Seconds INR 3.4 H (0.9-1.1) Sodium 135 L (136-145) mmol/L Potassium 4.5 (3.5-5.1) mmol/L Chloride 100 (98-107) mmol/L Carbon Dioxide 32 (21-32) mmol/L Anion Gap 3.0 (3-11) BUN 8 (7-18) mg/dl Creatinine 0.49 L (0.6-1.4) mg/dl Est Cr Clr Drug Dosing 273.2 ml/min Est GFR ( Amer) > 150.0 ml/min Est GFR (Non-Af Amer) 130.1 ml/min BUN/Creatinine Ratio 15.5 (10-20) Glucose 106 H (70-99) mg/dl Calcium 7.8 L (8.5-10.1) mg/dl Medications Administered Current Inpatient Medications Acetaminophen (Acetaminophen 325 Mg Tab) 650 mg PO Q6H PRN PRN Reason: Pain or Fever Stop: 08/04/20 09:50 Last Admin: 07/11/20 16:02 Dose: 650 mg Documented by: Ciprofloxacin (Ciprofloxacin 500 Mg Tab) 500 mg PO BID [facility]; Protocol Stop: 07/25/20 20:59 Famotidine (Famotidine 20 Mg Tab) 20 mg PO DAILY [facility] Stop: 08/05/20 08:59 Last Admin: 07/11/20 08:03 Dose: 20 mg Documented by: Hydromorphone HCl (Hydromorphone Inj 0.5 Mg/0.5 Ml Syr) 0.5 mg IV Q1H PRN PRN Reason: Pain Stop: 07/16/20 08:55 Last Admin: 07/09/20 00:02 Dose: 0.5 mg Documented by: Promethazine HCl 12.5 mg/ (Sodium Chloride) 50.5 mls @ 204 mls/hr IV Q6H PRN PRN Reason: Nausea And Vomiting Stop: 07/23/20 17:48 Last Infusion: 06/27/20 16:29 Dose: Infused Documented by: Furosemide 20 mg/ Syringe 2 mls @ 4 mls/min IV DAILY [facility] Stop: 08/03/20 09:29 Last Admin: 07/11/20 08:02 Dose: 4 mls/min Documented by: Metoprolol Tartrate (Metoprolol Tartrate 25 Mg Tab) 12.5 mg PO BID [facility] Stop: 08/02/20 08:59 Last Admin: 07/11/20 08:02 Dose: 12.5 mg Documented by: Metronidazole (Metronidazole 500 Mg Tab) 500 mg PO TID [facility]; Protocol Stop: 07/25/20 20:59 Naloxone HCl (Naloxone Hcl 0.4 Mg/1 Ml Vial/Carp) 0.1 mg IV Q5M PRN; Protocol PRN Reason: Oversedation/Resp Depression Stop: 07/14/20 20:17 Ondansetron HCl (Ondansetron Inj 2 Mg/Ml 2 Ml Vial) 4 mg IV Q4H PRN PRN Reason: Nausea And Vomiting Stop: 07/23/20 17:48 Last Admin: 07/02/20 09:10 Dose: 4 mg Documented by: Oxycodone HCl (Oxycodone Hcl Ir 5 Mg Tab (Immediate Release)) 5 mg PO Q4 PRN PRN Reason: Pain Stop: 07/17/20 15:40 Last Admin: 07/11/20 13:53 Dose: 5 mg Documented by: Phenol (Chloraseptic 1.4% Soln 180 Ml Btl) 2 sprays MT Q2H PRN PRN Reason: Sore Throat Stop: 07/26/20 10:51 Last Admin: 06/26/20 12:51 Dose: 2 sprays Documented by: Thiamine HCl (Thiamine Hcl 100 Mg Tab) 100 mg PO DAILY [facility] Stop: 08/05/20 08:59 Last Admin: 07/11/20 08:03 Dose: 100 mg Documented by: Warfarin Sodium (Warfarin Sod 2.5 Mg Tab) 2.5 mg PO DAILY@1600 [facility] Stop: 08/11/20 15:59 Resident Activity Tracking Resident Involvement: Resident Care Provided Care Provided: Adult Hospital Medicine
[2020-07-11] MEDS ORDERED: WARFARIN SOD 2.5 MG TAB PO SCH (16:00)
[2020-07-11] MEDS ORDERED: WARFARIN SOD 5 MG TAB PO SCH (16:00)
--- NOTE | 2020-07-11 17:47 | Billing Data ---
Date of Service July 11, 2020 Coding Level of Care Code 83894 Subseq Hosp Care Lvl 2
--- NOTE | 2020-07-11 17:47 | Hospitalist Progress Note ---
Date of Service July 11, 2020 Assessment & Plan Admission and Anticipated Discharge Date Admission Date: June 23, 2020 Results & Data Results & Data ([facility]) Vital Signs (Past 12 Hours) Vital Signs Temp Pulse Pulse Resp BP BP Pulse Ox 07/11/20 15:11 91 H 07/11/20 12:03 98.2 F 95 H 20 122/73 96 07/11/20 08:00 88 07/11/20 07:42 99.1 F 87 20 119/70 95 PG Care Time/CCT Total # of Minutes Spent Total Time Spent with Patient: Total time spent is greater than 50% in coordination of care (as documented) at patient's floor/unit and/or counseling patient: Coding Level of Care Code None CPT Codes Musculoskeletal - Musculoskeletal: [address] Tr 1-2 Body regions ([id number])
[2020-07-11] MEDS: CIPROFLOXACIN 500 MG TAB PO SCH (20:53)
[2020-07-11] MEDS: metroNIDAZOLE 500 MG TAB PO SCH (20:53)
[2020-07-12] MEDS: oxyCODONE HCL IR 5 MG TAB (IMMEDIATE RELEASE) PO PRN ×2 (04:38→08:10)
[2020-07-12 06:48] LABS: Basophils # (auto) 0.01 K/uL (0-0.2); Basophils % (auto) 0.1 %; Eosinophils % (auto) 2.8 %; Hematocrit (blood only) 26.2 % (42-52); Hemoglobin 8.2 g/dL (14.0-18.0); Immature Granulocytes # (auto) 0.16 K/uL (0.00-0.02); Immature Granulocytes % (auto) 1.1 %; Lymphocytes # (auto) 1.55 K/uL (1.2-3.4); Mean Corpuscular Hemoglobin 25.8 pg (25-34); Mean Corpuscular Hgb Conc 31.3 g/dL (32-36); Mean Corpuscular Volume 82.4 fL (80-100); Mean Platelet Volume 8.5 fL (7.4-10.4); Monocytes # (auto) 1.28 K/uL (0.11-0.59); Monocytes % (auto) 9.1 %; Neutrophils # (auto) 10.74 K/uL (1.4-6.5); Neutrophils % (auto) 75.9 %; Platelet Count 533 K/uL (130-400); RDW Coefficient of Variation 16.4 % (11.5-14.5); RDW Standard Deviation 49.3 fL (36.4-46.3); Red Blood Count 3.18 M/uL (4.7-6.1); White Blood Count 14.14 K/uL (4.8-10.8)
[2020-07-12 07:08] LABS: INR 4.2 (0.9-1.1); Prothrombin Time 37.6 Seconds (9.0-12.0)
[2020-07-12 07:18] LABS: BUN Creatinine Ratio 17.3 (10-20); Calcium 8.1 mg/dl (8.5-10.1); Creatinine Clr Calc Pharmacy 256.3 ml/min; Est GFR (African American) 147.2 ml/min; Potassium 4.5 mmol/L (3.5-5.1)
[2020-07-12] MEDS: METOPROLOL TARTRATE 25 MG TAB PO SCH (08:10)
[2020-07-12] MEDS: metroNIDAZOLE 500 MG TAB PO SCH ×2 (08:10→14:40)
[2020-07-12] MEDS: FAMOTIDINE 20 MG TAB PO SCH (08:11)
[2020-07-12] MEDS: CIPROFLOXACIN 500 MG TAB PO SCH (08:11)
[2020-07-12] MEDS: THIAMINE HCL 100 MG TAB PO SCH (08:13)
[2020-07-12] MEDS: FUROSEMIDE 20 MG in SYRINGE 0 ML IV SCH (08:17)
--- NOTE | 2020-07-12 09:32 | Surgery Progress Note ---
Date of Service July 12, 2020 Assessment & Plan (1) Recurrent ventral hernia: doing well. wbc continues to decrease. afebrile. will plan d/c later today. will remove mo, stoma bridge, and the 2 abdominal TALISHA's. keep the 2 sub-Q TALISHA's. will request visiting nurses to assist with stoma home on cipro/flagy per ID will need hospitalist to arrange coumadin/INR f/u wound care d/w pt and Admission and Anticipated Discharge Date Admission Date: June 23, 2020 Subjective pt continues to do well. no new complaints. jamaal diet. Physical Exam Physical Exam: alet. nad abd: soft. wounds look good. all 4 TALISHA's with serous fluid. Results & Data ([facility]) Vital Signs (Past 12 Hours) Vital Signs Temp Pulse Pulse Resp BP Pulse Ox 07/12/20 07:50 37.3 C 100 H 19 117/67 95 07/12/20 03:25 36.7 C 97 H 18 133/75 95 07/12/20 00:00 92 H 07/11/20 23:12 37.2 C 86 18 112/68 94 PG Care Time/CCT Total # of Minutes Spent Total Time Spent with Patient: Total time spent is greater than 50% in coordination of care (as documented) at patient's floor/unit and/or counseling patient: Coding Level of Care Code None Diagnoses Recurrent ventral hernia K43.2
--- NOTE | 2020-07-12 10:12 | Hospitalist Progress Note ---
Date of Service July 12, 2020 Assessment & Plan (1) Tachycardia: Mr. Eduardo is a 45 yo gentleman with a consult for medical management following recurrent ventral hernia repair and excision of infected mesh who developed new onset tachycardia along with a new oxygen requirement, found to h ave Bilateral Pulmonary Emboli. Patient's hospital course was complicated by bowel perforation as well and is now s/p washout cecectomy and ileostomy placement. Sepsis 2/2 bowel perforation -bowel perforation now s/p washout and partial colectomy cecectomy and re- anastamosis -Leukocytosis downtrending -Lactate peaked at 3.7 on 06/30, down trended and normalized 07/01 -Blood cultures 07/05 preliminary no growth -Peritoneal fluid 06/30 growing E. coli resistant to amp/sulbactam, gentamicin, tobramycin, and TMP-SMX -Continue Ciprofloxacin BID, and Flagyl TID until drains removed -to be discharged by Surgery later today following removal of several of the drains Bilateral PE: -risk factors for clot formation include morbid obesity, chronic venous insufficiency, and recent surgery -No right heart strain noted on CTA -IVF filter placed -INR 4.2 -restart Warfarin 2.5mg daily starting 07/13 -to follow-up in coumadin clinic over the course of the next three months with frequent INR checks Thyroid Nodules with Hyperthyroidism -3.3 cm right thyroid nodule incidentally on CTA of chest -HR has ranged from 80s-115 bpm; currently on beta blockade therapy with metoprolol. -recommend he have TSH and free T4 levels repeated by PCP in outpatient setting in 3 weeks -recommend he have an US of the thyroid as an outpatient (2) S/P exploratory laparotomy: (3) Bilateral pulmonary embolism: (4) Infected hernioplasty mesh: (5) Thyroid nodule: Admission and Anticipated Discharge Date Admission Date: June 23, 2020 Supervising Physician Co-Signing Physician Notes I personally examined the patient and verified all mancuso points of history and exam, discussed case, and agree with decision making with Dr Michelle. Feeling good enough to go home. No new complaints. Discussed follow- upreferral made for Coumadin clinic. Vitals noted, in general he is awake and alert pleasant no distress. HEENT normocephalic atraumatic mucous membranes moist. Breathing unlabored no accessory muscle use good effort. Skin shows no rashes no pallor or icterus. Neuro shows no focal deficits. Peritonitis/sepsisimprovingstable for home on p.o. antibiotics Pulmonary emboliCoumadin, Coumadin clinic follow-up Otherwise as above, stable for home Subjective Feeling well this morning, was able to get up and walk around without the use of a walker last night on several laps around the unit without concerns. Feels like his strength is getting better regularly, and feels like it is easier to move around now that most of the fluid seems to be off. Has noticed that his scrotum is considerably smaller, and that his legs are reducing in size. Review of Systems Review of Systems: All systems reviewed & are unremarkable except as noted in Subjective Physical Exam Constitutional: WD/WN, vitals as above Eyes: PERRL, conjunctivae normal, anicteric sclerae Respiratory: normal respiratory effort; no respiratory distress, no labored breathing and no retractions Cardiovascular: Rate/Rhythm: regular rate and regular rhythm Vessels: normal peripheral pulses Musculoskeletal: no cyanosis or clubbing, extremities motor strength 5/5 Skin: no rashes, warm and dry Neurologic: PERRL, EOMI, accommodation nl, no face palsy, no dysarthria CN's II-XI intact bilaterally and moves all extremities Psychiatric: Orientation: alert and oriented x 3 Results & Data Results & Data ([facility]) Vital Signs (Past 12 Hours) Vital Signs Temp Pulse Pulse Resp BP Pulse Ox 07/12/20 08:00 102 H 07/12/20 07:50 37.3 C 100 H 19 117/67 95 07/12/20 03:25 36.7 C 97 H 18 133/75 95 07/12/20 00:00 92 H 07/11/20 23:12 37.2 C 86 18 112/68 94 Resident Activity Tracking Resident Involvement: Resident Care Provided Care Provided: Adult Hospital Medicine
[2020-07-12] MEDS ORDERED: WARFARIN SOD 2.5 MG TAB PO SCH (16:00)
--- NOTE | 2020-07-12 18:22 | Billing Data ---
Date of Service July 12, 2020 Coding Level of Care Code 62186 Subseq Hosp Care Lvl 2
--- NOTE | 2020-07-15 12:24 | Discharge Summary ---
Date of Service July 15, 2020 Principal Diagnosis Discharge Exam Gastrointestinal (Abdomen) Inspection/Auscultation: + abdominal surgical incision (no erythema, healing well) and + abdominal surgical drain present Percussion/Palpation: abdomen soft Discharge Data Allergies Allergy/AdvReac Type Severity Reaction Status Date / Time clavulanic acid Allergy Mild Rash Verified 06/23/20 10:09 NSAIDS (Non-Steroidal AdvReac Mild Gastrointestinal Verified 06/23/20 10:09 Anti-Inflamma Upset Consultations 06/24/20 23:30 Consult Hospitalist Routine 06/30/20 18:03 Consult Trustee Of Estate Routine 07/05/20 09:00 Consult Infectious Diseases Routine Procedures Performed Operation Date: 06/23/20 11:15 Actual Procedures p Panniculectomy with Component Separation, Explant of Infected Mesh,(Not Applicable) - Ben Zhong, s Open Recurrent Ventral Hernia Repair with Mesh(Not Applicable) - Ben Zhong DO Operation Date: 06/30/20 08:40 Actual Procedures s Inferior Vena Cava Filter Placement(Not Applicable) - Dony Mcneill MD p Exploratory Laparotomy, Reduction of Large Bowel Obstruction Partial Cecectomy, Diverting Ileostomy Creation, Abdominal Washout - Ben Zhong DO Operation Date: 07/04/20 08:30 Actual Procedures p Exploratory Laparotomy with Abdominal Washout(Not Applicable) - Ben Zhogn DO Ordered Studies 06/25/20 00:11 CT angio chest w con Urgent 06/25/20 08:21 CT angio chest PE protocol Stat 06/25/20 08:24 US venous doppler LE BI Urgent 06/30/20 08:38 CT angio abdomen pelvis w con Stat CT angio chest dissec wo/w con Stat 06/30/20 12:56 EV IVC filter placement Urgent 07/04/20 07:18 CT abd pelvis wo con Urgent CT chest diagnostic wo con Urgent Hospital Course (1) Recurrent ventral hernia: 45 y/o male with recurrent hernia and infected mesh was taken to the operating room for panniculectomy, removal of mesh and repair with component separation and biologic mesh. He was transferred to the surgical floor for postoperative care. On postop day 2 he became tachycardic and hypoxic and was found to have bilateral PEs. He was started on IV heparin. He was making fair progress over the next few days. Eliquis was started in preparation for discharge. His progress had slowed and he had increasing leukocytosis and was found to have free air on CT. He was taken back to the OR for placement of IVCF and exploratory laparotomy and had partial cecectomy and ileostomy for large bowel obstruction and cecal perforation. He was transferred to ICU and kept on broad spectrum antibiotics. Heparin was restarted on POD 1. NG was removed and he was started back on liquids on day 2. His white count was rising again and repeat CT showed collections in the pelvis and RUQ and he was taken back to the OR for abdominal washout of mostly clotted blood. He continued to improve clinically after that. He tolerated an advancing diet and was transferred to PCU. Although he was afebrile and doing well, his white count remained elevated and Mario DU was consulted. Over the next few days his white count was decreasing. He was increasing activity and diet and he was transitioned from heparin to coumadin. Intra-abdominal drains were removed, while the subQ TALISHA drains were continued. Eight days after the abdominal washout he was stable for discharge home on an additional 10 days of oral antibiotics and subQ drains to be removed in the office. Total Time Total Time Spent Total Time Spent (In Minutes): 20 Discharge Plan Discharge Items Patient Disposition: Home - Self-Care Reason For Visit: Recurrent Ventral Hernia, Yeast Infection of Skin Discharge Diagnosis: panniculectomy & ventral hernia repair abdominal washout & creation of ileostomy Pulmonary emboli Activity: Per Instructions section Lifting: No more than 10 pounds Bathing Comment: may shower; no soaking in tubs/pools Exercise/Sports: Wait until after follow-up appointment Driving/Machine Use: no driving until cleared by the surgeon Non-emergency contact: Primary Care Provider and Surgeon Call non-emergency contact if: you have any medication questions, your symptoms worsen, your pain is not controlled, your pain is worsening, your pain is concerning for you, you have a fever, your temperature is above 101.5, your wound has increased redness, your wound has increased drainage and your wound pain has increased Follow-up/Referrals: Florina Méndez MD, PhD [Pathologist] - (Follow-up in Coumadin Clinic this week [phone]) Ben Zhong, [Surgeon] - 07/25/20 9:45 am (Please call to schedule follow up in clinic within 1-2 weeks) Zaid Walker [Primary Care Provider] - 07/01/20 11:00 am Dony Mcneill MD [Physician] - (Call [phone] to schedule an appointment to discuss removal of the filter after his ileostomy is closed.) Diet: Regular Addtl Attending Provider Instructions: You were hospitalized at [facility] for a surgical procedure (ie removal of infected abdominal hernia mesh, fixation of hernia, and replacement of mesh). In the post-operative period, your heart rate increased and your oxygen saturation dropped - a cat scan of your chest was performed and initially no blood clots were seen. However, when your symptoms persisted, the cat scan was repeated and showed bilateral pulmonary emboli (blood clots in the lungs). You were immediately started on a heparin drip to thin your blood (to prevent blood clots from growing larger). Fortunately, there was no evidence of strain on your heart from the blood clots. You will need to remain on the blood thinner, Warfarin, for at least 3 months following your hospital stay. Next, a 3.1cm nodule was noted incidentally on the right side of your thyroid gland (picked up on the cat scan of your chest). We checked your thyroid function while you were in the hospital, which showed some overactivity. In the setting of acute illness, your thyroid function can be deranged - so we recommen d you have your levels rechecked by your family doctor in the next month. You should also have an ultrasound of your thyroid gland to further characterize the nodule. This can be ordered by your PCP as well. Please care for your TALISHA drains as instructed prior to discharge from the hospital. Empty drains 2-3 times daily and record output. Change your midline abdominal dressing daily with dry 4x4 gauze, covered with ABD pads, and secure with medical tape. Please continue to wear your abdominal binder. Please care for your ostomy appliance as instructed prior to discharge from the hospital, change every few days and as needed.. Your appliance size is a 2 & 3/4" wafer and pouch. Pending Studies at Discharge: No Stand-Alone Forms: My [facility] Medications and DC Order Prescriptions: New sertraline 50 mg Tablet 50 mg PO QAM 30 Days Qty: 30 RF: 0 ciprofloxacin HCl 500 mg tablet 500 mg PO BID Qty: 20 RF: 0 metronidazole [Flagyl] 500 mg tablet 500 mg PO TID Qty: 30 RF: 0 oxycodone 5 mg tablet 5 mg PO Q8H PRN (Reason: pain) Qty: 40 RF: 0 Continued ciclopirox 8 % solution 1 applic topical DAILY 28 Days Qty: 6.6 RF: 10 loratadine [Claritin] 10 mg tablet 10 mg PO DAILY PRN (Reason: allergy symptoms) RF: 0 phentermine 37.5 mg tablet 37.5 mg PO QAM RF: 0 pantoprazole 20 mg tablet,delayed release (DR/EC) 20 mg PO QAM RF: 0 magnesium 500 mg Tablet 500 mg PO HS RF: 0 L-Carnitine 500 mg Tablet 500 mg PO HS RF: 0 Discontinued sulfamethoxazole-trimethoprim 800-160 mg tablet See Rx Instructions .ROUTE .COMPLEX Qty: 56 RF: 1 No Action warfarin 2.5 mg tablet 5 mg PO DAILY RF: 0 warfarin 1 mg tablet 1 mg PO DAILY Qty: 60 RF: 0 lorazepam [Ativan] 0.5 mg tablet 0.5 mg PO BID PRN (Reason: anxiety) Qty: 20 RF: 0 Discharge Orders: Discharge Order (Routine); Ordered 07/12/20 Ordered By: Fabian Hernandez Admission Data Admit Date/Time: 06/23/20 16:13 Attending Provider: Ben Zhong Admit Provider: Ben Zhong Primary Care Provider: Zaid Walker Other Providers: Annette Hernandez ; Emmett Vanessa ; Scott Lemos ; Alize Wilson ; Otf Hernandez I. ; Kenji Bacon II ; Clotilde Hoffmann ; Matthew Chapman ; [facility],Home Healthcare ; Ortiz Reed ; [facility],Referral Center Other Interventions: Discharge Summary Assessment (RN) Last Done: 07/12/20 16:20 Coding Level of Care Code D/C Day Management <30 mins Diagnoses Recurrent ventral hernia K43.2
== END 2020-07-12 17:30 | disposition home or self-care (01) | DRG 901 ==
LOC: ASU 09:53 → 3N 16:13 → 2W 06-25 09:38 → 1E 06-30 17:53 → 2S 07-06 12:43

== ENCOUNTER 2020-10-13 06:20 | Inpatient (IN) ==
--- NOTE | 2020-10-05 14:11 | Anesthesiology Consultation ---
Date of Service October 05, 2020 Assessment & Plan (1) Encounter for pre-operative examination: - COVID screening: Per assessment on 10/05: Travel screen negative since 09/25 (Patient returned from [place] 09/25, stayed at house with less than 10 people/all family, no large gatherings, worse PPE during airplane). Patient vaccinated. Return from travel will be > 2 weeks prior to preop COVID testing. No known COVID-19 positive contacts or current COVID-19 related symptoms. Surgeon arranging preop COVID testing (scheduled 10/11; [place]). Awaiting results. - Check coags AM DOS (warfarin instructions per surgeon/prescriber/ anticoagulation clinic) - Hx glidescope intubation: Exploratory Laparotomy with Abdominal Washout (07/04/20): Grade 1 view, Glidescope #4, ETT 8 at [facility] Chart Review Chart Review: Acceptable Risk for Surgery and Patient NOT seen in Pre Admission Testing History Surgery Operation Date: 10/13/20 10:15 Proposed Procedures p Open Ileostomy Reversal - Ben Zhong, Height/Weight Height: 6 ft 2 in Weight: 120.202 kg Allergies Allergy/AdvReac Type Severity Reaction Status Date / Time clavulanic acid Allergy Mild Rash Verified 10/05/20 12:09 NSAIDS (Non-Steroidal AdvReac Mild Gastrointestinal Verified 10/05/20 12:09 Anti-Inflamma Upset Medications Home Medications Medication Instructions Recorded Confirmed Last Taken pantoprazole 20 mg tablet,delayed 20 mg PO QAM 06/15/20 10/05/20 06/23/20 07:00 release silver sulfadiazine 1 % topical 1 applic TOPICAL BID PRN #20 g 08/12/20 10/05/20 Unknown cream (Silvadene) warfarin 2.5 mg tablet See Rx Instructions PO UD #60 tab 09/09/20 10/05/20 Unknown nystatin 100,000 unit/gram topical 1 applic TOPICAL DAILY #30 g 09/12/20 10/05/20 Unknown powder sulfamethoxazole 800 1 tab PO BID 09/26/20 10/05/20 Unknown mg-trimethoprim 160 mg tablet (Bactrim DS) ciclopirox 8 % topical solution 1 applic TOPICAL DAILY PRN 10/05/20 10/05/20 Unknown sertraline 25 mg tablet (Zoloft) 25 mg PO HS 10/05/20 10/05/20 Unknown Past Medical History Medical History Anemia Arthritis Bilateral pulmonary embolism 06/2020 (post-op after ventral hernia repair), now on warfarin Chronic venous insufficiency GERD (gastroesophageal reflux disease) History of GI bleed 2016 Hx of intestinal obstruction reason for ileostomy Obesity Seasonal allergies Past Family History Family History Mother Diabetes Cancer Grandfather Heart disease Other No family history of adverse response to anesthesia Past Surgical History Surgical History H/O exploratory laparotomy Exploratory Laparotomy with Abdominal Washout (07/04/20): Grade 1 view, Glidescope #4, ETT 8 at [facility] H/O vasectomy H/O wisdom tooth extraction History of esophagogastroduodenoscopy (EGD) History of tooth extraction Hx of ventral hernia repair S/P hernia repair 2006 S/P insertion of inferior vena caval filter Inferior Vena Cava Filter Placement (Right) - 06/30/20 S/P panniculectomy Panniculectomy with Component Separation, Explant of Infected Mesh (06/2020) Open Recurrent Ventral Hernia Repair with Biologic Mesh; takedown of enterocutaneous fistula; enterolysis; partial omentectomy (06/2020) Social History Smoking Status: Never smoker Do You Dip or Chew Tobacco: No Hx Alcohol Use: Yes Alcohol type: beer alcohol intake frequency: a few times a month Hx Substance Use: No substance use type: does not use Lab Results Anesthesia Preop Results Results Anesthesia Widget: WBC 6.25 K/uL (4.8-10.8) 10/04/20 Hgb 11.6 g/dL (14.0-18.0) L 10/04/20 Hct 37.2 % (42-52) L 10/04/20 Plt 322 K/uL (130-400) 10/04/20 Na 138 mmol/L (136-145) 10/04/20 K 4.0 mmol/L (3.5-5.1) 10/04/20 Cl 111 mmol/L (98-107) H 10/04/20 CO2 26 mmol/L (21-32) 10/04/20 BUN 10 mg/dl (7-18) 10/04/20 Creat 0.79 mg/dl (0.6-1.4) 10/04/20 Glucose Level 85 mg/dl (70-99) 10/04/20 Testing Electrocardiogram Date: 06/27/20 ST at 101bpm. PRWP, consider anterior DE vs lead placement vs LVH. Possible inferior infarct. ECHO done 07/02/20was unremarkable. Chest X-Ray Date: 07/14/20 Suspected trace right pleural effusion. Slight improvement in the inspiratory effort. Improved aeration of the left lung base. Echocardiogram Date: 07/02/20 EF 60-65%. LV hyperdynamic. No RWMA. Grade I DD. RV systolic function is qualitatively normal. No significant valvular disease.
[~2020-10-13 06:20] MED LIST changes: +ENOXAPARIN INJ 40 MG/0.4 ML SYR SQ SCH
[2020-10-13] MEDS ORDERED: fentaNYL citrate 100 MCG/2 ML VIAL ONE ×3 (07:50→09:45)
[2020-10-13] MEDS ORDERED: MIDAZOLAM HCL 1 MG/ML 2ML VIAL ONE (07:50)
[2020-10-13 07:57] LABS: INR 1.1 (0.9-1.1); Partial Thromboplastin Ratio 1.1; Partial Thromboplastin Time 28.5 Seconds (21.0-31.0); Prothrombin Time 10.7 Seconds (9.0-12.0)
[2020-10-13] MEDS ORDERED: ONDANSETRON INJ 2 MG/ML 2 ML VIAL ONE (07:58)
[2020-10-13] MEDS ORDERED: ROCURONIUM BROMIDE 10 MG/ML 5 ML VIAL IV ONE ×2 (07:58→09:16)
[2020-10-13] MEDS ORDERED: DEXAMETHASONE SOD INJ 4 MG/ML VIAL ONE (07:58)
[2020-10-13] MEDS ORDERED: PROPOFOL IV EMULSION 10 MG/ML 20 ML VIAL IV ONE (07:58)
[2020-10-13] MEDS ORDERED: LIDOCAINE 2% 2 ML VIAL/AMP(20MG/ML) INFIL ONE (07:58)
[2020-10-13] MEDS ORDERED: ATROPINE SULFATE 0.1 MG/ML 10ML SYR IV PRN (07:59)
[2020-10-13] MEDS ORDERED: ONDANSETRON INJ 2 MG/ML 2 ML VIAL IV PRN (07:59)
[2020-10-13] MEDS ORDERED: ePHEDrine sulfate 50 MG/ML AMP IV PRN (07:59)
[2020-10-13] MEDS ORDERED: fentaNYL citrate 100 MCG/2 ML VIAL IV PRN (07:59)
[2020-10-13] MEDS ORDERED: HYDROmorphone INJ 1 MG/ML SYRINGE IV PRN (07:59)
--- NOTE | 2020-10-13 08:17 | History & Physical Bridge Note ---
Date of Service October 13, 2020 History & Physical Bridge Note I have examined the patient, reviewed the History & Physical and in the interval since the performance of the History & Physical I have noted the following changes of clinical significance: no changes noted reviewed ct with Dr. Mensah from radiology.... transverse colon appears patent.... will proceed with ileostomy reversal.
[2020-10-13] MEDS ORDERED: BUPIVACAINE 0.5 % 5 MG/1 ML MPF 30ML VIAL ONE (08:37)
[2020-10-13] MEDS ORDERED: EPINEPHrine INJ 1 MG/ML AMP ONE (08:37)
[2020-10-13] MEDS ORDERED: SUGAMMADEX SODIUM 200 MG/2 ML VIAL IV ONE (09:45)
--- NOTE | 2020-10-13 10:28 | Operative Report ---
PG Post Operative Report Pre & Post Diagnosis Operation Date: 10/13/20 08:25 Pre-Op Diagnosis: Ileostomy. seroma Post-Op Diagnosis: Ileostomy, seroma, adhesions I identified the patient and participated in the time-out.: Yes Procedure Operation Date: 10/13/20 08:25 Actual Procedures p Open Ileostomy Reversal(Not Applicable) ; partial small bowel resection; decortication of seroma cavity; enterolysis- Ben Zhong DO Surgeon Ben Zhong DO Refund Specialist gabrielle Hernandez Estimated Blood Loss 10 Findings Consistent with Post-Op Diagnosis Specimens none Description of Procedure After informed consent was obtained the patient was taken the operating room and placed in supine position. After successful intubation the entire abdomen was sterilely prepped and draped in usual fashion. I used a #1 silk to close the ileostomy and mucous fistula. Patient had an incisional opening at his suprapubic incision draining fluid for several weeks and on CAT scan was consistent with a persistent seroma cavity. We used suction tank truck driver as well as Lisa clamp and gauze to take down the capsule of the seroma using manual force. It measured probably 6 to 7 cm side to side and several centimeters superior to inferior. There was no purulent fluid obtained. After decorticating the entire cavity we irrigated it and placed a 10 flat Willis- Tran drain and secured it using 2-0 silk. We then walled this off with a towel and our attention turned to the ostomy reversal. 15 blade scalpel was used to make an elliptical incision around the double-barreled ileostomy. We used traction countertraction cautery to come around the stoma in 360 degrees. Eventually I was able to insert my finger through the peritoneum. We were able to completely free up the bowel. There were several inches of small bowel within the parastomal hernia as well. Once we freed up the bowel it was obvious that the small bowel was quite thickened near the stoma itself. Therefore I decided to resect this portion. 60 mm DARON brown cartridge staplers were used to transect the mucous fistula several inches distal to it. We also transected the ileostomy itself several inches proximal to it. We then used a LigaSure device to take down the mesentery. Next we used DARON brown cartridge staplers to perform a [id number] small bowel anastomosis. We use a second firing of a brown cartridge to elongate the anastomosis. Finally we used additional brown cartridges to transect the common enterotomies. 3-[address] was [address] place a crotch stitch. The mesenteric defect was closed using 2-0 Vicryl in a running fashion. We were then able to reduce this into the abdomen. We used Suzy clamps to grab the fascial edges and elevate them. #1 looped PDS was used in running fashion to close the fascial defect. Soft tissue was then thoroughly irrigated. Deep tissue was closed using 2-0 Vicryl. Skin was closed using skin matthew over top of 1/2 inch Guthrie drain. Silver dressing was applied as well as gauze and tape. The patient was awakened extubated and transferred to recovery in stable condition. My physician event sales assistant was present for the entire case. He was instrumental in exposure throughout my dissection as well as assisting with the anastomosis wound closure and dressing placement. I attest to the content of the Intraoperative Record and any orders documented therein. Any exceptions are noted below.
[2020-10-13] MEDS ORDERED: SODIUM CHLORIDE 0.9% 1000ML 1,000 ML IV SCH (11:38)
[2020-10-13] MEDS ORDERED: HYDROmorphone INJ 0.5 MG/0.5 ML SYR IV PRN (11:38)
[2020-10-13] MEDS ORDERED: oxyCODONE/ACETAMINOPHEN 5mg/325mg TAB PO PRN ×2 (11:38)
[2020-10-13] MEDS ORDERED: KETOROLAC 30 MG/ML VIAL IV PRN (11:38)
--- NOTE | 2020-10-13 12:22 | Anesthesiology Progress Note ---
Date of Service October 13, 2020 Anesthesia Post Procedure Vital Signs Vital Signs: Temp Pulse Pulse Resp BP BP Pulse Ox 10/13/20 11:30 36.9 C 76 16 145/85 H 10/13/20 11:25 36.1 C L 73 16 140/91 97 10/13/20 11:10 36.0 C L 71 14 141/88 H 96 10/13/20 11:00 36.0 C L 70 14 141/88 H 95 10/13/20 10:50 76 15 140/84 93 10/13/20 10:40 74 14 144/88 H 92 10/13/20 10:30 78 18 146/88 H 94 10/13/20 10:20 75 14 147/95 H 100 10/13/20 10:11 36.6 C 79 16 148/91 H 100 10/13/20 06:35 36.9 C 78 20 148/82 H 97 Pain Intensity Abdomen: Pain Intensity: 4 Transfer of Care Handoff Completed per policy Notes Mental Status: alert / awake / arousable and participated in evaluation Patient Amnestic to Procedure: Yes Nausea / Vomiting: adequately controlled Pain: adequately controlled Airway Patency, RR, SpO2: stable & adequate BP & HR: stable & adequate Hydration State: stable & adequate Anesthetic Complications: no major complications apparent and Pt Satisfied with anesthetic care
[2020-10-13] MEDS: ONDANSETRON INJ 2 MG/ML 2 ML VIAL IV PRN ×2 (15:49→20:28)
[2020-10-13] MEDS: CLINDAMYCIN 900 MG in DEXTROSE 5% 50 ML IV SCH ×2 (16:29→23:55)
[2020-10-13] MEDS: HYDROmorphone INJ 0.5 MG/0.5 ML SYR IV PRN (20:37)
[2020-10-13] MEDS: SERTRALINE HCL 50 MG TABLET PO SCH (22:12)
[2020-10-13] MEDS: LACTATED RINGER'S 1,000 ML IV SCH (22:12)
[2020-10-14] MEDS: HYDROmorphone INJ 0.5 MG/0.5 ML SYR IV PRN ×3 (00:17→19:57)
[2020-10-14] MEDS: ONDANSETRON INJ 2 MG/ML 2 ML VIAL IV PRN ×3 (00:17→07:55)
[2020-10-14 06:49] LABS: Hematocrit (blood only) 27.1 % (42-52); Hemoglobin 8.5 g/dL (14.0-18.0); Immature Granulocytes # (auto) 0.03 K/uL (0.00-0.02); Immature Granulocytes % (auto) 0.2 %; Lymphocytes # (auto) 0.96 K/uL (1.2-3.4); Lymphocytes % (auto) 6.6 %; Mean Corpuscular Hemoglobin 22.8 pg (25-34); Mean Corpuscular Hgb Conc 31.4 g/dL (32-36); Mean Corpuscular Volume 72.8 fL (80-100); Mean Platelet Volume 9.9 fL (7.4-10.4); Monocytes # (auto) 1.63 K/uL (0.11-0.59); Monocytes % (auto) 11.2 %; Neutrophils # (auto) 11.97 K/uL (1.4-6.5); Platelet Count 438 K/uL (130-400); RDW Coefficient of Variation 15.7 % (11.5-14.5); RDW Standard Deviation 41.8 fL (36.4-46.3); Red Blood Count 3.72 M/uL (4.7-6.1); White Blood Count 14.59 K/uL (4.8-10.8)
[2020-10-14] MEDS: CLINDAMYCIN 900 MG in DEXTROSE 5% 50 ML IV SCH ×2 (07:55→16:31)
--- NOTE | 2020-10-14 08:45 | Surgery Progress Note ---
Date of Service October 14, 2020 Assessment & Plan (1) Status post reversal of ileostomy: Plan: pod 1 doing as expected will add phenergan to nausea regiment will initiate coumadin 7.5 x 2 days then go to 5 continue lovenox stay on clears for now Admission and Anticipated Discharge Date Admission Date: October 13, 2020 Subjective pt doing ok. + n/v x 3. also has had 2 bm's ( bloody). pain control adequate. Physical Exam Physical Exam: alert. nad abd: soft. nd. TALISHA scant serous. Results & Data ([facility]) Vital Signs (Past 12 Hours) Vital Signs Temp Pulse Resp BP Pulse Ox 10/14/20 07:32 36.6 C 98 H 18 121/85 94 10/14/20 03:58 36.7 C 100 H 18 112/74 97 10/13/20 22:48 37.0 C 107 H 16 110/78 97 PG Care Time/CCT Total # of Minutes Spent Total Time Spent with Patient: Total time spent is greater than 50% in coordination of care (as documented) at patient's floor/unit and/or counseling patient: Coding Level of Care Code None Diagnoses Status post reversal of ileostomy Z98.890
[2020-10-14] MEDS: ENOXAPARIN INJ 40 MG/0.4 ML SYR SQ SCH (08:53)
[2020-10-14] MEDS: PANTOprazole 40 MG TAB PO SCH (08:53)
[2020-10-14] MEDS: LACTATED RINGER'S 1,000 ML IV SCH ×3 (12:08→21:32)
[2020-10-14] MEDS: PROMETHAZINE HCL 25 MG in SODIUM CHLORIDE 0.9% 50 ML IV PRN ×2 (12:14→19:51)
[2020-10-14] MEDS ORDERED: WARFARIN SOD 5 MG TAB PO ONE (16:00)
[2020-10-14] MEDS: WARFARIN SOD 7.5 MG TAB PO SCH (16:31)
[2020-10-14] MEDS ORDERED: SODIUM CHLORIDE 0.9% 1000ML 1,000 ML IV ONE (20:18)
[2020-10-14] MEDS: SERTRALINE HCL 50 MG TABLET PO SCH (20:32)
[2020-10-15] MEDS: CLINDAMYCIN 900 MG in DEXTROSE 5% 50 ML IV SCH ×3 (00:35→15:48)
[2020-10-15] MEDS: LACTATED RINGER'S 1,000 ML IV SCH ×3 (04:44→19:12)
--- NOTE | 2020-10-15 06:13 | Surgery Progress Note ---
Date of Service October 15, 2020 Assessment & Plan (1) Status post reversal of ileostomy: Plan: Postop day #2 reversal of ileostomy. Continue analgesics Continue antiemetics Patient is currently on clear liquids which we will maintain until we are certain his nausea and vomiting have resolved and he has improved bowel function Patient has a history of PE and he is being anticoagulated with Coumadin 7.5 mg daily which was started yesterday and he will receive today. We will await his INR and consideration will be given to decreasing his Coumadin to 5 mg daily. We will maintain the patient on Lovenox until his INR is therapeutic. Increase mobilization as able as above. still with n/v. pain manageable. d/w nursing..if n/v persists/worsens will place ngt clears only for now. coumadin restarted. continue lovenox no sign of active bleeding. anemia of multiple causes ( acute blood loss, dilutional).... will monitor h/h Admission and Anticipated Discharge Date Admission Date: October 13, 2020 Subjective Patient is resting comfortably in bed. He said he did suffer from some postoperative nausea and vomiting. He notes his most recent emesis was yesterday and did not have any last night, however he does continue to feel nauseous at times. He notes he is having some loose bowel movements. He notes he is voiding without difficulty. He admits that he has not done much in the way of ambulation since his surgery. At the present time his pain is well controlled. He denies any shortness of breath. He denies any fevers, shakes, chills Physical Exam Gastrointestinal (Abdomen): Abdomen is slightly distended. Bowel sounds are hypoactive to absent. There is pain with palpation over patient surgical incision. Patient's incision appears clean and has a [place] drain in place. The TALISHA drain is also in place and has drained minimal serous drainage with 15 cc over the past 24 hours and 0 cc over the last shift. Results & Data ([facility]) Vital Signs (Past 12 Hours) Vital Signs Temp Pulse Resp BP Pulse Ox 10/14/20 23:40 36.7 C 108 H 17 150/93 H 96 PG Care Time/CCT Total # of Minutes Spent Total Time Spent with Patient: Total time spent is greater than 50% in coordination of care (as documented) at patient's floor/unit and/or counseling patient: Coding Level of Care Code None Diagnoses Status post reversal of ileostomy Z98.890
[2020-10-15 06:24] LABS: Basophils # (auto) 0.01 K/uL (0-0.2); Basophils % (auto) 0.2 %; Eosinophils # (auto) 0.01 K/uL (0-0.5); Eosinophils % (auto) 0.2 %; Hematocrit (blood only) 22.9 % (42-52); Hemoglobin 7.2 g/dL (14.0-18.0); Immature Granulocytes # (auto) 0.01 K/uL (0.00-0.02); Immature Granulocytes % (auto) 0.2 %; Lymphocytes # (auto) 0.75 K/uL (1.2-3.4); Lymphocytes % (auto) 11.7 %; Mean Corpuscular Hemoglobin 22.9 pg (25-34); Mean Corpuscular Hgb Conc 31.4 g/dL (32-36); Mean Corpuscular Volume 72.9 fL (80-100); Mean Platelet Volume 9.3 fL (7.4-10.4); Monocytes # (auto) 1.21 K/uL (0.11-0.59); Monocytes % (auto) 18.9 %; Neutrophils # (auto) 4.41 K/uL (1.4-6.5); Neutrophils % (auto) 68.8 %; Platelet Count 332 K/uL (130-400); RDW Coefficient of Variation 16.6 % (11.5-14.5); RDW Standard Deviation 43.6 fL (36.4-46.3); Red Blood Count 3.14 M/uL (4.7-6.1)
[2020-10-15 06:31] LABS: INR 1.4 (0.9-1.1); Prothrombin Time 13.5 Seconds (9.0-12.0)
[2020-10-15] MEDS: PROMETHAZINE HCL 25 MG in SODIUM CHLORIDE 0.9% 50 ML IV PRN ×3 (06:44→23:54)
[2020-10-15 06:48] LABS: Polychromasia 1+
[2020-10-15] MEDS: ENOXAPARIN INJ 40 MG/0.4 ML SYR SQ SCH (08:45)
[2020-10-15] MEDS: PANTOprazole 40 MG TAB PO SCH ×2 (08:45→21:47)
[2020-10-15] MEDS: HYDROmorphone INJ 0.5 MG/0.5 ML SYR IV PRN ×5 (11:46→23:41)
[2020-10-15] MEDS: WARFARIN SOD 7.5 MG TAB PO SCH (15:45)
[2020-10-15] MEDS ORDERED: WARFARIN SOD 2.5 MG TAB PO SCH (16:00)
[2020-10-15] MEDS: ONDANSETRON INJ 2 MG/ML 2 ML VIAL IV PRN (21:22)
[2020-10-15] MEDS: SERTRALINE HCL 50 MG TABLET PO SCH (21:47)
[2020-10-16] MEDS: CLINDAMYCIN 900 MG in DEXTROSE 5% 50 ML IV SCH ×4 (00:17→23:34)
[2020-10-16] MEDS: HYDROmorphone INJ 0.5 MG/0.5 ML SYR IV PRN ×7 (02:22→23:35)
[2020-10-16] MEDS: LACTATED RINGER'S 1,000 ML IV SCH ×4 (02:22→23:34)
[2020-10-16] MEDS: ONDANSETRON INJ 2 MG/ML 2 ML VIAL IV PRN (02:22)
[2020-10-16 06:14] LABS: INR 3.6 (0.9-1.1); Prothrombin Time 32.7 Seconds (9.0-12.0)
--- NOTE | 2020-10-16 06:17 | Surgery Progress Note ---
Date of Service October 16, 2020 Assessment & Plan (1) Status post reversal of ileostomy: Plan: Postop day #3 reversal of ileostomy. Continue analgesics Continue antiemetics Maintain patient on clear liquids until his abdominal exam has improved Continue anticoagulation with Coumadin due to history of pulmonary emboli. We will maintain the patient on Lovenox until his INR is therapeutic. His INR this morning is pending Continue mobilization as able The patient is noted to have anemia on postoperative labs. We will continue to follow serial labs. as above. continues to get mild nausea and hiccups. kub c/w ileus ( not unexpected)....in light of his symptoms will place NGT. h/h stable but if drops any lower will give 1 unit of PRBC's.... Admission and Anticipated Discharge Date Admission Date: October 13, 2020 Subjective Patient notes that overnight he has not had any emesis however he does have some hiccups as well as abdominal bloating. He notes his pain is well controlled. He denies any shortness of breath. He denies any fevers, shakes, chills. He says that overnight he has not had any further bowel movements Physical Exam Gastrointestinal (Abdomen): Abdomen is noted to be slightly distended. There is some pain with palpation near her surgical incisions. There is no rebound tenderness or guarding. Incision is clean and dry with a Truman drain in place. A TALISHA drain is in place and has drained 10 cc over the past 24 hours and 10 cc over the last shift. Results & Data ([facility]) Vital Signs (Past 12 Hours) Vital Signs Temp Pulse Resp BP Pulse Ox 10/15/20 21:51 36.4 C L 105 H 17 148/88 H 98 PG Care Time/CCT Total # of Minutes Spent Total Time Spent with Patient: Total time spent is greater than 50% in coordination of care (as documented) at patient's floor/unit and/or counseling patient: Coding Level of Care Code None Diagnoses Status post reversal of ileostomy Z98.890
[2020-10-16 06:20] LABS: Hematocrit (blood only) 22.2 % (42-52); Hemoglobin 6.9 g/dL (14.0-18.0); Mean Corpuscular Hemoglobin 23.1 pg (25-34); Mean Corpuscular Hgb Conc 31.1 g/dL (32-36); Mean Corpuscular Volume 74.2 fL (80-100); Mean Platelet Volume 9.1 fL (7.4-10.4); Nucleated RBC # (auto) 0.06 K/uL (0-0); Nucleated RBC % (auto) 1.2 %; Platelet Count 358 K/uL (130-400); RDW Coefficient of Variation 16.9 % (11.5-14.5); RDW Standard Deviation 45.5 fL (36.4-46.3); Red Blood Count 2.99 M/uL (4.7-6.1); White Blood Count 4.94 K/uL (4.8-10.8)
[2020-10-16 07:14] LABS: Basophils # (auto) 0.01 K/uL (0-0.2); Basophils % (auto) 0.2 %; Eosinophils # (auto) 0.03 K/uL (0-0.5); Eosinophils % (auto) 0.6 %; Immature Granulocytes # (auto) 0.02 K/uL (0.00-0.02); Immature Granulocytes % (auto) 0.4 %; Lymphocytes # (auto) 0.81 K/uL (1.2-3.4); Lymphocytes % (auto) 16.4 %; Monocytes # (auto) 1.41 K/uL (0.11-0.59); Monocytes % (auto) 28.5 %; Neutrophils # (auto) 2.66 K/uL (1.4-6.5); Neutrophils % (auto) 53.9 %; Polychromasia 1+
[2020-10-16] MEDS: PANTOprazole 40 MG TAB PO SCH (07:53)
[2020-10-16] MEDS: PROMETHAZINE HCL 25 MG in SODIUM CHLORIDE 0.9% 50 ML IV PRN (10:23)
--- NOTE | 2020-10-16 11:07 | XRay Report ---
KUB HISTORY: Postop. ileus COMPARISON: Abdomen and pelvis CT 10/07/2020. FINDINGS: Skin matthew within the right mid abdominal wall with associated surgical drain. There is a lso a percutaneous drain within the pelvis. An IVC filter is noted. There are suture material within the right midabdomen. Distended gas-filled loops of small bowel measuring up to 6.2 cm in diameter. S mall amount of gas within the colon is noted. An IVC filter is noted. No renal calculi. No ureteral calculi. No pneumoperitoneum or pneumatosis. IMPRESSION: Distended gas-filled loops of small bowel seen throughout the abdomen. Given the recent postoperative changes, this favors an ileus. However, a small bowel obstruction could also have a similar appearan ce. ACT 112: Negative or not required by law. Electronically signed by: Ruddy Crowell M.D. 10/16/2020 11:06 AM
[2020-10-16] MEDS ORDERED: SODIUM CHLORIDE 0.9% 1000ML 1,000 ML IV ONE (14:39)
--- NOTE | 2020-10-16 14:56 | XRay Report ---
KUB HISTORY: Verify NG tube placement COMPARISON: KUB 10/16/2020. FINDINGS: Nasogastric tube terminates in the fundus the stomach. Dilated gas-filled loops of small sally wel have slightly improved. There are low lung volumes with bibasilar subsegmental atelectasis. No r enal calculi. No ureteral calculi. No pneumoperitoneum or pneumatosis. IMPRESSION: 1. Nasogastric tube terminates in the stomach. 2. Small bowel obstruction pattern has slightly improved. ACT 112: Negative or not required by law. Electronically signed by: Ruddy Crowell M.D. 10/16/2020 2:54 PM
[2020-10-16] MEDS ORDERED: WARFARIN SOD 5 MG TAB PO SCH (16:00)
[2020-10-16] MEDS: SERTRALINE HCL 50 MG TABLET PO SCH (19:42)
[2020-10-17] MEDS: HYDROmorphone INJ 0.5 MG/0.5 ML SYR IV PRN ×4 (01:52→14:41)
[2020-10-17] MEDS: PROMETHAZINE HCL 25 MG in SODIUM CHLORIDE 0.9% 50 ML IV PRN (05:56)
[2020-10-17] MEDS: LACTATED RINGER'S 1,000 ML IV SCH ×2 (05:57→14:48)
[2020-10-17 06:51] LABS: Hemoglobin 6.1 g/dL (14.0-18.0)
[2020-10-17] MEDS ORDERED: SODIUM CHLORIDE 0.9% 250 ML IV PRN ×4 (06:58→23:18)
[2020-10-17 07:02] LABS: Prothrombin Time 50.1 Seconds (9.0-12.0)
[2020-10-17 07:06] LABS: INR 5.7 (0.9-1.1)
[2020-10-17] MEDS: CLINDAMYCIN 900 MG in DEXTROSE 5% 50 ML IV SCH ×3 (08:22→23:21)
--- NOTE | 2020-10-17 08:51 | Surgery Progress Note ---
Date of Service October 17, 2020 Assessment & Plan (1) Status post reversal of ileostomy: Plan: pod 4 bowel fx improving...keep ngt another 24 hours will transfuse 2 units of PRBC's. continue to hold coumadin. will hold lovenox too and give low dose vit K ambulate kub this am pending. (2) Anticoagulant long-term use: (3) Acute blood loss anemia: (4) Ileus following gastrointestinal surgery: Admission and Anticipated Discharge Date Admission Date: October 13, 2020 Subjective pt doing ok. feeling better since NGT placed. still with mild hiccups. +multiple bloody bm's. no complaints of abdominal pain other than tenderness with hiccups. Physical Exam Physical Exam: alert. nad abd: soft. incision looks good. TALISHA serous. nt. Results & Data ([facility]) Vital Signs (Past 12 Hours) Vital Signs Temp Pulse Pulse Resp BP Pulse Ox 10/17/20 07:38 37.1 C 100 H 18 132/75 92 10/16/20 23:14 36.8 C 111 H 18 159/87 H 94 PG Care Time/CCT Total # of Minutes Spent Total Time Spent with Patient: Total time spent is greater than 50% in coordination of care (as documented) at patient's floor/unit and/or counseling patient: Coding Level of Care Code None Diagnoses Status post reversal of ileostomy Z98.890 Anticoagulant long-term use Z79.01 Acute blood loss anemia D62 Ileus following gastrointestinal surgery K91.89; K56.7
[2020-10-17] MEDS ORDERED: PHYTONADIONE 2.5 MG in SODIUM CHLORIDE 0.9% 50 ML IV ONE (09:00)
--- NOTE | 2020-10-17 09:01 | XRay Report ---
KUB CLINICAL HISTORY: Ileus. FINDINGS: 4 AP supine abdominal radiographs are compared to study dated 10/16/2020 and correlated with abdominal CT dated 10/07/2020. A surgical drain projects over the pelvis. Midline skin clips projecti ng the right upper quadrant. IVC filter is in place. An enteric tube projects below the diaphragm ove r the proximal stomach. There is persistent gaseous distention of the small bowel and colon. Small sally wel loops measure up to 5 cm. No evidence of intraperitoneal free air is seen on these supine images. There are no abnormal abdominal calcifications. The bony structures appear intact. IMPRESSION: 1. Postoperative changes as above. 2. There is persistent gaseous distention of the small bowel and colon as above favoring ileus. Clini linda correlation will be required. Electronically signed by: Norman Mensah M.D. 10/17/2020 9:00 AM
[2020-10-17] MEDS: FAMOTIDINE 20 MG in SYRINGE 3 ML IV SCH ×2 (10:25→21:40)
[2020-10-17] MEDS: D5W AND 1/2NSS + 20MEQ KCL 20 MEQ/1,000 ML BAG IV SCH (16:37)
[2020-10-17 17:37] LABS: Hematocrit (blood only) 21.3 % (42-52); Hemoglobin 6.8 g/dL (14.0-18.0)
[2020-10-17 18:43] LABS: INR 1.5 (0.9-1.1); Prothrombin Time 15.1 Seconds (9.0-12.0)
[2020-10-17] MEDS: SERTRALINE HCL 50 MG TABLET PO SCH (21:40)
[2020-10-17 23:05] LABS: Hematocrit (blood only) 22.9 % (42-52); Hemoglobin 7.3 g/dL (14.0-18.0)
[2020-10-17] MEDS ORDERED: FUROSEMIDE 20 MG in SYRINGE 0 ML IV ONE (23:30)
[2020-10-18] MEDS: D5W AND 1/2NSS + 20MEQ KCL 20 MEQ/1,000 ML BAG IV SCH ×3 (04:55→16:56)
[2020-10-18] MEDS: HYDROmorphone INJ 0.5 MG/0.5 ML SYR IV PRN (05:34)
--- NOTE | 2020-10-18 05:38 | Communication Note ---
Date of Service: October 18, 2020 I was called by RN last evening concerned that patient had a large bowel movement with dark blood. Patient's chart was reviewed and he was having bloody stools earlier today. His INR was supratherapeutic and was ultimately reversed and patient received transfusion of a total of 3 units of packed red blood cells earlier today. Following third unit of blood his hemoglobin had only risen from 6.1 to 7.3. Therefore patient was transfused an additional unit of packed red blood cells. Patient did receive a total of 4 units of blood I elected to give him 20 mg of IV Lasix. Did visit with the patient earlier this morning and he was able to ambulate to the restroom without any difficulty and says that he felt steady on his feet. He denies any lightheadedness or dizziness. He denies any chest pain or shortness of breath. I discussed with RN at bedside and she has patient has remained hemodynamically stable throughout the night. Patient has repeat labs scheduled for this morning which are pending.
[2020-10-18 06:16] LABS: Basophils # (auto) 0.02 K/uL (0-0.2); Basophils % (auto) 0.3 %; Eosinophils # (auto) 0.11 K/uL (0-0.5); Eosinophils % (auto) 1.6 %; Hematocrit (blood only) 26.6 % (42-52); Hemoglobin 8.4 g/dL (14.0-18.0); Immature Granulocytes # (auto) 0.05 K/uL (0.00-0.02); Immature Granulocytes % (auto) 0.7 %; Lymphocytes # (auto) 1.38 K/uL (1.2-3.4); Lymphocytes % (auto) 19.7 %; Mean Corpuscular Hemoglobin 24.3 pg (25-34); Mean Corpuscular Hgb Conc 31.6 g/dL (32-36); Mean Corpuscular Volume 76.9 fL (80-100); Mean Platelet Volume 9.2 fL (7.4-10.4); Monocytes # (auto) 1.32 K/uL (0.11-0.59); Monocytes % (auto) 18.9 %; Neutrophils # (auto) 4.11 K/uL (1.4-6.5); Neutrophils % (auto) 58.8 %; Nucleated RBC # (auto) 0.22 K/uL (0-0); Nucleated RBC % (auto) 3.1 %; Platelet Count 331 K/uL (130-400); RDW Coefficient of Variation 18.6 % (11.5-14.5); RDW Standard Deviation 52.7 fL (36.4-46.3); Red Blood Count 3.46 M/uL (4.7-6.1); White Blood Count 6.99 K/uL (4.8-10.8)
[2020-10-18 06:43] LABS: Polychromasia 1+
[2020-10-18 06:51] LABS: BUN Creatinine Ratio 18.3 (10-20); Calcium 7.7 mg/dl (8.5-10.1); Creatinine Clr Calc Pharmacy 199.9 ml/min; Est GFR (African American) 135.1 ml/min; Est GFR (Non-African American) 116.6 ml/min; Potassium 3.1 mmol/L (3.5-5.1)
[2020-10-18 07:03] LABS: INR 1.3 (0.9-1.1); Prothrombin Time 12.5 Seconds (9.0-12.0)
--- NOTE | 2020-10-18 08:30 | Surgery Progress Note ---
Date of Service October 18, 2020 Assessment & Plan (1) Ileus following gastrointestinal surgery: Plan: doing better. increased flatus. KUB this am pending .....keep ngt for now will start ppn inr corrected...gi bleeding appears to be slowing. HG 8.5 hopefully we are turning the corner on things. hopefully can pull ngt and start diet soon. (2) Acute blood loss anemia: Admission and Anticipated Discharge Date Admission Date: October 13, 2020 Subjective pt doing ok..... overall doing ok. no new complaints. hiccups improved. minimal pain. stilll having some loose bms...less blood in it this am. Physical Exam Physical Exam: alert. nad abd: soft. incision looks good. no redness or sign of infection. Results & Data ([facility]) Vital Signs (Past 12 Hours) Vital Signs Temp Pulse Pulse Resp BP BP Pulse Ox 10/18/20 07:00 36.9 C 90 18 136/79 95 10/18/20 02:36 36.8 C 92 H 16 131/75 100 10/18/20 02:00 37.1 C 96 H 16 139/75 95 10/18/20 01:30 37.1 C 85 16 133/74 98 10/18/20 01:00 37.0 C 84 18 135/73 99 10/18/20 00:45 37.0 C 90 16 142/79 H 100 10/18/20 00:27 37.2 C 89 16 131/68 98 10/17/20 23:17 37.2 C 96 H 18 133/71 93 10/17/20 21:16 37.2 C 90 16 134/62 98 10/17/20 20:25 37.2 C 93 H 16 129/69 92 PG Care Time/CCT Total # of Minutes Spent Total Time Spent with Patient: Total time spent is greater than 50% in coordination of care (as documented) at patient's floor/unit and/or counseling patient: Coding Level of Care Code None Diagnoses Ileus following gastrointestinal surgery K91.89; K56.7 Acute blood loss anemia D62
[2020-10-18] MEDS: CLINDAMYCIN 900 MG in DEXTROSE 5% 50 ML IV SCH ×2 (08:36→15:17)
[2020-10-18] MEDS: FAMOTIDINE 20 MG in SYRINGE 3 ML IV SCH ×2 (08:36→20:36)
[2020-10-18] MEDS ORDERED: TPN/PPN CONSULT PHARMACY PRN (08:52)
[2020-10-18] MEDS ORDERED: DEXTROSE 10% 1,000 ML IV PRN (09:41)
[2020-10-18] MEDS ORDERED: TPN/PPN CONSULT PHARMACY STA (09:41)
[2020-10-18 10:21] LABS: Magnesium 1.9 mg/dl (1.8-2.4); Phosphorus 2.9 mg/dl (2.5-4.9)
[2020-10-18] MEDS: POTASSIUM CHLORIDE / WTR 10 MEQ/100 ML PLCT IV SCH ×4 (11:25→15:44)
--- NOTE | 2020-10-18 13:14 | XRay Report ---
XR KUB/Abdomen 1 view CLINICAL HISTORY: ileus COMPARISON STUDY: October 17, 2020 FINDINGS: Gaseous dilatation of the multiple loops of large and small bowel are again seen, small bowel dilatat ion up to 6.0 cm which is worsening since recent prior study when it was at dilated up to 5.0 cm. Gaseous dilatation of the colonic loops is measuring up to 8.3 cm which is slightly worsened since pr ior study when it was measured up to 7.5 cm. Small amount of nondilated gas filled loops of bowel is seen within pelvic region. Redemonstration of the distal aspect of the gastric tube with tip and fenestrated side-port below lev el of hemidiaphragm. Stable position of IVC filter. Skin matthew and surgical drainage are in stable position. IMPRESSION: 1. Mild interval worsening of gaseous dilatation of the small and large bowel. Few nondilated gas-fi lled loops of large bowel are seen within pelvic region which were not seen on prior study. Different ial diagnosis include worsened of the ileus versus bowel obstruction. Short-term follow-up is recomme nded. 2. Postoperative changes as detailed above. ACT 112: Negative or not required by law. The above report was generated using voice recognition software. It may contain grammatical, syntax o r spelling errors. Electronically signed by: Sima Trivedi DO 10/18/2020 1:13 PM
[2020-10-18] MEDS ORDERED: Custom Peripheral Pn 3,000 ML in TPN BAG 0 ML IV SCH (16:00)
[2020-10-18] MEDS ORDERED: Nursing to Pharmacy Communication SCH (16:00)
[2020-10-18] MEDS: SERTRALINE HCL 50 MG TABLET PO SCH (20:36)
[2020-10-19] MEDS: CLINDAMYCIN 900 MG in DEXTROSE 5% 50 ML IV SCH ×4 (00:08→23:33)
[2020-10-19 06:05] LABS: Basophils # (auto) 0.02 K/uL (0-0.2); Basophils % (auto) 0.2 %; Eosinophils # (auto) 0.24 K/uL (0-0.5); Eosinophils % (auto) 2.6 %; Hematocrit (blood only) 24.2 % (42-52); Hemoglobin 7.7 g/dL (14.0-18.0); Immature Granulocytes # (auto) 0.11 K/uL (0.00-0.02); Immature Granulocytes % (auto) 1.2 %; Lymphocytes # (auto) 2.09 K/uL (1.2-3.4); Lymphocytes % (auto) 22.6 %; Mean Corpuscular Hemoglobin 24.3 pg (25-34); Mean Corpuscular Hgb Conc 31.8 g/dL (32-36); Mean Corpuscular Volume 76.3 fL (80-100); Mean Platelet Volume 9.2 fL (7.4-10.4); Monocytes # (auto) 1.27 K/uL (0.11-0.59); Monocytes % (auto) 13.7 %; Neutrophils # (auto) 5.51 K/uL (1.4-6.5); Neutrophils % (auto) 59.7 %; Nucleated RBC # (auto) 0.08 K/uL (0-0); Nucleated RBC % (auto) 0.9 %; Platelet Count 288 K/uL (130-400); RDW Coefficient of Variation 18.5 % (11.5-14.5); RDW Standard Deviation 52.4 fL (36.4-46.3); Red Blood Count 3.17 M/uL (4.7-6.1); White Blood Count 9.24 K/uL (4.8-10.8)
[2020-10-19 06:21] LABS: INR 1.3 (0.9-1.1); Prothrombin Time 13.1 Seconds (9.0-12.0)
[2020-10-19 06:35] LABS: BUN Creatinine Ratio 17.1 (10-20); Calcium 7.6 mg/dl (8.5-10.1); Creatinine Clr Calc Pharmacy 216.9 ml/min; Est GFR (African American) 139.7 ml/min; Est GFR (Non-African American) 120.6 ml/min; Magnesium 1.8 mg/dl (1.8-2.4); Phosphorus 3.4 mg/dl (2.5-4.9); Potassium 3.2 mmol/L (3.5-5.1)
[2020-10-19 06:52] LABS: RBC Morphology Unremarkable
--- NOTE | 2020-10-19 08:57 | Surgery Progress Note ---
Date of Service October 19, 2020 Assessment & Plan (1) Ileus following gastrointestinal surgery: Plan: will perform sbft...if contrast reaches colon will try pulling ngt and trying clears. will monitor H/H. clinically not actively bleeding. INR corrected. I want to continue to hold anticoagulation until H/H stabilizes. has IVC filter Admission and Anticipated Discharge Date Admission Date: October 13, 2020 Subjective feeling ok. main c/o is ngt discomfort. continues to have loose bm's mixed with gas and some old blood. Physical Exam Physical Exam: alert. nad abd: soft. incisions look good. TALISHA serous. scant. Results & Data ([facility]) Vital Signs (Past 12 Hours) Vital Signs Temp Pulse Resp BP BP Pulse Ox 10/19/20 07:14 37.0 C 98 H 18 145/74 H 94 10/18/20 23:25 37.2 C 84 18 127/74 94 PG Care Time/CCT Total # of Minutes Spent Total Time Spent with Patient: Total time spent is greater than 50% in coordination of care (as documented) at patient's floor/unit and/or counseling patient: Coding Level of Care Code None Diagnoses Ileus following gastrointestinal surgery K91.89; K56.7
[2020-10-19] MEDS: FAMOTIDINE 20 MG in SYRINGE 3 ML IV SCH ×2 (09:53→22:21)
[2020-10-19 10:04] LABS: Bilirubin,Total 0.5 mg/dl (0.2-1)
[2020-10-19] MEDS: POTASSIUM CHLORIDE / WTR 10 MEQ/100 ML PLCT IV SCH ×4 (10:15→14:12)
[2020-10-19] MEDS ORDERED: Custom Peripheral Pn 3,000 ML in TPN BAG 0 ML IV SCH (16:00)
--- NOTE | 2020-10-19 16:15 | Fluoroscopy Report ---
[place] small bowel follow through CLINICAL HISTORY: sbo vs ileus. COMPARISON STUDY: None. Correlation is made KUB performed on October 18, 2020 FLUOROSCOPY TIME: 0.3 minutes. NUMBER OF FLUOROSCOPIC IMAGES: 13 FINDINGS: [employer] view before administering oral contrast shows few gas-filled nondilated loops of small and larg e bowel with significant interval improvement since prior KUB performed yesterday. IVC filter and surgical sutures and drainage are again seen. After oral contrast administration multiple loops of small bowel are normally opacified. Opacificatio n of the colonic loop as well as loops of large bowel within pelvic region are seen. Interval improve ment of small bowel dilatation which measured up to 4.2 cm in diameter (was measured up to 6.0 cm on prior study) IMPRESSION: No evidence of bowel obstruction. Interval improvement of bowel dilatation when compared to KUB performed yesterday. ACT 112: Negative or not required by law. The above report was generated using voice recognition software. It may contain grammatical, syntax o r spelling errors. Electronically signed by: Sima Trivedi DO 10/19/2020 4:14 PM
[2020-10-19] MEDS: SERTRALINE HCL 50 MG TABLET PO SCH (22:20)
[2020-10-20 06:31] LABS: Basophils # (auto) 0.02 K/uL (0-0.2); Basophils % (auto) 0.2 %; Eosinophils # (auto) 0.48 K/uL (0-0.5); Eosinophils % (auto) 4.6 %; Hematocrit (blood only) 25.3 % (42-52); Hemoglobin 7.9 g/dL (14.0-18.0); Immature Granulocytes # (auto) 0.21 K/uL (0.00-0.02); Lymphocytes # (auto) 2.41 K/uL (1.2-3.4); Lymphocytes % (auto) 22.9 %; Mean Corpuscular Hemoglobin 24.2 pg (25-34); Mean Corpuscular Hgb Conc 31.2 g/dL (32-36); Mean Corpuscular Volume 77.4 fL (80-100); Mean Platelet Volume 9.3 fL (7.4-10.4); Monocytes # (auto) 1.32 K/uL (0.11-0.59); Monocytes % (auto) 12.5 %; Neutrophils # (auto) 6.08 K/uL (1.4-6.5); Neutrophils % (auto) 57.8 %; Nucleated RBC # (auto) 0.06 K/uL (0-0); Nucleated RBC % (auto) 0.6 %; Platelet Count 297 K/uL (130-400); RDW Coefficient of Variation 18.8 % (11.5-14.5); RDW Standard Deviation 53.3 fL (36.4-46.3); Red Blood Count 3.27 M/uL (4.7-6.1); White Blood Count 10.52 K/uL (4.8-10.8)
[2020-10-20 06:53] LABS: Polychromasia 1+
[2020-10-20 06:56] LABS: BUN Creatinine Ratio 17.5 (10-20); Calcium 7.6 mg/dl (8.5-10.1); Creatinine Clr Calc Pharmacy 209.8 ml/min; Est GFR (African American) 137.8 ml/min; Est GFR (Non-African American) 118.9 ml/min; Magnesium 1.9 mg/dl (1.8-2.4); Potassium 3.4 mmol/L (3.5-5.1)
[2020-10-20 07:08] LABS: Phosphorus 4.4 mg/dl (2.5-4.9)
--- NOTE | 2020-10-20 08:29 | Surgery Progress Note ---
Date of Service October 20, 2020 Assessment & Plan (1) Status post reversal of ileostomy: Plan: doing well will stop PPN after current bag restart coumadin at 5 mg/day advance to full liquids Admission and Anticipated Discharge Date Admission Date: October 13, 2020 Subjective doing well. jamaal liquids. no nausea. +loose bm's Results & Data ([facility]) Vital Signs (Past 12 Hours) Vital Signs Temp Pulse Resp BP BP Pulse Ox 10/20/20 07:21 37.0 C 78 18 143/76 H 94 10/19/20 22:45 37.3 C 82 18 132/77 97 PG Care Time/CCT Total # of Minutes Spent Total Time Spent with Patient: Total time spent is greater than 50% in coordination of care (as documented) at patient's floor/unit and/or counseling patient: Coding Level of Care Code None Diagnoses Status post reversal of ileostomy Z98.890
[2020-10-20] MEDS: CLINDAMYCIN 900 MG in DEXTROSE 5% 50 ML IV SCH (08:45)
[2020-10-20] MEDS: FAMOTIDINE 20 MG in SYRINGE 3 ML IV SCH ×2 (08:50→20:03)
[2020-10-20] MEDS ORDERED: Custom Peripheral Pn 3,000 ML in TPN BAG 0 ML IV SCH (16:00)
[2020-10-20] MEDS ORDERED: WARFARIN SOD 5 MG TAB PO SCH (16:00)
[2020-10-20] MEDS: SERTRALINE HCL 50 MG TABLET PO SCH (20:03)
[2020-10-21 05:35] LABS: INR 1.1 (0.9-1.1); Prothrombin Time 11.5 Seconds (9.0-12.0)
[2020-10-21] MEDS: FAMOTIDINE 20 MG in SYRINGE 3 ML IV SCH (08:51)
--- NOTE | 2020-10-21 09:38 | Surgery Progress Note ---
Date of Service October 21, 2020 Assessment & Plan (1) Status post reversal of ileostomy: Plan: doing well mo removed keep TALISHA drain for now advance diet as above. doing great. wants to go home. jamaal diet. no n/v. no pain. will d/c home today. restart lovenox. coumadin 2.5 mg daily. have INR drawn saturday/saturday f/u with me as scheduled saturday Admission and Anticipated Discharge Date Admission Date: October 13, 2020 Subjective tolerating full liquids, loose BMs without blood Physical Exam Gastrointestinal (Abdomen): Inspection/Auscultation: + abdominal surgical incision (no erythema); abdomen not distended Percussion/Palpation: abdomen soft Results & Data ([facility]) Vital Signs (Past 12 Hours) Vital Signs Temp Pulse Resp BP BP Pulse Ox 10/21/20 07:41 37.3 C 91 H 18 138/67 96 10/20/20 22:54 36.9 C 88 18 121/70 97 PG Care Time/CCT Total # of Minutes Spent Total Time Spent with Patient: Total time spent is greater than 50% in coordination of care (as documented) at patient's floor/unit and/or counseling patient: Coding Level of Care Code None Diagnoses Status post reversal of ileostomy Z98.890
[2020-10-21] MEDS ORDERED: FAMOTIDINE 20 MG TAB PO SCH (21:00)
== END 2020-10-21 16:24 | disposition home or self-care (01) | DRG 329 ==
LOC: ASU 06:20 → 3E 10:21